=== PATIENT | female | born 1960 | race Caucasian/White ===

== ENCOUNTER 2022-12-14 08:35 | Outpatient (AMB) | payer OTHER, SELFPAY ==
--- NOTE | 2022-12-14 08:38 | A.OFFPC_ITS ---
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
--- NOTE | 2022-12-14 08:38 | MHC.PC.OV ---
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
--- NOTE | 2022-12-14 08:43 | A.OFFPC_ITS ---
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 Intake Note: Pt is here today as a New Patient to est care/ PE Allergies No Known Allergies Allergy (Verified 12/14/22 09:02) Medication List - Last Reconciled 12/14/22 by Giovana Manning MD atorvastatin 20 mg PO DAILY celecoxib 200 mg PO DAILY valsartan 160 mg PO DAILY Tobacco use date assessed: 12/14/22 Dental Screening Dental Screen Date: 12/14/22 Did you have a dental visit in the last 12 months?: No Was dental information given to patient?: Patient declined 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 She is overdue for her screening mammogram, last done 12/31/2019 which came back negative. Her last Pap smear was done 08/30/2018 which came back negative for intraepithelial lesion or malignancy, negative HPV. She had a screening colonoscopy done by Dr. Dayne storey 01/20/2018 at [facility] with removal of 2 benign polyps in the rectum, repeat colonoscopy due again in 2027. She has hypertension currently on valsartan 160 mg once a day. She takes atorvastatin for hyperlipidemia, and takes celecoxib as needed for chronic low back pain and arthritis. She is a current cigarette smoker, previously smokes 1-2 packs a day, now cut down to half a pack a day, not ready to quit was getting lung cancer sc reening at [facility] 2 years ago, per patient which came back negative. [facility] Medical History (Updated 12/14/22 @ 09:34 by Giovana Manning MD) Not ready to quit smoking Cigarette smoker one half pack a day or less Lumbar stenosis with neurogenic claudication History of right tennis elbow Degenerative disc disease, cervical Lumbar spine scoliosis Hx of fracture of wrist Hyperlipidemia Essential hypertension Surgical History (Updated 12/14/22 @ 09:17 by Giovana Manning MD) History of carpal tunnel surgery of right wrist History of carpal tunnel surgery of left wrist History of rotator cuff surgery History of colonoscopy with polypectomy Family History (Updated 12/14/22 @ 09:22 by Giovana Manning MD) Brother Substance use disorder Prostate cancer Daughter Substance use disorder Sister Substance use disorder Maternal Grandmother Diabetes mellitus Mother Alcoholism COPD (chronic obstructive pulmonary disease) Father Alcoholism COPD (chronic obstructive pulmonary disease) Social History (Updated 12/14/22 @ 09:19 by Giovana Manning MD) Housing: House Patient Tobacco Use Status: Current everyday Tobacco user Cigarettes Per Day: 10 Years Smoked: 40 e-Cigarette/Vaping Use: Never Used service: No Current occupational status: disabled Cognitive needs: No Hearing needs: No Vision needs: Yes Questionnaire PHQ-9 Over the last 2 weeks, how often have you been bothered by any of the following problems? 1. Little interest or pleasure in doing things: not at all 2. Feeling down, depressed, or hopeless: not at all 3. Trouble falling or staying asleep, or sleeping too much: not at all 4. Feeling tired or having little energy: not at all 5. Poor appetite or overeating: not at all 6. Feeling bad about yourself - or that you are a failure or have let yourself or your family down: not at all 7. Trouble concentrating on things, such as reading the newspaper or watching television: not at all 8. Moving or speaking so slowly that other people could have noticed. Or the opposite - being so fidgety or restless that you have been moving around a lot more than usual: not at all 9. Thoughts that you would be better off or of hurting yourself in some way: not at all Total score: 0 Depression Screening Interpretation: Negative Depression Screening Done: Yes 14383 - PHQ-9 Billing: Yes Source: Developed by Drs. Andrea Pendleton, Aniya Brewer, Ayden Shepherd and colleagues, with an educational brent from [employer]. AUDIT C Alcohol Use Questionnaire (AUDIT-C) 1. How often do you have a drink containing alcohol?: 2-3 times a week (Twisted tea) 2. How many drinks containing alcohol do you have on a typical day when you are drinking?: 3 or 4 3. How often do you have six or more drinks on one occasion?: Monthly Total Score: 6 LASHONDA-7 AMB Questionnaire LASHONDA-7 Date LASHONDA - 7 assessed: 12/14/22 Feeling nervous, anxious, or on edge: 0 = Not at all Not being able to stop or control worryin = Not at all Worrying too much about different things: 0 = Not at all Trouble relaxin = Not at all Being so restless that it is hard to sit still: 0 = Not at all Becoming easily annoyed or irritable: 0 = Not at all Feeling afraid as if something awful might happen: 0 = Not at all Total LASHONDA-7 score (0-4 normal; 5-9 mild; 10-14 moderate; 15-21 severe): 0 Source: Developed by Drs. Andrea Pendletno, Aniya Brewer, Ayden Shepherd and colleagues, with an educational brent from [employer]. Review of Systems Const Denies body aches, Denies fatigue, Denies fever(s), Denies frequent falls, Denies headache(s) and Denies weakness Eyes Details: Goes to [facility] Denies change in vision, Denies eye discharge and Denies itchy eyes ENT Denies dizziness, Denies headache(s), Denies nasal congestion, Denies nasal discharge, Reports neck pain and Denies sore throat Card Denies chest pain, Denies lightheadedness, Denies palpitations, Denies dyspnea and Denies dyspnea on exertion Resp Denies chest congestion, Reports cough (Dry), Denies dyspnea, Denies dyspnea on exertion and Reports wheezing (Intermittent) GI Denies abdominal pain, Denies change in bowel habits and Reports heartburn (Takes omeprazole daily) Denies hematuria, Denies urinary frequency, Denies dysuria and Denies urinary urgency Musc Denies abnormal gait, Reports back pain (Left), Reports neck pain, Reports radiating pain into limb and Reports stiffness Skin/Breast Denies breast pain, Denies breast mass, Denies lesions and Denies rash Neuro Denies abnormal gait, Denies dizziness, Denies frequent falls, Denies headache(s), Denies focal weakness and Denies weakness Psych Reports no additional complaints and Reports as per HPI Endo Denies fatigue, Denies polydipsia, Denies polyuria and Denies palpitations Codey/Lymph Denies easy bruising Aller/Immun Denies itchy eyes, Denies seasonal rhinorrhea and Reports wheezing (Intermittent) Physical exam (Primary Care) Vital Signs: Last Vital Signs Pulse 80 12/14/22 08:46 BP 130/82 12/14/22 08:46 Pulse Ox 96 12/14/22 08:46 Oxygen Delivery Method Room Air 12/14/22 08:46 BMI result Body Mass Index 23.6 Tobacco/Smoking Status: Tobacco use Status Tobacco use date assessed 12/14/22 12/14/22 08:49 Patient Tobacco Use Status Current everyday Tobacco 12/14/22 09:19 e-Cigarette/Vaping Use Never Used 12/14/22 09:19 PHQ-9: PHQ-9 Score PHQ-9: Total score 0 12/14/22 09:40 Depression Screening Interpretation: Negative Const General: no acute distress and alert Nutritional Appearance: average body habitus Orientation/consciousness: patient oriented x3 HENMT Head: Yes normocephalic and Yes atraumatic Ears: external ears normal, TM's normal bilaterally (Scarring bilateral ear drum) and EAC's normal General nose exam: Normal external nose present and No nasal discharge present Face and sinus: Yes face symmetric Mouth: Normal oral and palatal mucosa present, lip normal, tongue normal, oropharynx normal and moist mucous membranes Eyes General: appearance normal, both eyes and all related structures Eyelids: Yes eyelids normal Conjunctivae: conjunctivae normal Sclerae: sclerae normal Pupils: Equal, round and reactive pupils present EOM: EOMs intact bilaterally Neck Neck: Yes full ROM, Yes no lymphadenopathy and Yes supple Thyroid: Thyroid normal (Nonpalpable) Chest Chest palpation & inspection: normal inspection of the chest Breast/axilla inspection: normal inspection of the breasts Breast/axilla palpation: normal palpation of the breasts Resp Effort & Inspection: normal respiratory effort and able to speak in complete sentences Auscultation: clear to auscultation bilaterally Cardio Rate: regular rate Rhythm: regular rhythm Heart sounds: S1 normal heart sound present and S2 normal heart sound present GI Palpation (GI): Soft to palpation, nontender, no guarding and no masses Auscultation: normal bowel sounds General: Yes no CVA tenderness Back/Spine/Pelvis Back: no CVA tenderness and No back tenderness Skin Other: Erythema above left ankle, not warm to touch General skin exam: no rashes or lesions noted Neuro General: patient oriented x3, gait normal, moves all extremities, Normal light touch and pain sensation, no focal motor deficits and CN's II-XI intact bilaterally Cranial nerves: Yes Equal, round and reactive pupils present Cognition (Neuro): normal cognition Gait exam (Neuro): Normal gait present Motor exam (neuro): 5/5 motor strength present throughout Extrem Other: Slight swelling left lower leg above left ankle, slightly tender to palpation General: Yes normal to inspection, Yes full ROM, Yes no pedal edema and Yes normal gait Psych Appearance: grossly normal and well kempt Mental Status: mental status grossly normal Speech and movement: Normal speech and movement present Affect: normal affect Attitude: cooperative Thought process: Normal thought process present Thought content: Normal thought content present Office Procedures Flu Questionnaire Does the patient have a severe egg allergy?: No Does the patient have severe life threatening allergies?: No Does the patient have a fever or illness today?: No Has the patient ever had Guillain-[place] Syndrome?: No Has the patient ever had any past reaction to a flu shot?: No Immunizations flu vacc [id number] 6mos up(PF) 60 mcg(15 mcgx4)/0.5 mL IM syringe Performing Provider: Giovana Manning MD Performing Location: [facility] Administered by: Misty Echevarria CMA on 12/14/22 09:40 Dose Route Admin Location Dispensed Lot Number Expiration Date NDC Seed Collector 0.5 mL IM Left Deltoid 0.5 mL [id number] 09/02/23 [id number] [employer] VIS Given Date VIS Provided VIS Publication Date 12/14/22 Single Vaccine 20 Eligibility Eligibility Date Funding Source Not [facility] Eligible 12/14/22 Private Assessment and Plan Assessment & Plan (1) Lumbar stenosis with neurogenic claudication: Code(s): M48.062 - Spinal stenosis, lumbar region with neurogenic claudication Plan: Takes celecoxib (2) Pain and swelling of left lower extremity: Code(s): M79.605 - Pain in left leg; M79.89 - Other specified soft tissue disorders Plan: Ordered venous ultrasound to rule out DVT (3) Not ready to quit smoking: Code(s): Z72.0 - Tobacco use Plan: Patient strongly advised to stop smoking, as smoking damages blood vessels, degenerative of joints and spine, damage to lungs and heart., predisposes to developing certain cancers like lung, breast, bladder, colon. Recommended to try decreasing cigarette use by 1-2 cigarettes a day. Advised to monitor what triggers are for smoking so that this can be discussed on the next office visit. We can discuss different options to quit smoking when ready. (4) Cigarette smoker one half pack a day or less: Code(s): F17.210 - Nicotine dependence, cigarettes, uncomplicated Plan: Referred fo lung cancer screening had a previous exam done at [facility] 2 years ago, per patient (5) Wheezing on auscultation: Code(s): R06.2 - Wheezing Plan: Referred for pulmonary function test and pulmonary function test with methacholine challenge, to rule out COPD versus asthma. (6) Annual visit for general adult medical examination with abnormal findings: Code(s): Z00.01 - Encounter for general adult medical examination with abnormal findings Plan: Will check appropriate labs. Recommended dental visit every 6 months and regular eye exams, at least every 2 years. Take adequate calcium in diet and vitamin-D 3 at 2000 IU per cap once a day, in addition to weight-bearing exercises to help maintain good muscle tone and weight control. Instructed to do self-breast exam, and recommended to get yearly mammogram, ordered together with a bone density scan initial. Up-to-date with her screening colonoscopy, due again in 2027. Flu vaccine given today, advised to get her COVID booster, but patient declined, advised to get shingles vaccine and RSV (7) Cervical cancer screening: Code(s): Z12.4 - Encounter for screening for malignant neoplasm of cervix Plan: Referred to [facility] for [place] Pap and pelvic exam Orders: Orders 2 XR DEXA axial skeleton Today Z12.31 - Encounter for screening mammogram for malignant neoplasm of breast, Z78.0 - Asymptomatic menopausal state, Z87.81 - Personal history of (healed) traumatic fracture Comprehensive [place]. Panel Fast Today E78.5 - Hyperlipidemia, unspecified, I10 - Essential (primary) hypertension, Z00.01 - Encounter for general adult medical examination with abnormal findings, Z78.0 - Asymptomatic menopausal state Lipid Panel Today E78.5 - Hyperlipidemia, unspecified, I10 - Essential (primary) hypertension, Z00.01 - Encounter for general adult medical examination with abnormal findings, Z78.0 - Asymptomatic menopausal state Vitamin D 25-OH Total Today E78.5 - Hyperlipidemia, unspecified, I10 - Essential (primary) hypertension, Z00.01 - Encounter for general adult medical examination with abnormal findings, Z78.0 - Asymptomatic menopausal state Influenza [id number] Immunization Today Z23 - Encounter for immunization RT pft w methacholine Today F17.210 - Nicotine dependence, cigarettes, uncomplicated, R06.2 - Wheezing, Z00.01 - Encounter for general adult medical examination with abnormal findings, Z72.0 - Tobacco use MM screening mammo BI Today Z12.31 - Encounter for screening mammogram for malignant neoplasm of breast, Z78.0 - Asymptomatic menopausal state, Z87.81 - Personal history of (healed) traumatic fracture US venous duplex LE LT Today M79.605 - Pain in left leg, M79.89 - Other specified soft tissue disorders Complete Blood Count Auto Diff Today E78.5 - Hyperlipidemia, unspecified, I10 - Essential (primary) hypertension, Z00.01 - Encounter for general adult medical examination with abnormal findings, Z78.0 - Asymptomatic menopausal state PFT pulmonary function test Today F17.210 - Nicotine dependence, cigarettes, uncomplicated, R06.2 - Wheezing, Z72.0 - Tobacco use Referrals [facility] Referral Z12.4 - Encounter for screening for malignant neoplasm of cervix Thoracic Surgery Referral F17.210 - Nicotine dependence, cigarettes, uncomplicated Medications: New albuterol sulfate 90 mcg/actuation 2 puffs inhalation Q6H PRN 8.5 grams 0RF shortness of breath or wheezing Coding Level of Care Code New Pt Prev Care 40-64y(04151) Diagnoses Lumbar stenosis with neurogenic claudication M48.062 Pain and swelling of left lower extremity M79.605; M79.89 Not ready to quit smoking Z72.0 Cigarette smoker one half pack a day or less F17.210 Wheezing on auscultation R06.2 Annual visit for general adult medical examination with abnormal findings Z00.01 Cervical cancer screening Z12.4
[2022-12-14 08:46] VITALS: BP 130/82; PULSE 80; O2SAT 96; BMI 23.6
== END 2022-12-14 11:56 | disposition home or self-care (01) ==
PROVIDERS: PCP Internal Medicine; Visit Provider Internal Medicine
DX: Z00.00 Encounter for general adult medical examination without abnormal findings (principal); M48.062 Spinal stenosis, lumbar region with neurogenic claudication; M79.605 Pain in left leg; M79.89 Other specified soft tissue disorders; Z72.0 Tobacco use; Z23 Encounter for immunization; F17.210 Nicotine dependence, cigarettes, uncomplicated; R06.2 Wheezing
CPT/HCPCS: 90471; 90686; 99386

== ENCOUNTER 2022-12-14 09:46 | Outpatient (REF) | payer OTHER, SELFPAY ==
--- NOTE | ~2022-12-14 | US_ITS ---
EXAMINATION: US VENOUS ULTRASOUND WITH DOPPLER LOWER EXTREMITY, LEFT CLINICAL INFORMATION: Left leg pain. COMPARISON: None available. TECHNIQUE: Ultrasound of the deep veins is performed from the hip to the calf with compression sonography and color and pulse Doppler assessment. Spectral analysis with color-flow imaging is performed. FINDINGS: There is normal venous compression and respiratory variation and augmented flow. The visualized common femoral vein, superficial femoral vein, profunda femoral vein, popliteal vein, and the trifurcation region shows no evidence of deep venous thrombosis. If the patient's symptoms persist, followup ultrasound in 5 days 7 days might be of value to exclude proximal propagation from a non-visualized calf vein. US/US venous duplex LE IMPRESSION: No DVT demonstrated in the left lower extremity.
== END 2022-12-14 09:47 | disposition home or self-care (01) ==
LOC: HO.HMGCX 09:46
PROVIDERS: PCP Internal Medicine; Visit Provider Internal Medicine
DX: M79.605 Pain in left leg (principal); M79.89 Other specified soft tissue disorders
CPT/HCPCS: 93971

== ENCOUNTER 2022-12-27 09:27 | Outpatient (REF) | payer OTHER, SELFPAY ==
[2022-12-27 11:31] LABS: MANUAL DIFF FLAG NO
[2022-12-27 11:38] LABS: Basophils Percent Auto 0.1 % (0-2); Eosinophils Percent Auto 0.1 % (0-4); Hematocrit 40.2 % (37.0-47.0); Imm Gran Abs Auto 0.03 X10*3/uL (0.00-0.03); Imm Gran Pct Auto 0.4 % (0.0-0.4); Lymphocytes Absolute Auto 1.2 X10*3/uL (1.2-4.9); Lymphocytes Percent Auto 14.4 % (20-40); Mean Corpuscular HGB Conc 32.3 g/dl (31.0-35.0); Mean Corpuscular Hemoglobin 36.4 pg (27.0-33.0); Monocytes Absolute Auto 0.7 X10*3/uL (0.1-1.2); Monocytes Percent Auto 8.4 % (2-11); Neutrophils Absolute Auto 6.2 x10*3/uL (2.0-8.3); Neutrophils Percent Auto 76.6 % (45-73); Platelet Count 200 X10*3/uL (160-400); Red Blood Count 3.57 X10*6/uL (4.20-5.50); Red Cell Distribution Width 15.8 % (11.0-16.0); White Blood Count 8.1 X10*3/uL (4.8-10.8)
[2022-12-27 11:40] LABS: Mean Corpuscular Volume 112.6 fL (80.0-98.0)
[2022-12-27 12:42] LABS: Alanine Aminotransferase 26 U/L (0-31); Albumin Level 3.4 g/dL (3.5-5.0); Alkaline Phosphatase 182 U/L (39-117); Anion Gap 16 (12-20); Aspartate Amino Transferase 59 U/L (5-31); Bilirubin Total 0.8 mg/dL (0.0-1.0); Blood Urea Nitrogen 4 mg/dL (9-16); Calcium 9.2 mg/dL (8.4-10.2); Carbon Dioxide 31 mmol/L (22-29); Chloride 98 mmol/L (96-108); Cholesterol 128 mg/dL (<200); Estimated Glomerular Filt Rate > 60; Glucose Fasting 74 mg/dL (60-99); HDL Cholesterol 46 mg/dL (>40); LDL Cholesterol Calculated 66 mg/dL (<100); Potassium 3.4 mmol/L (3.3-5.1); Sodium 142 mmol/L (135-145); Total Protein 6.5 g/dL (6.5-8.0); Triglycerides 84 mg/dL (<150)
[2022-12-27 12:45] LABS: Vitamin D 25-OH Total 18.3 ng/mL (>30)
== END 2022-12-27 09:28 | disposition home or self-care (01) ==
LOC: HO.HMGCLDS 09:27
PROVIDERS: PCP Internal Medicine; Visit Provider Internal Medicine
DX: Z00.01 Encounter for general adult medical examination with abnormal findings (principal); I10 Essential (primary) hypertension; Z78.0 Asymptomatic menopausal state; E78.5 Hyperlipidemia, unspecified
CPT/HCPCS: 36415; 80053; 80061; 82306; 85025

== ENCOUNTER 2023-01-30 08:42 | Outpatient (REF) | payer OTHER, SELFPAY ==
--- NOTE | ~2023-01-30 | MM_ITS ---
EXAMINATION: BONE DENSITOMETRY CLINICAL INDICATION: Asymptomatic menopausal state. COMPARISON: This is the patient's baseline examination. TECHNIQUE: Using a [employer] DXA System (software version: 13.1) manufactured by [employer], dual-energy x-ray absorptiometry was performed of the left hip and left forearm radius 33%. The images are of good technical quality. Summary results are attached. FINDINGS: LEFT FEMUR, NECK: BMD 0.678 g/cm2, Z-score -1.1, T-score -2.6, osteoporosis. LEFT FEMUR, TOTAL: BMD 0.735 g/cm2, Z-score -1.0, T-score -2.2, osteopenia. LEFT FOREARM RADIUS 33%: BMD 0.608 g/cm2, Z-score -2.1, T-score -3.1, osteoporosis. IDENTIFIED RISK FACTORS: Current smoker, alcohol use, history of fracture (adult), recurrent falls, height loss, low calcium intake, menopause. HISTORY OF FRACTURE: Wrist. MEDICATIONS: None listed. MM/XR DEXA axial skeleton IMPRESSION: 1. DIAGNOSIS: Severe osteoporosis based on the lowest T-score value of -3.1 in the forearm radius 33% and history of fracture applying World Health Organization criteria. 2. 10-YEAR FRACTURE RISK PREDICTION, FRAX: According to the guidelines, FRAX calculation should only be performed on patients in the osteopenia bone density category. Therefore, FRAX was not performed on this patient. 3. Treatment Recommendations: NOF guidelines recommend consideration for treatment in postmenopausal women and men age 50 and older presenting with the following: -A hip or vertebral (clinical or morphometric) fracture. -T-score less than or equal to -2.5 at the femoral neck or spine after appropriate evaluation to exclude secondary causes. -Low bone mass at the hip or spine and a 10-year fracture probability by FRAX of greater than or equal to 3% for hip fracture or greater than or equal to 20% for major osteoporotic fracture based on the [place] adapted WHO algorithm. 4. Other Recommendations: All treatment decisions require clinical judgment and consideration of individual patient factors, including patient preferences, comorbidities, previous drug use, risk factors not captured in the FRAX model (e.g. frailty, falls, vitamin D deficiency, increased bone turnover, interval significant decline in bone density) and possible under or overestimation of fracture risk by FRAX. Additional medical evaluation for secondary cause of low bone mineral density may be appropriate. FUTURE SCAN RECOMMENDATION: People with diagnosed cases of osteoporosis or at high risk for fracture should have regular bone mineral density tests. For patients eligible for Medicare, routine testing is allowed once every 2 years. The testing frequency can be increased to one year for patients who have rapidly progressing disease, those who are receiving or discontinuing medical therapy to restore bone mass, or have additional risk factors.
== END 2023-01-30 08:43 | disposition home or self-care (01) ==
LOC: HO.MAMMO 08:42
PROVIDERS: PCP Internal Medicine; Visit Provider Internal Medicine
DX: Z12.31 Encounter for screening mammogram for malignant neoplasm of breast (principal); Z13.820 Encounter for screening for osteoporosis; Z78.0 Asymptomatic menopausal state; Z87.81 Personal history of (healed) traumatic fracture
CPT/HCPCS: 77063; 77067; 77080

== ENCOUNTER → 2023-01-30 09:00 | Outpatient (BNV) | payer OTHER, SELFPAY | PROVIDERS: PCP Internal Medicine; Visit Provider Radiology Diagnostic Radiology | DX: Z12.31 Encounter for screening mammogram for malignant neoplasm of breast (principal) | CPT/HCPCS: 77063; 77067 ==

== ENCOUNTER 2023-02-16 09:49 | Outpatient (AMB) | payer OTHER, SELFPAY ==
--- NOTE | 2023-02-16 09:50 | A.OFFVIS_ITS ---
Intake Intake Visit Reasons: LDCT SD Allergies No Known Allergies Allergy (Verified 12/14/22 09:02) HPI HPI Comments History of Present Illness Details Guadalupe is a pleasant 62 year old female, current smoker with a 45 PYH. Patient has been smoking since age 17 for 45 years at ppd. She is currently down to 1/2 ppd for the past few months. Denies marijuana use. Denies exposure to chemicals or substances like asbestos. Admits second hand smoke exposure. Denies known family history of lung cancer. Denies personal history of cancers. Denies chest CT in last year. Reports recent travel outside the [place] to the [facility]. Denies testing positive for COVID x 1. Denies receiving COVID Vaccine. Denies fever, chills, chest pain, new cough, hemoptysis or unintentional weight loss. Lung Cancer Screening Questionnaire reviewed with patient by provider. Shared Decision Making Completed. Discussed in detail with patient, the risk versus benefit of LDCT screening. Patient in agreement of proceeding with scan. [facility] Medical History (Updated 12/14/22 @ 09:34 by Giovana Manning MD) Not ready to quit smoking Cigarette smoker one half pack a day or less Lumbar stenosis with neurogenic claudication History of right tennis elbow Degenerative disc disease, cervical Lumbar spine scoliosis Hx of fracture of wrist Hyperlipidemia Essential hypertension Surgical History (Updated 12/14/22 @ 09:17 by Giovana Manning MD) History of carpal tunnel surgery of right wrist History of carpal tunnel surgery of left wrist History of rotator cuff surgery History of colonoscopy with polypectomy Family History (Updated 12/14/22 @ 09:22 by Giovana Manning MD) Brother Substance use disorder Prostate cancer Daughter Substance use disorder Sister Substance use disorder Maternal Grandmother Diabetes mellitus Mother Alcoholism COPD (chronic obstructive pulmonary disease) Father Alcoholism COPD (chronic obstructive pulmonary disease) Social History (Updated 02/16/23 @ 10:41 by Jessenia Orr NP) Housing: House Patient Tobacco Use Status: Current everyday Tobacco user Cigarettes Per Day: 10 Years Smoked: 45 e-Cigarette/Vaping Use: Never Used service: No Current occupational status: disabled Cognitive needs: No Hearing needs: No Vision needs: Yes Assessment & Plan Assessment & Plan (1) Cigarette smoker one half pack a day or less: Code(s): F17.210 - Nicotine dependence, cigarettes, uncomplicated Plan Shared decision-making visit completed today in office. This patient meets criteria for LDCT for lung cancer screening purposes and is asymptomatic. Offered smoking cessation. Patient has been scheduled for a low dose chest CT for screening purposes at [facility]. We discussed how the results will be obtained depending on CT findings. RADS 1 and RADS 2 will receive a letter with results and will follow up for annual LDCT. Patient informed they will be contacted at later date to schedule upcoming LDCT scan. RADS 3 and RADS 4 will receive a telephone call, or an office visit after reviewing case at our Lung Cancer Conference to determine when the next LDCT will be scheduled or fu rther interventions that may be needed. Discussed importance of screening program and compliance with yearly LDCT scan as scheduled. Risks, benefits, and alternatives were discussed in detail and patient agrees to proceed. Risks discussed include but are not limited to: radiation exposure and possibility of additional intervention for benign disease. Benefits include detection of lung cancer at an early stage. A copy of today's visit and LDCT results will be sent to patient's PCP. Incidental findings on LDCT are PCP's responsibility. If there are incidental findings, our office will ensure that PCP office is aware of these findings. All questions were answered and patient is in agreement of plan. Coding Level of Care Code Lung Cancer Screening [id number] Diagnoses Cigarette smoker one half pack a day or less F17.210
== END 2023-02-16 10:08 | disposition home or self-care (01) ==
PROVIDERS: PCP Internal Medicine; Visit Provider Nurse Practitioner Family
DX: F17.210 Nicotine dependence, cigarettes, uncomplicated (principal)
CPT/HCPCS: G0296

== ENCOUNTER 2023-02-16 10:09 | Outpatient (REF) | payer OTHER, SELFPAY ==
--- NOTE | ~2023-02-16 | CT_ITS ---
EXAMINATION: CT CHEST SCREENING CLINICAL INFORMATION: Current smoker at 1 pack per day with 41-ucrj-citt history. COMPARISON: None available. TECHNIQUE: Multidetector volumetric CT imaging of the chest is performed without contrast using low dose technique. Additional 2D coronal and sagittal reformatted images and axial 3D maximum intensity projection (MIP) images are generated on the CT workstation. This CT examination was performed using dose optimization techniques as appropriate, variously including the following: *Automated exposure control *Adjustment of mA and/or kV according to patient size (this includes techniques or standardized protocols for targeted exams where dose is matched to indication/reason for exam; i.e. extremities or head) *Use of iterative reconstruction technique DLP: 42 mGy-cm FINDINGS: LUNGS: There is some bibasilar atelectasis present, right greater than left. Tiny 3 mm ground-glass opacity left upper lobe (5:64). Some mild peribronchial thickening is present. The lungs are otherwise clear with no evidence of inflammation or concerning nodules. MEDIASTINUM: The mediastinum is normal. CORONARY ARTERY CALCIFICATION: None visualized on this study. PLEURA: There is no pleural effusion. No pleural mass or thickening. AXILLA: No lymphadenopathy. UPPER ABDOMEN: Unremarkable OSSEOUS STRUCTURES: Iglesias stephanie is present throughout the thoracic spine with associated biconvex thoracolumbar scoliosis. ACDF hardware noted in the lower cervical spine. CT/CT lung screening IMPRESSION: Tiny 3 mm ground-glass opacity left upper lobe. ASSESSMENT: Lung-RADS category 2: Benign RECOMMENDATION: Routine annual low-dose CT screening in 12 months.
== END 2023-02-16 10:10 | disposition home or self-care (01) ==
LOC: HO.CT 10:09
PROVIDERS: PCP Internal Medicine; Visit Provider Nurse Practitioner Family
DX: Z12.2 Encounter for screening for malignant neoplasm of respiratory organs (principal); F17.210 Nicotine dependence, cigarettes, uncomplicated
CPT/HCPCS: 71271; G0296

== ENCOUNTER 2023-03-29 10:42 | Outpatient (REF) | payer OTHER, SELFPAY ==
[2023-03-29 14:37] LABS: Alanine Aminotransferase 36 U/L (0-31); Albumin Level 3.9 g/dL (3.5-5.0); Alkaline Phosphatase 161 U/L (39-117); Anion Gap 13 (12-20); Aspartate Amino Transferase 67 U/L (5-31); Bilirubin Total 0.6 mg/dL (0.0-1.0); Blood Urea Nitrogen 5 mg/dL (9-16); Calcium 9.8 mg/dL (8.4-10.2); Carbon Dioxide 34 mmol/L (22-29); Chloride 102 mmol/L (96-108); Cholesterol 166 mg/dL (<200); Estimated Glomerular Filt Rate > 60; Glucose Fasting 90 mg/dL (60-99); HDL Cholesterol 79 mg/dL (>40); LDL Cholesterol Calculated 67 mg/dL (<100); Sodium 145 mmol/L (135-145); Total Protein 6.9 g/dL (6.5-8.0); Triglycerides 103 mg/dL (<150)
[2023-03-29 14:44] LABS: Vitamin D 25-OH Total 22.7 ng/mL (>30)
[2023-03-29 14:54] LABS: Folate 3.9 ng/mL (> or = 4.0); Vitamin B12 337 pg/mL (200-900)
== END 2023-03-29 10:43 | disposition home or self-care (01) ==
LOC: HO.HMGCLDS 10:42
PROVIDERS: PCP Internal Medicine; Visit Provider Internal Medicine
DX: I10 Essential (primary) hypertension (principal); E55.9 Vitamin D deficiency, unspecified; Z78.0 Asymptomatic menopausal state; E78.5 Hyperlipidemia, unspecified; F17.210 Nicotine dependence, cigarettes, uncomplicated
CPT/HCPCS: 36415; 80053; 80061; 82306; 82607; 82746

== ENCOUNTER 2023-04-02 10:23 | Outpatient (AMB) | payer OTHER, SELFPAY ==
--- NOTE | 2023-04-02 10:24 | A.OFFPC_ITS ---
Intake Visit Reasons: 3 months f/u labs Andriod [phone] Allergies No Known Allergies Allergy (Verified 04/02/23 10:34) Medication List - Last Reconciled 04/02/23 by Giovana Manning MD albuterol sulfate 90 mcg/actuation 2 puffs inhalation Q6H PRN atorvastatin 20 mg PO DAILY valsartan 160 mg PO DAILY Tobacco use date assessed: 04/02/23 Dental Screening Dental Screen Date: 04/02/23 Did you have a dental visit in the last 12 months?: No Was dental information given to patient?: No HPI 3 months f/u labs Andriod [phone] HPI Details 63-year-old lady with hypertension and h yperlipidemia, has vitamin-D deficiency and active cigarette smoker, here today for follow-up. Not interested in quitting at present time, but has cut down to smoking 10 cigarettes a day. Had recent fasting labs done which showed presence still of vitamin-D deficiency and folate deficiency, elevated liver enzymes and alkaline phosphatase, but lower than last check. Her fasting lipids are within normal limit but higher than last office visit [facility] Medical History (Updated 04/02/23 @ 11:01 by Giovana Manning MD) Elevated liver transaminase level Folate deficiency Vitamin D deficiency Not ready to quit smoking Cigarette smoker one half pack a day or less Lumbar stenosis with neurogenic claudication History of right tennis elbow Degenerative disc disease, cervical Lumbar spine scoliosis Hx of fracture of wrist Hyperlipidemia Essential hypertension Surgical History (Updated 12/14/22 @ 09:17 by Giovana Manning MD) History of carpal tunnel surgery of right wrist History of carpal tunnel surgery of left wrist History of rotator cuff surgery History of colonoscopy with polypectomy Family History (Updated 12/14/22 @ 09:22 by Giovana Manning MD) Brother Substance use disorder Prostate cancer Daughter Substance use disorder Sister Substance use disorder Maternal Grandmother Diabetes mellitus Mother Alcoholism COPD (chronic obstructive pulmonary disease) Father Alcoholism COPD (chronic obstructive pulmonary disease) Social History (Updated 02/16/23 @ 10:41 by Jessenia Orr NP) Housing: House Patient Tobacco Use Status: Current everyday Tobacco user Cigarettes Per Day: 10 Years Smoked: 45 Packs per year/per ci.50 e-Cigarette/Vaping Use: Never Used service: No Current occupational status: disabled Cognitive needs: No Hearing needs: No Vision needs: Yes Questionnaire PHQ-9 Over the last 2 weeks, how often have you been bothered by any of the following problems? 1. Little interest or pleasure in doing things: not at all 2. Feeling down, depressed, or hopeless: not at all 3. Trouble falling or staying asleep, or sleeping too much: not at all 4. Feeling tired or having little energy: not at all 5. Poor appetite or overeating: not at all 6. Feeling bad about yourself - or that you are a failure or have let yourself or your family down: not at all 7. Trouble concentrating on things, such as reading the newspaper or watching television: not at all 8. Moving or speaking so slowly that other people could have noticed. Or the opposite - being so fidgety or restless that you have been moving around a lot more than usual: not at all 9. Thoughts that you would be better off or of hurting yourself in some way: not at all Total score: 0 Depression Screening Interpretation: Negative Depression Screening Done: Yes 93044 - PHQ-9 Billing: Yes Source: Developed by Drs. Andrea Pendleton, Aniya Brewer, Ayden Shepherd and colleagues, with an educational brent from [employer]. Thrive Questionnaire Date Thrive assessed: 04/02/23 I am a: Patient What is your living situation today?: I have a steady place to live Within the past 12 months, did the food you bought not last and you didn't have the money to get more?: Never true Within the past 12 months, did you worry whether your food would run out before you got money to buy more?: Never true Do you have trouble paying for medicines?: No Do you have trouble getting transportation to medical appointments?: No Do you have trouble paying your heating and electricity bill?: No Do you have trouble taking care of your child, family member or friend?: No Do you have trouble with day-to-day activities such as bathing, preparing meals, shopping, managing finances, etc.?: No Are you currently unemployed and looking for a job?: No Are you interested in more education?: No THRIVE Score: 0 AUDIT C Alcohol Use Questionnaire (AUDIT-C) 1. How often do you have a drink containing alcohol?: 2-3 times a week 2. How many drinks containing alcohol do you have on a typical day when you are drinking?: 3 or 4 3. How often do you have six or more drinks on one occasion?: Monthly Total Score: 6 LASHONDA-7 AMB Questionnaire LASHONDA-7 Date LASHONDA - 7 assessed: 04/02/23 Feeling nervous, anxious, or on edge: 0 = Not at all Not being able to stop or control worryin = Not at all Worrying too much about different things: 0 = Not at all Trouble relaxin = Not at all Being so restless that it is hard to sit still: 0 = Not at all Becoming easily annoyed or irritable: 0 = Not at all Feeling afraid as if something awful might happen: 0 = Not at all Total LASHONDA-7 score (0-4 normal; 5-9 mild; 10-14 moderate; 15-21 severe): 0 Source: Developed by Drs. Andrea Pendleton, Aniya Brewer, Ayden Shepherd and colleagues, with an educational brent from [employer]. LASHONDA-7 Assessment Billing LASHONDA-7 Assessment Tool: LASHONDA-7 Assessment 69980 Review of Systems Const Denies fatigue, Denies fever(s), Denies frequent falls, Denies headache(s) and Denies weakness Eyes Details: Goes [facility] Denies change in vision, Denies eye discharge and Denies itchy eyes ENT Denies dizziness, Denies headache(s), Denies nasal congestion, Reports neck pain (Recently seen at an urgent care clinic in [facility] earlier this month) and Denies sore throat Card Denies chest pain, Denies lightheadedness, Denies palpitations and Denies dyspnea Resp Denies chest congestion and Denies dyspnea GI Denies abdominal pain, Denies change in bowel habits and Reports heartburn (Takes omeprazole daily) Denies hematuria, Denies urinary frequency, Denies dysuria and Denies urinary urgency Musc Denies abnormal gait, Reports neck pain (Recently seen at an urgent care clinic in [facility] earlier this month), Reports radiating pain into limb and Reports stiffness Neuro Denies abnormal gait, Denies dizziness, Denies frequent falls, Denies headache(s), Denies focal weakness and Denies weakness Endo Denies fatigue, Denies polydipsia, Denies polyuria and Denies palpitations Codey/Lymph Denies easy bruising Aller/Immun Denies itchy eyes and Denies seasonal rhinorrhea Physical exam (Primary Care) Tobacco/Smoking Status: Tobacco use Status Tobacco use date assessed 04/02/23 04/02/23 10:27 Patient Tobacco Use Status Current everyday Tobacco 04/02/23 10:27 e-Cigarette/Vaping Use Never Used 04/02/23 10:27 PHQ-9: PHQ-9 Score PHQ-9: Total score 0 04/02/23 10:27 Depression Screening Interpretation: Negative Thrive Assessment: Date of Thrive Assessment Date Thrive assessed 04/02/23 04/02/23 10:27 Telehealth Telehealth Location of provider rendering services: practice address Location of patient: address on file Patient Identification confirmed using: Name, : Yes Telehealth method: video Patient verbally consented to treatment: Yes Patient verbally consented to billing insurance company: Yes Patient informed of any privacy concerns related to visit: Yes Minutes spent on Phone/Video with Pt.: 15 Results Reviewed Results Reviewed: Name: Guadalupe Nguyen Age/Sex: 63/F : 1960 Unit#: [id number] Attend Dr: Giovana Manning MD Re03/29/23 Status: DEP REF Location: [facility] Disch: SPEC : [id number] SIMA: 03/29/23 STATUS: COMP REQ : [id number] RECD: 03/29/23-[address]: Giovana Manning MD COMP: 03/29/23-1443 ENTERED: 03/29/23-[address]: ORDERED: CMP Fast, Lipid Panel, Vitamin D 25-OH Test Result Flag Reference Sodium 145 135-145 mmol/L Potassium 4.0 3.3-5.1 mmol/L CL 102 96-108 mmol/L CO2 34 H 22-29 mmol/L Gap 13 12-20 BUN 5 L 9-16 mg/dL Creat 0.60 0.5-1.4 mg/dL EGFR > 60 NOTE: For -Panamanian individuals, multiply the result by 1.210. Chronic Kidney Disease: Estimated GFR < 60 mL/min/1.73m2 Severe Kidney Disease: Estimated GFR < 15 mL/min/1.73m2 FBS 90 60-99 mg/dL CA 9.8 # 8.4-10.2 mg/dL Total Bili 0.6 0.0-1.0 mg/dL AST (GOT) 67 H 5-31 U/L ALT (GPT) 36 H 0-31 U/L Protein, Total 6.9 6.5-8.0 g/dL Alb 3.9 3.5-5.0 g/dL Triglyceride 103 <150 mg/dL Desirable Triglyceride: less than 150 mg/dL Borderline High Triglyceride 150-199 mg/dL High Triglyceride: 200-499 mg/dL Very High Triglyceride: greater than or equal to 5OO mg/dL Cholesterol 166 <200 mg/dL Desirable Cholesterol: less than 200 mg/dL Borderline High Cholesterol: 200-239 mg/dL High Cholesterol: greater than 239 mg/dL LDL Calculated 67 <100 mg/dL Desirable LDL: less than 100 mg/dL Near Optimal/Above Optimal LDL: 110-129 mg/dL Borderline High LDL: 130-159 mg/dL High LDL: 160-189 mg/dL Very High LDL: greater than or equal to 190 mg/dL HDL 79 >40 mg/dL Desirable HDL: greater than 40 mg/dL Note: This HDL assay may give artificially low results in patients with liver disease. Alk Phos 161 H 39-117 U/L Vit D 25-OH Tot 22.7 L >30 ng/mL Health Based Reference Values* < 20 ng/mL Deficient 20-30 ng/mL Insufficient > 30 ng/mL Sufficient Laboratory Tests 03/29/23 10:46 Vitamin B12 337 Folate 3.9 L Laboratory Tests 12/27/22 09:30 WBC 8.1 RBC 3.57 L Hgb 13.0 Hct 40.2 MCV 112.6 H MCH 36.4 H RDW 15.8 Plt Count 200 Assessment and Plan Assessment & Plan (1) Vitamin D deficiency: Code(s): E55.9 - Vitamin D deficiency, unspecified Plan: Prescription sent for cholecalciferol 61137 units per capsule to take once a week for the next 3 months. Once finished taking the prescription, continue taking [id number] vitamin-D 3 at 2000 units daily. Will check vitamin-D levels in 3 month (2) Cigarette smoker one half pack a day or less: Code(s): F17.210 - Nicotine dependence, cigarettes, uncomplicated (3) Not ready to quit smoking: Code(s): Z72.0 - Tobacco use Plan: Patient strongly advised to stop smoking, as smoking damages blood vessels, degenerative of joints and spine, damage to lungs and heart., predisposes to developing certain cancers like lung, breast, bladder, colon. Recommended to try decreasing cigarette use by 1-2 cigarettes a day. Advised to monitor what triggers are for smoking so that this can be discussed on the next office visit. We can discuss different options to quit smoking when ready. (4) Hyperlipidemia: Code(s): E78.5 - Hyperlipidemia, unspecified Qualifiers: Hyperlipidemia type: pure hypercholesterolemia Qualified Code(s): E78.00 - Pure hypercholesterolemia, unspecified Plan: Reviewed recent fasting lipid profile with patient with levels within normal limits but higher than last check . Continue with atorvastatin 20 mg daily , in addition to adherence to low-cholesterol diet and regular exercise, at least 30 minutes 3 to 4 times a week. Advised patient to make healthy food choices, eat more fruits, vegetables, whole grains, wild caught fish and low- fat dairy. Limit amount of meat and fried or fatty food products, as well as processed foods and fast foods. Follow-up scheduled with repeat fasting lipid panel in 3 months. (5) Essential hypertension: Code(s): I10 - Essential (primary) hypertension Plan: Continue with valsartan, refill sent (6) Folate deficiency: Code(s): E53.8 - Deficiency of other specified B group vitamins Plan: Started on folic acid 800 mcg taken once a day,. Will check folic acid levels again in 3 month (7) Elevated liver transaminase level: Code(s): R74.01 - Elevation of levels of liver transaminase levels Plan: Patient advised strongly to quit alcohol intake, will monitor liver enzymes and alkaline phosphatase Orders: Orders Comprehensive [place]. Panel Fast 3 Months E53.8 - Deficiency of other specified B group vitamins, E55.9 - Vitamin D deficiency, unspecified, E78.5 - Hyperlipidemia, unspecified, I10 - Essential (primary) hypertension Lipid Panel 3 Months E53.8 - Deficiency of other specified B group vitamins, E55.9 - Vitamin D deficiency, unspecified, E78.5 - Hyperlipidemia, unspecified, I10 - Essential (primary) hypertension Vitamin D 25-OH Total 3 Months E53.8 - Deficiency of other specified B group vitamins, E55.9 - Vitamin D deficiency, unspecified, E78.5 - Hyperlipidemia, unspecified, I10 - Essential (primary) hypertension Vitamin B12 and Folate 3 Months E53.8 - Deficiency of other specified B group vitamins, E55.9 - Vitamin D deficiency, unspecified, E78.5 - Hyperlipidemia, unspecified, I10 - Essential (primary) hypertension Medications: New cholecalciferol (vitamin D3) 1,250 mcg PO QWEEK 3 months 13 caps 0RF E55.9 - Vitamin D deficiency, unspecified folic acid 0.8 mg PO DAILY 90 tabs 1RF valsartan 160 mg PO DAILY 90 tabs 2RF atorvastatin 20 mg PO DAILY 90 tabs 2RF Coding Level of Care Code Tele Est Pt Level 3 (73574) Diagnoses Vitamin D deficiency E55.9 Cigarette smoker one half pack a day or less F17.210 Not ready to quit smoking Z72.0 Pure hypercholesterolemia E78.00 Hyperlipidemia type: pure hypercholesterolemia Essential hypertension I10 Folate deficiency E53.8 Elevated liver transaminase level R74.01 Additional Codes LASHONDA-7 Assessment Billing - LASHONDA-7 Assessment Tool: LASHONDA-7 Assessment 43900 ( [id number])
== END 2023-04-02 16:07 | disposition home or self-care (01) ==
LOC: HO.HMGC 10:23
PROVIDERS: PCP Internal Medicine; Visit Provider Internal Medicine
DX: F17.210 Nicotine dependence, cigarettes, uncomplicated (principal); E55.9 Vitamin D deficiency, unspecified; I10 Essential (primary) hypertension; E78.00 Pure hypercholesterolemia, unspecified; E53.8 Deficiency of other specified B group vitamins; R74.01 Elevation of levels of liver transaminase levels
CPT/HCPCS: 99213

== ENCOUNTER 2023-04-10 08:07 | Outpatient (REF) | payer OTHER, SELFPAY ==
[2023-04-16 20:09] LABS: HPV mRNA E6/E7 rflx Not Detected (Not Detected)
== END 2023-04-10 08:08 | disposition home or self-care (01) ==
LOC: HO.LNP 08:07
PROVIDERS: PCP Internal Medicine; Visit Provider Obstetrics & Gynecology
DX: Z01.419 Encounter for gynecological examination (general) (routine) without abnormal findings (principal); Z11.51 Encounter for screening for human papillomavirus (HPV)
CPT/HCPCS: 87624; 88142

== ENCOUNTER 2023-04-10 08:07 | Outpatient (AMB) | payer OTHER, SELFPAY ==
--- NOTE | 2023-04-10 08:17 | A.OFFVIS_ITS ---
Intake Vital Signs 04/10/23 08:19 Height 5 ft Weight 122 lb BMI 23.8 BP 122/64 Intake Visit Reasons: New patient Annual Pouncing Lathe Operator Required: No Information Interpreted: non-clinical & clinical Interior Design Assistant: Interior Design Assistant Present (Margi) Allergies No Known Allergies Allergy (Verified 04/10/23 08:19) Is last menstrual period known: No Post menopausal: Yes Patient : No HPI HPI Comments History of Present Illness Details Presenting for annual exam. No complaints. Last Pap/HPV was negative in 08/21 Last Mammogram was BI-RADS 1 in 01/25 Last Colonoscopy was done 01/20, the recommendation was to repeat in 10 years [facility] Medical History Hx of scoliosis Elevated liver transaminase level Folate deficiency Vitamin D deficiency Not ready to quit smoking Cigarette smoker one half pack a day or less Lumbar stenosis with neurogenic claudication History of right tennis elbow Degenerative disc disease, cervical Lumbar spine scoliosis Hx of fracture of wrist Hyperlipidemia Essential hypertension Surgical History Hx of section Hx of tubal ligation History of carpal tunnel surgery of right wrist History of carpal tunnel surgery of left wrist History of rotator cuff surgery History of colonoscopy with polypectomy Family History Brother Substance use disorder Prostate cancer Daughter Substance use disorder Sister Substance use disorder Maternal Grandmother Diabetes mellitus Mother Alcoholism COPD (chronic obstructive pulmonary disease) Father Alcoholism COPD (chronic obstructive pulmonary disease) Social History Housing: House Alcohol intake: current Alcohol intake frequency: a few times a month Patient Tobacco Use Status: Current everyday Tobacco user Cigarette Packs Per Day: 1 Cigarettes Per Day: 20 Years Smoked: 45 e-Cigarette/Vaping Use: Never Used Patient : No service: No Current occupational status: disabled Cognitive needs: No Hearing needs: No Vision needs: Yes Female Reproductive History Menstrual Age of Menarche: 16 control method: permanent sterilization Total pregnancies: 2 Full term: 2 Number of Living Children: 2 Date of last pap smear: 08/30/18 (negative) Date of Mammogram: 01/30/23 Date of last Bone Density Screenin01/30/23 Review of Systems Const All systems reviewed & are unremarkable except as noted in HPI and below Card Reports as per HPI Resp Reports as per HPI GI Reports as per HPI and Reports no additional complaints Reports as per HPI Physical Exam Vital Signs: Last Vital Signs BP 122/64 04/10/23 08:19 BMI result Body Mass Index 23.8 Const General: cooperative, healthy appearing and comfortable Chest Chest palpation & inspection: normal inspection of the chest and normal palpation of entire chest wall Breast/axilla inspection: normal inspection of the breasts and normal inspection of the axillae Breast/axilla palpation: normal palpation of the breasts, normal palpation of the axillae and no axillary lymphadenopathy Resp Effort & Inspection: normal respiratory effort Auscultation: clear to auscultation bilaterally Percussion: percussion normal Cardio Palpation: normal PMI Rate: regular rate Rhythm: regular rhythm Heart sounds: no murmurs and no rubs Peripheral pulses: Peripheral pulses 2+ throughout GI Inspection: Yes normal to inspection Palpation (GI): Soft to palpation, nontender, no guarding, not rigid and No hepatosplenomegaly present Percussion: Yes normal to percussion Auscultation: normal bowel sounds Rectal Exam - Female: deferred General: Yes bladder normal to palpation External Female Exam: No lesion Speculum Exam - Vagina: normal appearance of the vagina, normal palpation, normal vaginal discharge and not erythematous Speculum Exam - Cervix: normal appearance of the cervix and normal palpation Bimanual exam- vagina & uterus: normal bimanual exam, normal palpation, uterine size normal, bladder normal to palpation, consistency normal and normal palpation Bimanual Exam- Adnexa, other: normal adnexae, no masses and no tenderness Assessment & Plan Assessment & Plan (1) Well woman exam: Code(s): Z01.419 - Encounter for gynecological examination (general) (routine) without abnormal findings Plan: Co testing done. Counseled the patient about the recommended dietary allowance of 1200 mg of Calcium & 600 IU of vitamin D. Instructions given the patient to schedule next screening Mammogram in 01/26. The patient was instructed to perform monthly self-breast exams and schedule annual exam in a year. All questions answered and the patient verbalized understanding. Coding Level of Care Code New Pt Prev Care 40-64y(69886) Diagnoses Well woman exam Z01.419
[2023-04-10 08:19] VITALS: BP 122/64; BMI 23.8
== END 2023-04-10 08:37 | disposition home or self-care (01) ==
PROVIDERS: PCP Internal Medicine; Visit Provider Obstetrics & Gynecology
DX: Z01.419 Encounter for gynecological examination (general) (routine) without abnormal findings (principal)
CPT/HCPCS: 99386

== ENCOUNTER 2023-07-25 10:07 | Outpatient (REF) | payer OTHER, SELFPAY ==
--- NOTE | ~2023-07-25 | XR_ITS ---
EXAMINATION: XR CERVICAL SPINE CLINICAL INFORMATION: Cervical disc disease. COMPARISON: None available. TECHNIQUE: 6 views of the cervical spine. FINDINGS: The bones are diffusely demineralized. Spinal stabilization hardware in the partially imaged upper thoracic spine. Mild leftward curvature of the cervical spine. ACDF hardware at C6-C7. Screw type device at likely C5-C6 level, evaluation is limited due to demineralization as well as overlying bone and soft tissue structures. XR/XR cervical spine 4V IMPRESSION: ACDF hardware at C6-C7. Screw type device at likely C5-C6 level, evaluation is limited due to demineralization as well as overlying bony and soft tissue structures.
== END 2023-07-25 10:08 | disposition home or self-care (01) ==
LOC: HO.XRAY 10:07
PROVIDERS: PCP Internal Medicine; Visit Provider Psychiatry & Neurology Neurology
DX: M50.90 Cervical disc disorder, unspecified, unspecified cervical region (principal)
CPT/HCPCS: 72050

== ENCOUNTER 2023-11-28 10:42 | Inpatient (IN) | payer OTHER, SELFPAY ==
[2023-11-28] VITALS (9 sets, daily range): BP systolic 96–144; BP diastolic 61–100; PULSE 86–122; RESP 11–105; TEMP 36.6–36.8; O2SAT 95–98; BMI 20.5
--- NOTE | ~2023-11-28 | XR_ITS ---
EXAMINATION: XR CHEST CLINICAL INFORMATION: Weakness COMPARISON: None available. TECHNIQUE: Frontal view of the chest was obtained. FINDINGS: The lungs are adequately expanded. No focal consolidation. No pleural effusions or pneumothorax. The cardiomediastinal silhouette is within normal limits. Dextroconvex curvature of the thoracic spine. Cervical spine fusion hardware. Surgical hardware overlies the thoracic spine. No acute osseous abnormality. XR/XR chest 1V IMPRESSION: No acute pulmonary disease. Electronically signed by: Sagar Duval MD 11/28/2023 01:12 PM EDT
--- NOTE | ~2023-11-28 | US_ITS ---
EXAMINATION: US ABDOMEN LIMITED CLINICAL INFORMATION: Ascites check. COMPARISON: Abdominal ultrasound dated November 30, 2023. CT scan dated November 28, 2023. TECHNIQUE: Limited four-quadrant ultrasound examination was performed to assess for the presence of ascites. FINDINGS: Examination demonstrates a small amount of ascites most notably present in the right upper and right lower quadrants. US/US abdomen limited IMPRESSION: Small amount of ascites most notably present in the right upper and right lower quadrants. Electronically signed by: Jose Zamora MD 12/03/2023 08:57 AM EDT
--- NOTE | ~2023-11-28 | US_ITS ---
EXAMINATION: US ABDOMEN LIMITED CLINICAL INFORMATION: Ascites, elevated LFTs. COMPARISON: CT abdomen and pelvis 11/28/2023 TECHNIQUE: Real-time imaging of the right upper quadrant abdominal viscera. Technically challenging exam FINDINGS: PANCREAS: Pancreas is not well-visualized. LIVER: The liver appears enlarged with diffusely increased liver parenchymal echogenicity with some areas of focal fatty sparing . The liver has a mildly lobulated contour. No focal hepatic lesion. There is no intrahepatic biliary duct dilatation seen. GALLBLADDER: The gallbladder is physiologically distended. Multiple mobile gallstones are present. No evidence of gallbladder wall thickening or pericholecystic fluid.. Gallbladder wall measures 3 mm. COMMON BILE DUCT: Not visualized. FREE FLUID: Small volume ascites US/US abdomen limited IMPRESSION: 1. Technically challenging exam. 2. The liver appears enlarged with diffusely increased liver parenchymal echogenicity suggesting underlying hepatocellular disease with areas of focal fatty sparing. 3. Small volume ascites. 4. Cholelithiasis. Electronically signed by: Andrea Delcid MD 12/01/2023 08:16 AM EDT
--- NOTE | ~2023-11-28 | CT_ITS ---
EXAMINATION: CT ABDOMEN AND PELVIS WITH CONTRAST CLINICAL INFORMATION: decreased appetite, early satiety, nausea/vomiting COMPARISON: None available. TECHNIQUE: Multidetector volumetric images were obtained from the superior aspect of the liver through the pubic symphysis following administration 85 mL of Omnipaque 350 intravenous contrast. Sagittal and coronal reformatted images were obtained on the technologist's workstation. Oral contrast: No This CT examination was performed using dose optimization techniques as appropriate, variously including the following: *Automated exposure control *Adjustment of mA and/or kV according to patient size (this includes techniques or standardized protocols for targeted exams where dose is matched to indication/reason for exam; i.e. extremities or head) *Use of iterative reconstruction technique DLP: 305 mGy-cm FINDINGS: LUNG BASES: The visualized lung bases are unremarkable. LIVER, GALLBLADDER, AND BILIARY TREE: Marked low attenuation of liver parenchyma due to fatty change. No focal liver lesion or intrahepatic bile duct dilatation. Right lobe liver measures 16 cm superior-inferior. Gallbladder is distended. There is no gallbladder wall thickening. No bile duct dilatation. Extrahepatic CBD measures 7 mm. PANCREAS: Unremarkable. SPLEEN: Unremarkable. ADRENAL GLANDS: Unremarkable. KIDNEYS AND URETERS: The kidneys are normal in size, shape, and attenuation. No hydronephrosis, hydroureter, or calculi seen. No perinephric stranding. 1 cm parapelvic cyst in upper pole left kidney. No renal mass or calculus. No hydronephrosis. BLADDER: Unremarkable. GASTROINTESTINAL TRACT: There are numerous diverticula of the descending and sigmoid colon. There is no diverticulitis. Mild diffuse nonspecific bowel wall thickening of the cecum and ascending colon through the mid transverse colon. There is no bowel obstruction. There is a small to moderate volume of stool in the colon. The appendix is normal . The small bowel loops are unremarkable. The stomach is normal. There is no hiatal hernia. MESENTERY: Moderate volume of abdominal ascites. No mesenteric mass or inflammation. ABDOMINAL WALL: No significant hernia is appreciated. LYMPH NODES: Normal. VASCULAR: Vascular calcifications in the abdomen and pelvis. No aneurysm of aorta. PELVIC VISCERA: Uterus is anteverted. No adnexal abnormality. OSSEOUS STRUCTURES: Levoscoliosis thoracolumbar spine. Thoracolumbar Iglesias stephanie in place. Marked degenerative spondylosis of the spine. CT/CT abdomen pelvis w IV con IMPRESSION: 1. Marked fatty change of liver. 2. Moderate volume of abdominal ascites. 3. Mild diffuse nonspecific bowel wall thickening of the cecum and ascending colon through the mid transverse colon. No bowel obstruction. 4. Diverticulosis of colon. No evidence of diverticulitis. Fleischner guidelines were followed. Electronically signed by: Collins Egan MD 11/28/2023 04:43 PM EDT
--- NOTE | 2023-11-28 11:10 | ED.DIZZY ---
HPI - Dizziness General Chief Complaint: General Medical Stated Complaint: nausea-weakness Time Seen by Provider: 11/28/23 12:31 Source: patient Mode of arrival: ambulatory Limitations: no limitations History of Present Illness HPI Narrative: This is a 63-year-old woman with a past medical history of hypertension, hyperlipidemia, vitamin-D deficiency, active cigarette smoker, elevated liver transaminase level, cervical DDD, lumbar spine scoliosis, section who presents for evaluation of weakness. Patient states that for the last few days she has been feeling very tired and generally weak. She states that she has had decreased appetite. She reports that she has been able to eat without associated abdominal pain. She as that when she does eat she feels full and diffuse and has not been able to eat much. She states that she did vomit once yesterday and has felt nauseous. She states no associated diarrhea or bloody stools. She states no dysuria or urinary frequency/urgency. He states no chest pain or difficulty breathing. She states no associated fevers, chills, cough or congestion. She reports feeling lightheaded when she stands up. She states no lightheadedness at this time. She states no diplopia, dysarthria or dysphagia. She states no unilateral extremity weakness or paresthesias. She states no vision changes or hearing changes. She states no syncope. Related Data Previous Rx's ?Medication ?Instructions ?Recorded atorvastatin 20 mg tablet 20 mg PO DAILY #90 tabs 04/02/23 cholecalciferol (vitamin D3) 1,250 1,250 mcg PO QWEEK 3 months #13 04/02/23 mcg (50,000 unit) capsule caps valsartan 160 mg tablet 160 mg PO DAILY #90 tabs 04/02/23 albuterol sulfate 90 mcg/actuation 2 puff inhalation Q6H PRN 06/27/23 aerosol inhaler shortness of breath or wheezing #8.5 grams folic acid 800 mcg tablet 0.8 mg PO DAILY #90 tabs 10/28/23 Allergies Allergy/AdvReac Type Severity Reaction Status Date / Time No Known Allergies Allergy Verified 11/28/23 11:12 Review of Systems Review of Systems: ROS as per HPI [facility] Past Medical History Medical History Hx of scoliosis Elevated liver transaminase level Folate deficiency Vitamin D deficiency Not ready to quit smoking Cigarette smoker one half pack a day or less Lumbar stenosis with neurogenic claudication History of right tennis elbow Degenerative disc disease, cervical Lumbar spine scoliosis Hx of fracture of wrist Hyperlipidemia Essential hypertension Surgical History Hx of section Hx of tubal ligation History of carpal tunnel surgery of right wrist History of carpal tunnel surgery of left wrist History of rotator cuff surgery History of colonoscopy with polypectomy Family History Family History Brother Substance use disorder Prostate cancer Daughter Substance use disorder Sister Substance use disorder Maternal Grandmother Diabetes mellitus Mother Alcoholism COPD (chronic obstructive pulmonary disease) Father Alcoholism COPD (chronic obstructive pulmonary disease) Social History Social History Housing: House Alcohol intake: current Alcohol intake frequency: a few times a month Patient Tobacco Use Status: Current everyday Tobacco user Cigarette Packs Per Day: 1 Cigarettes Per Day: 20 Years Smoked: 45 Smoked in Last 30 Days: Yes e-Cigarette/Vaping Use: Never Used Use of substances other than those prescribed or required for medical reasons: No Advance Directives: No Advance Directives Information Provided: No Do you have a plan to hurt others: No Plan Patient : No service: No Current occupational status: disabled Cognitive needs: No Hearing needs: No Vision needs: Yes Physical Exam Vital Signs: Vital Signs: Last Vital Signs Temp 97.9 F 11/28/23 15:59 Pulse 95 11/28/23 16:18 Resp 11 L 11/28/23 16:18 BP 112/77 11/28/23 16:18 Pulse Ox 96 11/28/23 16:18 O2 Del Method Room Air 11/28/23 16:18 BMI result Body Mass Index 20.5 Gen: NAD, AOx3 HEENT: NCAT, EOMI, normal conjunctiva, tacky oral mucosa CV: RRR Pulm: CTAB, no increased work of breathing GI: Softly distended abdomen, nontender, no rebound, guarding or rigidity Neuro: Grossly non focal Course Course Course Narrative: This is a Rapid Medical Exam performed in triage by Maria L Peres PA-C. Full HPI, ROS and PE to be performed by primary ED provider. 63-year-old male past medical history of HTN, HLD, cigarette smoker presenting to the ED c/o fatigue, lethargy, nausea, lightheadedness, weakness x few days. denies CP/SOB PE: pale, frail, ambulating w/slow steady gait Plan: EKG, labs, CXR, orthos, viral testing Medications Administered Discontinued Medications Generic Name Dose Route Start Last Admin Trade Name Freq PRN Reason Stop Dose Admin Magnesium Sulfate 2 gm in 50 mls @ 25 mls/hr 11/28/23 12:21 11/28/23 16:18 Magnesium Sulfate/H2o IV 11/28/23 14:20 25 mls/hr ONCE ONE Administration Dextrose/Sodium Chloride 1,000 mls @ 1,000 mls/hr 11/28/23 12:34 11/28/23 16:15 D5ns IVCONT 11/28/23 13:33 Infused .Q1H ONE Infusion Potassium Chloride 10 meq in 100 mls @ 100 mls/hr 11/28/23 12:45 11/28/23 17:35 Potassium Chloride/H20 IV 11/28/23 16:44 100 mls/hr Q1H LILLY Administration Iohexol 100 ml 11/28/23 15:24 11/28/23 15:24 Iohexol 350 Mg/Ml 100 Ml Infus..Btl IV 11/28/23 15:25 85 ml ONCE ONE Administration Potassium Chloride 20 meq 11/28/23 12:33 11/28/23 13:39 Potassium Chloride Er 20 Meq Tab.Er.Prt PO 11/28/23 12:34 20 meq ONCE ONE Administration Potassium Chloride 20 meq 11/28/23 12:33 11/28/23 13:40 Potassium Chloride Er 20 Meq Tab.Er.Prt PO 11/28/23 12:34 20 meq ONCE ONE Administration Medical Decision Making Medical Decision Making MDM Narrative: Differential diagnosis includes, but is not limited to dehydration, electrolyte abnormality, ketosis, acute kidney injury, a viral illness, malignancy. Patient is afebrile and hemodynamically stable on room air. Exam is overall benign, but she does appear dehydrated. I reviewed and interpreted the patient's labs as below. Patient is provided 40 mEq p.o. potassium chloride and 10 mEq IV potassium chloride x4 as well as 2 g IV magnesium sulfate x2. I reviewed and interpreted EKG, which is notable for a prolonged QTc of 512. I reviewed diagnostic imaging as below. I discussed patient's case and management with admitting hospitalist, Dr. Liang, and the patient is subsequently admitted in stable and improved condition. Critical Care Time: A total of 45 minutes spent in direct patient care with coordinating critical resuscitation, procedures, reviewing records, discussing with consultants, reviewing labs, and/or managing patient. Admission/Observation Consideration of admission/observation: Escalation of care including admission/observation considered Consult Healthcare Provider Management of the patient was discussed with: Hospitalist Lab Data MDM Lab Attestation statement: I reviewed the patient's lab results. I independently reviewed and interpreted the patient's labs, which are notable for a leukocytosis of 13.6, stable hemoglobin 11.3, anion gap mildly elevated at 18 (which I suspect is secondary to starvation ketosis in the setting of decreased p.o. intake - for which she is provided D5 NS), hypokalemia with a potassium of 2.0, hypomagnesemia with magnesium of 1.0, mixed hyperbilirubinemia with total bilirubin 1.8 and direct bilirubin 0.9, AST 90 (67), ALT 33 (previous 36), alkaline phosphatase 236 (previous 161). Patient has tested negative for COVID-19, influenza and RSV. Troponin flat at 6.6-> 6.6. Urinalysis is not consistent with urinary tract infection, but demonstrates glucosuria and elevated specific gravity. 11/28/23 11:32 11/28/23 11:32 Labs: Lab Results 11/28/23 11/28/23 11/28/23 Range/Units 11:32 14:06 15:59 WBC 13.6 H (4.8-10.8) X10*3/uL RBC 3.39 L (4.20-5.50) X10*6/uL Hgb 11.3 L (12.0-16.0) g/dl Hct 32.7 L (37.0-47.0) % MCV 96.5 (80.0-98.0) fL MCH 33.3 H (27.0-33.0) pg MCHC 34.6 (31.0-35.0) g/dl RDW 16.5 H (11.0-16.0) % Plt Count 366 D (160-400) X10*3/uL MPV 10.1 (9.4-12.3) fL Immature Gran % (Auto) 0.8 H (0.0-0.4) % Neut % (Auto) 79.7 H (45-73) % Lymph % (Auto) 12.4 L (20-40) % Hardin % (Auto) 6.7 (2-11) % Eos % (Auto) 0.1 (0-4) % Baso % (Auto) 0.3 (0-2) % Lymph # (Auto) 1.7 (1.2-4.9) X10*3/uL [place]in # (Auto) 0.9 (0.1-1.2) X10*3/uL Eos # (Auto) 0.0 (0.0-0.4) X10*3/uL Baso # (Auto) 0.0 (0.0-0.2) X10*3/uL Abs Immat Gran (auto) 0.11 H (0.00-0.03) X10*3/uL Absolute Neuts (auto) 10.8 H (2.0-8.3) x10*3/uL Absolute Nucleated RBC 0.060 H (0.0-0.012) X10*3/uL Nucleated RBC % (auto) 0.4 H (0.0-0.2) /100WBC Sodium 142 (135-145) mmol/L Potassium 2.0 L* D (3.3-5.1) mmol/L Chloride 94 L (96-108) mmol/L Carbon Dioxide 32 H (22-29) mmol/L Anion Gap 18 (12-20) BUN 8 L (9-16) mg/dL Creatinine 0.74 (0.5-1.4) mg/dL Estim Creat Clear Calc 57.3 Estimated GFR > 60 Random Glucose 110 (60-115) mg/dL Calcium 7.8 L D (8.4-10.2) mg/dL Magnesium 1.0 L* (1.6-2.6) mg/dL Total Bilirubin 1.8 H (0.0-1.0) mg/dL Direct Bilirubin 0.9 H (0.0-0.5) mg/dL AST 90 H (5-31) U/L ALT 33 H (0-31) U/L Alkaline Phosphatase 236 H (39-117) U/L Troponin I High Sens 6.6 6.6 (<3.5-17.0) ng/L Total Protein 6.0 L (6.5-8.0) g/dL Albumin 2.3 L (3.5-5.0) g/dL Lipase 7 L (8-78) U/L Urine Color Yellow Urine Appearance Clear Urine pH 7.0 (5.0-9.0) Ur Specific [place] >= 1.030 H (1.005-1.025) Urine Protein Negative (Neg-Trace) mg/dL Urine Glucose (UA) 500 H (Negative) mg/dL Urine Ketones Negative (Negative) mg/dL Urine Blood Negative (Negative) Urine Nitrite Negative (Negative) Ur Leukocyte Esterase Negative (Negative) Influenza Type A (PCR) NEGATIVE (Negative) Influenza Type B (PCR) NEGATIVE (Negative) RSV RNA Qual (PCR) NEGATIVE (Negative) SARS-CoV-2 RNA (RT-PCR) NEGATIVE (Negative) Independent Interpretation I performed an independent interpretation of an: EKG and Plain X-Ray Interpretation: I independently reviewed and interpreted patient's EKG, which demonstrates sinus tachycardia at 107 beats per minute, PA 146, QRS 64, QTC 512, no STEMI I independently reviewed and interpreted the patient's chest x-ray, which demonstrates no focal consolidation or pneumothorax I independently reviewed anterior to patient's CT imaging of the abdomen/pelvis, which demonstrates abdominal ascites. Radiology Impression Discussion of test interpretation with radiology: I have reviewed the radiologist's reading. Radiologist Impression: XR/XR chest 1V IMPRESSION: No acute pulmonary disease. Electronically signed by: Sagar Duval MD 11/28/2023 01:12 PM EDT Dictated By: Sagar Duval Signed By: <Electronically signed by Sagar Duval in OV> 11/28/[address]/CT abdomen pelvis w IV con IMPRESSION: 1. Marked fatty change of liver. 2. Moderate volume of abdominal ascites. 3. Mild diffuse nonspecific bowel wall thickening of the cecum and ascending colon through the mid transverse colon. No bowel obstruction. 4. Diverticulosis of colon. No evidence of diverticulitis. Fleischner guidelines were followed. Electronically signed by: Collins Egan MD 11/28/2023 04:43 PM EDT RP Dictated By: Collins Egan MD Signed By: <Electronically signed by Collins Egan MD in OV> 11/28/23 1643 DD/ 1324 TD/TT: 11/28/23 1533 Website Optimization Strategist: ALVARO Procedures EJ/Peripheral Line Arm L: Skin Cleansed in Sterile Fashion: Yes Size (gauge): 20 IV Secured and Dressing Applied: Yes Patient Tolerated Procedure: well Discharge Plan Discharge Clinical Impression: Hypokalemia, Elevated liver transaminase level, Hypomagnesemia, Ascites, Anemia, Hyperbilirubinemia Patient Disposition: Admitted As Inpatient Prescriptions: No Action albuterol sulfate 90 mcg/actuation HFA aerosol inhaler 2 puff inhalation Q6H PRN (Reason: shortness of breath or wheezing) Qty: 8.5 0RF folic acid 800 mcg tablet 0.8 mg PO DAILY Qty: 90 1RF cholecalciferol (vitamin D3) 1,250 mcg (50,000 unit) capsule 1,250 mcg PO QWEEK 90 Days Qty: 13 0RF valsartan 160 mg tablet 160 mg PO DAILY Qty: 90 2RF atorvastatin 20 mg tablet 20 mg PO DAILY Qty: 90 2RF Print Language: Senegalese
--- NOTE | 2023-11-28 11:13 | ECG_ITS ---
Test Reason : SOB Blood Pressure : / mmHG Vent. Rate : 107 BPM Atrial Rate : 107 BPM P-R Int : 146 ms QRS Dur : 064 ms QT Int : 384 ms P-R-T Axes : 059 030 027 degrees QTc Int : 512 ms Poor data quality, interpretation may be adversely affected Sinus tachycardia ST & T wave abnormality, consider anterior ischemia Abnormal ECG When compared with ECG of 31-JUL-2012 21:54, Nonspecific T wave abnormality, worse in Inferior leads QT has lengthened ST-T wave changes have developed in Anterior leads Referred By: Maria L Peres Electronically Signed By:SHAYNE KENNEDY
[2023-11-28 11:42] LABS: Basophils Percent Auto 0.3 % (0-2); Eosinophils Percent Auto 0.1 % (0-4); Hematocrit 32.7 % (37.0-47.0); Hemoglobin 11.3 g/dl (12.0-16.0); Imm Gran Abs Auto 0.11 X10*3/uL (0.00-0.03); Imm Gran Pct Auto 0.8 % (0.0-0.4); Lymphocytes Absolute Auto 1.7 X10*3/uL (1.2-4.9); Lymphocytes Percent Auto 12.4 % (20-40); MANUAL DIFF FLAG NO; Mean Corpuscular HGB Conc 34.6 g/dl (31.0-35.0); Mean Corpuscular Hemoglobin 33.3 pg (27.0-33.0); Mean Corpuscular Volume 96.5 fL (80.0-98.0); Mean Platelet Volume 10.1 fL (9.4-12.3); Monocytes Absolute Auto 0.9 X10*3/uL (0.1-1.2); Monocytes Percent Auto 6.7 % (2-11); NRBC Pct Auto 0.4 /100WBC (0.0-0.2); Neutrophils Absolute Auto 10.8 x10*3/uL (2.0-8.3); Neutrophils Percent Auto 79.7 % (45-73); Platelet Count 366 X10*3/uL (160-400); Red Blood Count 3.39 X10*6/uL (4.20-5.50); Red Cell Distribution Width 16.5 % (11.0-16.0); White Blood Count 13.6 X10*3/uL (4.8-10.8)
[2023-11-28 12:06] LABS: Troponin-I High Sensitivity 6.6 ng/L (<3.5-17.0)
[2023-11-28 12:09] LABS: Alanine Aminotransferase 33 U/L (0-31); Albumin Level 2.3 g/dL (3.5-5.0); Alkaline Phosphatase 236 U/L (39-117); Aspartate Amino Transferase 90 U/L (5-31); Bilirubin Direct 0.9 mg/dL (0.0-0.5); Bilirubin Total 1.8 mg/dL (0.0-1.0); Blood Urea Nitrogen 8 mg/dL (9-16); Calcium 7.8 mg/dL (8.4-10.2); Creatinine Clr Calc Pharmacy 57.3; Estimated Glomerular Filt Rate > 60; Glucose Random 110 mg/dL (60-115)
[2023-11-28 12:23] LABS: Anion Gap 18 (12-20); Carbon Dioxide 32 mmol/L (22-29); Chloride 94 mmol/L (96-108); Sodium 142 mmol/L (135-145)
[2023-11-28 12:27] LABS: Influenza A PCR NEGATIVE (Negative); Influenza B PCR NEGATIVE (Negative); Resp Syncy Virus RNA Qual PCR NEGATIVE (Negative); SARS COV2 PCR INHOUSE NEGATIVE (Negative)
--- NOTE | 2023-11-28 13:01 | MHC.EDTECH ---
This tech assisted patient to bathroom for a urine sample. Patient unable to void. MIGUE metzger.
[2023-11-28] MEDS: Potassium Chloride ER 20 MEQ TAB.ER.PRT PO ×2 (13:39→13:40)
[2023-11-28] MEDS: Dextrose 5 % and 0.9 % NaCl 1,000 ML 1000 ML IVCONT (14:07)
--- NOTE | 2023-11-28 14:09 | PC.NURSE ---
Pt comes to ED today for generalized feeling of unwell. Per , Pt has not eaten or drinking x3 days for reasons unknown. VSS, Pt is alert and oriented x3. Pt in need of two IV access sites however significantly difficult stick. Dr. Rabago placed a 20g u/s guided access to the LUE. Given limited IV access, Dr. Rabago verbally requests bolus of IV Dextrose be given 1st, then will begin in administer IV electrolytes.
--- OUTSIDE RECORDS SUMMARY | 2023-11-28 14:12 | XMS_ITS | Continuity of Care Document ---
Author Organization [facility] Address [address] [place] [address]- Care Team Providers Care Cone Trucker Name Role Phone Lou PIEDRA, Ralph Shannon Primary Care Physician [phone] Encounter [facility] Date(s): 05/10/21 - 06/09/21 [facility] Adult [address] [place] [address]- Attending Physician: Megan Swan Admitting Physician: Megan Swan Referring Physician: AdmtrMegan Allergies, Adverse Reactions, Alerts Substance Reaction Severity Status Tylox Itchy Active Ultram Itchy Active Immunizations Given and Recorded Vaccine Date Status Refusal Reason influenza virus vaccine, inactivated 11/25/19 Give n influenza virus vaccine, inactivated 03/07/19 Give n influenza virus vaccine, inactivated 1 12/14/17 Gi alfredito influenza virus vaccine, inactivated 01/11/17 Give n influenza virus vaccine, inactivated 2 02/23/16 Gi alfredito influenza virus vaccine, inactivated 01/08/15 Give n influenza virus vaccine, inactivated 04/10/14 Give n influenza virus vaccine, inactivated 12/19/12 Give n tetanus/diphtheria/pertussis, acel(Tdap) 04/17/18 Given Pneumococcal Vacc (oldterm) 11/01/11 Given FluLaval (oldterm) 3 11/01/11 Given Tet/Diphth/Acel, Pertussis (oldterm) 09/16/08 Give n tetanus-diphtheria toxoids (Td) 07/03/98 Given 1Admin Note: She reports receiving flu shot. 2Result Comment: [02/23/2016] No reaction 3Admin Note: [facility] Medications atorvastatin 20 mg oral tablet 1 tablet, By Mouth, Daily, # 30 tablet, 5 Refills, [facility] #[id number], 157, cm, 10/06/20 13:51:00 EDT, Height Start Date: 12/28/20 Status: Ordered celecoxib 200 mg oral capsule See Instructions, TAKE ONE CAPSULE BY MOUTH ONCE EVERY DAY., # 30 capsule, 1 Refills, [facility], 152, cm, 06/01/21 9:06:00 EDT, Height Start Date: 06/09/21 Status: Ordered clobetasol 0.05% topical cream 1 application, Topically, 2 times a day, # 60 Gm, 1 Refills, Maintenance, 12/29/19 9:28:00 EDT, Cream, [facility] #[facility], 1 application Topically 2 times a day, 157, cm, 12/29/19 8:59:00 EDT, Height Start Date: 12/29/19 Status: Ordered cloNIDine 0.1 mg oral tablet 0.1 mg, 1, tablet, By Mouth, 2 times a day, # 60 tablet, Refills 5, Tot. Refills 5, Maintenance, 08/09/20 19:25:00 EDT, Route to Pharmacy Electronically, [facility] #[id number], 157, cm, 12/29/19 8:59:00 EDT, Height Start Date: 08/09/20 Status: Ordered NuLYTELY with Flavor Packs oral powder for reconstitution 240 mL, By Mouth, Every 10 minutes, # 1 each, 0 Refills, Maintenance, 10/08/17 10:33:17 EDT, REC Powder, exam is 01/08/2018, 240 mL By Mouth Every 10 minutes Start Date: 10/08/17 Status: Ordered Probiotic Formula By Mouth, Daily, 0 Refills, Maintenance, 06/01/21 9:12:00 EDT, Partial fill upon patient request ifthe prescription is for a schedule II opioid drug. Start Date: 06/01/21 Status: Ordered tiZANidine 4 mg oral capsule 1 capsule = 4 mg, By Mouth, Daily, PRN Pain , Severe, # 30 capsule, 0 Refills, Maintenance, 05/10/21 11:14:00 EST, Capsule, [facility] #[id number], Partial fill upon patient request if the prescription is for a schedule II opioid drug., 157, cm, 05/10/21... Start Date: 05/10/21 Status: Ordered valsartan 160 mg oral tablet 160 mg, 1, tablet, By Mouth, Daily, # 90 tablet, Refills 3, Tot. Refills 3, Maintenance, 10/06/20 14:15:00 EDT, Route to Pharmacy Electronically, [facility] #[id number], Partial fill upon patient request if the prescription is for a schedule II o... 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 3colonoscopy 2013 nl, repeat 2022 4colo 2017 5colo 2017 6colo 2017 Social History Social History Type Response Smoking Status Current every day sm oker; Other: Half a pack of cigarettes daily; entered on: 08/12/15 Sex
--- OUTSIDE RECORDS SUMMARY | 2023-11-28 14:12 | XMS_ITS | Continuity of Care Document ---
Author Organization [facility] Address [address] [place] [address]- Care Team Providers Care Restoration Silversmith Name Role Phone Ralph Blake MD Primary Care Physician Encounter 12/31/19 - 01/07/20 [facility] [address], [facility] [address] [place] [address]- [phone] Attending Physician: Ralph Blake MD Admitting Physician: Ralph Blake MD Referring Physician: Ralph Blake MD Allergies, Adverse Reactions, Alerts Substance Reaction Severity Status Tylox Active Ultram Active Immunizations Given and Recorded Vaccine Date [...] 2Result Comment: [02/23/2016] No reaction 3Admin Note: [facility] Medications amLODIPine 5 mg oral tablet 5 mg, 1, tablet, By Mouth, Daily, # 30 tablet, Refills 2, Tot. Refills 2, Maintenance, 09/15/19 15:06:00 EDT, Route to Pharmacy Electronically, [facility] #[id number], 157, cm, 03/07/19 10:52:00EST, Height Start Date: 09/15/19 Status: Ordered CeleBREX 200 mg oral capsule 1 capsule = 200 mg, By Mouth, Daily, # 30 capsule, 3 Refills, Maintenance, 12/29/19 9:12:00 EDT, Capsule, [facility], 157, cm, 12/29/19 8:59:00 EDT, Height Start Date: 12/29/19 Status: Ordered clobetasol 0.05% topical cream 1 [...] times a day, # 60 tablet, Refills 1, Tot. Refills 1, Maintenance, 11/25/19 9:23:00 EDT, Route to Pharmacy Electronically, [facility] #[id number], 157, cm, 208:59:00 EDT, Height Start Date: 11/25/19 Status: Ordered Lipitor 20 mg oral tablet 1 tablet = 20 mg, By Mouth, Daily, # 30 tablet, 5 Refills, Maintenance, 11/14/19 13:34:00 EDT, Tablet, [facility] #[id number], 157, cm, 11/14/19 13:26:00 EDT, Height Start Date: 11/14/19 Status: Ordered NuLYTELY with Flavor Packs oral powder for reconstitution 240 mL, By Mouth, Every 10 minutes, # 1 each, 0 Refills, Maintenance, 10/08/17 10:33:17 EDT, REC Powder, exam is 01/08/2018, 240 mL By Mouth Every 10 minutes Start Date: 10/08/17 Status: Ordered Problem List Condition Effective Dates Status Health Status Inform ant Chondrocalcinosis of left knee(Confirmed) Active Chronic dermatitis of hands(Confirmed) Active Colonoscopy(Confirmed) 1, 2 Active Diverticulosis(Confirmed) 3 Active Dysthymia(Confirmed) Active Hypercholesterolemia(Confirmed) Active HTN (hypertension)(Confirmed) Active Internal hemorrhoids(Confirmed) 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 2colonoscopy 2013 nl, repeat 2022 3colo 2017 4colo 2017 5colo 2017 6colo 2017 Social History Social History Type Response Smoking Status Current every day zurdo horton; Other: Half a pack of cigarettes daily; entered on: 08/12/15 Sex
--- OUTSIDE RECORDS SUMMARY | 2023-11-28 14:12 | XMS_ITS | Continuity of Care Document ---
Author Organization [facility] Malik Gutiérrez Denzel lt Address [address] [place] [address]- Care Team Providers Care Silver Designer Name Role Phone Ralph Blake MD Primary Care Physician [place] [facility] [place] 10[place]13/20 [facility] Malik Navarroley Adult [address] [place] [address]- Encounter Diagnosis Tobacco abuse(Discharge Diagnosis) - 10/06/20 Attending Physician: Ralph Blake MD Allergies, Adverse Reactions, [...] 2Result Comment: [02/23/2016] No reaction 3Admin Note: [employer] [employer] [facility] Medications CeleBREX 200 mg oral capsule 1 capsule = 200 mg, By Mouth, Daily, # 30 capsule, 1 Refills, Maintenance, 08/15/20 15:57:00 EDT, Capsule, [facility], 157, cm, 12/29/19 8:59:00 EDT, Height Start Date: 08/15/20 Status: Ordered clobetasol 0.05% topical cream 1 [...] 08/09/20 19:25:00 EDT, Route to Pharmacy Electronically, [id number], 157, cm, 12/29/19 8:59:00 EDT, Height Start Date: 08/09/20 Status: Ordered Lipitor 20 mg oral tablet 1 tablet = 20 mg, By Mouth, Daily, # 30 tablet, 5 Refills, Maintenance, 11/14/19 13:34:00 EDT, Tablet, [facility] #[id number], 157, cm, 11/14/19 13:26:00 EDT, Height Start Date: 11/14/19 Status: Ordered Macrobid macrocrystals-monohydrate 100 mg oral capsule 1 capsule = 100 mg, By Mouth, 2 times a day, for 7 days, # 14 capsule, 0 Refills, Acute 10/15/20 11:27:00 EDT, 10/08/20 11:27:00 EDT, Capsule, [facility][id number], Partial fill upon patient request if the prescription is for a schedule II opio... Start Date: 10/08/20 Stop Date: 10/15/20 Status: Ordered NuLYTELY with Flavor Packs oral powder for reconstitution 240 mL, By Mouth, Every 10 minutes, # 1 each, 0 Refills, Maintenance, 10/08/17 10:33:17 EDT, REC Powder, exam is 01/08/2018, 240 mL By Mouth Every 10 minutes Start Date: 10/08/17 Status: Ordered valsartan 160 mg oral tablet 160 mg, 1, tablet, By Mouth, Daily, # 90 tablet, Refills 3, Tot. Refills 3, Maintenance, 10/06/20 14:15:00 EDT, Route to Pharmacy Electronically, [facility] #[id number], Partial fill upon patient request if the prescription is for a schedule II o... 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 3colonoscopy 2013 nl, repeat 2022 4colo 2017 5colo 2017 6colo 2018 7colo 2017 Diagnosis Diagnosis Type Effective Dates Health Status Cl inical Service Informant Tobacco abuse Discharge Diagnosis 10/06/20 Vital Signs Most recent to oldest [Reference Range]: 1 Height 157.00 cm (10/06/20 1:51 PM) Weight 65.0 kg (10/06/20 1:51 PM) Oxygen Saturation [94-100 %] 98 % (10/06/20 1:51 PM) Pulse Rate [55-90 bpm] 82 bpm (10/06/20 1:51 PM) Body Mass Index [18.5-24.99] 26.37 *H* (10/06/20 1:51 PM) Blood Pressure [90-138/55-84 mm Hg] 102/ 62mm Hg (10/06/20 1:51 PM) Respiratory Rate [16-30 br/min] 12 br/mi n *L* (10/06/20 1:51 PM) Mode of Delivery (Oxygen) Room air (10/06/20 1:51 PM) Blood pressure sites Arm, left (10/06/20 1:51 PM) Weight Obtained Via Standing scale (10/06/20 1:51 PM) Social History Social History Type Response Smoking Status Current every day zurdo horton; Other: Half a pack of cigarettes daily; entered on: 08/12/15 Sex
--- OUTSIDE RECORDS SUMMARY | 2023-11-28 14:12 | XMS_ITS | Continuity of Care Document ---
Author Organization [facility] Denzel lt Address [address] [place] [address]- Care Team Providers Care Wedding Planning Internship Name Role Phone Ralph Blake MD Primary Care Physician [phone] [place] [facility] [place] 07/08/21 - 08/07/21 [facility] Adult [address] [place] [address]- Allergies, Adverse Reactions, Alerts Substance Reaction Severity [...] 2Result Comment: [02/23/2016] No reaction 3Admin Note: [employer] [facility] Medications atorvastatin 20 mg oral tablet 1 tablet, By Mouth, Daily, # 90 tablet, 3 Refills, 07/06/21 14:26:00 EDT, [facility] #[id number], 152, cm, 07/06/21 14:01:00 EDT, Height Start Date: 07/06/21 Status: Ordered celecoxib 200 mg oral capsule See Instructions, TAKE ONE CAPSULE BY MOUTH ONCE EVERY DAY., # 30 capsule, 11 Refills, 07/06/21 14:27:00 EDT, [facility], 152, cm, 07/06/21 14:01:00 EDT, Height Start Date: 07/06/21 Status: Ordered clobetasol 0.05% topical cream 1 application, Topically, 2 times a day, # 60 Gm, 1 Refills, Maintenance, 12/29/19 9:28:00 EDT, Cream, [facility], 1 application Topically 2 times a day, 157, cm, 12/29/19 8:59:00 EDT, Height Start Date: 12/29/19 Status: Ordered cloNIDine 0.1 mg oral tablet 0.1 mg, 1, tablet, By Mouth, Daily, # 90 tablet, Refills 3, Tot. Refills 3, Maintenance, 07/06/21 14:27:00 EDT, Route to Pharmacy Electronically, [facility] #[id number], 152, cm, 07/06/21 14:01:00 EDT, Height Start Date: 07/06/21 Status: Ordered NuLYTELY with Flavor Packs oral [...] tablet, Refills 3, Tot. Refills 3, Maintenance, 07/06/21 14:21:00 EDT, Route to Pharmacy Electronically, [facility] #[id number], Partial fill upon patient request if the prescription is for a schedule II o... 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 3colonoscopy 2013 nl, repeat 2022 4colo 2017 5colo 2017 6colo 2017 7colo 2017 Social History Social History Type Response Smoking Status Current every day sm sol; Other: Half a pack of cigarettes daily; entered on: 08/12/15 Sex
--- OUTSIDE RECORDS SUMMARY | 2023-11-28 14:12 | XMS_ITS | Continuity of Care Document ---
Author Organization [facility] Denzel lt Address [address] [place] [address]- Care Team Providers Care Agronomy Internship Name Role Phone Ralph Blake MD Primary Care Physician En[facility] [place] Date(s): 05/10/21 - 05/17/21 [facility] Adult [address] [place] [address]- Attending Physician: Last COLON, Ashely Ivy Allergies, Adverse Reactions, Alerts Substance Reaction Severity [...] 2Result Comment: [02/23/2016] No reaction 3Admin Note: [facility] Medications atorvastatin 20 mg oral tablet 1 tablet, By Mouth, Daily, # 30 tablet, 5 Refills, [facility] #[id number], 157, cm, 10/06/20 13:51:00 EDT, Height Start Date: 12/28/20 Status: Ordered celecoxib 200 mg oral capsule See Instructions, TAKE ONE CAPSULE BY MOUTH EVERY DAY, # 30 capsule, 1 Refills, [facility], 157, cm, 10/06/20 13:51:00 EDT, Height Start Date: 03/27/21 Status: Ordered clobetasol 0.05% topical cream 1 [...] 08/09/20 19:25:00 EDT, Route to Pharmacy Electronically, [facility] #[id number], 157, cm, 12/29/19 8:59:00 EDT, Height Start Date: 08/09/20 Status: Ordered NuLYTELY with Flavor Packs oral powder for reconstitution 240 mL, By Mouth, Every 10 minutes, # 1 each, 0 Refills, Maintenance, 10/08/17 10:33:17 EDT, REC Powder, exam is 01/08/2018, 240 mL By Mouth Every 10 minutes Start Date: 10/08/17 Status: Ordered tiZANidine 4 mg oral capsule 1 capsule = 4 mg, By Mouth, Daily, PRN Pain , Severe, # 30 capsule, 0 Refills, Maintenance, 05/10/21 11:14:00 EST, Capsule, [facility]acy #[id number], Partial fill upon patient request if the prescription is for a schedule II opioid drug., 157, cm, 05/10/21... Start Date: 05/10/21 Status: Ordered valsartan 160 mg oral tablet 160 mg, 1, tablet, By Mouth, Daily, # 90 tablet, Refills 3, Tot. Refills 3, Maintenance, 10/06/20 14:15:00 EDT, Route to Pharmacy Electronically, [facility] #[id number], Partial fill upon patient request if the prescription is for a schedule II o... Start Date: 10/06/20 Status: Ordered Problem List Condition Effective Dates Status Health Status Inform ant Chondrocalcinosis(Confirmed) 1 Active Chondrocalcinosis of left knee(Confirmed) Active Chronic dermatitis of hands(Confirmed) Active Colonoscopy(Confirmed) 2, 3 Active Diverticulosis(Confirmed) 4 Active Dysthymia(Confirmed) Active Hypercholesterolemia(Confirmed) Active HTN (hypertension)(Confirmed) Active Internal hemorrhoids(Confirmed) 5 Active emt intermediate current use of opi ate analgesic(Confirmed) Active [...] 2022 4colo 2017 5colo 2017 6colo 2017 7c2017 Vital Signs Most recent to oldest [Reference Range]: 1 Height 157.00 cm (05/10/21 10:53 AM) Weight 60.5 kg (05/10/21 10:53 AM) Oxygen Saturation [94-100 %] 97 % (05/10/21 10:53 AM) Pulse Rate [55-90 bpm] 87 bpm (05/10/21 10:53 AM) Body Mass Index [18.5-24.99] 24.54 (05/10/21 10:53 AM) Blood Pressure [90-138/55-84 mm Hg] 126/ 66mm Hg (05/10/21 10:53 AM) Temperature [96.8-100.4 DegF] 98.7 DegF (05/10/21 10:53 AM) Mode of Delivery (Oxygen) Room air (05/10/21 10:53 AM) Blood pressure sites Arm, left (05/10/21 10:53 AM) Temperature Route Oral (05/10/21 10:53 AM) Weight Obtained Via Standing scale (05/10/21 10:53 AM) Social History Social History Type Response Smoking Status Current every day sm oker; Other: Half a pack of cigarettes daily; entered on: 08/12/15 Sex
--- OUTSIDE RECORDS SUMMARY | 2023-11-28 14:12 | XMS_ITS | Continuity of Care Document ---
Author Organization [facility] Herriman Denzel lt Address [address] [place] [address]- Care Team Providers Care Ballistics Expert Name Role Phone Ralph Blake MD Primary Care Physician [place] [facility] [place] 12/18/19 - 04/16/20 [facility] [place] Adult [address] [place] [address]- Attending Physician: Ralph Blake MD Allergies, Adverse [...] 2Result Comment: [02/23/2016] No reaction 3Admin Note: [facility] Medications amLODIPine 5 mg oral tablet 5 mg, 1, tablet, By Mouth, Daily, # 30 tablet, Refills 2, Tot. Refills 2, Maintenance, 09/15/19 15:06:00 EDT, Route to Pharmacy Electronically, [facility] #[id number], 157, cm, 03/07/19 10:52:00EST, Height Start Date: [...] tablet, Refills 5, Tot. 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 2colonoscopy 2013 nl, repeat 2022 3colo 2017 4colo 2017 5colo 2017 6colo 2017 Social History Social History Type Response Smoking Status Current every day zurdo horton; Other: Half a pack of cigarettes daily; entered on: 08/12/15 Sex
--- OUTSIDE RECORDS SUMMARY | 2023-11-28 14:12 | XMS_ITS | Continuity of Care Document ---
Author Organization [facility] Denzel lt Address [address] [place] [address]- Care Team Providers Care Fruit Express Agent Name Role Phone Ralph Blake MD Primary Care Physician En[place] [facility] [place] Date(s): 10/19/20 - 11/18/20 [facility] Adult [address] [place] [address]- Allergies, Adverse Reactions, Alerts Substance Reaction Severity [...] 2Result Comment: [02/23/2016] No reaction 3Admin Note: [facility] Medications celecoxib 200 mg oral capsule See Instructions, TAKE ONE CAPSULE BY MOUTH EVERY DAY, # 30 capsule, 1 Refills, Maintenance, [facility], 157, cm, 10/06/20 13:51:00 EDT, Height Start Date: 10/19/20 Status: Ordered clobetasol 0.05% topical cream 1 [...] 08/09/20 19:25:00 EDT, Route to Pharmacy Electronically, [facility] #[id number], 157, cm, 12/29/19 8:59:00 EDT, Height Start Date: 08/09/20 Status: Ordered Lipitor 20 mg oral tablet 1 tablet = 20 mg, By Mouth, Daily, # 30 tablet, 5 Refills, Maintenance, 11/14/19 13:34:00 EDT, Tablet, [facility] #[id number], 157, cm, 11/14/19 13:26:00 EDT, Height Start [...] 10/06/20 14:15:00 EDT, Route to Pharmacy Electronically, [facility] #[id number], Partial fill upon patient request if the prescription is for a schedule II o... 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
--- OUTSIDE RECORDS SUMMARY | 2023-11-28 14:12 | XMS_ITS | Continuity of Care Document ---
Author Organization [facility] Address [address] [facility], [address] [place] [address]- Care Team Providers Care Perlite Grinder Name Role Phone Ralph Blake MD Primary Care Physician Encounter 09/21/22 - 11/19/22 [facility] [address], [facility] [address] [place] [address]- Attending Physician: Cipriano , Provider Admitting Physician: RosannaBreastExam , Provider Referring Physician: NoBreastExam , Provider Allergies, Adverse Reactions, Alerts Substance Reaction Severity [...] 2Result Comment: [02/23/2016] No reaction 3Admin Note: [facility] Medications atorvastatin 20 mg oral tablet 1 tablet, By Mouth, Daily, # 90 tablet, 3 Refills, 07/06/21 14:26:00 EDT, [facility] #[id number], 152, cm, 07/06/21 14:01:00 EDT, Height Start Date: 07/06/21 Status: Ordered celecoxib 200 mg oral capsule 1 capsule, By Mouth, Daily, # 30 capsule, 11 Refills, Maintenance, 08/07/22 16:13:00 EDT, [facility], 152, cm, 08/24/21 10:53:00 EDT, Height, 60.6, kg, 08/09/21 10:51:00 EDT, Dry Weight Start Date: 08/07/22 Status: Ordered clobetasol 0.05% topical cream 1 [...] 07/06/21 14:27:00 EDT, Route to Pharmacy Electronically, [facility] #[id number], 152, cm, 07/06/21 14:01:00 EDT, Height Start [...] 07/06/21 14:21:00 EDT, Route to Pharmacy Electronically, [facility] #[id number], Partial fill upon patient request if the prescription is for a schedule II o... Start Date: 07/06/21 Status: Ordered Problem List Condition Confirmation Course Effective Dates Status Health Status Informant Chondrocalcinosis 1 Confirmed Active Chondrocalcinosis of left knee Confirmed Active Chronic dermatitis of hands Confirmed Active Colonoscopy 2, 3 Confirmed Active Diverticulosis 4 Confirmed Active Dysthymia Confirmed Active Epigastric hernia Confirmed Active Hypercholesterolemia Confirmed Active HTN (hypertension) Confirmed Active Internal hemorrhoids 5 Confirmed Active terminologist current use of opiate analgesic Confirmed Active Lumbar spinal stenosis Confirmed Active Elevated MCV Confirmed Active Neck pain Confirmed Active Osteoarthritis of right hip Confirmed Active Polyp of colon 6 Confirmed Active Polyp of rectum 7 Confirmed Active Shoulder pain Confirmed Active Edema Confirmed Active Tennis elbow Confirmed Active Tobacco abuse Confirmed Active 1Left knee 2clonoscopy 2013 normal, repeat 2018 not 2022 per report. 3colonoscopy 2013 nl, repeat 2022 4colo 2018 5colo 2018 6colo 2018 7colo 2017 Social History Social History Type Response Smoking Status Former smoker, quit more than 30 days ago; Other: Quit 1 month ago; entered on: 08/24/21 Sex Implantable Device List Procedure Provider Procedure Date Device Type Site Repair Hernia Epigastric Open Wilfrido PIEDRA, Adiel 08/09/21 Unknown Abdomen Device Identifier Serial Number Lot or Batch Number Manufacturing Date Expiration Date Distinct Identification Code MRI Safety Implantable Status Assigning Authority Unknown Unknown [id number] Unknown 10/30/22 Unknown Unknown Active Unknown Patient Care team information Care Team Personnel Name: Lou PIEDRA, Ralph Shannon Position: [facility] Physician - Primary Care Member Role: PCP Address: Address: [address] [place] [address]- Care Team Related Persons Name: AMPARO KAISER Address: home [address] [place] [address]
--- OUTSIDE RECORDS SUMMARY | 2023-11-28 14:12 | XMS_ITS | Continuity of Care Document ---
Author Organization [facility] Denzel Address [address] [place] [address]- Care Team Providers Care Kaiawhina Name Role Phone Lou PIEDRA, Ralph Shannon Primary Care Physician En[place] [facility] [place] Date(s): 05/09/21 - 06/08/21 [facility] Adult [address] [place] [address]- Allergies, Adverse Reactions, Alerts Substance Reaction Severity [...] 2Result Comment: [02/23/2016] No reaction 3Admin Note: [facility] Medications atorvastatin 20 mg oral tablet 1 tablet, By Mouth, Daily, # 30 tablet, 5 Refills, [facility] #[id number], 157, cm, 10/06/20 13:51:00 EDT, Height Start [...] 08/09/20 19:25:00 EDT, Route to Pharmacy Electronically, [facility] #[id number], 157, cm, 12/29/19 8:59:00 EDT, Height Start [...] 0 Refills, Maintenance, 05/10/21 11:14:00 EST, Capsule, [facility]/pharmacy #[id number], Partial fill upon patient request if the prescription is for a schedule II opioid drug., 157, cm, 05/10/21... Start Date: 05/10/21 Status: Ordered valsartan 160 mg oral tablet 160 mg, 1, tablet, By Mouth, Daily, # 90 tablet, Refills 3, Tot. Refills 3, Maintenance, 10/06/20 14:15:00 EDT, Route to Pharmacy Electronically, [facility] #[id number], Partial fill upon patient request if the prescription is for a schedule II o... Start Date: 10/06/20 Status: Ordered Problem List Condition Effective Dates Status Health Status Inform ant Chondrocalcinosis(Confirmed) 1 Active Chondrocalcinosis of left knee(Confirmed) Active Chronic dermatitis of hands(Confirmed) Active Colonoscopy(Confirmed) 2, 3 Active Diverticulosis(Confirmed) 4 Active Dysthymia(Confirmed) Active Epigastric hernia(Confirmed) Active Hypercholesterolemia(Confirmed) Active HTN (hypertension)(Confirmed) Active Internal hemorrhoids(Confirmed) 5 Active senior living current use of opi ate analgesic(Confirmed) Active [...]
--- OUTSIDE RECORDS SUMMARY | 2023-11-28 14:12 | XMS_ITS | Continuity of Care Document ---
Author Organization [facility] Denzel Address [address] [place] [address]- Care Team Providers Care Quality Assurance Supervisor Trim Name Role Phone Ralph Blake MD Primary Care Physician [phone] Encounter [facility] [place] Date(s): 07/06/21 - 07/13/21 [facility] Adult [address] [place] [address]- Encounter Diagnosis HTN (hypertension)(Discharge Diagnosis) - 07/06/21 Hypercholesterolemia(Discharge Diagnosis) - 07/06/21 Attending Physician: Ralph Blake MD Referring Physician: Adiel Anna MD Allergies, Adverse Reactions, Alerts Substance Reaction [...] 2Result Comment: [02/23/2016] No reaction 3Admin Note: [facility] Medications atorvastatin 20 mg oral tablet 1 tablet, By Mouth, Daily, # 90 tablet, 3 Refills, 07/06/21 14:26:00 EDT, [facility] #[id number], 152, cm, 07/06/21 14:01:00 EDT, Height Start [...] 07/06/21 14:27:00 EDT, Route to Pharmacy Electronically, [facility] #[id number], 152, cm, 07/06/21 14:01:00 EDT, Height Start [...] 07/06/21 14:21:00 EDT, Route to Pharmacy Electronically, [facility] #[id number], Partial fill upon patient request if the [...] (hypertension)(Confirmed) Active Internal hemorrhoids(Confirmed) 5 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) Active [...] 2017 5colo 2017 6colo 2017 7colo 2017 Diagnosis Diagnosis Type Effective Dates Health Status Clinical Service Informant HTN (hypertension) Discharge Diagnosis 07/06/21 Hypercholesterolemia Discharge Diagnosis 07/06/21 Vital Signs Most recent to oldest [Reference Range]: 1 Height 152 cm (07/06/21 2:01 PM) Weight 63.3 kg (07/06/21 2:01 PM) Oxygen Saturation [94-100 %] 98 % (07/06/21 2:01 PM) Pulse Rate [55-90 bpm] 102 bpm *H* (07/06/21 2:01 PM) Body Mass Index [18.5-24.99] 27.4 *H* (07/06/21 2:01 PM) Blood Pressure [90-138/55-84 mm Hg] 122/ 82mm Hg (07/06/21 2:01 PM) Mode of Delivery (Oxygen) Room air (07/06/21 2:01 PM) Blood pressure sites Arm, left (07/06/21 2:01 PM) Weight Obtained Via Standing scale (07/06/21 2:01 PM) Social History Social History Type Response Smoking Status Current every day sm sol; Other: Half a pack of cigarettes daily; entered on: 08/12/15 Sex
--- OUTSIDE RECORDS SUMMARY | 2023-11-28 14:12 | XMS_ITS | Continuity of Care Document ---
Author Organization [facility] Brock Denzel lt Address [address] [place] [address]- Care Team Providers Care Nuisance Animal Damage Control Agent Name Role Phone Ralph Blake MD Primary Care Physician [place] [facility] [place] 12[place]/20 [facility] Adult [address] [place] [address]- Attending Physician: Ralph Blake MD Allergies, Adverse [...] 2Result Comment: [02/23/2016] No reaction 3Admin Note: [facility] Medications celecoxib 200 mg oral capsule See [...] 08/09/20 19:25:00 EDT, Route to Pharmacy Electronically, [facility] #[id number], 157, cm, 12/29/19 8:59:00 EDT, Height Start Date: 08/09/20 Status: Ordered Lipitor 20 mg oral tablet 1 tablet = 20 mg, By Mouth, Daily, # 30 tablet, 5 Refills, Maintenance, 11/14/19 13:34:00 EDT, Tablet, [facility] #[id number], 157, cm, 11/14/19 13:26:00 EDT, Height Start [...] 10/06/20 14:15:00 EDT, Route to Pharmacy Electronically, [facility] #[id number], Partial fill upon patient request if the prescription is for a schedule II o... 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
--- OUTSIDE RECORDS SUMMARY | 2023-11-28 14:12 | XMS_ITS | Continuity of Care Document ---
Author Organization [facility] Brock Denzel lt Address [address] [place] [address]- Care Team Providers Care Unisaw Operator Name Role Phone Ralph Blake MD Primary Care Physician [phone] [facility]counter [facility] Date(s): 12/05/19 - 01/04/20 [facility] Adult [address] [place] [address]- [facility] Allergies, Adverse Reactions, Alerts Substance Reaction Severity [...] 2Result Comment: [02/23/2016] No reaction 3Admin Note: [facility] Medications amLODIPine 5 mg oral tablet 5 mg, 1, tablet, By Mouth, Daily, # 30 tablet, Refills 2, Tot. Refills 2, Maintenance, 09/15/19 15:06:00 EDT, Route to Pharmacy Electronically, [facility] #[id number], 157, cm, 03/07/19 10:52:00EST, Height Start Date: [...] 11/25/19 9:23:00 EDT, Route to Pharmacy Electronically, [facility] #[id number], 157, cm, 208:59:00 EDT, Height Start Date: 11/25/19 Status: Ordered Lipitor 20 mg oral tablet 1 tablet = 20 mg, By Mouth, Daily, # 30 tablet, 5 Refills, Maintenance, 11/14/19 13:34:00 EDT, Tablet, [facility] #[id number], 157, cm, 11/14/19 13:26:00 EDT, Height Start [...] HTN (hypertension)(Confirmed) Active Internal hemorrhoids(Confirmed) 4 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 2colonoscopy 2013 nl, repeat 2022 3colo 2017 4colo 2017 5colo 2017 6c2017 Social History Social History Type Response Smoking Status Current every day sm sol; Other: Half a pack of cigarettes daily; entered on: 08/12/15 Sex
--- OUTSIDE RECORDS SUMMARY | 2023-11-28 14:12 | XMS_ITS | Continuity of Care Document ---
Author Organization [facility] Brock Denzel lt Address [address] [place] [address]- Care Team Providers Care Property And Supply Officer Name Role Phone Ralph Blake MD Primary Care Physician En[place] [facility] [place] Date(s): 10/07/20 - 11/06/20 [facility] Adult [address] [place] [address]- Allergies, Adverse Reactions, Alerts Substance Reaction Severity [...] 2Result Comment: [02/23/2016] No reaction 3Admin Note: [facility] Medications celecoxib 200 mg oral capsule See [...] 08/09/20 19:25:00 EDT, Route to Pharmacy Electronically, [facility] #[id number], 157, cm, 12/29/19 8:59:00 EDT, Height Start Date: 08/09/20 Status: Ordered Lipitor 20 mg oral tablet 1 tablet = 20 mg, By Mouth, Daily, # 30 tablet, 5 Refills, Maintenance, 11/14/19 13:34:00 EDT, Tablet, [facility] #[id number], 157, cm, 11/14/19 13:26:00 EDT, Height Start [...] 10/06/20 14:15:00 EDT, Route to Pharmacy Electronically, [facility] #[id number], Partial fill upon patient request if the prescription is for a schedule II o... 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
--- OUTSIDE RECORDS SUMMARY | 2023-11-28 14:12 | XMS_ITS | Continuity of Care Document ---
Author Organization [facility] [place] Address [address] [facility], [address] [place] [address]- Care Team Providers Care Care Assistant Name Role Phone Ralph Blake MD Primary Care Physician [phone] Encounter 04/05/21 - 05/18/21 [facility] [address], [address] [place] [address]- Attending Physician: Ralph Blake MD Admitting Physician: [...] 2Result Comment: [02/23/2016] No reaction 3Admin Note: [facility] Medications atorvastatin 20 mg oral tablet 1 tablet, By Mouth, Daily, # 30 tablet, 5 Refills, [facility] #[id number], 157, cm, 10/06/20 13:51:00 EDT, Height Start [...] 19:25:00 EDT, Route to Pharmacy Electronically, [facility] #[id number], 157, cm, 12/29/19 8:59:00 EDT, Height Start [...] Refills, Maintenance, 05/10/21 11:14:00 EST, Capsule, [facility]/pharmacy #[id number], Partial fill upon patient request if the prescription is for a schedule II opioid drug., 157, cm, 05/10/21... Start Date: 05/10/21 Status: Ordered valsartan 160 mg oral tablet 160 mg, 1, tablet, By Mouth, Daily, # 90 tablet, Refills 3, Tot. Refills 3, Maintenance, 10/06/20 14:15:00 EDT, Route to Pharmacy Electronically, [facility] #[id number], Partial fill upon patient request if the prescription is for a schedule II o... Start Date: 10/06/20 Status: Ordered Problem List Condition Effective Dates Status Health Status Inform ant Chondrocalcinosis(Confirmed) 1 Active Chondrocalcinosis of left knee(Confirmed) Active Chronic dermatitis of hands(Confirmed) Active Colonoscopy(Confirmed) 2, 3 Active Diverticulosis(Confirmed) 4 Active Dysthymia(Confirmed) Active Hypercholesterolemia(Confirmed) Active HTN (hypertension)(Confirmed) Active Internal hemorrhoids(Confirmed) 5 Active [facility] current use of opi ate analgesic(Confirmed) Active Lumbar spinal stenosis(Confirmed) Active Elevated MCV(Confirmed) Active Neck pain(Confirmed) Active Osteoarthritis of right hip(Confirmed) Active Polyp of colon(Confirmed) 6 Active Polyp of rectum(Confirmed) 7 Active Shoulder pain(Confirmed) Active Edema(Confirmed) Active Tennis elbow(Confirmed) Active Tobacco abuse(Confirmed) Active 1Left knee 2clonoscopy 2013 normal, repeat 2017 per report. 3colonoscopy 2013 nl, repeat 2022 4colo 2017 5c2017 6c2017 Social History Social History Type Response Smoking Status Current every day sm sol; Other: Half a pack of cigarettes daily; entered on: 08/12/15 Sex
--- OUTSIDE RECORDS SUMMARY | 2023-11-28 14:12 | XMS_ITS | Continuity of Care Document ---
Author Organization [facility] Brock Denzel lt Address [address] [place] [address]- Care Team Providers Care Dough Sheeter Name Role Phone Ralph Blake MD Primary Care Physician [place] [facility] [place](s[place] 10/18/21 - 02/15/22 [facility] Adult [address] [place] [address]- Attending Physician: Ralph Blake MD Allergies, Adverse [...] 2Result Comment: [02/23/2016] No reaction 3Admin Note: [facility] Medications atorvastatin 20 mg oral tablet 1 tablet, By Mouth, Daily, # 90 tablet, 3 Refills, 07/06/21 14:26:00 EDT, [facility] #[id number], 152, cm, 05/04/22 14:01:00 EDT, Height Start Date: 07/06/21 Status: [...] 07/06/21 14:27:00 EDT, Route to Pharmacy Electronically, [facility] #[id number], 152, cm, 07/06/21 14:01:00 EDT, Height Start [...] 07/06/21 14:21:00 EDT, Route to Pharmacy Electronically, 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 3colonoscopy 2013 nl, repeat [...] Safety Implantable Status Assigning Authority Unknown Unknown [id number] Unknown 10/30/22 Unknown Unknown Active Unknown Patient Care team information Care Team Personnel Name: Lou PIEDRA, Ralph Shannon Position: [facility] Primary Care Physician Member Role: PCP Address: Address: [address] [place] [address]- Care Team Related Persons Name: AMPARO KAISER Address: home [address] [place] [address]
--- OUTSIDE RECORDS SUMMARY | 2023-11-28 14:12 | XMS_ITS | Continuity of Care Document ---
Author Organization [facility] Brock Denzel lt Address [address] [place] [address]- Care Team Providers Care Wholesale Loan Processor Name Role Phone Ralph Blake MD Primary Care Physician [phone] En[place] [facility] [place] 11/10/20 - 12/10/20 [facility]ik [facility]arroley Adult [address] [place] [address]- Attending Physician: Megan Swan Admitting Physician: AdmtrMegan Referring Physician: Admtr, Megan Allergies, Adverse Reactions, Alerts Substance Reaction Severity [...] 2Result Comment: [02/23/2016] No reaction 3Admin Note: [facility] Medications celecoxib 200 mg oral capsule [...] 08/09/20 19:25:00 EDT, Route to Pharmacy Electronically, [facility] #[id number], 157, cm, 12/29/19 8:59:00 EDT, Height Start Date: 08/09/20 Status: Ordered Lipitor 20 mg oral tablet 1 tablet = 20 mg, By Mouth, Daily, # 30 tablet, 5 Refills, Maintenance, 11/14/19 13:34:00 EDT, Tablet, [facility] #[id number], 157, cm, 11/14/19 13:26:00 EDT, Height Start [...] 10/06/20 14:15:00 EDT, Route to Pharmacy Electronically, [facility] #[id number], Partial fill upon patient request if the prescription is for a schedule II o... 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
--- OUTSIDE RECORDS SUMMARY | 2023-11-28 14:12 | XMS_ITS | Continuity of Care Document ---
Author Organization [facility] Denzel lt Address [address] [place] [address]- Care Team Providers Care Senior Investment Manager Name Role Phone Ralph Blake MD Primary Care Physician Encounter [facility] Date(s): 09/18/19 - 10/18/19 [facility] Adult [address] [place] [address]- [facility] Allergies, Adverse Reactions, Alerts Substance Reaction Severity Status Tylox Active Ultram Active Immunizations Given and Recorded Vaccine Date Status Refusal Reason influenza virus vaccine, inactivated 03/07/19 Give n [...] 2Result Comment: [02/23/2016] No reaction 3Admin Note: [facility] Medications amLODIPine 5 mg oral tablet 5 mg, 1, tablet, By Mouth, Daily, # 30 tablet, Refills 2, Tot. Refills 2, Maintenance, 09/15/19 15:06:00 EDT, Route to Pharmacy Electronically, [facility] #[id number], 157, cm, 03/07/19 10:52:00EST, Height Start Date: 09/15/19 Status: Ordered Lipitor 20 mg oral tablet 1 tablet = 20 mg, By Mouth, Daily, # 30 tablet, 5 Refills, Maintenance, 03/28/19 19:39:00 EST, Tablet, [facility] #[id number], 157, cm, 03/07/19 10:52:00 EST, Height Start Date: 03/28/19 Status: Ordered NuLYTELY with Flavor Packs oral powder for reconstitution 240 mL, By Mouth, Every 10 minutes, # 1 each, 0 Refills, Maintenance, 10/08/17 10:33:17 EDT, REC Powder, exam is 01/08/2018, 240 mL By Mouth Every 10 minutes Start Date: 10/08/17 Status: Ordered oxyCODONE 15 mg oral tablet 1 tablet = 15 mg, By Mouth, Every 6 hours, PRN for pain, # 112 tablet, 0 Refills, Maintenance, 10/10/19 11:05:00 EDT, Tablet, [facility] #[id number], Ok for partial refill at patients request, 10/13/19, 157, cm, 03/07/19 10:52:00 EST, Height Start Date: 10/10/19 Status: Ordered Problem List Condition Effective Dates Status Health Status Inform ant Colonoscopy(Confirmed) 1, 2 Active Diverticulosis(Confirmed) 3 Active Dysthymia(Confirmed) Active Hypercholesterolemia(Confirmed) Active HTN (hypertension)(Confirmed) Active Internal hemorrhoids(Confirmed) 4 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
--- OUTSIDE RECORDS SUMMARY | 2023-11-28 14:12 | XMS_ITS | Continuity of Care Document ---
Author Organization [facility] Brock Denzel lt Address [address] [place] [address]- Care Team Providers Care Doctor Of Naturopathic Medicine Name Role Phone Ralph Blake MD Primary Care Physician [phone] [place] [facility] [place] 12[place] [facility] Adult [address] [place] [address]- [facility] Attending Physician: Ralph Blake MD Allergies, Adverse [...] 2Result Comment: [02/23/2016] No reaction 3Admin Note: [facility] Medications amLODIPine 5 mg oral tablet 5 mg, 1, tablet, By Mouth, Daily, # 30 tablet, Refills 2, Tot. Refills 2, Maintenance, 09/15/19 15:06:00 EDT, Route to Pharmacy Electronically, [facility] #[id number], 157, cm, 03/07/19 10:52:00EST, Height Start Date: 09/15/19 Status: Ordered cloNIDine 0.1 mg oral tablet 0.1 mg, 1, tablet, By Mouth, 2 times a day, # 60 tablet, Refills 1, Tot. Refills 1, Maintenance, 11/25/19 9:23:00 EDT, Route to Pharmacy Electronically, [facility] #[id number], 157, cm, 208:59:00 EDT, Height Start Date: 11/25/19 Status: Ordered Lipitor 20 mg oral tablet 1 tablet = 20 mg, By Mouth, Daily, # 30 tablet, 5 Refills, Maintenance, 11/14/19 13:34:00 EDT, Tablet, [facility] #[id number], 157, cm, 11/14/19 13:26:00 EDT, Height Start [...] pain, # 112 tablet, 0 Refills, Maintenance, 11/07/19 9:38:00 EDT, Tablet, [facility] #[id number], Ok for partial refill at patients request, 11/10/19, 157, cm, 03/07/19 10:52:00 EST, Height Start Date: 11/07/19 Status: Ordered Problem List Condition Effective Dates Status Health Status Inform ant Chondrocalcinosis of left knee(Confirmed) Active Colonoscopy(Confirmed) 1, 2 Active Diverticulosis(Confirmed) 3 Active Dysthymia(Confirmed) Active Hypercholesterolemia(Confirmed) Active HTN (hypertension)(Confirmed) Active Internal hemorrhoids(Confirmed) 4 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 2colonoscopy 2013 nl, repeat 2022 3colo 2017 4colo 2017 5colo 2017 6c2017 Vital Signs Most recent to oldest [Reference Range]: 1 Height 157.00 cm (11/25/19 8:59 AM) Weight 53.8 kg (11/25/19 8:59 AM) Oxygen Saturation [94-100 %] 98 % (11/25/19 8:59 AM) Pulse Rate [55-90 bpm] 82 bpm (11/25/19 8:59 AM) Body Mass Index [18.5-24.99] 21.83 (11/25/19 8:59 AM) Blood Pressure [90-138/55-84 mm Hg] 118/ 74mm Hg (11/25/19 8:59 AM) Temperature [96.8-100.4 DegF] 98.4 DegF (11/25/19 8:59 AM) Blood pressure sites Arm, left (11/25/19 8:59 AM) Temperature Route Oral (11/25/19 8:59 AM) Social History Social History Type Response Smoking Status Current every day sm sol; Other: Half a pack of cigarettes daily; entered on: 08/12/15 Sex
--- OUTSIDE RECORDS SUMMARY | 2023-11-28 14:12 | XMS_ITS | Continuity of Care Document ---
Author Organization [facility] Address [address] [facility], [address] [place] [address]- Care Team Providers Care Construction Project Manager Name Role Phone Ralph Blake MD Primary Care Physician Encounter 03/08/20 - 03/15/20 [facility] [address], [facility] [address] [place] [address]- Attending Physician: Ralph Blake MD Admitting Physician: [...] 2Result Comment: [02/23/2016] No reaction 3Admin Note: [facility] Medications amLODIPine 5 mg oral tablet 5 mg, 1, tablet, By Mouth, Daily, # 30 tablet, Refills 2, Tot. 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
--- OUTSIDE RECORDS SUMMARY | 2023-11-28 14:12 | XMS_ITS | Continuity of Care Document ---
Author Organization [facility] Denzel lt Address [address] [place] [address]- Care Team Providers Care Lab Systems Analyst Name Role Phone Ralph Blake MD Primary Care Physician [phone] [place] [facility] [place](s[place] 07/13/21 - 08/12/21 [facility] Adult [address] [place] [address]- Allergies, Adverse Reactions, Alerts Substance Reaction Severity [...] 2Result Comment: [02/23/2016] No reaction 3Admin Note: [facility] Medications atorvastatin 20 mg oral tablet 1 tablet, By Mouth, Daily, # 90 tablet, 3 Refills, 07/06/21 14:26:00 EDT, [facility] #[id number], 152, cm, 07/06/21 14:01:00 EDT, Height Start [...] 07/06/21 14:27:00 EDT, Route to Pharmacy Electronically, [facility] #[id number], 152, cm, 07/06/21 14:01:00 EDT, Height Start Date: 07/06/21 Status: Ordered NuLYTELY with Flavor Packs oral powder for reconstitution 240 mL, By Mouth, Every 10 minutes, # 1 each, 0 Refills, Maintenance, 10/08/17 10:33:17 EDT, REC Powder, exam is 01/08/2018, 240 mL By Mouth Every 10 minutes Start Date: 10/08/17 Status: Ordered oxyCODONE 5 mg oral tablet 5 mg, 1, tablet, By Mouth, Every 6 hours, PRN, Do not drink alcohol or drive while taking this medication., # 10 tablet, Refills 0, Tot. Refills 0, Acute 08/16/21 5:00:00 EDT, Pain , Severe, 08/09/2212:30:00 EDT, Route to Pharmacy Electronically, [facility]... Start Date: 08/09/21 Stop Date: 08/16/21 Status: Ordered valsartan 160 mg oral tablet 160 mg, 1, tablet, By Mouth, Daily, # 90 tablet, Refills 3, Tot. Refills 3, Maintenance, 07/06/21 14:21:00 EDT, Route to Pharmacy Electronically, [facility] #[id number], Partial fill upon patient request if the prescription is for a schedule II o... Start Date: 07/06/21 Status: Ordered Problem List Condition Effective Dates Status Health Status Inform ant Chondrocalcinosis(Confirmed) 1 Active Chondrocalcinosis of left knee(Confirmed) Active Chronic dermatitis of hands(Confirmed) Active Colonoscopy(Confirmed) 2, 3 Active Diverticulosis(Confirmed) 4 Active Dysthymia(Confirmed) Active Epigastric hernia(Confirmed) Active Hypercholesterolemia(Confirmed) Active HTN (hypertension)(Confirmed) Active Internal hemorrhoids(Confirmed) 5 Active half-way current use of opi ate analgesic(Confirmed) Active [...] of cigarettes daily; entered on: 08/12/15 Sex Medical Equipment Implanted Date:08/09/21Target Site:Abdomen Description Quantity MRI Company Model PATCH HERNIA VENTRALEX LG CI R - BARD ([id number]) 1 Bard Unknown TERRA:No Information Assigning Authority: FDA
--- OUTSIDE RECORDS SUMMARY | 2023-11-28 14:13 | XMS_ITS | Continuity of Care Document ---
Author Organization [facility] ter Address [address] [place] [address]- Care Team Providers Care Erector Operator Name Role Phone Ralph Blake MD Primary Care Physician [phone] Encounter [facility] [place] Date(s): 08/09/21 - 08/09/[address] [address] Discharge Disposition: A-D/C Home Attending Physician: Adiel Anna MD Admitting Physician: Adiel Anna MD Referring Physician: Adiel Anna MD Allergies, [...] 2Result Comment: [02/23/2016] No reaction 3Admin Note: [facility] Medications atorvastatin 20 mg oral tablet 1 tablet, By Mouth, Daily, # 90 tablet, 3 Refills, 07/06/21 14:26:00 EDT, [facility] #[id number], 152, cm, 07/06/21 14:01:00 EDT, Height Start [...] 07/06/21 14:27:00 EDT, Route to Pharmacy Electronically, [facility] #[id number], 152, cm, 07/06/21 14:01:00 EDT, Height Start Date: 07/06/21 Status: Ordered NuLYTELY with Flavor Packs oral powder for reconstitution 240 mL, By Mouth, Every 10 minutes, # 1 each, 0 Refills, Maintenance, 10/08/17 10:33:17 EDT, REC Powder, exam is 01/08/2018, 240 mL By Mouth Every 10 minutes Start Date: 10/08/17 Status: Ordered oxyCODONE 5 mg oral tablet 5 mg, Tablet, By Mouth, Every 6 hours, PRN for Pain , Severe, Routine, 08/09/21 13:59:00 EDT Start Date: 08/09/21 Stop Date: 08/16/21 Status: Ordered oxyCODONE 5 mg oral tablet 5 mg, 1, tablet, By Mouth, Every 6 hours, PRN, Do not drink alcohol or drive while taking this medication., # 10 tablet, Refills 0, Tot. Refills 0, Acute 08/16/21 5:00:00 EDT, Pain , Severe, 08/09/2212:30:00 EDT, Route to Pharmacy Electronically, [facility] Start Date: 08/09/21 Stop Date: 08/16/21 Status: Ordered valsartan 160 mg oral tablet 160 mg, 1, tablet, By Mouth, Daily, # 90 tablet, Refills 3, Tot. Refills 3, Maintenance, 07/06/21 14:21:00 EDT, Route to Pharmacy Electronically, [facility] #[id number], Partial fill upon patient request if the prescription is for a schedule II o... Start Date: 07/06/21 Status: Ordered Problem List Condition Effective Dates Status Health Status Inform ant Chondrocalcinosis(Confirmed) 1 Active Chondrocalcinosis of left knee(Confirmed) Active Chronic dermatitis of hands(Confirmed) Active Colonoscopy(Confirmed) 2, 3 Active Diverticulosis(Confirmed) 4 Active Dysthymia(Confirmed) Active Epigastric hernia(Confirmed) Active Hypercholesterolemia(Confirmed) Active HTN (hypertension)(Confirmed) Active Internal hemorrhoids(Confirmed) 5 Active intermediate current use of opi ate analgesic(Confirmed) [...] 2017 5colo 2017 6colo 2018 7colo 2017 Procedures Procedure Date Related Diagnosis Body Site Status Repair of epigastric hernia with mesh 08/09/21 Completed Vital Signs Most recent to oldest [Reference Range]: 1 2 3 Height 152 cm (08/09/21 10:51 AM) 152 cm (08/05/21 12:08 PM) Weight 60.6 kg (08/09/21 10:51 AM) 61.82 kg (08/05/21 12:08 PM) Oxygen Saturation [94-100 %] 94 % (08/09/21 3:15 PM) 94 % (08/09/21 3:00 PM) 98 % (08/09/21 2:45 PM) Pulse Rate [55-90 bpm] 89 bpm (08/09/21 10:51 AM) Body Mass Index [18.5-24.99] 26.23 *H* (08/09/21 10:51 AM) 26.76 *H* (08/05/21 12:08 PM) Blood Pressure [90-138/55-84 mm Hg] 146/83mm Hg *H* (08/09/21 3:15 PM) 145/84mm Hg *H* (08/09/21 3:00 PM) 152/84mm Hg *H* (08/09/21 2:45 PM) Respiratory Rate [16-30 br/min] 22 br/min (08/09/21 3:25 PM) 11 br/min *L* (08/09/21 3:15 PM) 9 br/min *L* (08/09/21 3:00 PM) Temperature [96.8-100.4 DegF] 98.8 DegF (08/09/21 3:15 PM) 98.4 DegF (08/09/21 1:30 PM) 97.8 DegF (08/09/21 10:51 AM) Liters per Minute 2 L/min (08/09/21 2:00 PM) 5 L/min (08/09/21 1:30 PM) Mode of Delivery (Oxygen) Nasal cannula (08/09/21 2:15 PM) Nasal cannula (08/09/21 2:00 PM) Simple face mask (08/09/21 1:45 PM) Blood pressure sites Arm, left (08/09/21 10:51 AM) Temperature Route Temporal (08/09/21 3:15 PM) Temporal (08/09/21 1:30 PM) Temporal (08/09/21 10:51 AM) Dry Weight 60.6 kg (08/09/21 10:51 AM) 61.82 kg (08/05/21 12:08 PM) Weight Obtained Via Standing scale (08/09/21 10:51 AM) Patient/family stated (08/05/21 12:08 PM) Dry Weight Obtained Via Standing scale (08/09/21 10:51 AM) Patient/family stated (08/05/21 12:08 PM) Social History Social History Type Response Smoking Status Current every day sm oker; Other: Half a pack of cigarettes daily; entered on: 08/12/15 Sex Medical Equipment Implanted Date:08/09/21Target Site:Abdomen Description Quantity MRI Company Model PATCH HERNIA VENTRALEX LG CI R - BARD ([id number]) 1 Bard Unknown TERRA:No Information Assigning Authority: FDA
--- OUTSIDE RECORDS SUMMARY | 2023-11-28 14:13 | XMS_ITS | Continuity of Care Document ---
Author Organization [facility] Address [address] [address]- Care Team Providers Care Lockstitch Sleeve Maker Name Role Phone Ralph Blake MD Primary Care Physician Encounter [facility] [place] ACCT R [id number] Date(s): 02/16/21 - 03/18/21 [facility] [address] [place] [address] [place] [id number] Attending Physician: Megan Swan Admitting Physician: AdmMegan hagen Referring Physician: AdmtrMegan Allergies, Adverse Reactions, Alerts [...] 2Result Comment: [02/23/2016] No reaction 3Admin Note: [facility] Medications atorvastatin 20 mg oral tablet 1 tablet, By Mouth, Daily, # 30 tablet, 5 Refills, [facility] #[id number], 157, cm, 10/06/20 13:51:00 EDT, Height Start Date: 12/28/20 Status: Ordered celecoxib 200 mg oral capsule See Instructions, TAKE ONE CAPSULE BY MOUTH ONCE DAILY., # 30 capsule, 1 Refills, [id number], 157, cm, 10/06/20 13:51:00 EDT, Height Start Date: 12/28/20 Status: Ordered clobetasol 0.05% topical cream 1 [...] 08/09/20 19:25:00 EDT, Route to Pharmacy Electronically, [facility] #[id number], 157, cm, 12/29/19 8:59:00 EDT, Height Start [...] 10/06/20 14:15:00 EDT, Route to Pharmacy Electronically, [facility] #[id number], Partial fill upon patient request if the prescription is for a schedule II o... Start Date: 10/06/20 Status: Ordered Problem List Condition Effective Dates Status Health Status Inform ant Chondrocalcinosis(Confirmed) 1 Active Chondrocalcinosis of left knee(Confirmed) Active Chronic dermatitis of hands(Confirmed) Active Colonoscopy(Confirmed) 2, 3 Active Diverticulosis(Confirmed) 4 Active Dysthymia(Confirmed) Active Hypercholesterolemia(Confirmed) Active HTN (hypertension)(Confirmed) Active Internal hemorrhoids(Confirmed) 5 Active long-term current use of opi ate analgesic(Confirmed) Active [...]
--- OUTSIDE RECORDS SUMMARY | 2023-11-28 14:13 | XMS_ITS | Continuity of Care Document ---
Author Organization [facility] Address [address] [place] [address]- Care Team Providers Care Route Aide Name Role Phone Lou PIEDRA, Ralph Shannon Primary Care Physician Encounter [facility] Date(s): 05/10/21 - 06/09/21 [facility] Adult [address] [place] [address]- Allergies, Adverse Reactions, Alerts Substance Reaction Severity [...] 2Result Comment: [02/23/2016] No reaction 3Admin Note: [facility] Medications atorvastatin 20 mg oral tablet 1 tablet, By Mouth, Daily, # 30 tablet, 5 Refills, [facility] #[id number], 157, cm, 10/06/20 13:51:00 EDT, Height Start [...] 08/09/20 19:25:00 EDT, Route to Pharmacy Electronically, [facility] #[id number], 157, cm, 12/29/19 8:59:00 EDT, Height Start [...] 0 Refills, Maintenance, 05/10/21 11:14:00 EST, Capsule, [facility]/pharmacy #[id number], Partial fill upon patient request if the prescription is for a schedule II opioid drug., 157, cm, 05/10/21... Start Date: 05/10/21 Status: Ordered valsartan 160 mg oral tablet 160 mg, 1, tablet, By Mouth, Daily, # 90 tablet, Refills 3, Tot. 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
--- OUTSIDE RECORDS SUMMARY | 2023-11-28 14:13 | XMS_ITS | Continuity of Care Document ---
Author Organization [facility] Address Unknown Care Team Providers Care Furnace Puncher Name Role Phone Ralph Blake MD Primary Care Physician [place] [facility] [place] 08/26/21 [facility] Attending Physician: Adiel Anna MD Referring Physician: Ralph Blake MD Allergies, [...] 2Result Comment: [02/23/2016] No reaction 3Admin Note: [facility] Medications atorvastatin 20 mg oral tablet 1 tablet, By Mouth, Daily, # 90 tablet, 3 Refills, 07/06/21 14:26:00 EDT, [facility] #[id number], 152, cm, 07/06/21 14:01:00 EDT, Height Start [...] 07/06/21 14:27:00 EDT, Route to Pharmacy Electronically, [facility] #[id number], 152, cm, 07/06/21 14:01:00 EDT, Height Start [...] 07/06/21 14:21:00 EDT, Route to Pharmacy Electronically, [facility] #[id number], Partial fill upon patient request if the prescription is for a schedule II o... 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
--- OUTSIDE RECORDS SUMMARY | 2023-11-28 14:13 | XMS_ITS | Continuity of Care Document ---
Author Organization [facility] ter Address [address] [place] [address]- Care Team Providers Care Solar Photovoltaic Systems Engineer Name Role Phone Lou PIEDRA, Ralph Shannon Primary Care Physician Encounter [facility] [place] Date(s): 06/14/21 - 08/10/[address] [address] Attending Physician: Adiel Anna MD Admitting Physician: Adiel Anna MD Allergies, Adverse Reactions, [...] 2Result Comment: [02/23/2016] No reaction 3Admin Note: [facility] Medications atorvastatin 20 mg oral tablet 1 tablet, By Mouth, Daily, # 90 tablet, 3 Refills, 07/06/21 14:26:00 EDT, [facility] #[id number], 152, cm, 07/06/21 14:01:00 EDT, Height Start [...] 07/06/21 14:27:00 EDT, Route to Pharmacy Electronically, [facility] #[id number], 152, cm, 07/06/21 14:01:00 EDT, Height Start [...] Severe, 08/09/2212:30:00 EDT, Route to Pharmacy Electronically, [facility]... Start Date: 08/09/21 Stop Date: 08/16/21 Status: Ordered valsartan 160 mg oral tablet 160 mg, 1, tablet, By Mouth, Daily, # 90 tablet, Refills 3, Tot. Refills 3, Maintenance, 07/06/21 14:21:00 EDT, Route to Pharmacy Electronically, [facility] #[id number], Partial fill upon patient request if the [...] 2018 5colo 2018 6colo 2018 7colo 2017 Vital Signs Most recent to oldest [Reference Range]: 1 Height 152.40 cm (07/07/21 6:02 PM) Weight 61.82 kg (07/07/21 6:02 PM) Body Mass Index [18.5-24.99] 26.62 *H* (07/07/21 6:02 PM) Dry Weight 61.82 kg (07/07/21 6:02 PM) Weight Obtained Via Patient/family state d (07/07/21 6:02 PM) Dry Weight Obtained Via Patient/family s tated (07/07/21 6:02 PM) Social History Social History Type Response Smoking Status Current every day sm oker; Other: Half a pack of cigarettes daily; entered on: 08/12/15 Sex Medical Equipment Implanted Date:08/09/21Target Site:Abdomen Description Quantity MRI Company Model PATCH HERNIA VENTRALEX LG CI R - BARD ([id number]) 1 Bard Unknown TERRA:No Information Assigning Authority: FDA
--- OUTSIDE RECORDS SUMMARY | 2023-11-28 14:13 | XMS_ITS | Continuity of Care Document ---
Author Organization [facility] Address Unknown Care Team Providers Care Service Supervisor Name Role Phone Lou PIEDRA, Ralph Shannon Primary Care Physician [phone] [place] [facility] [place](s[place] 05/27/21 - 07/01/21 [facility] Attending Physician: Adiel Anna MD Referring Physician: Concha COLON, Laquita Parks Allergies, Adverse Reactions, Alerts Substance Reaction Severity [...] 2Result Comment: [02/23/2016] No reaction 3Admin Note: [facility] Medications atorvastatin 20 mg oral tablet 1 tablet, By Mouth, Daily, # 30 tablet, 5 Refills, [facility] #[id number], 157, cm, 10/06/20 13:51:00 EDT, Height Start [...] 08/09/20 19:25:00 EDT, Route to Pharmacy Electronically, [facility] #[id number], 157, cm, 12/29/19 8:59:00 EDT, Height Start [...] 0 Refills, Maintenance, 05/10/21 11:14:00 EST, Capsule, [facility]/pharmacy #[id number], Partial fill upon patient request if the prescription is for a schedule II opioid drug., 157, cm, 05/10/21... Start Date: 05/10/21 Status: Ordered valsartan 160 mg oral tablet 160 mg, 1, tablet, By Mouth, Daily, # 90 tablet, Refills 3, Tot. Refills 3, Maintenance, 10/06/20 14:15:00 EDT, Route to Pharmacy Electronically, [facility] #[id number], Partial fill upon patient request if the prescription is for a schedule II o... Start Date: 10/06/20 Status: Ordered Problem List Condition Effective Dates Status Health Status Inform ant Chondrocalcinosis(Confirmed) 1 Active Chondrocalcinosis of left knee(Confirmed) Active Chronic dermatitis of hands(Confirmed) Active Colonoscopy(Confirmed) 2, 3 Active Diverticulosis(Confirmed) 4 Active Dysthymia(Confirmed) Active Epigastric hernia(Confirmed) Active Hypercholesterolemia(Confirmed) Active HTN (hypertension)(Confirmed) Active Internal hemorrhoids(Confirmed) 5 Active retirement current use of opi ate analgesic(Confirmed) Active [...]
--- OUTSIDE RECORDS SUMMARY | 2023-11-28 14:13 | XMS_ITS | Continuity of Care Document ---
Author Organization [facility] Address Unknown Care Team Providers Care Blow Mold Technician Name Role Phone Ralph Blake MD Primary Care Physician [phone] Encounter [facility] [place] Date(s): 08/24/21 - 08/31/21 [facility] Attending Physician: Adiel Anna [...] 2Result Comment: [02/23/2016] No reaction 3Admin Note: [facility] Medications atorvastatin 20 mg oral tablet 1 tablet, By Mouth, Daily, # 90 tablet, 3 Refills, 07/06/21 14:26:00 EDT, [facility] #[id number], 152, cm, 07/06/21 14:01:00 EDT, Height Start [...] 07/06/21 14:27:00 EDT, Route to Pharmacy Electronically, [facility] #[id number], 152, cm, 07/06/21 14:01:00 EDT, Height Start [...] 07/06/21 14:21:00 EDT, Route to Pharmacy Electronically, [facility] #[id number], Partial fill upon patient request if the prescription is for a schedule II o... 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 3colonoscopy 2013 nl, repeat 2022 4colo 2018 5colo 2017 6colo 2017 7colo 2017 Vital Signs Most recent to oldest [Reference Range]: 1 Height 152 cm (08/24/21 10:53 AM) Weight 60.7 kg (08/24/21 10:53 AM) Pulse Rate [55-90 bpm] 85 bpm (08/24/21 10:53 AM) Body Mass Index [18.5-24.99] 26.27 *H* (08/24/21 10:53 AM) Blood Pressure [90-138/55-84 mm Hg] 121/ 78mm Hg (08/24/21 10:53 AM) Respiratory Rate [16-30 br/min] 18 br/mi n (08/24/21 10:53 AM) Temperature [96.8-100.4 DegF] 97.8 DegF (08/24/21 10:53 AM) Blood pressure sites Arm, right (08/24/21 10:53 AM) Temperature Route Temporal (08/24/21 10:53 AM) Weight Obtained Via Standing scale (08/24/21 10:53 AM) Social History Social History Type Response Smoking Status Former smoker, quit more than 30 days ago; Other: Quit 1 month ago; entered on: 08/24/21 Sex Medical Equipment Implanted Date:08/09/21Target Site:Abdomen Description Quantity MRI Company Model PATCH HERNIA VENTRALEX LG CI R - BARD ([id number]) 1 Bard Unknown TERRA:No Information Assigning Authority: FDA
--- OUTSIDE RECORDS SUMMARY | 2023-11-28 14:13 | XMS_ITS | Continuity of Care Document ---
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 Refills 11, Maintenance, 03/20/18 10:31:07 EST, Route to Pharmacy Electronically, [id number], [facility] [id number] Start Date: 03/20/18 Status: Ordered Lipitor 20 mg oral tablet 1 tablet = 20 mg, By Mouth, Daily, # 30 tablet, 11 Refills, Maintenance, Tablet, Route to Pharmacy Electronically, [id number], [facility] [id number] Start Date: 03/20/18 Status: Ordered NuLYTELY with Flavor Packs oral [...] pain, # 112 tablet, 0 Refills, Maintenance, 03/03/19 13:43:00 EST, Tablet, [facility] #[id number], Ok for partial refill at patients request, 03/03/19, 157, cm, 08/30/18 9:03:00 EDT, Height Start Date: 03/03/19 Status: Ordered Problem List Condition Effective Dates Status Health Status Inform ant Colonoscopy(Confirmed) 1, 2 Active Diverticulosis(Confirmed) 3 Active Dysthymia(Confirmed) Active Hypercholesterolemia(Confirmed) Active HTN (hypertension)(Confirmed) Active Internal hemorrhoids(Confirmed) 4 Active skilled nursing current use of opi ate analgesic(Confirmed) Active Lumbar spinal stenosis(Confirmed) Active Neck pain(Confirmed) Active Polyp of colon(Confirmed) 5 Active Polyp of rectum(Confirmed) 6 Active Shoulder pain(Confirmed) Active Tennis elbow(Confirmed) Active Tobacco abuse(Confirmed) Active 1clonoscopy 2013 normal, repeat 2018 not 2022 per report. 2colonoscopy 2013 nl, repeat 2022 3colo 2017 4colo 2017 5colo 2017 6c2017 Diagnosis Diagnosis Type Effective Dates Health Status Clinical Service Informant HTN (hypertension) Discharge Diagnosis 03/07/19 Hypercholesterolemia Discharge Diagnosis 03/07/19 skilled nursing current use of opiate analgesic Discharge Diagnosis 03/07/19 Tobacco abuse Discharge Diagnosis 03/07/19 Vital Signs Most recent to oldest [Reference Range]: 1 Height 157.00 cm (03/07/19 10:52 AM) Weight 50.5 kg (03/07/19 10:52 AM) Pulse Rate [55-90 bpm] 72 bpm (03/07/19 10:52 AM) Body Mass Index [18.5-24.99] 20.49 (03/07/19 10:52 AM) Blood Pressure [90-138/55-84 mm Hg] 112/ 74mm Hg (03/07/19 10:52 AM) Mode of Delivery (Oxygen) Room air (03/07/19 10:52 AM) Blood pressure sites Arm, left (03/07/19 10:52 AM) Weight Obtained Via Standing scale (03/07/19 10:52 AM) Social History Social History Type Response Smoking Status Current every day zurdo horton; Other: Half a pack of cigarettes daily; entered on: 08/12/15 Sex
--- OUTSIDE RECORDS SUMMARY | 2023-11-28 14:13 | XMS_ITS | Continuity of Care Document ---
Author Organization [facility] Address Unknown Care Team Providers Care Utility Engineer Name Role Phone Ralph Blake MD Primary Care Physician [place] [facility] [place] 09/23/21 [facility] Attending Physician: Megan Swan Admitting Physician: Megan [...] 2Result Comment: [02/23/2016] No reaction 3Admin Note: [facility] Medications atorvastatin 20 mg oral tablet 1 tablet, By Mouth, Daily, # 90 tablet, 3 Refills, 07/06/21 14:26:00 EDT, [facility] #[id number], 152, cm, 07/06/21 14:01:00 EDT, Height Start [...] 07/06/21 14:27:00 EDT, Route to Pharmacy Electronically, [facility][id number], 152, cm, 07/06/21 14:01:00 EDT, Height Start [...] 07/06/21 14:21:00 EDT, Route to Pharmacy Electronically, [facility] #[id number], Partial fill upon patient request if the prescription is for a schedule II o... Start Date: 07/06/21 Status: Ordered Problem List Condition Effective Dates Status Health Status Inform ant Chondrocalcinosis(Confirmed) 1 Active Chondrocalcinosis of left knee(Confirmed) Active Chronic dermatitis of hands(Confirmed) Active Colonoscopy(Confirmed) 2, 3 Active Diverticulosis(Confirmed) 4 Active Dysthymia(Confirmed) Active Epigastric hernia(Confirmed) Active Hypercholesterolemia(Confirmed) Active HTN (hypertension)(Confirmed) Active Internal hemorrhoids(Confirmed) 5 Active USP current use of opi ate analgesic(Confirmed) Active [...] HERNIA VENTRALEX LG CI R - BARD ([id number]) 1 Bard Unknown TERRA:No Information Assigning Authority: FDA
--- OUTSIDE RECORDS SUMMARY | 2023-11-28 14:13 | XMS_ITS | Continuity of Care Document ---
Author Organization [facility] Address [address] [place] [address]- Care Team Providers Care Corporation Lawyer Name Role Phone Lou PIEDRA, Ralph Shannon Primary Care Physician Encounter [facility] Date(s): 05/12/21 - 06/11/21 [facility] Adult [address] [place] [address]- Allergies, Adverse Reactions, Alerts Substance Reaction Severity [...] 2Result Comment: [02/23/2016] No reaction 3Admin Note: [facility] Medications atorvastatin 20 mg oral tablet 1 tablet, By Mouth, Daily, # 30 tablet, 5 Refills, [facility] #[id number], 157, cm, 10/06/20 13:51:00 EDT, Height Start [...] 08/09/20 19:25:00 EDT, Route to Pharmacy Electronically, [facility] #[id number], 157, cm, 12/29/19 8:59:00 EDT, Height Start [...] 0 Refills, Maintenance, 05/10/21 11:14:00 EST, Capsule, [facility]/pharmacy #[id number], Partial fill upon patient request if the prescription is for a schedule II opioid drug., 157, cm, 05/10/21... Start Date: 05/10/21 Status: Ordered valsartan 160 mg oral tablet 160 mg, 1, tablet, By Mouth, Daily, # 90 tablet, Refills 3, Tot. Refills 3, Maintenance, 10/06/20 14:15:00 EDT, [facility] to [facility] Electronically[id number], Partial fill upon patient request if the [...]
--- OUTSIDE RECORDS SUMMARY | 2023-11-28 14:13 | XMS_ITS | Continuity of Care Document ---
Author Organization [facility] Malik Gutiérrez Denzel lt Address [address] [place] [address]- Care Team Providers Care Acid Correction Hand Name Role Phone Ralph Blake MD Primary Care Physician [facility] Date(s): 05/27/21 - 06/26/21 [facility] Malik Navarroley Adult [address] [place] [address]- Allergies, Adverse Reactions, Alerts Substance Reaction Severity [...] 2Result Comment: [02/23/2016] No reaction 3Admin Note: [employer] [facility] Medications atorvastatin 20 mg oral tablet 1 tablet, By Mouth, Daily, # 30 tablet, 5 Refills, [facility] #[id number], 157, cm, 10/06/20 13:51:00 EDT, Height Start [...] 08/09/20 19:25:00 EDT, Route to Pharmacy Electronically, [facility] #[id number], 157, cm, 12/29/19 8:59:00 EDT, Height Start [...] 0 Refills, Maintenance, 05/10/21 11:14:00 EST, Capsule, [facility]/pharmacy #[id number], Partial fill upon patient request if the prescription is for a schedule II opioid drug., 157, cm, 05/10/21... Start Date: 05/10/21 Status: Ordered valsartan 160 mg oral tablet 160 mg, 1, tablet, By Mouth, Daily, # 90 tablet, Refills 3, Tot. Refills 3, Maintenance, 10/06/20 14:15:00 EDT, Route to Pharmacy Electronically, [facility] #[id number], Partial fill upon patient request if the prescription is for a schedule II o... Start Date: 10/06/20 Status: Ordered Problem List Condition Effective Dates Status Health Status Inform ant Chondrocalcinosis(Confirmed) 1 Active Chondrocalcinosis of left knee(Confirmed) Active Chronic dermatitis of hands(Confirmed) Active Colonoscopy(Confirmed) 2, 3 Active Diverticulosis(Confirmed) 4 Active Dysthymia(Confirmed) Active Epigastric hernia(Confirmed) Active Hypercholesterolemia(Confirmed) Active HTN (hypertension)(Confirmed) Active Internal hemorrhoids(Confirmed) 5 Active detention current use of opi ate analgesic(Confirmed) Active [...]
--- OUTSIDE RECORDS SUMMARY | 2023-11-28 14:13 | XMS_ITS | Continuity of Care Document ---
Author Organization [facility] Brock Denzel lt Address [address] [place] [address]- Care Team Providers Care Investor Relations Manager Name Role Phone Ralph Blake MD Primary Care Physician Encounter [facility] Date(s): 12/29/19 - 01/05/20 [facility] Adult [address] [place] [address]- [facility] Encounter Diagnosis Lumbar spinal stenosis(Discharge Diagnosis) - 12/29/19 Neck pain(Discharge Diagnosis) - 12/29/19 Osteoarthritis of right hip(Discharge Diagnosis) - 12/29/19 Tobacco abuse(Discharge Diagnosis) - 12/29/19 Attending Physician: Ralph Blake MD Allergies, Adverse [...] 2Result Comment: [02/23/2016] No reaction 3Admin Note: [employer] [facility] Medications amLODIPine 5 mg oral tablet 5 mg, 1, tablet, By Mouth, Daily, # 30 tablet, Refills 2, Tot. Refills 2, Maintenance, 09/15/19 15:06:00 EDT, [id number], 157, cm, 03/07/19 10:52:00EST, Height Start Date: [...] 11/25/19 9:23:00 EDT, [id number], 157, cm, 208:59:00 EDT, Height Start Date: 11/25/19 Status: Ordered Lipitor 20 mg oral tablet 1 tablet = 20 mg, By Mouth, Daily, # 30 tablet, 5 Refills, Maintenance, 11/14/19 13:34:00 EDT, [facility], [id number], 157, cm, 11/14/19 13:26:00 EDT, Height Start [...] (hypertension)(Confirmed) Active Internal hemorrhoids(Confirmed) 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) Active [...] Effective Dates Health Status Clinical Service Informant Lumbar spinal stenosis Discharge Diagnosis 12/29/19 Neck pain Discharge Diagnosis 12/29/19 Osteoarthritis of right hip Discharge Diagnosis 12/29/19 Tobacco abuse Discharge Diagnosis 12/29/19 Vital Signs Most recent to oldest [Reference Range]: 1 Height 157.00 cm (12/29/19 8:59 AM) Weight 55.8 kg (12/29/19 8:59 AM) Oxygen Saturation [94-100 %] 96 % (12/29/19 8:59 AM) Pulse Rate [55-90 bpm] 78 bpm (12/29/19 8:59 AM) Body Mass Index [18.5-24.99] 22.64 (12/29/19 8:59 AM) Blood Pressure [90-138/55-84 mm Hg] 130/ 64mm Hg (12/29/19 8:59 AM) Mode of Delivery (Oxygen) Room air (12/29/19 8:59 AM) Blood pressure sites Arm, left (12/29/19 8:59 AM) Weight Obtained Via Standing scale (12/29/19 8:59 AM) Social History Social History Type Response Smoking Status Current every day sm oker; Other: Half a pack of cigarettes daily; entered on: 08/12/15 Sex
--- OUTSIDE RECORDS SUMMARY | 2023-11-28 14:13 | XMS_ITS | Continuity of Care Document ---
Author Organization [facility] Brock Denzel lt Address [address] [place] [address]- Care Team Providers Care Machine Operator General Name Role Phone Ralph Blake MD Primary Care Physician Encounter [facility] Date(s): 06/14/19 - 10/12/19 [facility] Adult [address] [place] [address]- [facility] Attending Physician: Ralph Blake MD [...] 2Result Comment: [02/23/2016] No reaction 3Admin Note: [employer] [facility] Medications amLODIPine 5 mg oral tablet 5 mg, 1, tablet, By Mouth, Daily, # 30 tablet, Refills 2, Tot. Refills 2, Maintenance, 09/15/19 15:06:00 EDT, Route to Pharmacy Electronically, [facility] #[id number], 157, cm, 03/07/19 10:52:00EST, Height Start Date: 09/15/19 Status: Ordered Lipitor 20 mg oral tablet 1 tablet = 20 mg, By Mouth, Daily, # 30 tablet, 5 Refills, Maintenance, 03/28/19 19:39:00 EST, Tablet, [facility] #88937, 157, cm, 03/07/19 10:52:00 EST, Height Start [...] 0 Refills, Maintenance, 10/10/19 11:05:00 EDT, Tablet, [facility] #18356, Ok for partial refill at patients request, 10/13/19, 157, cm, 03/07/19 10:52:00 EST, Height Start Date: 10/10/19 Status: Ordered Problem List Condition Effective Dates Status Health Status Inform ant Colonoscopy(Confirmed) 1, 2 Active Diverticulosis(Confirmed) 3 Active Dysthymia(Confirmed) Active Hypercholesterolemia(Confirmed) Active HTN (hypertension)(Confirmed) Active Internal hemorrhoids(Confirmed) 4 Active [facility] current use of opi ate analgesic(Confirmed) Active [...]
--- OUTSIDE RECORDS SUMMARY | 2023-11-28 14:13 | XMS_ITS | Continuity of Care Document ---
Author Organization [facility] Address Unknown Care Team Providers Care Primary School Teacher Name Role Phone Ralph Blake MD Primary Care Physician [phone] [place] [facility] [place] 06/01/21 - 06/08/21 [facility] Attending Physician: Adiel Anna [...] 2Result Comment: [02/23/2016] No reaction 3Admin Note: [employer] [facility] Medications atorvastatin 20 mg oral tablet 1 tablet, By Mouth, Daily, # 30 tablet, 5 Refills, [facility] #[id number], 157, cm, 10/06/20 13:51:00 EDT, Height Start [...] 08/09/20 19:25:00 EDT, Route to Pharmacy Electronically, [facility] #[id number], 157, cm, 12/29/19 8:59:00 EDT, Height Start [...] 0 Refills, Maintenance, 05/10/21 11:14:00 EST, Capsule, [facility]/pharmacy #[id number], Partial fill upon patient request if the prescription is for a schedule II opioid drug., 157, cm, 05/10/21... Start Date: 05/10/21 Status: Ordered valsartan 160 mg oral tablet 160 mg, 1, tablet, By Mouth, Daily, # 90 tablet, Refills 3, Tot. Refills 3, Maintenance, 10/06/20 14:15:00 EDT, Route to Pharmacy Electronically, [facility] #[id number], Partial fill upon patient request if the [...] (hypertension)(Confirmed) Active Internal hemorrhoids(Confirmed) 5 Active senior care current use of opi ate analgesic(Confirmed) Active Lumbar spinal stenosis(Confirmed) Active Elevated MCV(Confirmed) Active Neck pain(Confirmed) Active Osteoarthritis of right hip(Confirmed) Active Polyp of colon(Confirmed) 6 Active Polyp of rectum(Confirmed) 7 Active Shoulder pain(Confirmed) Active Edema(Confirmed) Active Tennis elbow(Confirmed) Active Tobacco abuse(Confirmed) Active 1Left knee 2clonoscopy 2013 normal, repeat 2018 not 2022 per report. 3colonoscopy 2013 nl, repeat 2022 4colo 2017 5colo 2018 6colo 2018 7colo 2017 Procedures Procedure Date Related Diagnosis Body Site Status Right carpal tunnel release 06/09/09 Completed Cervical discectomy, anterior approach 2004 Completed Cervical discectomy, anterior approach 2003 Completed section 1990 Complete d Laparoscopic tubal ligation 1990 Completed Surgical correction of scoli osis with placement Iglesias stephanie 1974 Complet ed Vital Signs Most recent to oldest [Reference Range]: 1 Height 152 cm (06/01/21 9:06 AM) Weight 60.6 kg (06/01/21 9:06 AM) Pulse Rate [55-90 bpm] 75 bpm (06/01/21 9:06 AM) Body Mass Index [18.5-24.99] 26.23 *H* (06/01/21 9:06 AM) Blood Pressure [90-138/55-84 mm Hg] 132/ 82mm Hg (06/01/21 9:06 AM) Respiratory Rate [16-30 br/min] 16 br/mi n (06/01/21 9:06 AM) Temperature [96.8-100.4 DegF] 97.4 DegF (06/01/21 9:06 AM) Blood pressure sites Arm, left (06/01/21 9:06 AM) Temperature Route Temporal (06/01/21 9:06 AM) Weight Obtained Via Standing scale (06/01/21 9:06 AM) Social History Social History Type Response Smoking Status Current every day sm oker; Other: Half a pack of cigarettes daily; entered on: 08/12/15 Sex
--- OUTSIDE RECORDS SUMMARY | 2023-11-28 14:13 | XMS_ITS | Continuity of Care Document ---
Author Organization [facility] Brock Denzel lt Address [address] [place] [address]- Care Team Providers Care Jewel Grinder Name Role Phone Ralph Blake MD Primary Care Physician [place] [facility] [place] Date(s): 03/17/20 - 04/16/20 [facility] Malik Gutiérrez Adult [address] [place] [address]- Attending Physician: Megan Swan Admitting Physician: AdmtrMegan [...] 2Result Comment: [02/23/2016] No reaction 3Admin Note: [employer] [facility] Medications amLODIPine 5 mg oral tablet 5 mg, 1, tablet, By Mouth, Daily, # 30 tablet, Refills 2, Tot. Refills 2, Maintenance, 09/15/19 15:06:00 EDT, Route to Pharmacy Electronically, [facility] #[id number], 157, cm, 03/07/19 10:52:00EST, Height Start Date: [...] 02/01/20 9:12:00 EST, Route to Pharmacy Electronically, [facility] #[id number], 157, cm, 208:59:00 EDT, Height Start Date: 02/01/20 Status: Ordered Lipitor 20 mg oral tablet 1 tablet = 20 mg, By Mouth, Daily, # 30 tablet, 5 Refills, Maintenance, 11/14/19 13:34:00 EDT, Tablet, [id number], 157, cm, 11/14/19 13:26:00 EDT, Height Start [...] HTN (hypertension)(Confirmed) Active Internal hemorrhoids(Confirmed) 4 Active senior care current use of opi [...]
--- OUTSIDE RECORDS SUMMARY | 2023-11-28 14:13 | XMS_ITS | Continuity of Care Document ---
Author Organization [facility] Address Unknown Care Team Providers Care Art Glass Designer Name Role Phone Ralph Blake MD Primary Care Physician Encounter [facility] Date(s): 08/02/21 - 09/01/21 [facility] Allergies, Adverse Reactions, Alerts Substance Reaction Severity [...] 2Result Comment: [02/23/2016] No reaction 3Admin Note: [employer] [facility] Medications atorvastatin 20 mg oral tablet 1 tablet, By Mouth, Daily, # 90 tablet, 3 Refills, 07/06/21 14:26:00 EDT, [facility] #00395, 152, cm, 07/06/21 14:01:00 EDT, Height Start [...] 07/06/21 14:27:00 EDT, Route to Pharmacy Electronically, [facility] #[id number], 152, cm, 07/06/21 14:01:00 EDT, Height Start [...] 07/06/21 14:21:00 EDT, Route to Pharmacy Electronically, [facility] #[id number], Partial fill upon patient request if the [...] (hypertension)(Confirmed) Active Internal hemorrhoids(Confirmed) 5 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
--- OUTSIDE RECORDS SUMMARY | 2023-11-28 14:13 | XMS_ITS | Continuity of Care Document ---
Author Organization [facility] Denzel lt Address [address] [place] [address]- Care Team Providers Care Director Of Planning Name Role Phone Ralph Blake MD Primary Care Physician [phone] [facility]counter [facility] Date(s): 11/25/19 - 12/25/19 [facility] Adult [address] [place] [address]- [facility] Allergies, Adverse Reactions, Alerts Substance Reaction [...] 2Result Comment: [02/23/2016] No reaction 3Admin Note: [facility] Medications amLODIPine 5 mg oral tablet 5 mg, 1, tablet, By Mouth, Daily, # 30 tablet, Refills 2, Tot. Refills 2, Maintenance, 09/15/19 15:06:00 EDT, Route to Pharmacy Electronically, [facility] #[id number], 157, cm, 01/03/20 10:52:00EST, Height Start Date: 09/15/19 Status: Ordered CeleBREX 100 mg oral capsule 1 capsule = 100 mg, By Mouth, 2 times a day, # 14 capsule, 0 Refills, Maintenance, 12/08/19 7:25:00EDT, [facility]apsule, [facility], 157, cm, 11/25/19 8:59:00 EDT, Height Start Date: 12/08/19 Stop Date: 12/15/19 Status: Ordered cloNIDine 0.1 mg oral tablet 0.1 mg, 1, tablet, By Mouth, 2 times a day, # 60 tablet, Refills 1, Tot. Refills 1, Maintenance, 11/25/19 9:23:00 EDT, Route to Pharmacy Electronically, [id number], 157, cm, 208:59:00 EDT, Height Start Date: 11/25/19 Status: Ordered Lipitor 20 mg oral tablet 1 tablet = 20 mg, By Mouth, Daily, # 30 tablet, 5 Refills, Maintenance, 11/14/19 13:34:00 EDT, Tablet, [facility] #37206, 157, cm, 11/14/19 13:26:00 EDT, Height Start [...] HTN (hypertension)(Confirmed) Active Internal hemorrhoids(Confirmed) 4 Active [facility] current use of opi ate analgesic(Confirmed) Active [...]
--- OUTSIDE RECORDS SUMMARY | 2023-11-28 14:13 | XMS_ITS | Continuity of Care Document ---
Author Organization [facility] Malik Gutiérrez Denzel Address [address] [place] [address]- Care Team Providers Care Investigative Agent Name Role Phone Ralph Blake MD Primary Care Physician [facility] Date(s): 06/09/21 - 07/09/21 [facility] Malik Navarroley Adult [address] [place] [address]- Allergies, Adverse Reactions, Alerts Substance Reaction Severity [...] 2Result Comment: [02/23/2016] No reaction 3Admin Note: [employer] Medications atorvastatin 20 mg oral tablet 1 tablet, By Mouth, Daily, # 90 tablet, 3 Refills, 07/06/21 14:26:00 EDT, [facility] #[id number], 152, cm, 07/06/21 14:01:00 EDT, Height Start [...] 07/06/21 14:27:00 EDT, Route to Pharmacy Electronically, [facility] #63809, 152, cm, 07/06/21 14:01:00 EDT, Height Start [...] 07/06/21 14:21:00 EDT, Route to Pharmacy Electronically, [facility] #37397, Partial fill upon patient request if the prescription is for a schedule II o... Start Date: 07/06/21 Status: Ordered Problem List Condition Effective Dates Status Health Status Inform ant Chondrocalcinosis(Confirmed) 1 Active Chondrocalcinosis of left knee(Confirmed) Active Chronic dermatitis of hands(Confirmed) Active Colonoscopy(Confirmed) 2, 3 Active Diverticulosis(Confirmed) 4 Active Dysthymia(Confirmed) Active Epigastric hernia(Confirmed) Active Hypercholesterolemia(Confirmed) Active HTN (hypertension)(Confirmed) Active Internal hemorrhoids(Confirmed) 5 Active correction current use of opi ate analgesic(Confirmed) Active [...]
--- OUTSIDE RECORDS SUMMARY | 2023-11-28 14:13 | XMS_ITS | Continuity of Care Document ---
Author Organization [facility] ter Address [address] [place] [address]- Care Team Providers Care Paint Striping Machine Operator Name Role Phone Ralph Blake MD Primary Care Physician [phone] [facility]counter [facility] Date(s): 03/07/19 - 03/07/[address] [address]- [facility] Attending Physician: Ralph Blake MD Allergies, Adverse [...] 2Result Comment: [02/23/2016] No reaction 3Admin Note: [employer] [facility] Medications amLODIPine 5 mg oral tablet 5 mg, 1, tablet, By Mouth, Daily, # 30 tablet, Refills 11, Tot. Refills 11, Maintenance, 03/20/18 10:31:07 EST, Route to Pharmacy Electronically, [id number], [facility] [id number] Start Date: 03/20/18 Status: Ordered Lipitor 20 mg oral tablet 1 tablet = 20 mg, By Mouth, Daily, # 30 tablet, 11 Refills, Maintenance, Tablet, Route to Pharmacy Electronically, [id number], [facility] 13428 Start Date: 03/20/18 Status: Ordered NuLYTELY with [...] 0 Refills, Maintenance, 03/03/19 13:43:00 EST, Tablet, [facility] #02480, Ok for partial refill at patients request, 03/03/19, 157, cm, 08/30/18 9:03:00 EDT, Height Start Date: 03/03/19 Status: Ordered Problem List Condition Effective Dates Status Health Status Inform ant Colonoscopy(Confirmed) 1, 2 Active Diverticulosis(Confirmed) 3 Active Dysthymia(Confirmed) Active Hypercholesterolemia(Confirmed) Active HTN (hypertension)(Confirmed) Active Internal hemorrhoids(Confirmed) 4 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
--- OUTSIDE RECORDS SUMMARY | 2023-11-28 14:13 | XMS_ITS | Continuity of Care Document ---
Author Organization [facility] Brock Denzel lt Address [address] [place] [address]- Care Team Providers Care Rug Setter [place] Name Role Phone Ralph Blake MD Primary Care Physician [facility] Date(s): 01/16/22 - 02/15/22 [facility] Malik Navarroley Adult [address] [place] [address]- Attending Physician: Megan Swan Admitting Physician: AdmMegan hagen Referring Physician: Admtr, [facility] Allergies, Adverse Reactions, Alerts Substance Reaction Severity [...] 2Result Comment: [02/23/2016] No reaction 3Admin Note: [facility] Medications atorvastatin 20 mg oral tablet 1 tablet, By Mouth, Daily, # 90 tablet, 3 Refills, 07/06/21 14:26:00 EDT, [facility] #[id number], 152, cm, 07/06/21 14:01:00 EDT, Height Start [...] 07/06/21 14:27:00 EDT, Route to Pharmacy Electronically, [facility] #[id number], 152, cm, 07/06/21 14:01:00 EDT, Height Start [...] 07/06/21 14:21:00 EDT, Route to Pharmacy Electronically, [facility] #05382, Partial fill upon patient request if the [...] Confirmed Active Internal hemorrhoids 5 Confirmed Active [facility] current use of opiate analgesic Confirmed Active [...] Safety Implantable Status Assigning Authority Unknown Unknown [id number] Unknown 10/30/22 Unknown Unknown Active Unknown EKG study * Event Display: EKG Authored Date: Note * Event Display: MM Mammogram Authored Date: * Event Display: Radiology Result Scanned Authored Date: * Event Display: Non BH Radiology Results Authored Date: * Lolis Dallas: PERFORM Event Display: Laboratory Results Scanned Authored Date: [id number] * Lolis Dallas: PERFORM Event Display: Radiology Results Scanned Authored Date: * Guadalupe Mckeon: PERFORM Event Display: Laboratory Results Scanned Authored Date: Patient Care team information Care Team Personnel Name: Ralph Blake MD Position: [facility] Primary Care Physician Member Role: PCP Address: Address: [address] [place] [address]- Care Team Related Persons Name: AMPARO KAISER Address: [address] [place] [address]
--- OUTSIDE RECORDS SUMMARY | 2023-11-28 14:13 | XMS_ITS | Continuity of Care Document ---
Author Organization [facility] Denzel lt Address [address] [place] [address]- Care Team Providers Care Cutlet Maker Pork Name Role Phone Ralph Blake MD Primary Care Physician [phone] Encounter [facility] Date(s): 11/14/19 - 11/21/19 [facility] Adult [address] [place] [address]- [facility] Attending Physician: Ralph Blake MD Allergies, [...] 2Result Comment: [02/23/2016] No reaction 3Admin Note: [employer] [facility] Medications amLODIPine 5 mg oral tablet 5 mg, 1, tablet, By Mouth, Daily, # 30 tablet, Refills 2, Tot. Refills 2, Maintenance, 09/15/19 15:06:00 EDT, Route to Pharmacy Electronically, [facility] #[id number], 157, cm, 03/07/19 10:52:00EST, Height Start Date: 09/15/19 Status: Ordered Lipitor 20 mg oral tablet 1 tablet = 20 mg, By Mouth, Daily, # 30 tablet, 5 Refills, Maintenance, 11/14/19 13:34:00 EDT, Tablet, [facility] #[id number], 157, cm, 11/14/19 13:26:00 EDT, Height Start [...] 0 Refills, Maintenance, 11/07/19 9:38:00 EDT, Tablet, [facility] #33516, Ok for partial refill at patients request, 11/10/19, 157, cm, 03/07/19 10:52:00 EST, Height Start Date: 11/07/19 Status: Ordered Problem List Condition Effective Dates Status Health Status Inform ant Colonoscopy(Confirmed) 1, 2 Active Diverticulosis(Confirmed) 3 Active Dysthymia(Confirmed) Active Hypercholesterolemia(Confirmed) Active HTN (hypertension)(Confirmed) Active Internal hemorrhoids(Confirmed) 4 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 2colonoscopy 2013 nl, repeat 2022 3colo 2017 4colo 2017 5colo 2017 6colo 2017 Vital Signs Most recent to oldest [Reference Range]: 1 Height 157.00 cm (11/14/19 1:26 PM) Weight 54.4 kg (11/14/19 1:26 PM) Oxygen Saturation [94-100 %] 98 % (11/14/19 1:26 PM) Pulse Rate [55-90 bpm] 88 bpm (11/14/19 1:26 PM) Body Mass Index [18.5-24.99] 22.07 (11/14/19 1:26 PM) Blood Pressure [90-138/55-84 mm Hg] 112/ 70mm Hg (11/14/19 1:26 PM) Mode of Delivery (Oxygen) Room air (11/14/19 1:26 PM) Blood pressure sites Arm, left (11/14/19 1:26 PM) Weight Obtained Via Standing scale (11/14/19 1:26 PM) Social History Social History Type Response Smoking Status Current every day zurdo horton; Other: Half a pack of cigarettes daily; entered on: 08/12/15 Sex
--- OUTSIDE RECORDS SUMMARY | 2023-11-28 14:13 | XMS_ITS | Continuity of Care Document ---
Author Organization [facility] Brock Denzel Address [address] [place] [address]- Care Team Providers Care Ramp Attendant Name Role Phone Lou PIEDRA, Ralph Shannon Primary Care Physician [phone] [place] [facility] [place]10[place] - 06/09/21 [facility] Adult [address] [place] [address]- Allergies, Adverse Reactions, Alerts Substance Reaction Severity [...] 2Result Comment: [02/23/2016] No reaction 3Admin Note: [facility] Medications atorvastatin 20 mg oral tablet 1 tablet, By Mouth, Daily, # 30 tablet, 5 Refills, [facility] #[id number], 157, cm, 10/06/20 13:51:00 EDT, Height Start [...] 08/09/20 19:25:00 EDT, Route to Pharmacy Electronically, [facility] #[id number], 157, cm, 12/29/19 8:59:00 EDT, Height Start [...] 0 Refills, Maintenance, 05/10/21 11:14:00 EST, Capsule, [facility]/pharmacy #[id number], Partial fill upon patient request if the prescription is for a schedule II opioid drug., 157, cm, 05/10/21... Start Date: 05/10/21 Status: Ordered valsartan 160 mg oral tablet 160 mg, 1, tablet, By Mouth, Daily, # 90 tablet, Refills 3, Tot. Refills 3, Maintenance, 10/06/20 14:15:00 EDT, [facility] to [facility]ically[id number], Partial fill upon patient request if the [...]
[2023-11-28 14:36] LABS: Troponin-I High Sensitivity 6.6 ng/L (<3.5-17.0)
[2023-11-28] MEDS: iohexoL 350 MG/ML 100 ML INFUS..BTL IV (15:24)
[2023-11-28 16:07] LABS: Appearance Urine Clear; Color Urine Yellow; Glucose Urine UA 500 mg/dL (Negative); Leukocyte Esterase Urine Negative (Negative); Nitrite Urine Negative (Negative); Specific Gravity - Urine >= 1.030 (1.005-1.025); Urine Blood Negative (Negative); Urine Ketones Negative (Negative); Urine Protein Negative (Neg-Trace)
[2023-11-28] MEDS: Potassium Chloride/H20 10 MEQ/100 ML PIGGYBACK 100 MEQ IV ×7 (16:17→23:27)
[2023-11-28] MEDS: Magnesium Sulfate/H2O 2 GM/50 ML PIGGYBACK IV ×2 (16:18→18:39)
[2023-11-28 16:45] LABS: Lipase 7 U/L (8-78)
--- NOTE | 2023-11-28 18:19 | P.HPHOSP_ITS ---
History of Present Illness Date of Service: 11/28/23 Attending physician on admission: [facility] Chief Complaint: weakness, lethargy 63-year-old female with history of hypertension, hyperlipidemia, degenerative disc disease, vitamin-D deficiency, folate deficiency, and alcohol use disorder presented to the ED earlier today at the recommendation of her due to lethargy and weakness ongoing for the last 3-4 days. The patient states she does drink an excess about 3 days weekly consuming 4-5 beers but denies any other substance use. Last drink was on Sunday. Later that night and into Sunday she began feeling generally unwell, lethargic with poor appetite and has not been eating or drinking much since then. She did vomit small amounts x2 but has had no ongoing vomiting or diarrhea. No fevers or chills. She has had a dry cough and reports her granddaughter's sick with URI. No sore throat, congestion, abdominal pain, nausea, melena, hematochezia, dysuria, hematuria, increased urinary frequency, lightheadedness, palpitations, or chest pain. Since arrival, has been mildly tachycardic, (no tachypnea- 105 was false recording). No fevers or hypotension. She does have a leukocytosis of 13.6, H/H 11.3/32.7%. Renal function baseline, sodium 142, potassium 2.0, chloride 94, CO2 32, magnesium 1.0. Total bili 1.8, direct bilirubin 0.9, AST 90, ALT 33, alkaline phosphatase 236. Albumin 2.3. CXR negative for acute cardiopulmonary abnormality. CT abdomen pelvis shows marked fatty change of liver with moderate volume abdominal ascites and mild diffuse nonspecific bowel wall thickening of the cecum and ascending colon through the mid transverse colon without obstruction. In the ED, has been given IV fluids, 4 g IV magnesium, IV potassium and oral potassium. Review of Systems 2 Review of Systems: Yes all other systems are reviewed and are negative [facility] Medical History Hx of scoliosis Elevated liver transaminase level Folate deficiency Vitamin D deficiency Not ready to quit smoking Cigarette smoker one half pack a day or less Lumbar stenosis with neurogenic claudication History of right tennis elbow Degenerative disc disease, cervical Lumbar spine scoliosis Hx of fracture of wrist Hyperlipidemia Essential hypertension Family History Brother Substance use disorder Prostate cancer Daughter Substance use disorder Sister Substance use disorder Maternal Grandmother Diabetes mellitus Mother Alcoholism COPD (chronic obstructive pulmonary disease) Father Alcoholism COPD (chronic obstructive pulmonary disease) Surgical History Hx of section Hx of tubal ligation History of carpal tunnel surgery of right wrist History of carpal tunnel surgery of left wrist History of rotator cuff surgery History of colonoscopy with polypectomy Social History Housing: House Alcohol intake: current Alcohol intake frequency: a few times a month Patient Tobacco Use Status: Current everyday Tobacco user Cigarette Packs Per Day: 1 Cigarettes Per Day: 20 Years Smoked: 45 Smoked in Last 30 Days: Yes e-Cigarette/Vaping Use: Never Used Use of substances other than those prescribed or required for medical reasons: No Advance Directives: No Advance Directives Information Provided: No Do you have a plan to hurt others: No Plan Patient : No service: No Current occupational status: disabled Cognitive needs: No Hearing needs: No Vision needs: Yes Meds Allergies Allergy/AdvReac Type Severity Reaction Status Date / Time No Known Allergies Allergy Verified 11/28/23 11:12 Physical Exam 2 Vital Signs and Narrative: Vital Signs: Last Vital Signs Temp 98.0 F 11/28/23 18:00 Pulse 90 11/28/23 18:00 Resp 13 11/28/23 18:00 BP 106/67 11/28/23 18:00 Pulse Ox 96 11/28/23 18:00 O2 Del Method Room Air 11/28/23 18:00 BMI result Body Mass Index 20.5 Constitutional - Awake and Alert, No apparent distress Eyes - PERRLA, EOMI Cardiovascular - S1S2, RRR, No edema Respiratory - Normal lung expansion, Normal respiratory effort, No respiratory distress, CTA bilaterally Gastrointestinal - NT / ND; +BS; No rebound or guarding Extremities - no calf tenderness bilaterally, no swelling Skin - Warm/Dry Neurological - Alert & oriented x3 Results Labs 11/28/23 11:32 11/28/23 11:32 Labs: Laboratory Results - last 24 hr 11/28/23 11/28/23 11/28/23 11:32 14:06 15:59 MCV 96.5 MCH 33.3 H MCHC 34.6 RDW 16.5 H Plt Count 366 D MPV 10.1 Immature Gran % (Auto) 0.8 H Neut % (Auto) 79.7 H Lymph % (Auto) 12.[address] [place] % (Auto) 6.7 Eos % (Auto) 0.1 Baso % (Auto) 0.3 Lymph # (Auto) 1.7 [place] # (Auto) 0.9 Eos # (Auto) 0.0 Baso # (Auto) 0.0 Abs Immat Gran (auto) 0.11 H Absolute Neuts (auto) 10.8 H Absolute Nucleated RBC 0.060 H Nucleated RBC % (auto) 0.4 H Anion Gap 18 Estim Creat Clear Calc 57.3 Estimated GFR > 60 Random Glucose 110 Calcium 7.8 L D Magnesium 1.0 L* Total Bilirubin 1.8 H Direct Bilirubin 0.9 H AST 90 H ALT 33 H Alkaline Phosphatase 236 H Troponin I High Sens 6.6 6.6 Total Protein 6.0 L Albumin 2.3 L Lipase 7 L Urine Color Yellow Urine Appearance Clear Urine pH 7.0 Ur Specific [place] >= 1.030 H Urine Protein Negative Urine Glucose (UA) 500 H Urine Ketones Negative Urine Blood Negative Urine Nitrite Negative Ur Leukocyte Esterase Negative Influenza Type A (PCR) NEGATIVE Influenza Type B (PCR) NEGATIVE RSV RNA Qual (PCR) NEGATIVE SARS-CoV-2 RNA (RT-PCR) NEGATIVE Imaging Radiologist's Impressions: Impressions Chest X-Ray 11/28/23 11:13 IMPRESSION: No acute pulmonary disease. Electronically signed by: Sagar Duval MD 11/28/2023 01:12 PM EDT RP Abdomen/Pelvis CT 11/28/23 13:24 IMPRESSION: 1. Marked fatty change of liver. 2. Moderate volume of abdominal ascites. 3. Mild diffuse nonspecific bowel wall thickening of the cecum and ascending colon through the mid transverse colon. No bowel obstruction. 4. Diverticulosis of colon. No evidence of diverticulitis. Fleischner guidelines were followed. Electronically signed by: Collins Egan MD 11/28/2023 04:43 PM EDT RP Assessment and Plan (1) Ascites: Status: Acute (2) Hypomagnesemia: Status: Acute (3) Hypokalemia: Status: Acute Plan 63-year-old female with history of hypertension, hyperlipidemia, degenerative disc disease, vitamin-D deficiency, folate deficiency, and alcohol use disorder admitted for further management of hypokalemia and hypomagnesemia #Acute hypokalemia and hypomagnesemia -likely multifactorial in the setting alcohol use and poor p.o. intake as well as GI losses -repleted in the ED with 40 mEq IV KCl and 40 mEq p.o. KCl ER and 4 g IV magnesium -initiate 400 mg magnesium oxide p.o. now -recheck lytes now, repeat a.m. -continue IVF -monitor on telemetry #Lethargy/weakness -likely r/t above #Bowel wall thickening -etiology unclear. No diarrhea or ongoing vomiting. Abd exam benign. Defer further therapy at this time #Acute leukocytosis -likely reactive as well as r/t dehydration/hemoconcentration from poor po intake -less likely r/t infection #Tachcyardia -likely due to hypovolemia/dehydration, not sepsis #Acute cough -CXR negative for pneumonia -negative for COVID-19, RSV, influenza. Check RPP -symptomatic management #Chronic liver disease with elevated LFTs -likely r/t etoh use. Counseled on cessation. last drink sunday, unlikely to experience withdrawal -Fatty liver noted on ct abd pelvis -moderate ascites present on ct. No cirrhosis. Asymptomatic. Hold on paracentesis. Poor nutrition likely contributing. Albumin x2 -follow lfts DVT prophylaxis- lovenox full code Patient requires inpatient stay for at least 2 midnights due to severe electrolyte abnormalities including hypomagnesemia and hypokalemia requiring IV repletion of electrolytes with close monitoring of levels and cardiac monitoring Quality Stroke Does the patient have a stroke diagnosis?: No VTE Prior VTE?: No VTE Risk Level:: Medical - moderate - high VTE Device Contraindication: Treatment Not Indicated VTE Drug Contraindication: N/A - Med Ordered
--- NOTE | 2023-11-28 19:07 | PC.NURSE ---
report received from Flores CAMARENA, assume care of pt at this time
[2023-11-28] MEDS: Magnesium Oxide 400 MG TABLET PO (19:30)
[2023-11-28] MEDS: Enoxaparin Sodium 40 MG/0.4 ML SYRINGE SUBCUT (19:31)
[2023-11-28 20:31] LABS: Anion Gap 16 (12-20); Carbon Dioxide 30 mmol/L (22-29); Chloride 99 mmol/L (96-108); Magnesium 2.7 mg/dL (1.6-2.6); Potassium 2.8 mmol/L (3.3-5.1); Sodium 142 mmol/L (135-145)
--- NOTE | 2023-11-28 20:53 | PHA.MEDREC ---
Pharmacy Consult ? Medication Reconciliation Pharmacy has completed the medication reconciliation. Spoke to patient and confirmed medication list. Patient said she takes the vitamin D 50,000 units on Sundays.
[2023-11-28] MEDS: Lactated Ringers 1,000 ML 100 ML IVCONT (21:04)
[2023-11-28] MEDS: Albumin Human 25 % 100 ML IV ×2 (21:10→22:26)
[2023-11-28] MEDS: Potassium Chloride Packet 20 MEQ PACKET 40 MEQ PO (21:21)
[2023-11-29] VITALS (8 sets, daily range): BP systolic 97–126; BP diastolic 69–80; PULSE 84–94; RESP 14–20; TEMP 36.1–36.8; O2SAT 92–97
--- NOTE | 2023-11-29 00:12 | PC.NURSE ---
pt up to the bathroom, ambulate without any help. no acute distress note
[2023-11-29] MEDS: Potassium Chloride/H20 10 MEQ/100 ML PIGGYBACK 100 MEQ IV (00:25)
[2023-11-29 05:45] LABS: MANUAL DIFF FLAG NO
[2023-11-29 06:02] LABS: Basophils Absolute Auto 0.1 X10*3/uL (0.0-0.2); Basophils Percent Auto 0.5 % (0-2); Eosinophils Percent Auto 0.3 % (0-4); Hematocrit 24.1 % (37.0-47.0); Hemoglobin 8.1 g/dl (12.0-16.0); Imm Gran Abs Auto 0.07 X10*3/uL (0.00-0.03); Imm Gran Pct Auto 0.7 % (0.0-0.4); Lymphocytes Absolute Auto 2.3 X10*3/uL (1.2-4.9); Mean Corpuscular HGB Conc 33.6 g/dl (31.0-35.0); Mean Corpuscular Hemoglobin 32.8 pg (27.0-33.0); Mean Corpuscular Volume 97.6 fL (80.0-98.0); Mean Platelet Volume 10.3 fL (9.4-12.3); Monocytes Absolute Auto 0.8 X10*3/uL (0.1-1.2); NRBC Pct Auto 0.3 /100WBC (0.0-0.2); Neutrophils Absolute Auto 6.2 x10*3/uL (2.0-8.3); Neutrophils Percent Auto 66.5 % (45-73); Platelet Count 258 X10*3/uL (160-400); Red Blood Count 2.47 X10*6/uL (4.20-5.50); Red Cell Distribution Width 17.2 % (11.0-16.0); White Blood Count 9.4 X10*3/uL (4.8-10.8)
[2023-11-29] MEDS: Lactated Ringers 1,000 ML 100 ML IVCONT ×3 (06:12→23:21)
--- NOTE | 2023-11-29 06:17 | PC.NURSE ---
room air sat 88, pt place on O2@2L/nc
[2023-11-29 06:20] LABS: Alanine Aminotransferase 22 U/L (0-31); Albumin Level 2.8 g/dL (3.5-5.0); Alkaline Phosphatase 155 U/L (39-117); Anion Gap 12 (12-20); Aspartate Amino Transferase 61 U/L (5-31); Bilirubin Direct 0.9 mg/dL (0.0-0.5); Bilirubin Total 1.7 mg/dL (0.0-1.0); Blood Urea Nitrogen 4 mg/dL (9-16); Calcium 7.7 mg/dL (8.4-10.2); Carbon Dioxide 30 mmol/L (22-29); Chloride 103 mmol/L (96-108); Creatinine Clr Calc Pharmacy 73.1; Estimated Glomerular Filt Rate > 60; Glucose Random 72 mg/dL (60-115); Magnesium 1.9 mg/dL (1.6-2.6); Sodium 142 mmol/L (135-145)
[2023-11-29 06:40] LABS: Potassium 2.9 mmol/L (3.3-5.1)
[2023-11-29] MEDS: Potassium Chloride Packet 20 MEQ PACKET 40 MEQ PO ×2 (07:44→12:18)
[2023-11-29] MEDS: Valsartan 160 MG TABLET PO (07:45)
[2023-11-29] MEDS: Folic Acid 1 MG TABLET PO (07:46)
[2023-11-29] MEDS: Magnesium Oxide 400 MG TABLET PO ×2 (07:46→16:31)
[2023-11-29] MEDS: Atorvastatin Calcium 20 MG TABLET PO (07:46)
[2023-11-29] MEDS: Magnesium Sulfate/H2O 2 GM/50 ML PIGGYBACK IV (08:27)
--- NOTE | 2023-11-29 08:49 | PC.NURSE ---
Pt is alert and oriented. Tolerated minimal breakfast this morning but admits appetite feels as though it is improving. NSR on tele. Mg started per order and LR at ordered rate. Denies pain or discomfort. Skin sl pale, warm and dry. speaking full sentences. Pt noted with dry cough intermittently however no obvious diff breathing noted. Awaits bed assgn at this time
[2023-11-29 11:34] LABS: Adenovirus PCR Not Detected (Not Detect.); Bordetella parapertussis PCR Not Detected (Not Detect.); Bordetella pertussis PCR Not Detected (Not Detect.); Chlamydia pneumoniae PCR Not Detected (Not Detect.); Coronavirus 229E PCR Not Detected (Not Detect.); Coronavirus HKU1 PCR Not Detected (Not Detect.); Coronavirus NL63 PCR Not Detected (Not Detect.); Coronavirus OC43 PCR Not Detected (Not Detect.); Human metapneumovirus PCR Not Detected (Not Detect.); Influenza A PCR Not Detected (Not Detect.); Influenza B PCR Not Detected (Not Detect.); Mycoplasma pneumoniae PCR Not Detected (Not Detect.); Parainfluenza 1 PCR Not Detected (Not Detect.); Parainfluenza 2 PCR Not Detected (Not Detect.); Parainfluenza 3 PCR Not Detected (Not Detect.); Parainfluenza 4 PCR Not Detected (Not Detect.); RSV PCR Not Detected (Not Detect.); Rhino/Enterovirus PCR Not Detected (Not Detect.)
--- NOTE | 2023-11-29 11:54 | MHC.CM.PN ---
EMR REVIEWED, PT W/ELECTROLYTE IMBALANCE, CM MET W/PT WHO REPORTS SHE LIVES W/HER AND 2 GKIDS, PT IS FULLY INDEP W/CALL CARE, DENIES USE OF DME/SERVICES, PLAN AND PT'S GOAL FOR DC IS HOME NO SERVICES. PCP ON FILE VERIFIED, PT REPORTS SHE THINKS SHE HAS COMPLETED A HCP W/HER [facility] # ON FILE, COPY REQUESTED PT DECLINES TO COMPLETE A NEW ONE.
[2023-11-29 11:56] LABS: SARS-CoV-2 PCR Not Detected (Not Detect.)
--- NOTE | 2023-11-29 14:11 | P.PNIM_ITS ---
Subjective Subjective Date of Service: 11/29/23 Interval History: Seen and examined this morning Follow-up for electrolyte abnormalities Overall feeling better, no abdominal pain, vomiting, diarrhea Review of Systems Review of Systems: Yes all other systems are reviewed and are negative Constitutional Constitutional: Denies chills and Denies fever(s) Cardiovascular Cardiovascular: Denies chest pain, Denies palpitations and Denies dyspnea Respiratory Respiratory: Denies cough and Denies dyspnea Endocrine Endocrine: Denies palpitations Physical Exam 2 Vital Signs: Vital Signs: Last Vital Signs Temp 97.5 F 11/29/23 11:17 Pulse 91 11/29/23 11:17 Resp 18 11/29/23 11:17 BP 97/69 11/29/23 11:17 Pulse Ox 97 11/29/23 11:17 O2 Del Method Nasal Cannula 11/29/23 11:17 O2 Flow Rate 2 11/29/23 11:17 BMI result Body Mass Index 20.5 Const: General: cooperative, comfortable, no acute distress, alert and awake Nutritional Appearance: average body habitus Orientation/consciousness: p atient oriented x3 Resp: Effort & Inspection: normal respiratory effort, able to speak in complete sentences, no respiratory distress and no use of accessory muscles Cardio: Rate: regular rate GI: Inspection: No distended Palpation (GI): Soft to palpation and nontender Neuro: General: patient oriented x3, moves all extremities and CN's II-XI intact bilaterally Extrem: General: Yes no pedal edema Objective Data Active Medications Acetaminophen (Acetaminophen 325 Mg Tablet) 650 mg PO Q6H PRN PRN Reason: Pain, Mild (Pain Scale 1-3), fever or headache Albuterol Sulfate (Albuterol Sulfate 90 Mcg 8 Gm Inhaler) 2 puff INHALE Q6H PRN PRN Reason: shortness of breath or wheezing Atorvastatin Calcium (Atorvastatin Calcium 20 Mg Tablet) 20 mg PO DAILY [facility] Last Admin: 11/29/23 07:46 Dose: 20 mg Documented By: SHI Calcium Carbonate (Calcium Carbonate 750 Mg Tab.Chew) 750 mg PO Q4H PRN PRN Reason: Heartburn Enoxaparin Sodium (Enoxaparin Sodium 40 Mg/0.4 Ml Syringe) 40 mg SUBCUT Q24H [facility] Last Admin: 11/28/23 19:31 Dose: 40 mg Documented By: HO.WHITMAS Folic Acid (Folic Acid 1 Mg Tablet) 1 mg PO DAILY [facility] Last Admin: 11/29/23 07:46 Dose: 1 mg Documented By: SHI Lactated Ringer's (Lr) 1,000 mls @ 100 mls/hr IVCONT .Q10H [facility] Last Admin: 11/29/23 06:12 Dose: 100 mls/hr Documented By: ALBERTO Magnesium Hydroxide (Milk Of Magnesia 30 Ml Oral.Susp) 30 ml PO DAILY PRN PRN Reason: Constipation Magnesium Oxide (Magnesium Oxide 400 Mg Tablet) 400 mg PO BIDPC [facility] Last Admin: 11/29/23 07:46 Dose: 400 mg Documented By: SHI Melatonin (Melatonin 3 Mg Tablet) 6 mg PO BEDTIME PRN PRN Reason: Insomnia Potassium Chloride (Potassium Chloride Packet 20 Meq Packet) 40 meq PO DAILY [facility] Last Admin: 11/29/23 12:18 Dose: 40 meq Documented By: SHI Sodium Chloride (0.9 % Sodium Chloride Flush 3 Ml Syringe) 3 ml IVFLUSH QSHIFT [facility] Last Admin: 11/29/23 07:47 Dose: Not Given Documented By: SHI Non-Admin Reason: IV Running Valsartan (Valsartan 160 Mg Tablet) 160 mg PO DAILY [facility]; Protocol Last Admin: 11/29/23 07:45 Dose: 160 mg Documented By: SHI Labs 11/29/23 05:07 11/29/23 05:07 Labs: Laboratory Results - last 24 hr 11/28/23 11/28/23 11/28/23 11:32 14:06 15:59 MCV MCH MCHC RDW Plt Count MPV Immature Gran % (Auto) Neut % (Auto) Lymph % (Auto) [place] % (Auto) Eos % (Auto) Baso % (Auto) Lymph # (Auto) [place] # (Auto) Eos # (Auto) Baso # (Auto) Abs Immat Gran (auto) Absolute Neuts (auto) Absolute Nucleated RBC Nucleated RBC % (auto) Anion Gap Estim Creat Clear Calc Estimated GFR Random Glucose Calcium Magnesium Total Bilirubin Direct Bilirubin AST ALT Alkaline Phosphatase Troponin I High Sens 6.6 Total Protein Albumin Lipase 7 L Urine Color Yellow Urine Appearance Clear Urine pH 7.0 Ur Specific [place] >= 1.030 H Urine Protein Negative Urine Glucose (UA) 500 H Urine Ketones Negative Urine Blood Negative Urine Nitrite Negative Ur Leukocyte Esterase Negative Respiratory Panel [place] Adenovirus (Rapid PCR) B.pert (TEM-PCR) B.parapertussis DNA PCR C. pneumoniae DNA (PCR) Coronavirus OC43 (PCR) Coronavirus HKU1 (PCR) Coronavirus 229E (PCR) Coronavirus NL63 (PCR) Human Metapneumovir PCR Influenza A (RT-PCR) Influenza B (RT-PCR) M. pneumoniae (PCR) Parainfluenza 1 (PCR) Parainfluenza 2 (PCR) Parainfluenza 3 (PCR) Parainfluenza 4 (PCR) RSV (PCR) Entero/Rhino (PCR) SARS-CoV-2 RNA (RT-PCR) 11/28/23 11/28/23 11/29/23 20:04 21:51 05:07 MCV 97.6 MCH 32.8 MCHC 33.6 RDW 17.2 H Plt Count 258 D MPV 10.3 Immature Gran % (Auto) 0.7 H Neut % (Auto) 66.5 Lymph % (Auto) 24.0 [place] % (Auto) 8.0 Eos % (Auto) 0.3 Baso % (Auto) 0.5 Lymph # (Auto) 2.3 [place] # (Auto) 0.8 Eos # (Auto) 0.0 Baso # (Auto) 0.1 Abs Immat Gran (auto) 0.07 H Absolute Neuts (auto) 6.2 Absolute Nucleated RBC 0.030 H Nucleated RBC % (auto) 0.3 H Anion Gap 16 12 Estim Creat Clear Calc 73.1 Estimated GFR > 60 Random Glucose 72 Calcium 7.7 L Magnesium 2.7 H 1.9 Total Bilirubin 1.7 H Direct Bilirubin 0.9 H AST 61 H ALT 22 Alkaline Phosphatase 155 H Troponin I High Sens Total Protein 5.0 L Albumin 2.8 L Lipase Urine Color Urine Appearance Urine pH Ur Specific [place] Urine Protein Urine Glucose (UA) Urine Ketones Urine Blood Urine Nitrite Ur Leukocyte Esterase Respiratory Panel [place] See Note Adenovirus (Rapid PCR) Not Detected B.pert (TEM-PCR) Not Detected B.parapertussis DNA PCR Not Detected C. pneumoniae DNA (PCR) Not Detected Coronavirus OC43 (PCR) Not Detected Coronavirus HKU1 (PCR) Not Detected Coronavirus 229E (PCR) Not Detected Coronavirus NL63 (PCR) Not Detected Human Metapneumovir PCR Not Detected Influenza A (RT-PCR) Not Detected Influenza B (RT-PCR) Not Detected M. pneumoniae (PCR) Not Detected Parainfluenza 1 (PCR) Not Detected Parainfluenza 2 (PCR) Not Detected Parainfluenza 3 (PCR) Not Detected Parainfluenza 4 (PCR) Not Detected RSV (PCR) Not Detected Entero/Rhino (PCR) Not Detected SARS-CoV-2 RNA (RT-PCR) Not Detected Assessment and Plan (1) Anemia: Status: Acute (2) Hypomagnesemia: Status: Acute Plan 63-year-old female with history of hypertension, hyperlipidemia, degenerative disc disease, vitamin-D deficiency, folate deficiency, and alcohol use disorder admitted for further management of hypokalemia and hypomagnesemia #Acute hypokalemia and hypomagnesemia -likely multifactorial in the setting alcohol use and poor p.o. intake as well as GI losses -initiate 400 mg magnesium oxide p.o. now Continue p.o. potassium replacement -recheck lytes now, repeat a.m. -continue IVF -monitor on telemetry #Lethargy/weakness -likely r/t above Improving #Bowel wall thickening -etiology unclear. No diarrhea or ongoing vomiting. Abd exam benign. Defer further therapy at this time #Acute leukocytosis -likely reactive as well as r/t dehydration/hemoconcentration from poor po intake -less likely r/t infection Resolved Acute on chronic normocytic anemia Drop in H/H likely due to hemodilution from IV fluids as all cell lines have decreased No evidence of acute blood loss We will check iron studies, B12, folic acid Repeat H/H now #Tachcyardia -likely due to hypovolemia/dehydration, not sepsis Resolved #Acute cough -CXR negative for pneumonia -negative for COVID-19, RSV, influenza. RPP negative -symptomatic management #Chronic liver disease with elevated LFTs -likely r/t etoh use. Counseled on cessation. last drink sunday, unlikely to experience withdrawal -Fatty liver noted on ct abd pelvis -moderate ascites present on ct. No cirrhosis. Asymptomatic. Hold on paracentesis. Poor nutrition likely contributing. Albumin x2 lfts trending down DVT prophylaxis- lovenox full code Patient requires inpatient stay for at least 2 midnights due to severe electrolyte abnormalities including hypomagnesemia and hypokalemia requiring IV repletion of electrolytes with close monitoring of levels and cardiac monitoring Quality Stroke Does the patient have a stroke diagnosis?: No VTE Prior VTE?: No VTE Risk Level:: Medical - moderate - high VTE Device Contraindication: Treatment Not Indicated VTE Drug Contraindication: N/A - Med Ordered
[2023-11-29 14:47] LABS: Iron 67 mcg/dL (30-160); Lactate Dehydrogenase 335 U/L (122-220); Percent Iron Saturation 73 % (15-50); Total Iron Binding Capacity 92 mcg/dL (228-428); Unsaturated Iron Binding < 25 ug/dL
[2023-11-29 15:05] LABS: Ferritin 918 ng/mL (10-250)
[2023-11-29] MEDS: Acetaminophen 325 MG TABLET 650 MG PO (16:31)
[2023-11-29 16:40] LABS: Potassium 4.2 mmol/L (3.3-5.1)
[2023-11-29 17:24] LABS: Folate 11.8 ng/mL (> or = 4.0); Vitamin B12 1507 pg/mL (200-900)
[2023-11-29 17:37] LABS: Hematocrit 24.8 % (37.0-47.0); Hemoglobin 8.5 g/dl (12.0-16.0)
[2023-11-29] MEDS: Enoxaparin Sodium 40 MG/0.4 ML SYRINGE SUBCUT (23:14)
[2023-11-29] MEDS: 0.9 % Sodium Chloride Flush 3 ML SYRINGE IVFLUSH (23:20)
[2023-11-30 04:00] VITALS: BP 133/81; PULSE 97; RESP 20; TEMP 36.4; O2SAT 96
[2023-11-30 07:26] VITALS: BP 120/83; PULSE 100; RESP 20; TEMP 36.2; O2SAT 93
[2023-11-30] MEDS: Magnesium Oxide 400 MG TABLET PO ×2 (08:24→17:40)
[2023-11-30] MEDS: Atorvastatin Calcium 20 MG TABLET PO (08:24)
[2023-11-30] MEDS: Valsartan 160 MG TABLET PO (08:24)
[2023-11-30] MEDS: Folic Acid 1 MG TABLET PO (08:24)
[2023-11-30] MEDS: Potassium Chloride Packet 20 MEQ PACKET 40 MEQ PO (08:24)
[2023-11-30] MEDS: 0.9 % Sodium Chloride Flush 3 ML SYRINGE IVFLUSH ×2 (08:28→17:40)
[2023-11-30 08:47] LABS: Hemoglobin 9.4 g/dl (12.0-16.0); Mean Corpuscular HGB Conc 33.6 g/dl (31.0-35.0); Mean Corpuscular Hemoglobin 33.2 pg (27.0-33.0); Mean Corpuscular Volume 98.9 fL (80.0-98.0); Mean Platelet Volume 10.5 fL (9.4-12.3); NRBC Pct Auto 0.6 /100WBC (0.0-0.2); Platelet Count 256 X10*3/uL (160-400); Red Blood Count 2.83 X10*6/uL (4.20-5.50); Red Cell Distribution Width 17.3 % (11.0-16.0); White Blood Count 9.5 X10*3/uL (4.8-10.8)
[2023-11-30 09:09] LABS: Alanine Aminotransferase 27 U/L (0-31); Albumin Level 2.4 g/dL (3.5-5.0); Alkaline Phosphatase 181 U/L (39-117); Anion Gap 11 (12-20); Aspartate Amino Transferase 73 U/L (5-31); Bilirubin Direct 1.1 mg/dL (0.0-0.5); Bilirubin Total 1.9 mg/dL (0.0-1.0); Blood Urea Nitrogen 3 mg/dL (9-16); Calcium 7.6 mg/dL (8.4-10.2); Carbon Dioxide 26 mmol/L (22-29); Chloride 105 mmol/L (96-108); Estimated Glomerular Filt Rate > 60; Glucose Random 71 mg/dL (60-115); Magnesium 1.7 mg/dL (1.6-2.6); Sodium 138 mmol/L (135-145)
[2023-11-30 11:08] VITALS: BP 114/78; PULSE 92; RESP 18; TEMP 36.4; O2SAT 96
[2023-11-30] MEDS: Calcium Carbonate 750 MG TAB.CHEW PO (12:10)
[2023-11-30 14:09] LABS: Lactate Dehydrogenase 318 U/L (122-220)
--- NOTE | 2023-11-30 15:29 | P.DS_ITS ---
DS: Providers Provider Date of Service: 11/30/23 Date of admission: 11/28/23 19:16 Date of discharge: 11/30/23 Primary care physician: Giovana Manning MD Attending physician on discharge: Saw Arrieta Discharging clinician: Laxmi Mackey DS: Diagnosis Discharge Diagnosis (1) Anemia: Status: Acute (2) Hypomagnesemia: Status: Acute DS: Summary Hospital Course Hospital Course: From H&P on the day of admission 63-year-old female with history of hypertension, hyperlipidemia, degenerative disc disease, vitamin-D deficiency, folate deficiency, and alcohol use disorder presented to the ED earlier today at the recommendation of her due to lethargy and weakness ongoing for the last 3-4 days. The patient states she does drink an excess about 3 days weekly consuming 4-5 beers but denies any other substance use. Last drink was on Sunday. Later that night and into Sunday she began feeling generally unwell, lethargic with poor appetite and has not been eating or drinking much since then. She did vomit small amounts x2 but has had no ongoing vomiting or diarrhea. No fevers or chills. She has had a dry cough and reports her granddaughter's sick with URI. No sore throat, congestion, abdominal pain, nausea, melena, hematochezia, dysuria, hematuria, increased urinary frequency, lightheadedness, palpitations, or chest pain. Since arrival, has been mildly tachycardic, (no tachypnea- 105 was false recording). No fevers or hypotension. She does have a leukocytosis of 13.6, H/H 11.3/32.7%. Renal function baseline, sodium 142, potassium 2.0, chloride 94, CO2 32, magnesium 1.0. Total bili 1.8, direct bilirubin 0.9, AST 90, ALT 33, alkaline phosphatase 236. Albumin 2.3. CXR negative for acute cardiopulmonary abnormality. CT abdomen pelvis shows marked fatty change of liver with moderate volume abdominal ascites and mild diffuse nonspecific bowel wall thickening of the cecum and ascending colon through the mid transverse colon without obstruction. In the ED, has been given IV fluids, 4 g IV magnesium, IV potassium and oral potassium. Acute hypokalemia and hypomagnesemia likely multifactorial in the setting alcohol use and poor p.o. intake as well as GI losses Resolved with oral replacement Bowel wall thickening etiology unclear. No diarrhea or ongoing vomiting. Abd exam benign. No further workup at this time Acute leukocytosis likely reactive as well as r/t dehydration/hemoconcentration from poor po intake. Resolved Acute on chronic normocytic anemia Drop in H/H likely due to hemodilution from IV fluids as all cell lines have decreased No evidence of acute blood loss. Iron, B12, folic acid ok, H/H stable. Acute cough CXR negative for pneumonia negative for COVID-19, RSV, influenza. RPP negative. symptomatic management. smoking cessation advised. Chronic liver disease with elevated LFTs likely r/t etoh use. Counseled on cessation. last drink sunday, no evidence of withdrawal. Fatty liver noted on ct abd pelvis. moderate ascites present on ct. No cirrhosis. Asymptomatic. Hold on paracentesis. Poor nutrition likely contributing. recived Albumin. lfts trending down. Outpatient follow-up recommended Time Attestation Discharge Coordination Time (in mins): 35 Quality: Safe Use of Opioids Does Pt have an Active Cancer Diagnosis on the Problem List?: No Quality: Stroke Does the patient have a stroke diagnosis?: No Physical Exam Vital Signs: Vital Signs: Last Vital Signs Temp 97.6 F 11/30/23 11:08 Pulse 92 11/30/23 11:08 Resp 18 11/30/23 11:08 BP 114/78 11/30/23 11:08 Pulse Ox 96 11/30/23 11:08 O2 Del Method Room Air 11/30/23 11:08 O2 Flow Rate 2 11/29/23 11:17 BMI result Body Mass Index 20.5 Const: General: cooperative, comfortable, no acute distress, alert and awake Nutritional Appearance: average body habitus Orientation/consciousness: patient oriented x3 Resp: Effort & Inspection: normal respiratory effort, able to speak in complete sentences, no respiratory distress and no use of accessory muscles Cardio: Rate: regular rate GI: Inspection: No distended Palpation (GI): Soft to palpation and nontender Neuro: General: patient oriented x3, moves all extremities and CN's II-XI intact bilaterally Extrem: General: Yes no pedal edema DS: Data Data Completed and Pending Pending studies at discharge: Pending at discharge 11/30/23 11:11 Cytology [PTH] Routine Labs on day of discharge: Laboratory Results - last 24 hr 11/29/23 11/29/23 11/30/23 16:14 17:27 08:07 WBC 9.5 RBC 2.83 L Hgb 8.5 L 9.4 L Hct 24.8 L 28.0 L MCV 98.9 H MCH 33.2 H MCHC 33.6 RDW 17.3 H Plt Count 256 MPV 10.5 Absolute Nucleated RBC 0.060 H Nucleated RBC % (auto) 0.6 H Sodium 138 Potassium 4.2 D 4.0 Chloride 105 Carbon Dioxide 26 Anion Gap 11 L BUN 3 L Creatinine 0.53 Estim Creat Clear Calc 80.0 Estimated GFR > 60 Random Glucose 71 Calcium 7.6 L Magnesium 1.7 Total Bilirubin 1.9 H Direct Bilirubin 1.1 H AST 73 H ALT 27 Alkaline Phosphatase 181 H Lactate Dehydrogenase 318 H Total Protein 5.0 L Albumin 2.4 L Vitamin B12 1507 H Folate 11.8 11/30/23 08:55 WBC RBC Hgb Hct MCV MCH MCHC RDW Plt Count MPV Absolute Nucleated RBC Nucleated RBC % (auto) Sodium Potassium Chloride Carbon Dioxide Anion Gap BUN Creatinine Estim Creat Clear Calc Estimated GFR Random Glucose Calcium Magnesium Total Bilirubin Direct Bilirubin AST ALT Alkaline Phosphatase Lactate Dehydrogenase Cancelled Total Protein Cancelled Albumin Vitamin B12 Folate Discharge Plan Discharge Anticipated Discharge Date/Time: 11/30/23 15:41 Patient Disposition: Home, Self-Care Discharge Diagnosis: Hypokalemia, hypomagnesemia Ascites Anemia Referrals: Giovana Manning MD [Primary Care Provider] - 1 Week Aron Chavez MD [Physician] - 1 Week (new ascites, elevated LFTs ) Discharge Medications: New magnesium oxide 400 mg (241.3 mg magnesium) Tablet 400 mg PO BIDPC 90 Days Qty: 180 0RF Continued albuterol sulfate 90 mcg/actuation HFA aerosol inhaler 2 puff inhalation Q6H PRN (Reason: shortness of breath or wheezing) Qty: 8.5 0RF folic acid 800 mcg tablet 0.8 mg PO DAILY Qty: 90 1RF cholecalciferol (vitamin D3) 1,250 mcg (50,000 unit) capsule 1,250 mcg PO CLEANING valsartan 160 mg tablet 160 mg PO DAILY Qty: 90 2RF Held atorvastatin 20 mg tablet 20 mg PO DAILY Qty: 90 2RF Hold Instructions: hold until follow up with PCP Discharge Orders: Discharge Order (Routine); Ordered 11/30/23 Ordered By: Laxmi Mackey Activity on Discharge: As tolerated Stand Alone Forms: Patient Portal Discharge page Print Language: Nicaraguan Care Plan Goals: see below Health Concerns: Low magnesium, low potassium Ascites Elevated LFTs Anemia Plan of Treatment: Take magnesium supplementation Recommend outpatient follow-up with PCP Consider outpatient follow-up with GI Can consider outpatient paracentesis for evaluation of ascites Recommend avoiding alcohol hold statin until follow up with PCP - repeat LFTs as outpatient Assessment: see discharge summary
--- NOTE | 2023-11-30 16:04 | HO.PM.IMPN ---
Subjective Subjective Date of Service: 11/30/23 Interval History: Seen and examined this morning Follow-up for hypokalemia, hypomagnesemia Patient awake alert and feeling well this morning. With intermittent cough but no shortness of breath, not on oxygen Review of Systems Review of Systems: Yes all other systems are reviewed and are negative Constitutional Constitutional: Denies chills and Denies fever(s) Cardiovascular Cardiovascular: Denies chest pain, Denies palpitations and Denies dyspnea Respiratory Respiratory: Reports cough and Denies dyspnea Gastrointestinal Gastrointestinal: Denies abdominal pain Endocrine Endocrine: Denies palpitations Physical Exam Vital Signs: Vital Signs: Last Vital Signs Temp 97.6 F 11/30/23 11:08 Pulse 92 11/30/23 11:08 Resp 18 11/30/23 11:08 BP 114/78 11/30/23 11:08 Pulse Ox 96 11/30/23 11:08 O2 Del Method Room Air 11/30/23 11:08 O2 Flow Rate 2 11/29/23 11:17 BMI result Body Mass Index 20.5 Const: General: cooperative, comfortable, no acute distress, alert and awake Nutritional Appearance: average body habitus Orientation/consciousness: patient oriented x3 Resp: Effort & Inspection: normal respiratory effort, able to speak in complete sentences, no respiratory distress and no use of accessory muscles Cardio: Rate: regular rate GI: Inspection: No distended Palpation (GI): Soft to palpation and nontender Neuro: General: patient oriented x3, moves all extremities and CN's II-XI intact bilaterally Extrem: General: Yes no pedal edema Objective Data Active Medications Acetaminophen (Acetaminophen 325 Mg Tablet) 650 mg PO Q6H PRN PRN Reason: Pain, Mild (Pain Scale 1-3), fever or headache Last Admin: 11/29/23 16:31 Dose: 650 mg Documented By: SELENE Albuterol Sulfate (Albuterol Sulfate 90 Mcg 8 Gm Inhaler) 2 puff INHALE Q6H PRN PRN Reason: shortness of breath or wheezing Atorvastatin Calcium (Atorvastatin Calcium 20 Mg Tablet) 20 mg PO DAILY LILLY Last Admin: 11/30/23 08:24 Dose: 20 mg Documented By: SUDHEER Calcium Carbonate (Calcium Carbonate 750 Mg Tab.Chew) 750 mg PO Q4H PRN PRN Reason: Heartburn Last Admin: 11/30/23 12:10 Dose: 750 mg Documented By: SUDHEER Enoxaparin Sodium (Enoxaparin Sodium 40 Mg/0.4 Ml Syringe) 40 mg SUBCUT Q24H [facility] Last Admin: 11/29/23 23:14 Dose: 40 mg Documented By: MALACHI Folic Acid (Folic Acid 1 Mg Tablet) 1 mg PO DAILY [facility] Last Admin: 11/30/23 08:24 Dose: 1 mg Documented By: SUDHEER Magnesium Hydroxide (Milk Of Magnesia 30 Ml Oral.Susp) 30 ml PO DAILY PRN PRN Reason: Constipation Magnesium Oxide (Magnesium Oxide 400 Mg Tablet) 400 mg PO BIDPC [facility] Last Admin: 11/30/23 08:24 Dose: 400 mg Documented By: SUDHEER Melatonin (Melatonin 3 Mg Tablet) 6 mg PO BEDTIME PRN PRN Reason: Insomnia Nicotine (Nicotine 7 Mg Patch.Td24) 7 mg TRANSDERMA DAILY [facility] Last Admin: 11/30/23 08:28 Dose: Not Given Documented By: SUDHEER Non-Admin Reason: Patient Refused Sodium Chloride (0.9 % Sodium Chloride Flush 3 Ml Syringe) 3 ml IVFLUSH QSHIFT [facility] Last Admin: 11/30/23 08:28 Dose: 3 ml Documented By: SUDHEER Valsartan (Valsartan 160 Mg Tablet) 160 mg PO DAILY [facility]; Protocol Last Admin: 11/30/23 08:24 Dose: 160 mg Documented By: SUDHEER Labs 11/30/23 08:07 11/30/23 08:07 Labs: Laboratory Results - last 24 hr 11/29/23 11/30/23 11/30/23 16:14 08:07 08:55 MCV 98.9 H MCH 33.2 H MCHC 33.6 RDW 17.3 H Plt Count 256 MPV 10.5 Absolute Nucleated RBC 0.060 H Nucleated RBC % (auto) 0.6 H Anion Gap 11 L Estim Creat Clear Calc 80.0 Estimated GFR > 60 Random Glucose 71 Calcium 7.6 L Magnesium 1.7 Total Bilirubin 1.9 H Direct Bilirubin 1.1 H AST 73 H ALT 27 Alkaline Phosphatase 181 H Lactate Dehydrogenase 318 H Cancelled Total Protein 5.0 L Cancelled Albumin 2.4 L Vitamin B12 1507 H Folate 11.8 Assessment and Plan (1) Hyperbilirubinemia: Status: Acute (2) Anemia: Status: Acute (3) Ascites: Status: Acute Plan 63-year-old female with history of hypertension, hyperlipidemia, degenerative disc disease, vitamin-D deficiency, folate deficiency, and alcohol use disorder admitted for further management of hypokalemia and hypomagnesemia #Acute hypokalemia and hypomagnesemia likely multifactorial in the setting alcohol use and poor p.o. intake as well as GI losses continue 400 mg magnesium oxide p.o. #Lethargy/weakness was improving awake/alert this am, now sleepy this afternoon will check ammonia #Bowel wall thickening -etiology unclear. No diarrhea or ongoing vomiting. Abd exam benign. Defer further therapy at this time #Acute leukocytosis likely reactive as well as r/t dehydration/hemoconcentration from poor po intake Resolved Acute on chronic normocytic anemia Drop in H/H likely due to hemodilution from IV fluids as all cell lines have decreased No evidence of acute blood loss iron, B12, folic acid wnl H/H has remained stable #Tachcyardia likely due to hypovolemia/dehydration, not sepsis Resolved #Acute cough -CXR negative for pneumonia -negative for COVID-19, RSV, influenza. RPP negative -symptomatic management #Chronic liver disease with elevated LFTs likely r/t etoh use. Counseled on cessation. no etoh withdrawal Fatty liver noted on ct abd pelvis moderate ascites present on ct. No cirrhosis. Asymptomatic. Poor nutrition likely contributing. received Albumin x2 will check abdominal US LFTs stable DVT prophylaxis- lovenox full code Patient requires ongoing inpatient stay for due to severe electrolyte abnormalities including hypomagnesemia and hypokalemia requiring IV repletion of electrolytes with close monitoring of levels and cardiac monitoring Quality Stroke Does the patient have a stroke diagnosis?: No VTE Prior VTE?: No VTE Risk Level:: Medical - moderate - high VTE Device Contraindication: Treatment Not Indicated VTE Drug Contraindication: N/A - Med Ordered
[2023-11-30 16:22] VITALS: BP 106/66; PULSE 96; RESP 19; TEMP 36.6; O2SAT 91
[2023-11-30 16:48] LABS: Ammonia 103 umol/L (13-55); INTERNATIONAL NORM RATIO 1.3 (0.9-1.1); Prothrombin Time 15.5 SEC (10.9-12.4)
[2023-11-30] MEDS: Lactulose 20 GM/30 ML SOLUTION PO (17:40)
[2023-11-30 19:25] VITALS: BP 120/82; PULSE 100; RESP 18; TEMP 36; O2SAT 93
[2023-11-30] MEDS: Enoxaparin Sodium 40 MG/0.4 ML SYRINGE SUBCUT (20:48)
[2023-12-01] VITALS: BP 156/75; PULSE 100; RESP 18; TEMP 36.4; O2SAT 95
[2023-12-01] MEDS: 0.9 % Sodium Chloride Flush 3 ML SYRINGE IVFLUSH ×4 (00:18→21:33)
[2023-12-01 03:46] VITALS: BP 138/82; PULSE 98; RESP 18; TEMP 36.7; O2SAT 92
[2023-12-01 08:00] VITALS: BP 118/81; PULSE 96; RESP 18; TEMP 36.5; O2SAT 94
[2023-12-01] MEDS: Magnesium Oxide 400 MG TABLET PO ×2 (08:41→16:33)
[2023-12-01] MEDS: Valsartan 160 MG TABLET PO (08:41)
[2023-12-01] MEDS: Lactulose 20 GM/30 ML SOLUTION PO ×2 (08:42→21:29)
[2023-12-01] MEDS: Folic Acid 1 MG TABLET PO (08:42)
[2023-12-01 09:42] LABS: Anion Gap 12 (12-20); Blood Urea Nitrogen 6 mg/dL (9-16); Calcium 8.8 mg/dL (8.4-10.2); Carbon Dioxide 25 mmol/L (22-29); Chloride 105 mmol/L (96-108); Creatinine Clr Calc Pharmacy 74.4; Estimated Glomerular Filt Rate > 60; Glucose Random 89 mg/dL (60-115); Potassium 3.9 mmol/L (3.3-5.1); Sodium 138 mmol/L (135-145)
[2023-12-01 09:48] LABS: B Type Natriuretic Peptide 84 pg/mL (<100)
--- NOTE | 2023-12-01 10:04 | PM.GICN ---
History of Present Illness Data of Consult Service Date: 12/01/23 Requesting physician: Laxmi Mackey Primary Care Provider: Giovana Manning MD HPI Reason for consult: elevated LFTs, high ammonia 63 YF with hypertension, hyperlipidemia, degenerative disc disease, vitamin-D deficiency, folate deficiency, and alcohol use disorder seen at [facility] ED on 11/28/23 due to lethargy and weakness x 3-4 days. The patient admitted to drinking 4-5 beers and twisted teas 3 days a week for the past several years. Last drink was on Sunday. Later that night and into Sunday she began feeling generally unwell, lethargic with poor appetite and has not been eating or drinking much since then. Pt gave a hx of vomiting small amounts x2 but has had no ongoing vomiting or diarrhea, fevers or chills. She has had a dry cough and reports her granddaughter's sick with URI. Pt denied sore throat, congestion, abdominal pain, nausea, melena, hematochezia, dysuria, hematuria, increased urinary frequency, lightheadedness, palpitations, or chest pain. Pt denies past hx of liver disease - admits to having fatigue and easy bruising for the past few months. She admits to taking Ibuprofen daily for back pain. On arrival to the ED, she was mildly tachycardic, (no tachypnea- 105 was false recording). No fevers or hypotension. Labs showed a leukocytosis of 13.6, H/H 11.3/32.7%. Renal function baseline, sodium 142, potassium 2.0, chloride 94, CO2 32, magnesium 1.0. Total bili 1.8, direct bilirubin 0.9, AST 90, ALT 33, alkaline phosphatase 236. Albumin 2.3. CXR negative for acute cardiopulmonary abnormality. CT abdomen pelvis shows marked fatty change of liver with moderate volume abdominal ascites and mild diffuse nonspecific bowel wall thickening of the cecum and ascending colon through the mid transverse colon without obstruction. In the ED, has been given IV fluids, 4 g IV magnesium, IV potassium and oral potassium. She admits to smoking 1/2 PPD and denies any other substance use. Pt lives with her and has custody of two GK (4 & 6 yrs old) She worked in a [employer] and is now retired Family hx is positive for Cirrhosis in both parents who were alcoholics. Pt denies known FH of GI malignancy 11/30/23 ABD US SHOWED: IMPRESSION: 1. Technically challenging exam. 2. The liver appears enlarged with diffusely increased liver parenchymal echogenicity suggesting underlying hepatocellular disease with areas of focal fatty sparing. 3. Small volume ascites. 4. Cholelithiasis. Review of Systems Review of Systems: Yes all other systems are reviewed and are negative PMFSH Past Medical History Medical History Osteoporosis Nicotine dependence, cigarettes, uncomplicated Hx of scoliosis Elevated liver transaminase level Folate deficiency Vitamin D deficiency Lumbar stenosis with neurogenic claudication History of right tennis elbow Degenerative disc disease, cervical Lumbar spine scoliosis Hx of fracture of wrist Hyperlipidemia Essential hypertension Family History Family History Brother Substance use disorder Prostate cancer Daughter Substance use disorder Sister Substance use disorder Maternal Grandmother Diabetes mellitus Mother Alcoholism COPD (chronic obstructive pulmonary disease) Father Alcoholism COPD (chronic obstructive pulmonary disease) Surgical History Surgical History Hx of section Hx of tubal ligation History of carpal tunnel surgery of right wrist History of carpal tunnel surgery of left wrist History of rotator cuff surgery History of colonoscopy with polypectomy Social History Social History Household Members: Spouse and Other Housing: House Do you presently have visiting nurse or other home services: No Alcohol intake: current Alcohol intake frequency: a few times a month Patient Tobacco Use Status: Current everyday Tobacco user Tobacco use type: Cigarette Cigarette Packs Per Day: 1 Cigarettes Per Day: 4 Years Smoked: 45 e-Cigarette/Vaping Use: Never Used Second Hand Smoke Exposure: No service: No Current occupational status: disabled Cognitive needs: No Hearing needs: No Vision needs: Yes Meds Allergies Allergy/AdvReac Type Severity Reaction Status Date / Time No Known Allergies Allergy Verified 12/30/23 11:11 Active Medications: Current Medications Acetaminophen (Acetaminophen 325 Mg Tablet) 650 mg PO Q6H PRN PRN Reason: Pain, Mild (Pain Scale 1-3), fever or headache Last Admin: 11/29/23 16:31 Dose: 650 mg Albuterol Sulfate (Albuterol Sulfate 90 Mcg 8 Gm Inhaler) 2 puff INHALE Q6H PRN PRN Reason: shortness of breath or wheezing Calcium Carbonate (Calcium Carbonate 750 Mg Tab.Chew) 750 mg PO Q4H PRN PRN Reason: Heartburn Last Admin: 11/30/23 12:10 Dose: 750 mg Enoxaparin Sodium (Enoxaparin Sodium 40 Mg/0.4 Ml Syringe) 40 mg SUBCUT Q24H [facility] Last Admin: 11/30/23 20:48 Dose: 40 mg Folic Acid (Folic Acid 1 Mg Tablet) 1 mg PO DAILY [facility] Last Admin: 12/01/23 08:42 Dose: 1 mg Lactulose (Lactulose 20 Gm/30 Ml Solution) 20 gm PO BID [facility] Last Admin: 12/01/23 08:42 Dose: 20 gm Magnesium Hydroxide (Milk Of Magnesia 30 Ml Oral.Susp) 30 ml PO DAILY PRN PRN Reason: Constipation [facility] ([facility] Mg [facility] Last Admin: 12/01/23 08:41 Dose: 400 mg Melatonin (Melatonin 3 Mg Tablet) 6 mg PO BEDTIME PRN PRN Reason: Insomnia Nicotine (Nicotine 7 Mg Patch.Td24) 7 mg TRANSDERMA DAILY [facility] Last Admin: 12/01/23 08:45 Dose: Not Given Sodium Chloride (0.9 % Sodium Chloride Flush 3 Ml Syringe) 3 ml IVFLUSH QSHIFT [facility] Last Admin: 12/01/23 08:47 Dose: 3 ml Valsartan (Valsartan 160 Mg Tablet) 160 mg PO DAILY [facility]; Protocol Last Admin: 12/01/23 08:41 Dose: 160 mg Home Medications ?Medication ?Instructions ?Recorded ?Confirmed ?Last Taken ?Type cholecalciferol (vitamin D3) 1,250 1,250 mcg PO CLEANING 11/28/23 12/31/23 12/23/23 History mcg (50,000 unit) capsule ibuprofen 200 mg tablet 400 mg PO Q6H PRN Pain 12/31/23 12/31/23 Unknown History omeprazole 20 mg tablet,delayed 20 mg PO DAILY@0630 PRN Heartburn 12/31/23 12/31/23 Unknown History release Physical Exam Vital Signs: Vital Signs: Last Vital Signs Temp 97.7 F 12/01/23 08:00 Pulse 96 12/01/23 08:00 Resp 18 12/01/23 08:00 BP 118/81 12/01/23 08:00 Pulse Ox 94 12/01/23 08:00 O2 Del Method Room Air 12/01/23 08:00 O2 Flow Rate 2 11/29/23 11:17 BMI result Body Mass Index 20.5 Const: General: no acute distress, ill appearing and lethargic Nutritional Appearance: average body habitus Orientation/consciousness: patient oriented x3 and lethargic HEENT: Head: Yes normal to inspection Ears: hearing grossly normal bilaterally Eyes: Sclerae: sclerae normal Pupils: Equal, round and reactive pupils present Neck: Neck: Yes normal visual inspection Chest: Chest palpation & inspection: normal inspection of the chest Resp: Effort & Inspection: normal respiratory effort Auscultation: clear to auscultation bilaterally Cardio: Palpation: normal PMI Rate: regular rate Rhythm: regular rhythm Heart sounds: S1 normal heart sound present, S2 normal heart sound present and no murmurs GI: Inspection: Yes distended Palpation (GI): Soft to palpation, nontender and No hepatosplenomegaly present Auscultation: normal bowel sounds Rectal Exam - Female: deferred Skin: General skin exam: no rashes or lesions noted and spider nevi (on anterior chest) Neuro: General: patient oriented x3, gait normal and moves all extremities Cranial nerves: Yes Equal, round and reactive pupils present Extrem: General: No pedal edema and Yes other (positive flap) Psych: Appearance: grossly normal Mental Status: mental status grossly normal Results Labs 11/30/23 08:07 12/01/23 09:10 Labs: BMP 12/01/23 09:10 Sodium 138 Potassium 3.9 Chloride 105 Carbon Dioxide 25 BUN 6 L Creatinine 0.57 Calcium 8.8 D Assessment and Plan (1) Elevated liver transaminase level: Status: Inactive (2) Ascites: Status: Acute (3) Anemia: Status: Acute Plan 63 YF with ETOH abuse, hypertension, hyperlipidemia, degenerative disc disease, vitamin-D deficiency, folate deficiency, and alcohol use disorder admitted to [facility] on 11/28/23 due to lethargy and weakness x 3-4 days. Pt denies past hx of liver disease - admits to having fatigue and easy bruising for the past few months. CT abdomen pelvis shows marked fatty change of liver with moderate volume abdominal ascites and mild diffuse nonspecific bowel wall thickening of the cecum and ascending colon through the mid transverse colon without obstruction. Pt was unable to have a diagnostic paracentesis due to small volume ascites. Pt has decompensated cirrhosis likely related to ETOH abuse complicated by ascites and hepatic encephalopathy MELD score is 12 RECOMMENDATIONS: 1. Check Hepatitis serologies - order placed 2. Continue Lactulose 20 gms twice daily and titrate to 3 soft BMs a day 3. Consult to Addiction Medicine for ETOH rehab - pt states she plans to stop drinking 4. Pt will be scheduled for a FU appt in GI - scheduled on 12/10/23 Procedures Date of Service Date of Service: 12/31/23
[2023-12-01 11:58] VITALS: BP 133/78; PULSE 102; RESP 19; TEMP 36.6; O2SAT 92
--- NOTE | 2023-12-01 12:53 | P.PNIM_ITS ---
Subjective Subjective Date of Service: 12/01/23 Interval History: Seen and examined this morning Follow-up for hypokalemia, hypomagnesemia Patient awake alert and feeling well this morning. With intermittent cough but no shortness of breath, not on oxygen Review of Systems Review of Systems: Yes all other systems are reviewed and are negative Constitutional Constitutional: Denies chills and Denies fever(s) Cardiovascular Cardiovascular: Denies chest pain, Denies palpitations and Denies dyspnea Respiratory Respiratory: Reports cough and Denies dyspnea Gastrointestinal Gastrointestinal: Denies abdominal pain Endocrine Endocrine: Denies palpitations Physical Exam 2 Vital Signs: Vital Signs: Last Vital Signs Temp 97.8 F 12/01/23 11:58 Pulse 102 H 12/01/23 11:58 Resp 19 12/01/23 11:58 BP 133/78 12/01/23 11:58 Pulse Ox 92 12/01/23 11:58 O2 Del Method Room Air 12/01/23 11:58 O2 Flow Rate 2 11/29/23 11:17 BMI result Body Mass Index 20.5 Appearing in no acute distress lung sounds are clear to auscultation heart regular rate rhythm, clear S1, S2 positive bowel sounds, abdomen is soft, nontender neuro patient is alert x3, no focal deficits Objective Data Active Medications Acetaminophen (Acetaminophen 325 Mg Tablet) 650 mg PO Q6H PRN PRN Reason: Pain, Mild (Pain Scale 1-3), fever or headache Last Admin: 11/29/23 16:31 Dose: 650 mg Documented By: SELENE Albuterol Sulfate (Albuterol Sulfate 90 Mcg 8 Gm Inhaler) 2 puff INHALE Q6H PRN PRN Reason: shortness of breath or wheezing Calcium Carbonate (Calcium Carbonate 750 Mg Tab.Chew) 750 mg PO Q4H PRN PRN Reason: Heartburn Last Admin: 11/30/23 12:10 Dose: 750 mg Documented By: SUDHEER Enoxaparin Sodium (Enoxaparin Sodium 40 Mg/0.4 Ml Syringe) 40 mg SUBCUT Q24H [facility] Last Admin: 11/30/23 20:48 Dose: 40 mg Documented By: ANDREI Folic Acid (Folic Acid 1 Mg Tablet) 1 mg PO DAILY [facility] Last Admin: 12/01/23 08:42 Dose: 1 mg Documented By: ZAY Lactulose (Lactulose 20 Gm/30 Ml Solution) 20 gm PO BID [facility] Last Admin: 12/01/23 08:42 Dose: 20 gm Documented By: ZAY Magnesium Hydroxide (Milk Of Magnesia 30 Ml Oral.Susp) 30 ml PO DAILY PRN PRN Reason: Constipation Magnesium Oxide (Magnesium Oxide 400 Mg Tablet) 400 mg PO BIDPC [facility] Last Admin: 12/01/23 08:41 Dose: 400 mg Documented By: ZAY Melatonin (Melatonin 3 Mg Tablet) 6 mg PO BEDTIME PRN PRN Reason: Insomnia Nicotine (Nicotine 7 Mg Patch.Td24) 7 mg TRANSDERMA DAILY [facility] Last Admin: 12/01/23 08:45 Dose: Not Given Documented By: ZAY Non-Admin Reason: Patient Refused Sodium Chloride (0.9 % Sodium Chloride Flush 3 Ml Syringe) 3 ml IVFLUSH QSHIFT [facility] Last Admin: 12/01/23 08:47 Dose: 3 ml Documented By: ZAY Valsartan (Valsartan 160 Mg Tablet) 160 mg PO DAILY [facility]; Protocol Last Admin: 12/01/23 08:41 Dose: 160 mg Documented By: ZAY Labs 11/30/23 08:07 12/01/23 09:10 Labs: Laboratory Results - last 24 hr 11/30/23 11/30/23 11/30/23 08:07 08:55 16:35 PT 15.5 H INR 1.3 H Anion Gap Estim Creat Clear Calc Estimated GFR Random Glucose Calcium Ammonia 103 H Lactate Dehydrogenase 318 H Cancelled B-Natriuretic Peptide Total Protein Cancelled Hold Yellow Top 12/01/23 09:10 PT INR Anion Gap 12 Estim Creat Clear Calc 74.4 Estimated GFR > 60 Random Glucose 89 Calcium 8.8 D Ammonia Lactate Dehydrogenase B-Natriuretic Peptide 84 Total Protein Hold Yellow Top See Note Assessment and Plan (1) Hyperbilirubinemia: Status: Acute (2) Anemia: Status: Acute (3) Ascites: Status: Acute Plan 63-year-old female with history of hypertension, hyperlipidemia, degenerative disc disease, vitamin-D deficiency, folate deficiency, and alcohol use disorder admitted for further management of hypokalemia and hypomagnesemia Chronic liver disease with elevated LFTs etoh use. Counseled on cessation. no etoh withdrawal Fatty liver noted on ct abd pelvis moderate ascites present on ct. No cirrhosis. Poor nutrition likely contributing. received Albumin x2 LFTs stable Acute metabolic encephalopathy secondary to hepatic encephalopathy Ammonia 103 lactulose 20gm BID Acute hypokalemia and hypomagnesemia likely multifactorial in the setting alcohol use and poor p.o. intake as well as GI losses continue 400 mg magnesium oxide p.o. Acute leukocytosis likely reactive as well as r/t dehydration/hemoconcentration from poor po intake Resolved Acute on chronic normocytic anemia Drop in H/H likely due to hemodilution from IV fluids as all cell lines have decreased No evidence of acute blood loss iron, B12, folic acid wnl H/H has remained stable Tachcyardia likely due to hypovolemia/dehydration, not sepsis Resolved Acute cough CXR negative for pneumonia negative for COVID-19, RSV, influenza. RPP negative symptomatic management DVT prophylaxis- lovenox Attending Dr. Liang full code Patient requires ongoing inpatient stay for due to severe electrolyte abnormalities including hypomagnesemia and hypokalemia requiring IV repletion of electrolytes with close monitoring of levels and cardiac monitoring Quality Stroke Does the patient have a stroke diagnosis?: No VTE Prior VTE?: No VTE Risk Level:: Medical - moderate - high VTE Device Contraindication: Treatment Not Indicated VTE Drug Contraindication: N/A - Med Ordered
[2023-12-01 15:41] VITALS: BP 119/74; PULSE 119; RESP 18; TEMP 36.6; O2SAT 94
[2023-12-01 19:39] VITALS: BP 119/72; PULSE 102; RESP 18; TEMP 36.6; O2SAT 90
[2023-12-01] MEDS: Enoxaparin Sodium 40 MG/0.4 ML SYRINGE SUBCUT (21:29)
[2023-12-01] MEDS: PHENobarbitaL sodium 130 MG/ML VIAL 65 MG IM (22:59)
[2023-12-02] VITALS: BP 126/65; PULSE 97; RESP 18; TEMP 36.3; O2SAT 94
[2023-12-02 04:00] VITALS: BP 107/67; PULSE 97; RESP 18; TEMP 36.6; O2SAT 94
[2023-12-02 06:25] LABS: Ammonia 40 umol/L (13-55)
--- NOTE | 2023-12-02 07:23 | PC.NURSE ---
Patient reported nausea and vomiting x 3 on shift CIWA 7 reported to animation director provider Pelon Camacho, ordered Phenobarbital IM, same administered. Wet intermittent cough Guaifenesin? ordered, not administered patient noted asleep with cough improved.
[2023-12-02 08:00] VITALS: BP 108/67; PULSE 104; RESP 17; TEMP 36.4; O2SAT 95
[2023-12-02] MEDS: Folic Acid 1 MG TABLET PO (08:34)
[2023-12-02] MEDS: Valsartan 160 MG TABLET PO (08:34)
[2023-12-02] MEDS: 0.9 % Sodium Chloride Flush 3 ML SYRINGE IVFLUSH ×3 (08:34→20:02)
[2023-12-02] MEDS: Magnesium Oxide 400 MG TABLET PO ×2 (08:34→16:14)
[2023-12-02] MEDS: Lactulose 20 GM/30 ML SOLUTION PO ×2 (08:34→20:02)
[2023-12-02] MEDS: guaiFEN/Codeine SF 200/20/10ML 10 ML LIQUID 5 ML PO ×3 (09:51→22:22)
--- NOTE | 2023-12-02 10:11 | HO.PM.IMPN ---
Subjective Subjective Date of Service: 12/02/23 Interval History: Seen and examined this morning Follow-up for hypokalemia, hypomagnesemia Patient awake alert and feeling well this morning. With intermittent cough but no shortness of breath, not on oxygen Review of Systems Review of Systems: Yes all other systems are reviewed and are negative Constitutional Constitutional: Denies chills and Denies fever(s) Cardiovascular Cardiovascular: Denies chest pain, Denies palpitations and Denies dyspnea Respiratory Respiratory: Reports cough and Denies dyspnea Gastrointestinal Gastrointestinal: Denies abdominal pain Endocrine Endocrine: Denies palpitations Physical Exam Vital Signs: Vital Signs: Last Vital Signs Temp 97.6 F 12/02/23 08:00 Pulse 104 H 12/02/23 08:00 Resp 17 12/02/23 08:00 BP 108/67 12/02/23 08:00 Pulse Ox 95 12/02/23 08:00 O2 Del Method Room Air 12/02/23 08:00 O2 Flow Rate 2 11/29/23 11:17 BMI result Body Mass Index 20.5 Appearing in no acute distress lung sounds are clear to auscultation heart regular rate rhythm, clear S1, S2 positive bowel sounds, abdomen is soft, nontender neuro patient is alert x3, no focal deficits Objective Data Active Medications Acetaminophen (Acetaminophen 325 Mg Tablet) 650 mg PO Q6H PRN PRN Reason: Pain, Mild (Pain Scale 1-3), fever or headache Last Admin: 11/29/23 16:31 Dose: 650 mg Documented By: SELENE Albuterol Sulfate (Albuterol Sulfate 90 Mcg 8 Gm Inhaler) 2 puff INHALE Q6H PRN PRN Reason: shortness of breath or wheezing Calcium Carbonate (Calcium Carbonate 750 Mg Tab.Chew) 750 mg PO Q4H PRN PRN Reason: Heartburn Last Admin: 11/30/23 12:10 Dose: 750 mg Documented By: SUDHEER Enoxaparin Sodium (Enoxaparin Sodium 40 Mg/0.4 Ml Syringe) 40 mg SUBCUT Q24H [facility] Last Admin: 12/01/23 21:29 Dose: 40 mg Documented By: KASHMIR Folic Acid (Folic Acid 1 Mg Tablet) 1 mg PO DAILY [facility] Last Admin: 12/02/23 08:34 Dose: 1 mg Documented By: ZAY Guaifenesin/Codeine Phosphate (Guaifen/Codeine Sf 200/20/10ml 10 Ml Liquid) 5 ml PO Q6H PRN PRN Reason: Cough Last Admin: 12/02/23 09:51 Dose: 5 ml Documented By: ZAY Lactulose (Lactulose 20 Gm/30 Ml Solution) 20 gm PO BID [facility] Last Admin: 12/02/23 08:34 Dose: 20 gm Documented By: ZAY Magnesium Hydroxide (Milk Of Magnesia 30 Ml Oral.Susp) 30 ml PO DAILY PRN PRN Reason: Constipation Magnesium Oxide ([facility] 400 Mg [facility]t) [facility] Last Admin: 12/02/23 08:34 Dose: 400 mg Documented By: ZAY Melatonin (Melatonin 3 Mg Tablet) 6 mg PO BEDTIME PRN PRN Reason: Insomnia Nicotine (Nicotine 7 Mg Patch.Td24) 7 mg TRANSDERMA DAILY [facility] Last Admin: 12/02/23 08:37 Dose: Not Given Documented By: ZAY Non-Admin Reason: Patient Refused Sodium Chloride (0.9 % Sodium Chloride Flush 3 Ml Syringe) 3 ml IVFLUSH QSHIFT [facility] Last Admin: 12/02/23 08:34 Dose: 3 ml Documented By: ZAY Valsartan (Valsartan 160 Mg Tablet) 160 mg PO DAILY [facility]; Protocol Last Admin: 12/02/23 08:34 Dose: 160 mg Documented By: ZAY Labs 11/30/23 08:07 12/01/23 09:10 Labs: Laboratory Results - last 24 hr 12/02/23 06:09 Hold Purple Top SEE NOTE Ammonia 40 Assessment and Plan (1) Hyperbilirubinemia: Status: Acute (2) Anemia: Status: Acute (3) Ascites: Status: Acute Plan 63-year-old female with history of hypertension, hyperlipidemia, degenerative disc disease, vitamin-D deficiency, folate deficiency, and alcohol use disorder admitted for further management of hypokalemia and hypomagnesemia Chronic liver disease with elevated LFTs etoh use. Counseled on cessation. no etoh withdrawal Fatty liver and small amount of ascites noted on ct abd pelvis No cirrhosis. Poor nutrition likely contributing. received Albumin x2 LFTs stable Acute metabolic encephalopathy secondary to hepatic encephalopathy more awake today Ammonia now normal lactulose 20gm BID Acute hypokalemia and hypomagnesemia likely multifactorial in the setting alcohol use and poor p.o. intake as well as GI losses continue 400 mg magnesium oxide p.o. Acute leukocytosis likely reactive as well as r/t dehydration/hemoconcentration from poor po intake Resolved Acute on chronic normocytic anemia Drop in H/H likely due to hemodilution from IV fluids as all cell lines have decreased No evidence of acute blood loss iron, B12, folic acid wnl H/H has remained stable Tachcyardia likely due to hypovolemia/dehydration, not sepsis Resolved Acute cough CXR negative for pneumonia negative for COVID-19, RSV, influenza. RPP negative symptomatic management DVT prophylaxis- lovenox Attending Dr. Liang full code Patient requires ongoing inpatient stay for due to severe electrolyte abnormalities including hypomagnesemia and hypokalemia requiring IV repletion of electrolytes with close monitoring of levels and cardiac monitoring Quality Stroke Does the patient have a stroke diagnosis?: No VTE Prior VTE?: No VTE Risk Level:: Medical - moderate - high VTE Device Contraindication: Treatment Not Indicated VTE Drug Contraindication: N/A - Med Ordered
[2023-12-02 12:00] VITALS: BP 106/64; PULSE 102; RESP 20; TEMP 36.6; O2SAT 93
[2023-12-02 15:54] VITALS: BP 98/67; PULSE 97; RESP 18; TEMP 36.3; O2SAT 92
[2023-12-02 19:18] VITALS: BP 108/64; PULSE 96; RESP 18; TEMP 36.8; O2SAT 91
[2023-12-02] MEDS: Enoxaparin Sodium 40 MG/0.4 ML SYRINGE SUBCUT (20:01)
[2023-12-03] VITALS: BP 102/64; PULSE 101; RESP 20; TEMP 36.3; O2SAT 90
[2023-12-03 04:00] VITALS: BP 93/54; PULSE 92; RESP 20; TEMP 36.9; O2SAT 93
[2023-12-03] MEDS: guaiFEN/Codeine SF 200/20/10ML 10 ML LIQUID 5 ML PO (05:36)
[2023-12-03 08:00] VITALS: BP 103/64; PULSE 90; RESP 18; TEMP 36.2; O2SAT 94
[2023-12-03 08:15] LABS: HBc Num1 0.14 S/CO (0.00-0.79); Hepatitis B Core Antibody Nonreactive (Nonreactive); Hepatitis B Surface Antigen Negative (Negative); ~HepC Num1 0.13 S/CO (0.00-0.79); ~Hepatitis B Surface Antibody NONREACTIVE (Nonreactive); ~Hepatitis C Antibody Nonreactive (Nonreactive)
[2023-12-03 08:18] LABS: Hepatitis A Antibody IgG Nonreactive (Nonreactive); ~Hepatitis A Antibody IgG 0.46 S/CO (0.00-0.99)
[2023-12-03] MEDS: Lactulose 20 GM/30 ML SOLUTION PO (08:22)
[2023-12-03] MEDS: Valsartan 160 MG TABLET PO (08:22)
[2023-12-03] MEDS: Magnesium Oxide 400 MG TABLET PO (08:22)
[2023-12-03] MEDS: Folic Acid 1 MG TABLET PO (08:22)
--- NOTE | 2023-12-03 09:13 | MHC.RECOVRN ---
AUDIT-C Brief Intervention Pt had positive screen for unhealthy alcohol use on admission. Attempted to meet with pt to discuss alcohol use and offer resources, pt declined.
--- NOTE | 2023-12-03 10:39 | P.DS_ITS ---
DS: Providers Provider Date of Service: 12/03/23 Date of admission: 11/28/23 19:16 Primary care physician: Giovana Manning MD Consults: 11/30/23 16:54 Consult to Gastroenterology Routine Consulting Provider: Aron Chavez Reason for consultation: elevated LFTs, high ammonia Has provider been notified: No 12/01/23 13:00 Addiction Medicine Routine Consulting Provider: Addiction Covering Reason for consultation: etoh DS: Diagnosis Discharge Diagnosis (1) Elevated liver transaminase level: Status: Acute (2) Ascites: Status: Acute (3) Anemia: Status: Acute DS: Summary Hospital Course Hospital Course: From H&P on the day of admission 63-year-old female with history of hypertension, hyperlipidemia, degenerative disc disease, vitamin-D deficiency, folate deficiency, and alcohol use disorder presented to the ED earlier today at the recommendation of her due to lethargy and weakness ongoing for the last 3-4 days. The patient states she does drink an excess about 3 days weekly consuming 4-5 beers but denies any other substance use. Last drink was on Sunday. Later that night and into Sunday she began feeling generally unwell, lethargic with poor appetite and has not been eating or drinking much since then. She did vomit small amounts x2 but has had no ongoing vomiting or diarrh ea. No fevers or chills. She has had a dry cough and reports her granddaughter's sick with URI. No sore throat, congestion, abdominal pain, nausea, melena, hematochezia, dysuria, hematuria, increased urinary frequency, lightheadedness, palpitations, or chest pain. Since arrival, has been mildly tachycardic, (no tachypnea- 105 was false recording). No fevers or hypotension. She does have a leukocytosis of 13.6, H/H 11.3/32.7%. Renal function baseline, sodium 142, potassium 2.0, chloride 94, CO2 32, magnesium 1.0. Total bili 1.8, direct bilirubin 0.9, AST 90, ALT 33, alkaline phosphatase 236. Albumin 2.3. CXR negative for acute cardiopulmonary abnormality. CT abdomen pelvis shows marked fatty change of liver with moderate volume abdominal ascites and mild diffuse nonspecific bowel wall thickening of the cecum and ascending colon through the mid transverse colon without obstruction. In the ED, has been given IV fluids, 4 g IV magnesium, IV potassium and oral potassium. Chronic liver disease with elevated LFTs likely r/t etoh use. Counseled on cessation. no evidence of withdrawal. Fatty liver noted on ct abd pelvis. small ascites on abd us. No cirrhosis. Asymptomatic. Hold on paracentesis. Poor nutrition likely contributing. recived Albumin. lfts trending down. Outpatient follow-up recommended Acute metabolic encephalopathy secondary to hepatic encephalopathy Ammonia peaked at 103, treated with lactulose b.i.d. with normalization and ammonia and resolution of encephalopathy. We will go home with lactulose 20 g daily Acute hypokalemia and hypomagnesemia likely multifactorial in the setting alcohol use and poor p.o. intake as well as GI losses Resolved with oral replacement Bowel wall thickening etiology unclear. No diarrhea or ongoing vomiting. Abd exam benign. No further workup at this time Acute leukocytosis likely reactive as well as r/t dehydration/hemoconcentration from poor po intake. Resolved Acute on chronic normocytic anemia Drop in H/H likely due to hemodilution from IV fluids as all cell lines have decreased No evidence of acute blood loss. Iron, B12, folic acid ok, H/H stable. Acute cough CXR negative for pneumonia negative for COVID-19, RSV, influenza. RPP negative. symptomatic management. smoking cessation advised. Time Attestation Discharge Coordination Time (in mins): 36 Quality: Safe Use of Opioids Does Pt have an Active Cancer Diagnosis on the Problem List?: No Quality: Stroke Does the patient have a stroke diagnosis?: No Physical Exam Vital Signs: Vital Signs: Last Vital Signs Temp 97.2 F 12/03/23 08:00 Pulse 90 12/03/23 08:00 Resp 18 12/03/23 08:00 BP 103/64 12/03/23 08:00 Pulse Ox 94 12/03/23 08:00 O2 Del Method Room Air 12/03/23 08:00 O2 Flow Rate 2 11/29/23 11:17 BMI result Body Mass Index 20.5 Appearing in no acute distress head is normocephalic atraumatic eyes pupils are PERRLA sclera is anicteric mouth throat mucous membranes are intact and moist neck is supple no lymphadenopathy, no JVD noted lung sounds are clear to auscultation heart regular rate rhythm, clear S1, S2 positive bowel sounds, abdomen is soft, nontender neuro patient is alert x3, no focal deficits DS: Data Data Completed and Pending Pending studies at discharge: Pending at discharge 11/30/23 11:11 Cytology [PTH] Routine Labs on day of discharge: Laboratory Results - last 24 hr 12/02/23 06:09 Hepatitis A IgG Ab Nonreactive Hep Bs Antigen Negative Hep Bs Antibody NONREACTIVE Hep B Core Total Ab Nonreactive Hepatitis C Ab (EIA) Nonreactive Discharge Plan Discharge Anticipated Discharge Date/Time: 12/03/23 10:29 Patient Disposition: Home, Self-Care Discharge Diagnosis: Hypokalemia, hypomagnesemia Ascites Anemia Referrals: Giovana Manning MD [Primary Care Provider] - 1 Week Aron Chavez MD [Physician] - 1 Week (new ascites, elevated LFTs ) Discharge Medications: New magnesium oxide 400 mg (241.3 mg magnesium) Tablet 400 mg PO BIDPC 90 Days Qty: 180 0RF lactulose 20 gram/30 mL solution 20 g PO DAILY Qty: 1200 0RF Continued albuterol sulfate 90 mcg/actuation HFA aerosol inhaler 2 puff inhalation Q6H PRN (Reason: shortness of breath or wheezing) Qty: 8.5 0RF folic acid 800 mcg tablet 0.8 mg PO DAILY Qty: 90 1RF cholecalciferol (vitamin D3) 1,250 mcg (50,000 unit) capsule 1,250 mcg PO CLEANING valsartan 160 mg tablet 160 mg PO DAILY Qty: 90 2RF Held atorvastatin 20 mg tablet 20 mg PO DAILY Qty: 90 2RF Hold Instructions: hold until follow up with PCP Discharge Orders: Discharge Order (Routine); Ordered 12/03/23 Ordered By: Janet Patel Diet: Advance to usual diet Activity on Discharge: As tolerated Stand Alone Forms: Patient Portal Discharge page Print Language: Sammarinese Care Plan Goals: Take lactulose as prescribed Health Concerns: Low magnesium, low potassium Ascites Elevated LFTs Anemia Plan of Treatment: Take magnesium supplementation Recommend outpatient follow-up with PCP Consider outpatient follow-up with GI Can consider outpatient paracentesis for evaluation of ascites Recommend avoiding alcohol hold statin until follow up with PCP - repeat LFTs as outpatient Assessment: see discharge summary Discharge Date/Time: 12/03/23 11:00
--- NOTE | 2023-12-03 10:49 | MHC.CM.PN ---
Patient has been medically cleared for dc to home today, self care.
== END 2023-12-03 11:00 | disposition home or self-care (01) | DRG 640 ==
LOC: HO.ED 18:01 → HO.EDOVER 19:24 → HO.IMC 11-29 14:06
PROVIDERS: Internal Medicine Gastroenterology; Physician Assistant; Physician Assistant Medical; Admitting Provider Physician Assistant; Emergency Provider Emergency Medicine; PCP Internal Medicine; Visit Provider Nurse Practitioner Acute Care
DX: E86.0 Dehydration (principal); G93.41 Metabolic encephalopathy; R18.8 Other ascites; K70.0 Alcoholic fatty liver; D64.9 Anemia, unspecified; K76.82 Hepatic encephalopathy; R93.3 Abnormal findings on diagnostic imaging of other parts of digestive tract; I10 Essential (primary) hypertension; F10.10 Alcohol abuse, uncomplicated; E78.5 Hyperlipidemia, unspecified; E87.6 Hypokalemia; E86.1 Hypovolemia; E83.42 Hypomagnesemia; F17.210 Nicotine dependence, cigarettes, uncomplicated; Z71.6 Tobacco abuse counseling; Z20.822 Contact with and (suspected) exposure to COVID-19; Z79.899 Other long term (current) drug therapy
CPT/HCPCS: 0241U; 36415; 71045; 74177; 76705; 80048; 80051; 80076; 81003; 82140; 82607; 82728; 82746; 83540; 83615; 83690; 83735; 83880; 84132; 84155; 84484; 85014; 85018; 85025; 85027; 85610; 86704; 86706; 86708; 86803; 87340; 87633; 93005; 99285; J1650; J2560; J3475; J3480; J7120; P9047; Q9967

== ENCOUNTER → 2023-11-28 19:16 | Outpatient (BNV) | payer OTHER, SELFPAY | PROVIDERS: Admitting Provider Physician Assistant; Emergency Provider Emergency Medicine; PCP Internal Medicine; Visit Provider Physician Assistant Medical | DX: R74.01 Elevation of levels of liver transaminase levels (principal); R18.8 Other ascites; D64.9 Anemia, unspecified | CPT/HCPCS: 99223; 99232; 99239 ==

== ENCOUNTER → 2023-11-28 19:16 | Outpatient (BNV) | payer OTHER, SELFPAY | PROVIDERS: Admitting Provider Physician Assistant; Emergency Provider Emergency Medicine; PCP Internal Medicine; Visit Provider Internal Medicine Gastroenterology | DX: K76.82 Hepatic encephalopathy (principal); K70.31 Alcoholic cirrhosis of liver with ascites; D64.9 Anemia, unspecified | CPT/HCPCS: 99222 ==

== ENCOUNTER 2023-12-30 11:00 | Inpatient (IN) | payer OTHER, SELFPAY ==
[2023-12-30] VITALS (11 sets, daily range): BP systolic 73–108; BP diastolic 36–70; PULSE 77–93; RESP 12–16; TEMP 36.4–37.2; O2SAT 95–99; BMI 21.4
--- NOTE | ~2023-12-30 | XR_ITS ---
EXAMINATION: XR CHEST CLINICAL INFORMATION: Shortness of breath COMPARISON: Chest radiograph 11/28/2023. TECHNIQUE: Frontal view of the chest was obtained. FINDINGS: Cervical spine fusion hardware. Surgical hardware overlies the thoracic spine. The lungs are adequately expanded. No focal consolidation. No pleural effusions or pneumothorax. The cardiac mediastinal silhouette is within normal limits. Dextroconvex curvature of the thoracic spine. XR/XR chest 1V IMPRESSION: No acute pulmonary disease. Electronically signed by: Sagar Duval MD 12/30/2023 01:59 PM EDT
--- NOTE | ~2023-12-30 | CT_ITS ---
EXAMINATION: CT ABDOMEN AND PELVIS WITHOUT IV CONTRAST CLINICAL INFORMATION: Abdominal pain COMPARISON: CT abdomen/pelvis November 28, 2023 TECHNIQUE: Multiple axial images were obtained from the superior aspect of the liver through the pubic symphysis without intravenous contrast. Images were evaluated on independent dedicated 3-D workstation and 3-D images were reconstructed with concurrent radiologist supervision and subsequently interpreted. Oral contrast was not administered. This CT examination was performed using dose optimization techniques as appropriate, variously including the following: *Automated exposure control *Adjustment of mA and/or kV according to patient size (this includes techniques or standardized protocols for targeted exams where dose is matched to indication/reason for exam; i.e. extremities or head) *Use of iterative reconstruction technique DLP: 305 mGy-cm FINDINGS: LUNG BASES: The visualized lung bases are clear. CARDIOMEDIASTINUM: The visualized heart is normal in size with trace pericardial effusion. No coronary artery calcification. LIVER: Diffuse hypoattenuation consistent with hepatic steatosis. GALLBLADDER: Fluid-filled. BILIARY SYSTEM: No intrahepatic or extrahepatic biliary dilation. PANCREAS: Homogeneous in attenuation. SPLEEN: Normal in size. GENITOURINARY: No contour deforming masses. No perinephric fluid collection. No renal calculi. No hydroureteronephrosis. ADRENAL GLANDS: Unremarkable. REPRODUCTIVE: Uterus and and bilateral adnexa are unremarkable. GASTROINTESTINAL: No evidence of obstruction. Circumferential wall thickening of the ascending and descending colon. Diverticular disease of the descending and sigmoid colon. APPENDIX: Not seen. PERITONEUM: Moderate abdominopelvic ascites. No pneumoperitoneum. VASCULATURE: No abdominal aortic aneurysm. LYMPH NODES: No pathologically enlarged abdominal or pelvic lymph nodes. SOFT TISSUES/MUSCULOSKELETAL: Severe multilevel degenerative changes , worst at L4-5. Lumbar spine levoscoliosis. Partially evaluated Iglesias stephanie. Levoscoliosis CT/CT abdomen pelvis wo IV con IMPRESSION: 1. Moderate abdominopelvic ascites and severe hepatic steatosis. Underlying cirrhosis suspected. Intrahepatic masses cannot be evaluated without contrast. 2. Circumferential thickening of the ascending and descending colon, which may be related to colonic venous congestion from portal hypertension. Infectious and ischemic process not excluded. Diverticular disease of the descending and sigmoid colon is also present. 3. Distended gallbladder and visualized appendix bathing in ascites, both limited in evaluation without intravenous contrast. Guidelines were followed. Electronically signed by: Kamaljit Arrieta DO 12/30/2023 01:57 PM EDT RP
--- NOTE | ~2023-12-30 | US_ITS ---
ULTRASOUND GUIDED PARACENTESIS HISTORY: Ascites. Therapeutic drainage. TECHNIQUE: Risks and benefits and possible complications were discussed with the patient and consent form was signed. A safe pocket of ascitic fluid was identified using ultrasound guidance, and the overlying skin was marked. The abdomen prepped and draped in sterile fashion. 1% lidocaine was used as a local anesthetic. Using ultrasound guidance, a 5 fr catheter was placed into the ascitic pocket. 2.0 liters of yellow fluid was removed passively. The catheter was then removed. A few physician representative images from before and after the examination were obtained. The procedure was performed by Adeel Veliz PA-C and supervised by Dr. Gee. US/US paracentesis abd w/image IMPRESSION: Ultrasound-guided paracentesis as described above. No immediate complications Electronically signed by: Tk Gee MD 12/31/2023 04:16 PM EDT
--- NOTE | 2023-12-30 11:31 | ED.GENADULT ---
HPI - General Adult General Chief complaint: Abdominal Pain Stated complaint: abd [id number] Time Seen by Provider: 12/30/23 11:24 Source: patient History of Present Illness HPI narrative: This is 63 years old patient presented to the emergency department with a chief complaint of abdominal bloating and confusion for the last week. is at bedside he states the patient he is not eating. He states that she has been really confused Onset (ago): week(s) (1) Radiation: non-radiation Severity: moderate Pain Consistency: constant Relieving factors: none Exacerbating factors: none Related Data Home Medications ?Medication ?Instructions ?Recorded ?Confirmed cholecalciferol (vitamin D3) 1,250 1,250 mcg PO CLEANING 11/28/23 11/28/23 mcg (50,000 unit) capsule Previous Rx's ?Medication ?Instructions ?Recorded atorvastatin 20 mg tablet 20 mg PO DAILY #90 tabs 04/02/23 valsartan 160 mg tablet 160 mg PO DAILY #90 tabs 04/02/23 albuterol sulfate 90 mcg/actuation 2 puff inhalation Q6H PRN 06/27/23 aerosol inhaler shortness of breath or wheezing #8.5 grams folic acid 800 mcg tablet 0.8 mg PO DAILY #90 tabs 10/28/23 magnesium oxide 400 mg (241.3 mg 400 mg PO BIDPC 90 days #180 tabs 11/30/23 magnesium) tablet lactulose 20 gram/30 mL oral 20 g (30 mL) PO DAILY #1,200 mL 12/03/23 solution Allergies Allergy/AdvReac Type Severity Reaction Status Date / Time No Known Allergies Allergy Verified 12/30/23 11:11 Review of Systems Constitutional: Constitutional: Reports no additional constitutional complaints Eyes: Eyes: Reports as per HPI Cardiovascular: Cardiovascular: Reports no additional cardiovascular complaints [facility] Past Medical History Attestation statement: The following information was validated with the patient. Source: unable to obtain Medical History Osteoporosis Nicotine dependence, cigarettes, uncomplicated Hx of scoliosis Elevated liver transaminase level Folate deficiency Vitamin D deficiency Lumbar stenosis with neurogenic claudication History of right tennis elbow Degenerative disc disease, cervical Lumbar spine scoliosis Hx of fracture of wrist Hyperlipidemia Essential hypertension Surgical History Hx of section Hx of tubal ligation History of carpal tunnel surgery of right wrist History of carpal tunnel surgery of left wrist History of rotator cuff surgery History of colonoscopy with polypectomy Family History Family History Brother Substance use disorder Prostate cancer Daughter Substance use disorder Sister Substance use disorder Maternal Grandmother Diabetes mellitus Mother Alcoholism COPD (chronic obstructive pulmonary disease) Father Alcoholism COPD (chronic obstructive pulmonary disease) Social History Social History Household Members: Spouse and Family Housing: House Do you presently have visiting nurse or other home services: No Alcohol intake: current Alcohol intake frequency: a few times a month Patient Tobacco Use Status: Current everyday Tobacco user Tobacco use type: Cigarette Cigarette Packs Per Day: 1 Cigarettes Per Day: 20 Years Smoked: 45 e-Cigarette/Vaping Use: Never Used Use of substances other than those prescribed or required for medical reasons: No Advance Directives: No Advance Directives Information Provided: Yes Do you have a plan to hurt others: No Plan Patient : No service: No Current occupational status: disabled Cognitive needs: No Hearing needs: No Vision needs: Yes Physical Exam ED Vital Signs: Vital Signs - 24 hr 12/30/23 11:10 12/30/23 11:42 12/30/23 14:09 Temperature 97.5 F 97.8 F Pulse Rate 93 89 77 Respiratory Rate 16 12 16 Blood Pressure 73/46 L 74/36 L 84/53 L Pulse Oximetry 98 99 98 Oxygen Delivery Method Room Air Room Air Room Air 12/30/23 14:36 12/30/23 15:12 12/30/23 15:28 Temperature Pulse Rate 80 88 87 Respiratory Rate 13 16 12 Blood Pressure 95/66 83/47 L 93/51 L Pulse Oximetry 99 96 95 Oxygen Delivery Method Room Air 12/30/23 15:42 Temperature Pulse Rate 89 Respiratory Rate 16 Blood Pressure 98/64 Pulse Oximetry 99 Oxygen Delivery Method Room Air BMI result Body Mass Index 21.4 Looks well no toxic-appearing Const General: cooperative and comfortable Nutritional Appearance: average body habitus Orientation/consciousness: patient oriented x3 Limitations: no limitations HENMT Head: Yes normal to inspection Face and sinus: Yes normal facial exam Mouth: Normal oral and palatal mucosa present Neck Neck: Yes full ROM Chest Chest palpation & inspection: normal inspection of the chest Resp Effort & Inspection: normal respiratory effort and able to speak in complete sentences Auscultation: clear to auscultation bilaterally Cardio Jugular venous distension: no JVD Rate: regular rate Rhythm: regular rhythm GI Inspection: Yes normal to inspection Palpation (GI): Soft to palpation, not firm, nontender and no guarding Auscultation: normal bowel sounds Neuro General: patient oriented x3 Course Reevaluation(s) Reevaluation #1: Blood pressure is better after fluid resuscitation, paracentesis done 60 cc of fluid obtain center to labs for analysis I placed also peripheral IV under ultrasound in the right basilic vein discussed with the hospitalist Time: 16:30 Medications Administered Discontinued Medications Generic Name Dose Route Start Last Admin Trade Name Freq PRN Reason Stop Dose Admin Sodium Chloride 1,000 mls @ 999 mls/hr 12/30/23 13:15 12/30/23 15:19 Ns IVCONT 12/30/23 14:15 Infused .Q1H1M LILLY Infusion Albumin Human 50 mls @ 100 mls/hr 12/30/23 13:15 12/30/23 14:35 Kedbumin 25 % IV 12/30/23 13:44 Infused ONCE ONE Infusion Albumin Human 50 mls @ 100 mls/hr 12/30/23 15:27 12/30/23 16:14 Kedbumin 25 % IV 12/30/23 15:56 Infused ONCE ONE Infusion Lactulose 20 gm 12/30/23 12:58 12/30/23 13:21 Lactulose 20 Gm/30 Ml Solution PO 12/30/23 12:59 20 gm ONCE ONE Administration Lidocaine HCl 5 ml 12/30/23 15:21 12/30/23 15:28 Lidocaine Hcl 1 % Mpf 5 Ml Vial INFILTRATI 12/30/23 15:22 5 ml ONCE ONE Administration Procedures Paracentesis Time Out Performed: Yes Local Anesthetic: lidocaine 1% Amount of anesthesia used (mL): 2 Fluid: clear and sent to lab for analysis Post Procedure Exam: awake, alert Patient Tolerated Procedure: well Complications: none Medical Decision Making Medical Decision Making [facility] Narrative: Patient presented to the emergency department with a chief complaint of abdominal bloating and confusion we will check labs including ammonia do a CT Differential Diagnosis Differential Diagnoses: The differential diagnosis associated with the presentation includes Hepatic encephalopathy/ascites/bowel obstruction Admission/Observation Consideration of admission/observation: Escalation of care including admission/observation considered Consult Healthcare Provider Management of the patient was discussed with: Hospitalist Lab Data MDM Lab Attestation statement: I reviewed the patient's lab results. 12/30/23 11:28 12/30/23 11:28 Labs: Lab Results 12/30/23 12/30/23 12/30/23 Range/Units 11:28 11:36 12:01 WBC 8.8 (4.8-10.8) X10*3/uL RBC 2.94 L (4.20-5.50) X10*6/uL Hgb 9.6 L (12.0-16.0) g/dl Hct 29.5 L (37.0-47.0) % MCV 100.3 H (80.0-98.0) fL MCH 32.7 (27.0-33.0) pg MCHC 32.5 (31.0-35.0) g/dl RDW 15.8 (11.0-16.0) % Plt Count 242 (160-400) X10*3/uL MPV 11.9 (9.4-12.3) fL Immature Gran % (Auto) 0.6 H (0.0-0.4) % Neut % (Auto) 69.3 (45-73) % Lymph % (Auto) 21.1 (20-40) % [place] % (Auto) 8.4 (2-11) % Eos % (Auto) 0.1 (0-4) % Baso % (Auto) 0.5 (0-2) % Lymph # (Auto) 1.9 (1.2-4.9) X10*3/uL [place] # (Auto) 0.7 (0.1-1.2) X10*3/uL Eos # (Auto) 0.0 (0.0-0.4) X10*3/uL Baso # (Auto) 0.0 (0.0-0.2) X10*3/uL Abs Immat Gran (auto) 0.05 H (0.00-0.03) X10*3/uL Absolute Neuts (auto) 6.1 (2.0-8.3) x10*3/uL Absolute Nucleated RBC 0.000 (0.0-0.012) X10*3/uL Nucleated RBC % (auto) 0.0 (0.0-0.2) /100WBC Sodium 139 (135-145) mmol/L Potassium 4.3 (3.3-5.1) mmol/L Chloride 108 (96-108) mmol/L Carbon Dioxide 19 L (22-29) mmol/L Anion Gap 16 (12-20) BUN 38 H (9-16) mg/dL Creatinine 2.31 H (0.5-1.4) mg/dL Estim Creat Clear Calc 18.4 Estimated GFR 21 Random Glucose 83 (60-115) mg/dL Lactic Acid (0.5-2.0) mmol/L Calcium 7.9 L D (8.4-10.2) mg/dL Total Bilirubin 0.8 (0.0-1.0) mg/dL AST 64 H (5-31) U/L ALT 16 (0-31) U/L Alkaline Phosphatase 177 H (39-117) U/L Ammonia 149 H (13-55) umol/L B-Natriuretic Peptide 83 (<100) pg/mL Total Protein 5.5 L (6.5-8.0) g/dL Albumin 1.6 L (3.5-5.0) g/dL Lipase 6 L (8-78) U/L Peritoneal WBC X10*3/uL Peritoneal RBC X10*6/uL Ethyl Alcohol < 10 mg/dL 12/30/23 12/30/23 Range/Units 13:30 15:32 WBC (4.8-10.8) X10*3/uL RBC (4.20-5.50) X10*6/uL Hgb (12.0-16.0) g/dl Hct (37.0-47.0) % MCV (80.0-98.0) fL MCH (27.0-33.0) pg MCHC (31.0-35.0) g/dl RDW (11.0-16.0) % Plt Count (160-400) X10*3/uL MPV (9.4-12.3) fL Immature Gran % (Auto) (0.0-0.4) % Neut % (Auto) (45-73) % Lymph % (Auto) (20-40) % [place] % (Auto) (2-11) % Eos % (Auto) (0-4) % Baso % (Auto) (0-2) % Lymph # (Auto) (1.2-4.9) X10*3/uL [place] # (Auto) (0.1-1.2) X10*3/uL Eos # (Auto) (0.0-0.4) X10*3/uL Baso # (Auto) (0.0-0.2) X10*3/uL Abs Immat Gran (auto) (0.00-0.03) X10*3/uL Absolute Neuts (auto) (2.0-8.3) x10*3/uL Absolute Nucleated RBC (0.0-0.012) X10*3/uL Nucleated RBC % (auto) (0.0-0.2) /100WBC Sodium (135-145) mmol/L Potassium (3.3-5.1) mmol/L Chloride (96-108) mmol/L Carbon Dioxide (22-29) mmol/L Anion Gap (12-20) BUN (9-16) mg/dL Creatinine (0.5-1.4) mg/dL Estim Creat Clear Calc Estimated GFR Random Glucose (60-115) mg/dL Lactic Acid 1.8 (0.5-2.0) mmol/L Calcium (8.4-10.2) mg/dL Total Bilirubin (0.0-1.0) mg/dL AST (5-31) U/L ALT (0-31) U/L Alkaline Phosphatase (39-117) U/L Ammonia (13-55) umol/L B-Natriuretic Peptide (<100) pg/mL Total Protein (6.5-8.0) g/dL Albumin (3.5-5.0) g/dL Lipase (8-78) U/L Peritoneal WBC 0.163 X10*3/uL Peritoneal RBC 0.002 X10*6/uL Ethyl Alcohol mg/dL Independent Interpretation I performed an independent interpretation of an: CT Scan Radiology Impression Discussion of test interpretation with radiology: I have reviewed the radiologist's reading. Independent Historian Clinical information obtained from an independent historian. History obtained from or confirmed by: Spouse External Record Review External record reviewed: Inpatient record Chronic Conditions Patient?s care impacted by: Other cirrhosis Critical Care Time Critical Care Time Critical Care Time: Yes Total Critical Care Time: 90 Attestation: Hypotension requiring fluid resuscitation Discharge Plan Discharge Clinical Impression: Acute hepatic encephalopathy Hypotension Qualifiers: Hypotension type: unspecified hypotension type Qualified Code(s): I95.9 - Hypotension, unspecified Ascites Qualifiers: Ascites type: due to alcoholic cirrhosis Qualified Code(s): K70.31 - Alcoholic cirrhosis of liver with ascites Patient Disposition: Admitted As Inpatient Print Language: Chinese
[2023-12-30 11:35] LABS: MANUAL DIFF FLAG NO
[2023-12-30 11:36] LABS: Basophils Percent Auto 0.5 % (0-2); Eosinophils Percent Auto 0.1 % (0-4); Hematocrit 29.5 % (37.0-47.0); Hemoglobin 9.6 g/dl (12.0-16.0); Imm Gran Abs Auto 0.05 X10*3/uL (0.00-0.03); Imm Gran Pct Auto 0.6 % (0.0-0.4); Lymphocytes Absolute Auto 1.9 X10*3/uL (1.2-4.9); Lymphocytes Percent Auto 21.1 % (20-40); Mean Corpuscular HGB Conc 32.5 g/dl (31.0-35.0); Mean Corpuscular Hemoglobin 32.7 pg (27.0-33.0); Mean Corpuscular Volume 100.3 fL (80.0-98.0); Mean Platelet Volume 11.9 fL (9.4-12.3); Monocytes Absolute Auto 0.7 X10*3/uL (0.1-1.2); Monocytes Percent Auto 8.4 % (2-11); Neutrophils Absolute Auto 6.1 x10*3/uL (2.0-8.3); Neutrophils Percent Auto 69.3 % (45-73); Platelet Count 242 X10*3/uL (160-400); Red Blood Count 2.94 X10*6/uL (4.20-5.50); Red Cell Distribution Width 15.8 % (11.0-16.0); White Blood Count 8.8 X10*3/uL (4.8-10.8)
--- NOTE | 2023-12-30 11:45 | PC.NURSE ---
aware of pt blood pressure
--- NOTE | 2023-12-30 11:49 | PC.NURSE ---
patient presents from external triage with with cc of abdominal pain and confusion for the last few days. patient with hx of liver failure, abdomen appears distended and firm, states it has been a while since she has had to be tapped. patients states that this morning she was yelling at him to go to work which was abnormal for her as she knows he does not work on sundays. patient appears frail and malnourished. 20g IV able to be placed in RAC. BP low upon arrival, SBP in the 70s, MD made aware and patient placed on production internship. patient denies recent fevers or nausea or vomiting or diarrhea. denies sick contacts.
[2023-12-30 12:06] LABS: Alanine Aminotransferase 16 U/L (0-31); Albumin Level 1.6 g/dL (3.5-5.0); Alkaline Phosphatase 177 U/L (39-117); Anion Gap 16 (12-20); Aspartate Amino Transferase 64 U/L (5-31); Bilirubin Total 0.8 mg/dL (0.0-1.0); Blood Urea Nitrogen 38 mg/dL (9-16); Calcium 7.9 mg/dL (8.4-10.2); Carbon Dioxide 19 mmol/L (22-29); Chloride 108 mmol/L (96-108); Creatinine Clr Calc Pharmacy 18.4; Estimated Glomerular Filt Rate 21; Glucose Random 83 mg/dL (60-115); Lipase 6 U/L (8-78); Potassium 4.3 mmol/L (3.3-5.1); Sodium 139 mmol/L (135-145); Total Protein 5.5 g/dL (6.5-8.0)
[2023-12-30 12:06] LABS: Ethanol < 10 mg/dL
[2023-12-30 12:42] LABS: Ammonia 149 umol/L (13-55)
[2023-12-30] MEDS: 0.9 % Sodium Chloride 1,000 ML 999 ML IVCONT (13:11)
--- NOTE | 2023-12-30 13:12 | PC.NURSE ---
lab called to add on BNP
[2023-12-30] MEDS: Albumin Human 25 % 50 ML 100 ML IV ×2 (13:21→15:39)
[2023-12-30] MEDS: Lactulose 20 GM/30 ML SOLUTION PO ×3 (13:21→22:22)
[2023-12-30 13:40] LABS: B Type Natriuretic Peptide 83 pg/mL (<100)
[2023-12-30 13:47] LABS: Lactic Acid 1.8 mmol/L (0.5-2.0)
--- NOTE | 2023-12-30 14:36 | PC.NURSE ---
patient requesting to use commode, placed on commode by this RN, remains on monitor
[2023-12-30] MEDS: Lidocaine HCl 1 % MPF 5 ML VIAL INFILTRATI (15:28)
[2023-12-30 15:53] LABS: RBC Peritoneal Fluid 0.002 X10*6/uL; WBC Peritoneal Fluid 0.163 X10*3/uL
--- NOTE | 2023-12-30 16:04 | PC.NURSE ---
20g PIV placed via US by
[2023-12-30 16:45] LABS: BF Shift QC OK YES; Lymphocyte Peritoneal Fl 10 %; Monocytes Peritoneal Fl 9 %; Neutrophils Peritoneal Fluid 42 %; Other Peritioneal Fl 39 %
--- NOTE | 2023-12-30 16:56 | PM.IMHP ---
History of Present Illness Date of Service: 12/30/23 Chief Complaint: Altered mental status 63F PMH alcohol dependence with alcoholic cirrhosis, hypertension, hyperlipidemia, degenerative disc disease, vitamin-D deficiency, folate deficiency presented with altered mental status and weakness. Symptoms progressing over the last week, mostly abdominal distention and bloating and confusion. Found to have elevated ammonia, acute kidney injury, painful ascites. Review of Systems Review of Systems: Yes all other systems are reviewed and are negative [facility] Medical History Osteoporosis Nicotine dependence, cigarettes, uncomplicated Hx of scoliosis Elevated liver transaminase level Folate deficiency Vitamin D deficiency Lumbar stenosis with neurogenic claudication History of right tennis elbow Degenerative disc disease, cervical Lumbar spine scoliosis Hx of fracture of wrist Hyperlipidemia Essential hypertension Family History Brother Substance use disorder Prostate cancer Daughter Substance use disorder Sister Substance use disorder Maternal Grandmother Diabetes mellitus Mother Alcoholism COPD (chronic obstructive pulmonary disease) Father Alcoholism COPD (chronic obstructive pulmonary disease) Surgical History Hx of section Hx of tubal ligation History of carpal tunnel surgery of right wrist History of carpal tunnel surgery of left wrist History of rotator cuff surgery History of colonoscopy with polypectomy Social History Household Members: Spouse and Family Housing: House Do you presently have visiting nurse or other home services: No Alcohol intake: current Alcohol intake frequency: a few times a month Patient Tobacco Use Status: Current everyday Tobacco user Tobacco use type: Cigarette Cigarette Packs Per Day: 1 Cigarettes Per Day: 20 Years Smoked: 45 e-Cigarette/Vaping Use: Never Used Use of substances other than those prescribed or required for medical reasons: No Advance Directives: No Advance Directives Information Provided: Yes Do you have a plan to hurt others: No Plan Patient : No service: No Current occupational status: disabled Cognitive needs: No Hearing needs: No Vision needs: Yes Meds Allergies Allergy/AdvReac Type Severity Reaction Status Date / Time No Known Allergies Allergy Verified 12/30/23 11:11 Active Medications: Current Medications Acetaminophen (Acetaminophen 325 Mg Tablet) 650 mg PO Q6H PRN PRN Reason: Pain, Mild (Pain Scale 1-3), fever or headache Calcium Carbonate (Calcium Carbonate 750 Mg Tab.Chew) 750 mg PO Q4H PRN PRN Reason: Heartburn Enoxaparin Sodium (Enoxaparin Sodium 40 Mg/0.4 Ml Syringe) 40 mg SUBCUT Q24H LILLY Albumin Human (Kedbumin 25 %) 100 mls @ 100 mls/hr IV Q1H LILLY Stop: 12/30/23 18:59 Lactulose (Lactulose 20 Gm/30 Ml Solution) 20 gm PO Q4H LILLY Magnesium Hydroxide (Milk Of Magnesia 30 Ml Oral.Susp) 30 ml PO DAILY PRN PRN Reason: Constipation Melatonin (Melatonin 3 Mg Tablet) 6 mg PO BEDTIME PRN PRN Reason: Insomnia Midodrine (Midodrine Hcl 5 Mg Tablet) 5 mg PO TID LILLY Octreotide Acetate (Octreotide Acetate 100 Mcg/Ml Ampul) 50 mcg IVPUSH Q8H LILLY Rifaximin (Rifaximin 550 Mg Tablet) 550 mg PO BID LILLY Sodium Chloride (0.9 % Sodium Chloride Flush 3 Ml Syringe) 3 ml IVFLUSH QSHIFT [facility] Home Medications ?Medication ?Instructions ?Recorded ?Confirmed ?Last Taken ?Type cholecalciferol (vitamin D3) 1,250 1,250 mcg PO CLEANING 11/28/23 11/28/23 11/25/23 History mcg (50,000 unit) capsule Physical Exam Vital Signs and Narrative: Vital Signs: Last Vital Signs Temp 97.7 F 12/30/23 16:33 Pulse 89 12/30/23 16:33 Resp 14 12/30/23 16:33 BP 89/59 L 12/30/23 16:33 Pulse Ox 98 12/30/23 16:33 O2 Del Method Room Air 12/30/23 16:33 BMI result Body Mass Index 21.4 General: AO X 3, no acute distress, ill appearing Resp: CTA bilateral, no accessory muscles used CVS: S1,S2,RRR GI: soft, non tender, distended Neuro: motor grossly intact, alert Results Labs 12/30/23 11:28 12/30/23 11:28 Labs: Laboratory Results - last 24 hr 12/30/23 12/30/23 12/30/23 11:28 11:36 12:01 MCV 100.3 H MCH 32.7 MCHC 32.5 RDW 15.8 Plt Count 242 MPV 11.9 Immature Gran % (Auto) 0.6 H Neut % (Auto) 69.3 Lymph % (Auto) 21.1 [place] % (Auto) 8.4 Eos % (Auto) 0.1 Baso % (Auto) 0.5 Lymph # (Auto) 1.9 [place] # (Auto) 0.7 Eos # (Auto) 0.0 Baso # (Auto) 0.0 Abs Immat Gran (auto) 0.05 H Absolute Neuts (auto) 6.1 Absolute Nucleated RBC 0.000 Nucleated RBC % (auto) 0.0 Anion Gap 16 Estim Creat Clear Calc 18.4 Estimated GFR 21 Random Glucose 83 Lactic Acid Calcium 7.9 L D Total Bilirubin 0.8 AST 64 H ALT 16 Alkaline Phosphatase 177 H Ammonia 149 H B-Natriuretic Peptide 83 Total Protein 5.5 L Albumin 1.6 L Lipase 6 L Peritoneal WBC Peritoneal RBC Periton Neutrophils Periton Lymphocytes Peritoneal Monocytes Peritoneal Other Cells Ethyl Alcohol < 10 12/30/23 12/30/23 13:30 15:32 MCV MCH MCHC RDW Plt Count MPV Immature Gran % (Auto) Neut % (Auto) Lymph % (Auto) [place] % (Auto) Eos % (Auto) Baso % (Auto) Lymph # (Auto) [place] # (Auto) Eos # (Auto) Baso # (Auto) Abs Immat Gran (auto) Absolute Neuts (auto) Absolute Nucleated RBC Nucleated RBC % (auto) Anion Gap Estim Creat Clear Calc Estimated GFR Random Glucose Lactic Acid 1.8 Calcium Total Bilirubin AST ALT Alkaline Phosphatase Ammonia B-Natriuretic Peptide Total Protein Albumin Lipase Peritoneal WBC 0.163 Peritoneal RBC 0.002 Periton Neutrophils 42 Periton Lymphocytes 10 Peritoneal Monocytes 9 Peritoneal Other Cells 39 Ethyl Alcohol Imaging Radiologist's Impressions: Impressions Abdomen/Pelvis CT 12/30/23 12:53 IMPRESSION: 1. Moderate abdominopelvic ascites and severe hepatic steatosis. Underlying cirrhosis suspected. Intrahepatic masses cannot be evaluated without contrast. 2. Circumferential thickening of the ascending and descending colon, which may be related to colonic venous congestion from portal hypertension. Infectious and ischemic process not excluded. Diverticular disease of the descending and sigmoid colon is also present. 3. Distended gallbladder and visualized appendix bathing in ascites, both limited in evaluation without intravenous contrast. Guidelines were followed. Electronically signed by: Kamaljit Arrieta DO 12/30/2023 01:57 PM EDT RP Chest X-Ray 12/30/23 13:09 IMPRESSION: No acute pulmonary disease. Electronically signed by: Sagar Duval MD 12/30/2023 01:59 PM EDT RP Assessment and Plan (1) Acute hepatic encephalopathy: Status: Acute Plan 63F PMH alcohol dependence with alcoholic cirrhosis, hypertension, hyperlipidemia, degenerative disc disease, vitamin-D deficiency, folate deficiency presented with altered mental status and weakness, found to have stacia, hepatic encephalopathy STACIA HRS, albumin, octrotide, midodrine, monitor bmp, nephro eval Acute metabolic encephalopathy due to hepatic encephalopathy due to alcoholic cirrhosis GI eval, lactulose, rifaximin Goal 2-4 bowel movements per day Status post 80 cc paracentesis, no signs of SBP Hypotension due to liver disease not sepsis DVT prophylaxis with heparin subQ Full code Patient with significant encephalopathy and acute kidney injury expected require at least 2 midnights inpatient Quality Stroke Does the patient have a stroke diagnosis?: No VTE Prior VTE?: No VTE Risk Level:: Medical - moderate - high VTE Device Contraindication: Treatment Not Indicated VTE Drug Contraindication: N/A - Med Ordered
[2023-12-30] MEDS: Albumin Human 25 % 100 ML IV ×2 (17:34→18:58)
[2023-12-30] MEDS: Midodrine HCl 5 MG TABLET PO (17:34)
[2023-12-30] MEDS: Octreotide Acetate 100 MCG/ML AMPUL 50 MCG IVPUSH (17:37)
--- NOTE | 2023-12-30 18:05 | MHC.EDTECH ---
this tech assisted pt to bedside commode. On second attempt, pt was able to have a bowel movement, RN aware, pt is back in bed, comfortable, all needs met at this time
--- NOTE | 2023-12-30 20:19 | MHC.EDTECH ---
Pt assisted on/off commode x2 for BM. Pt cleaned and back into bed. Call noguera within reach.
--- NOTE | 2023-12-30 20:34 | PC.NURSE ---
pt had multiple soft/liquid bm, helped to commode x3 since assuming care. pt has slight unsteady gait, 2+ assist to commode. pt is incontinent of stool as well. vitals as documented. belly is distended/firm. pt denies n/v/abd pain at this time. resting comfortably in stretcher. call noguera within reach.
[2023-12-30] MEDS: rifAXIMin 550 MG TABLET PO (22:22)
[2023-12-31] VITALS (15 sets, daily range): BP systolic 82–125; BP diastolic 48–72; PULSE 77–102; RESP 12–22; TEMP 35.4–36.6; O2SAT 79–98; BMI 21.4
--- NOTE | 2023-12-31 00:19 | MHC.EDTECH ---
Assisted Pt on/off commode for BM. Pt cleaned and assisted back to bed. Call noguera within reach.
--- NOTE | 2023-12-31 01:44 | PC.NURSE ---
pt had 6-8 BM during this RN shift, lactulose held with MD approval.
[2023-12-31] MEDS: Octreotide Acetate 100 MCG/ML AMPUL 50 MCG IVPUSH ×4 (02:10→23:36)
--- NOTE | 2023-12-31 02:27 | MHC.EDTECH ---
Assisted Pt on/off commode, Pt had large amt of liquid BM. Pt cleaned and helped back to bed. RN aware.
[2023-12-31 04:49] LABS: Hematocrit 24.3 % (37.0-47.0); Hemoglobin 7.9 g/dl (12.0-16.0); Mean Corpuscular HGB Conc 32.5 g/dl (31.0-35.0); Mean Corpuscular Hemoglobin 32.2 pg (27.0-33.0); Mean Corpuscular Volume 99.2 fL (80.0-98.0); Mean Platelet Volume 11.4 fL (9.4-12.3); Platelet Count 190 X10*3/uL (160-400); Red Blood Count 2.45 X10*6/uL (4.20-5.50); Red Cell Distribution Width 15.7 % (11.0-16.0); White Blood Count 6.9 X10*3/uL (4.8-10.8)
[2023-12-31 04:56] LABS: INTERNATIONAL NORM RATIO 1.5 (0.9-1.1); Prothrombin Time 17.9 SEC (10.9-12.4)
[2023-12-31 05:13] LABS: Alanine Aminotransferase 10 U/L (0-31); Albumin Level 2.7 g/dL (3.5-5.0); Alkaline Phosphatase 132 U/L (39-117); Anion Gap 13 (12-20); Aspartate Amino Transferase 38 U/L (5-31); Bilirubin Direct 0.5 mg/dL (0.0-0.5); Bilirubin Total 0.9 mg/dL (0.0-1.0); Blood Urea Nitrogen 35 mg/dL (9-16); Calcium 8.1 mg/dL (8.4-10.2); Carbon Dioxide 25 mmol/L (22-29); Chloride 112 mmol/L (96-108); Creatinine Clr Calc Pharmacy 20.1; Estimated Glomerular Filt Rate 24; Glucose Fasting 104 mg/dL (60-99); Magnesium 2.4 mg/dL (1.6-2.6); Potassium 3.1 mmol/L (3.3-5.1); Sodium 147 mmol/L (135-145)
--- NOTE | 2023-12-31 06:02 | MHC.EDTECH ---
Assisted Pt on/off commode x2 for BM. Cleaned Pt and helped back into bed. Call noguera within reach.
[2023-12-31] MEDS: Potassium Chloride ER 20 MEQ TAB.ER.PRT 40 MEQ PO (07:46)
[2023-12-31] MEDS: Potassium Chloride Packet 20 MEQ PACKET 40 MEQ PO (07:47)
[2023-12-31] MEDS: Lactated Ringers 1,000 ML 100 ML IVCONT ×2 (07:50→17:47)
[2023-12-31] MEDS: Heparin Sodium,Porcine 5,000 UNIT/ML VIAL 5000 UNIT SUBCUT ×2 (07:51→20:40)
[2023-12-31] MEDS: Midodrine HCl 5 MG TABLET PO ×3 (07:52→17:48)
[2023-12-31] MEDS: 0.9 % Sodium Chloride Flush 3 ML SYRINGE IVFLUSH ×4 (07:57→20:38)
--- NOTE | 2023-12-31 08:26 | PC.NURSE ---
this morning pt awoke and had breakfast - about 50%. Standby assist to the commode. Pt had a small amount of diarrhea. Pt is alert and oriented x3, no confusion noted. LR infusing on PIV on right upper arm. Other AM meds given with no issue. , Abd distended and firm. Pt to IR at 0820 with transport
--- NOTE | 2023-12-31 08:49 | P.PNIM_ITS ---
Subjective Subjective Date of Service: 12/31/23 Interval History: Head feels clear, still with abdominal pain and distention, had about 7 loose bowel movements Physical Exam 2 Vital Signs: Vital Signs: Last Vital Signs Temp 97.4 F 12/31/23 07:15 Pulse 84 12/31/23 07:15 Resp 18 12/31/23 07:15 BP 97/67 12/31/23 07:15 Pulse Ox 96 12/31/23 07:15 O2 Del Method Room Air 12/31/23 07:15 BMI result Body Mass Index 21.4 General: AO X 3, no acute distress, ill appearing Resp: CTA bilateral, no accessory muscles used CVS: S1,S2,RRR GI: soft, non tender, distended Neuro: motor grossly intact, alert Objective Data Active Medications Acetaminophen (Acetaminophen 325 Mg Tablet) 650 mg PO Q6H PRN PRN Reason: Pain, Mild (Pain Scale 1-3), fever or headache Calcium Carbonate (Calcium Carbonate 750 Mg Tab.Chew) 750 mg PO Q4H PRN PRN Reason: Heartburn Heparin Sodium (Porcine) (Heparin Sodium,Porcine 5,000 Unit/Ml Vial) 5,000 unit SUBCUT Q12H [facility] Last Admin: 12/31/23 07:51 Dose: 5,000 unit Documented By: JOSE Lactated Ringer's (Lr) 1,000 mls @ 100 mls/hr IVCONT .Q10H [facility] Last Admin: 12/31/23 07:50 Dose: 100 mls/hr Documented By: JOSE Lactulose (Lactulose 20 Gm/30 Ml Solution) 20 gm PO Q4H [facility] Last Admin: 12/31/23 04:10 Dose: Not Given Documented By: LUPE Non-Admin Reason: See Note Melatonin (Melatonin 3 Mg Tablet) 6 mg PO BEDTIME PRN PRN Reason: Insomnia Midodrine (Midodrine Hcl 5 Mg Tablet) 5 mg PO TIDWM [facility] Last Admin: 12/31/23 07:52 Dose: 5 mg Documented By: JOSE Octreotide Acetate (Octreotide Acetate 100 Mcg/Ml Ampul) 50 mcg IVPUSH Q8H [facility] Last Admin: 12/31/23 02:10 Dose: 50 mcg Documented By: LUPE Rifaximin (Rifaximin 550 Mg Tablet) 550 mg PO BID [facility] Last Admin: 12/30/23 22:22 Dose: 550 mg Documented By: JACINTO Sodium Chloride (0.9 % Sodium Chloride Flush 3 Ml Syringe) 3 ml IVFLUSH QSHIFT [facility] Last Admin: 12/31/23 07:57 Dose: 3 ml Documented By: JOSE Labs 12/31/23 04:24 12/31/23 04:24 Labs: Laboratory Results - last 24 hr 12/30/23 12/30/23 12/30/23 11:28 11:36 12:01 MCV 100.3 H MCH 32.7 MCHC 32.5 RDW 15.8 Plt Count 242 MPV 11.9 Immature Gran % (Auto) 0.6 H Neut % (Auto) 69.3 Lymph % (Auto) 21.1 Hunt % (Auto) 8.4 Eos % (Auto) 0.1 Baso % (Auto) 0.5 Lymph # (Auto) 1.9 Hunt # (Auto) 0.7 Eos # (Auto) 0.0 Baso # (Auto) 0.0 Abs Immat Gran (auto) 0.05 H Absolute Neuts (auto) 6.1 Absolute Nucleated RBC 0.000 Nucleated RBC % (auto) 0.0 PT INR Anion Gap 16 Estim Creat Clear Calc 18.4 Estimated GFR 21 Random Glucose 83 Fasting Glucose Lactic Acid Calcium 7.9 L D Magnesium Total Bilirubin 0.8 Direct Bilirubin AST 64 H ALT 16 Alkaline Phosphatase 177 H Ammonia 149 H B-Natriuretic Peptide 83 Total Protein 5.5 L Albumin 1.6 L Lipase 6 L Peritoneal WBC Peritoneal RBC Periton Neutrophils Periton Lymphocytes Peritoneal Monocytes Peritoneal Other Cells Ethyl Alcohol < 10 12/30/23 12/30/23 12/31/23 13:30 15:32 04:24 MCV 99.2 H MCH 32.2 MCHC 32.5 RDW 15.7 Plt Count 190 MPV 11.4 Immature Gran % (Auto) Neut % (Auto) Lymph % (Auto) Hunt % (Auto) Eos % (Auto) Baso % (Auto) Lymph # (Auto) Hunt # (Auto) Eos # (Auto) Baso # (Auto) Abs Immat Gran (auto) Absolute Neuts (auto) Absolute Nucleated RBC 0.000 Nucleated RBC % (auto) 0.0 PT 17.9 H INR 1.5 H Anion Gap 13 Estim Creat Clear Calc 20.1 Estimated GFR 24 Random Glucose Fasting Glucose 104 H Lactic Acid 1.8 Calcium 8.1 L Magnesium 2.4 Total Bilirubin 0.9 Direct Bilirubin 0.5 AST 38 H ALT 10 Alkaline Phosphatase 132 H Ammonia B-Natriuretic Peptide Total Protein 5.0 L Albumin 2.7 L Lipase Peritoneal WBC 0.163 Peritoneal RBC 0.002 Periton Neutrophils 42 Periton Lymphocytes 10 Peritoneal Monocytes 9 Peritoneal Other Cells 39 Ethyl Alcohol Microbiology Microbiology Results: Microbiology 12/30/23 15:32 Gram Stain - Final Abdominal Fluid Assessment and Plan (1) Acute hepatic encephalopathy: Status: Acute Plan 63F PMH alcohol dependence with alcoholic cirrhosis, hypertension, hyperlipidemia, degenerative disc disease, vitamin-D deficiency, folate deficiency presented with altered mental status and weakness, found to have stacia, hepatic encephalopathy STACIA HRS vs prerenal Continued albumin, octrotide, midodrine, ivf, monitor bmp, nephro eval Acute metabolic encephalopathy due to hepatic encephalopathy due to alcoholic cirrhosis GI eval, rifaximin Goal 2-4 bowel movements per day - had about 7 bowel movements, will decrease lactulose to 3 times a day Status post 80 cc paracentesis, no signs of SBP Still with abdominal pain and distention will request therapeutic paracentesis with albumin Hypotension due to liver disease not sepsis Improved Mild hypernatremia IV fluids, Monitor Acute hypokalemia Replace and monitor DVT prophylaxis with heparin subQ Full code reason for continued hospitalization: Acute kidney injury, ongoing encephalopathy Quality Stroke Does the patient have a stroke diagnosis?: No VTE Prior VTE?: No VTE Risk Level:: Medical - moderate - high VTE Device Contraindication: Treatment Not Indicated VTE Drug Contraindication: N/A - Med Ordered
--- NOTE | 2023-12-31 08:50 | P.CNGI_ITS ---
History of Present Illness Data of Consult Service Date: 12/31/23 Requesting physician: Edgar Neri Primary Care Provider: Giovana Manning MD HPI Reason for consult: Cirrhosis with hepatic encephalopathy 63F with ESLD due to ETOH abuse, hypertension, hyperlipidemia, degenerative disc disease, vitamin-D deficiency, folate deficiency seen at [facility] ED on 12/30/23 with altered mental status and weakness. Symptoms progressing over the last week, mostly abdominal distention and bloating and confusion. Pt is known to me from recent hospitalization at [facility] from 11/27 to 12/03/23 Pt was scheduled for a FU appt in GI on 12/10/23 and was a no show. She admits to smoking 1/2 PPD and denies any other substance use. Pt lives with her and has custody of two GK (4 & 6 yrs old) She worked in a [employer] and is now retired Family hx is positive for Cirrhosis in both parents who were alcoholics. Pt denies known FH of GI malignancy Review of Systems 2 Review of Systems: Yes all other systems are reviewed and are negative PMFSH Past Medical History Medical History Osteoporosis Nicotine dependence, cigarettes, uncomplicated Hx of scoliosis Elevated liver transaminase level Folate deficiency Vitamin D deficiency Lumbar stenosis with neurogenic claudication History of right tennis elbow Degenerative disc disease, cervical Lumbar spine scoliosis Hx of fracture of wrist Hyperlipidemia Essential hypertension Family History Family History Brother Substance use disorder Prostate cancer Daughter Substance use disorder Sister Substance use disorder Maternal Grandmother Diabetes mellitus Mother Alcoholism COPD (chronic obstructive pulmonary disease) Father Alcoholism COPD (chronic obstructive pulmonary disease) Surgical History Surgical History Hx of section Hx of tubal ligation History of carpal tunnel surgery of right wrist History of carpal tunnel surgery of left wrist History of rotator cuff surgery History of colonoscopy with polypectomy Social History Social History Household Members: Spouse and Other Housing: House Do you presently have visiting nurse or other home services: No Alcohol intake: current Alcohol intake frequency: a few times a month Patient Tobacco Use Status: Current everyday Tobacco user Tobacco use type: Cigarette Cigarette Packs Per Day: 1 Cigarettes Per Day: 4 Years Smoked: 45 e-Cigarette/Vaping Use: Never Used Second Hand Smoke Exposure: No service: No Current occupational status: disabled Cognitive needs: No Hearing needs: No Vision needs: Yes Meds Allergies Allergy/AdvReac Type Severity Reaction Status Date / Time No Known Allergies Allergy Verified 12/30/23 11:11 Active Medications: Current Medications Acetaminophen (Acetaminophen 325 Mg Tablet) 650 mg PO Q6H PRN PRN Reason: Pain, Mild (Pain Scale 1-3), fever or headache Calcium Carbonate (Calcium Carbonate 750 Mg Tab.Chew) 750 mg PO Q4H PRN PRN Reason: Heartburn Heparin Sodium (Porcine) (Heparin Sodium,Porcine 5,000 Unit/Ml Vial) 5,000 unit SUBCUT Q12H [facility] Last Admin: 12/31/23 07:51 Dose: 5,000 unit Lactated Ringer's (Lr) 1,000 mls @ 100 mls/hr IVCONT .Q10H [facility] Last Admin: 12/31/23 07:50 Dose: 100 mls/hr Albumin Human (Kedbumin 25 %) 100 mls @ 100 mls/hr IV Q1H [facility] Stop: 12/31/23 10:59 Melatonin (Melatonin 3 Mg Tablet) 6 mg PO BEDTIME PRN PRN Reason: Insomnia Midodrine (Midodrine Hcl 5 Mg Tablet) 5 mg PO TIDWM [facility] Last Admin: 12/31/23 07:52 Dose: 5 mg Octreotide Acetate (Octreotide Acetate 100 Mcg/Ml Ampul) 50 mcg IVPUSH Q8H [facility] Last Admin: 12/31/23 02:10 Dose: 50 mcg Rifaximin (Rifaximin 550 Mg Tablet) 550 mg PO BID [facility] Last Admin: 12/30/23 22:22 Dose: 550 mg Sodium Chloride (0.9 % Sodium Chloride Flush 3 Ml Syringe) 3 ml IVFLUSH QSHIFT [facility] Last Admin: 12/31/23 07:57 Dose: 3 ml Home Medications ?Medication ?Instructions ?Recorded ?Confirmed ?Last Taken ?Type cholecalciferol (vitamin D3) 1,250 1,250 mcg PO CLEANING 11/28/23 12/31/23 12/23/23 History mcg (50,000 unit) capsule ibuprofen 200 mg tablet 400 mg PO Q6H PRN Pain 12/31/23 12/31/23 Unknown History omeprazole 20 mg tablet,delayed 20 mg PO DAILY@0630 PRN Heartburn 12/31/23 12/31/23 Unknown History release Physical Exam 2 Vital Signs: Vital Signs: Last Vital Signs Temp 97.4 F 12/31/23 07:15 Pulse 84 12/31/23 07:15 Resp 18 12/31/23 07:15 BP 97/67 12/31/23 07:15 Pulse Ox 96 12/31/23 07:15 O2 Del Method Room Air 12/31/23 07:15 BMI result Body Mass Index 21.4 Const: Other: Const: General: no acute distress, ill appe aring and lethargi c Nutritional Efrmin earance: average b danny habitus Orien tation/consciousne ss: patient orient ed x3 and lethargi c HEENT: Head: Yes normal t o inspection Ears : hearing grossly normal bilaterally Eyes: Sclerae: sclerae n ormal Pupils: Equ al, round and reac tive pupils presen t Neck: Neck: Yes normal v isual inspection Chest: Chest palpation & inspection: normal inspection of the chest Resp: Effort & Inspectio n: normal respirat ory effort Auscul tation: clear to a uscultation bilate rally Cardio: Palpation: normal PMI Rate: regular rate Rhythm: reg ular rhythm Heart sounds: S1 normal heart sound prese nt, S2 normal hear t sound present an d no murmurs GI: Inspection: Yes di stended Palpation (GI): Soft to pal pation, nontender and No hepatosplen omegaly present A uscultation: elma l bowel sounds Re ctal Exam - Female : deferred Skin: General skin exam: no rashes or lesi ons noted and spid er nevi (on anteri or chest) Neuro: General: patient o riented x3, gait n ormal and moves al l extremities Food Technologist nial nerves: Yes E qual, round and re active pupils pres ent Extrem: General: No pedal edema and Yes othe r (positive flap) Psych: Appearance: grossl y normal Mental S tatus: mental stat us grossly normal General: ill appearing Nutritional Appearance: average body habitus O rientation/consciousness: oriented to person and oriented to place HEENT: Head: Yes normal to inspection Ears: hearing grossly normal bilaterally Resp: Auscultation: clear to auscultation bilaterally Cardio: Rate: regular rate Rhythm: regular rhythm Heart sounds: S1 normal heart sound present, S2 normal heart sound present and no murmurs GI: Inspection: Yes distended Palpation (GI): Soft to palpation and nontender Auscultation: normal bowel sounds Neuro: General: oriented to person and oriented to place Extrem: General: No pedal edema and Yes other (positive flap in upper extremities) Results Labs 12/31/23 04:24 12/31/23 04:24 Labs: Short CBC 12/30/23 12/31/23 Range/Units 11:28 04:24 WBC 8.8 6.9 (4.8-10.8) X10*3/uL Hgb 9.6 L 7.9 L (12.0-16.0) g/dl Hct 29.5 L 24.3 L (37.0-47.0) % Plt Count 242 190 (160-400) X10*3/uL BMP 12/30/23 12/31/23 11:28 04:24 Sodium 139 147 H Potassium 4.3 3.1 L D Chloride 108 112 H Carbon Dioxide 19 L 25 BUN 38 H 35 H Creatinine 2.31 H 2.11 H Calcium 7.9 L D 8.1 L Liver Function 12/30/23 12/31/23 Range/Units 11:28 04:24 Total Bilirubin 0.8 0.9 (0.0-1.0) mg/dL Direct Bilirubin 0.5 (0.0-0.5) mg/dL AST 64 H 38 H (5-31) U/L ALT 16 10 (0-31) U/L Alkaline Phosphatase 177 H 132 H (39-117) U/L Albumin 1.6 L 2.7 L (3.5-5.0) g/dL Microbiology Microbiology Results: Microbiology 12/30/23 15:32 Abdominal Fluid Gram Stain - Final Assessment and Plan (1) Acute hepatic encephalopathy: Status: Acute (2) Alcoholic cirrhosis of liver with ascites: Status: Acute Plan 63 YF with ETOH abuse, hypertension, hyperlipidemia, degenerative disc disease, vitamin-D deficiency, folate deficiency, and alcohol use disorder admitted to [facility] on 12/30/23 due to lethargy and weakness over the past week. Pt denies past hx of liver disease prior to last admission - admits to having fatigue and easy bruising for the past few months. CT abdomen pelvis shows marked fatty change of liver with moderate volume abdominal ascites and mild diffuse nonspecific bowel wall thickening of the cecum and ascending colon through the mid transverse colon without obstruction. Pt has decompensated cirrhosis likely related to ETOH abuse complicated by ascites, hepatic encephalopathy and renal failure MELD score is 12 RECOMMENDATIONS: 1. Agree with Lactulose and Rifaximin for HE and Midodrine and Octreotide for renal failure/HRS 3. Consult to Addiction Medicine for ETOH rehab - pt states she plans to stop drinking 4. Pt will be scheduled for a FU appt in GI - (previously scheduled on 12/10/23 - pt states she was unable to come since GD was sick) Procedures Date of Service Date of Service: 12/31/23
[2023-12-31] MEDS: Lidocaine HCl 1 % MPF 5 ML VIAL SUBCUT (09:12)
[2023-12-31] MEDS: rifAXIMin 550 MG TABLET PO ×2 (09:23→20:33)
[2023-12-31] MEDS: Lactulose 20 GM/30 ML SOLUTION PO ×2 (09:24→17:48)
--- NOTE | 2023-12-31 10:08 | PM.CNNEP ---
History of Present Illness Reason for Consult Consult date: 12/31/23 Chief Complaint Chief complaint: Hepatic Encephalopathy History of Present Illness Narrative: Pt is a 63 y/o female with alcoholic liver cirrhosis, HTN, HLD, DDD, vit D deficiency, folate deficiency. Presented 12/29 with AMS, weakness, abd distension, confusion progressing over previous week she had an elevated ammonia, STACIA and painful ascites on arrival diagnostic paracentesis showed no SBP 12/29 CT and showed no hydronephrosis, kidneys/ureters unremarkable; distended gallbaldder, thickening of ascending/descending colon, and moderate ascites, liver cirrhosis 11/30 creatinine was 0.57; 12/29 creatinine was 2.31, 12/30 creatinine is 2.11 sodium has increased to 147 overngiht, potassium 3.1 (pt receiving lactulose) she states at bedside today she is feeling better today than yesterday, reports mostly in terms of abdominal discomfort/pain states she has an appetite and is eating breakfast she denies chest pain, dizziness, shortness of breath she states abdominal pain is minimal only with palpation and this is an improvement she denies LE swelling pt denies any changes in medication, alcohol use or other changes that occurred preceding her malaise/fatigue/abdom pain that brought her into the hospital she denies other questions/concerns Review of Systems Constitutional: Reports fatigue and Denies poor appetite Cardiovascular: Denies chest pain, Denies leg edema, Denies lightheadedness and Denies dyspnea Respiratory: Denies dyspnea Gastrointestinal: Reports abdominal pain (reports none at rest now, only with palpation), Reports loose stools (with medication), Denies nausea and Denies vomiting Genitourinary: Denies hematuria, Denies difficulty voiding, Denies dysuria and Denies flank pain Musculoskeletal: Denies arthralgias Skin/Breast: Denies rash Endocrine: Reports fatigue PMFSH Past Medical History Medical History Osteoporosis Nicotine dependence, cigarettes, uncomplicated Hx of scoliosis Elevated liver transaminase level Folate deficiency Vitamin D deficiency Lumbar stenosis with neurogenic claudication History of right tennis elbow Degenerative disc disease, cervical Lumbar spine scoliosis Hx of fracture of wrist Hyperlipidemia Essential hypertension Family History Family History Brother Substance use disorder Prostate cancer Daughter Substance use disorder Sister Substance use disorder Maternal Grandmother Diabetes mellitus Mother Alcoholism COPD (chronic obstructive pulmonary disease) Father Alcoholism COPD (chronic obstructive pulmonary disease) Surgical History Surgical History Hx of section Hx of tubal ligation History of carpal tunnel surgery of right wrist History of carpal tunnel surgery of left wrist History of rotator cuff surgery History of colonoscopy with polypectomy Social History Social History Household Members: Spouse and Other Housing: House Do you presently have visiting nurse or other home services: No Alcohol intake: current Alcohol intake frequency: a few times a month Patient Tobacco Use Status: Current everyday Tobacco user Tobacco use type: Cigarette Cigarette Packs Per Day: 1 Cigarettes Per Day: 4 Years Smoked: 45 e-Cigarette/Vaping Use: Never Used Second Hand Smoke Exposure: No service: No Current occupational status: disabled Cognitive needs: No Hearing needs: No Vision needs: Yes Meds Allergies Allergy/AdvReac Type Severity Reaction Status Date / Time No Known Allergies Allergy Verified 12/30/23 11:11 Active Medications: Current Medications Acetaminophen (Acetaminophen 325 Mg Tablet) 650 mg PO Q6H PRN PRN Reason: Pain, Mild (Pain Scale 1-3), fever or headache Calcium Carbonate (Calcium Carbonate 750 Mg Tab.Chew) 750 mg PO Q4H PRN PRN Reason: Heartburn Heparin Sodium (Porcine) (Heparin Sodium,Porcine 5,000 Unit/Ml Vial) 5,000 unit SUBCUT Q12H [facility] Last Admin: 12/31/23 07:51 Dose: 5,000 unit Lactated Ringer's (Lr) 1,000 mls @ 100 mls/hr IVCONT .Q10H [facility] Last Admin: 12/31/23 07:50 Dose: 100 mls/hr Albumin Human (Kedbumin 25 %) 100 mls @ 100 mls/hr IV Q1H [facility] Stop: 12/31/23 10:59 Lactulose (Lactulose 20 Gm/30 Ml Solution) 20 gm PO Q8H [facility] Last Admin: 12/31/23 09:24 Dose: 20 gm Melatonin (Melatonin 3 Mg Tablet) 6 mg PO BEDTIME PRN PRN Reason: Insomnia Midodrine (Midodrine Hcl 5 Mg Tablet) 5 mg PO TIDWM [facility] Last Admin: 12/31/23 07:52 Dose: 5 mg Octreotide Acetate (Octreotide Acetate 100 Mcg/Ml Ampul) 50 mcg IVPUSH Q8H [facility] Last Admin: 12/31/23 09:25 Dose: 50 mcg Rifaximin (Rifaximin 550 Mg Tablet) 550 mg PO BID [facility] Last Admin: 12/31/23 09:23 Dose: 550 mg Sodium Chloride (0.9 % Sodium Chloride Flush 3 Ml Syringe) 3 ml IVFLUSH QSHIFT [facility] Last Admin: 12/31/23 07:57 Dose: 3 ml Home Medications ?Medication ?Instructions ?Recorded ?Confirmed ?Last Taken ?Type cholecalciferol (vitamin D3) 1,250 1,250 mcg PO CLEANING 11/28/23 12/31/23 12/23/23 History mcg (50,000 unit) capsule ibuprofen 200 mg tablet 400 mg PO Q6H PRN Pain 12/31/23 12/31/23 Unknown History omeprazole 20 mg tablet,delayed 20 mg PO DAILY@0630 PRN Heartburn 12/31/23 12/31/23 Unknown History release Physical Exam Vital Signs: Last Vital Signs Temp 97.4 F 12/31/23 07:15 Pulse 84 12/31/23 07:15 Resp 20 12/31/23 09:50 BP 101/70 12/31/23 09:50 Pulse Ox 79 L 12/31/23 09:50 O2 Del Method Room Air 12/31/23 07:15 BMI result Body Mass Index 21.4 Const General: comfortable, no acute distress, alert and awake Resp Effort & Inspection: normal respiratory effort and able to speak in complete sentences Auscultation: clear to auscultation bilaterally Cardio Jugular venous distension: no JVD Rate: regular rate Rhythm: regular rhythm Heart sounds: S1 normal heart sound present and S2 normal heart sound present GI Palpation (GI): Soft to palpation and Tenderness to palpation present (GI) (mild tenderness across lower abdomen to palpation) General: Yes no CVA tenderness Back/Spine/Pelvis Back: no CVA tenderness Skin Lesions: no lesions Rashes: no rashes Extrem General: No edema and No pedal edema Results Lab Results 12/31/23 04:24 12/31/23 04:24 Lab results: Chemistry 12/30/23 12/31/23 11:28 04:24 Sodium 139 147 H Potassium 4.3 3.1 L D Carbon Dioxide 19 L 25 BUN 38 H 35 H Creatinine 2.31 H 2.11 H Calcium 7.9 L D 8.1 L Hematology 12/30/23 12/31/23 11:28 04:24 WBC 8.8 6.9 Hgb 9.6 L 7.9 L Plt Count 242 190 Assessment and Plan (1) STACIA (acute kidney injury): Status: Acute (2) Ascites: Qualifiers: Ascites type: due to alcoholic cirrhosis Qualified Code(s): K70.31 - Alcoholic cirrhosis of liver with ascites Status: Acute (3) Hypotension: Qualifiers: Hypotension type: unspecified hypotension type Qualified Code(s): I95.9 - Hypotension, unspecified Status: Acute (4) Acute hepatic encephalopathy: Status: Acute Plan STACIA likely tubular injury Workup pending, urine studies ordered No obstruction suggested on recent abdominal CT Patient clilnically hypovolemic; prerenal tubular injury on differential; HRS on differential if renal impairment remains despite euvolemia low potassium likely related to lactulose, recommend continued monitoring and replacing as needed recommend continuing IVF LR as ordered recommend following I&O closely recommend daily electrolytes and renal function recommend avoiding nephrotoxic substances Will continue to follow Discussed with Dr Choudhury Procedures Date of Service Date of Service: 12/31/23
--- NOTE | 2023-12-31 10:16 | PHA.MEDREC ---
Addendum entered by Loni Whatley 12/31/23 10:25: I spoke with patient as pharmacist was speaking with . Patient confirmed she takes a Vitamin D3 tab once a week but was not sure the day. Patient thinks she takes it on Wednesdays and she spoke to her daughter over the phone and she was going to check when she got home. Pharmacist got confirmation from that she was taking it Sundays but patient thinks its Wednesdays, will confirm with patient daughter. Original Note: Pharmacy Consult ? Medication Reconciliation Pharmacy has completed the medication reconciliation. Confirmed medications with claims. Called to verfiy Vitamin D3, taken every Sunday. Last took home medications on Sunday.
[2023-12-31] MEDS: Albumin Human 25 % 100 ML IV ×2 (10:48→11:38)
--- NOTE | 2023-12-31 12:00 | MHC.CM.PN ---
CM met with Patient at bedside. Patient lives in a house with her /HCP and 2 Grandchildren, ages 4 and 6 years of age. Patient uses a cane to assist with mobility and she had no services [employer]. Home/self care is the goal and CM has initiated and will follow for dc planning. PCP is Dr. Giovana Manning and Patient's or Daughter will transport to home.
--- NOTE | 2023-12-31 18:09 | PC.NURSE ---
Pt lungs dim at previous assessment. When RN walked pt to the bathroom at 1800 pt seemed to have increased exp wheezing with exertion. Pt sat down RN auscultated - coarse crackles beginning to form bilat lower lungs- notified- instructed to hold fluids for now. Pt states she doesnt feel like she is breathing any heavier at this time. RR 20. o2 sat 97% on Room air at this time.
[2024-01-01 03:56] VITALS: BP 110/60; PULSE 90; RESP 18; TEMP 37.1; O2SAT 95
[2024-01-01 06:58] LABS: Hematocrit 23.9 % (37.0-47.0); Hemoglobin 7.5 g/dl (12.0-16.0); Mean Corpuscular HGB Conc 31.4 g/dl (31.0-35.0); Mean Corpuscular Hemoglobin 31.5 pg (27.0-33.0); Mean Corpuscular Volume 100.4 fL (80.0-98.0); Mean Platelet Volume 11.9 fL (9.4-12.3); Platelet Count 164 X10*3/uL (160-400); Red Blood Count 2.38 X10*6/uL (4.20-5.50); Red Cell Distribution Width 16.4 % (11.0-16.0); White Blood Count 6.5 X10*3/uL (4.8-10.8)
[2024-01-01 07:16] LABS: Alanine Aminotransferase 10 U/L (0-31); Alkaline Phosphatase 112 U/L (39-117); Anion Gap 12 (12-20); Aspartate Amino Transferase 37 U/L (5-31); Bilirubin Direct 0.4 mg/dL (0.0-0.5); Bilirubin Total 0.8 mg/dL (0.0-1.0); Blood Urea Nitrogen 24 mg/dL (9-16); Calcium 8.7 mg/dL (8.4-10.2); Carbon Dioxide 23 mmol/L (22-29); Chloride 115 mmol/L (96-108); Creatinine Clr Calc Pharmacy 28.5; Estimated Glomerular Filt Rate 36; Glucose Fasting 128 mg/dL (60-99); Potassium 3.3 mmol/L (3.3-5.1); Sodium 147 mmol/L (135-145); Total Protein 5.1 g/dL (6.5-8.0)
[2024-01-01 07:24] VITALS: BP 106/73; PULSE 91; RESP 18; TEMP 36.2; O2SAT 94
[2024-01-01] MEDS: Omeprazole 20 MG CAPSULE.DR PO (09:19)
[2024-01-01] MEDS: Midodrine HCl 5 MG TABLET PO ×3 (09:19→17:07)
[2024-01-01] MEDS: 0.9 % Sodium Chloride Flush 3 ML SYRINGE IVFLUSH ×2 (09:20→17:07)
[2024-01-01] MEDS: Heparin Sodium,Porcine 5,000 UNIT/ML VIAL 5000 UNIT SUBCUT ×2 (09:20→21:15)
[2024-01-01] MEDS: Magnesium Oxide 400 MG TABLET PO ×2 (09:20→17:07)
[2024-01-01] MEDS: Octreotide Acetate 100 MCG/ML AMPUL 50 MCG IVPUSH ×2 (09:20→17:08)
[2024-01-01] MEDS: Folic Acid 1 MG TABLET PO (09:20)
[2024-01-01] MEDS: Lactulose 20 GM/30 ML SOLUTION PO ×2 (09:20→17:16)
[2024-01-01] MEDS: rifAXIMin 550 MG TABLET PO ×2 (09:20→21:16)
[2024-01-01] MEDS: Thiamine HCL 100 MG TABLET PO (09:20)
--- NOTE | 2024-01-01 10:36 | P.PNNP_ITS ---
Subjective Subjective Date of Service: 01/01/24 Interval history: Pt is a 63 y/o female with alcoholic liver cirrhosis, HTN, HLD, DDD, vit D deficiency, folate deficiency. Presented 12/29 with AMS, weakness, abd distension, confusion progressing over previous week she had an elevated ammonia, STACIA and painful ascites on arrival diagnostic paracentesis showed no SBP 12/29 CT and showed no hydronephrosis, kidneys/ureters unremarkable; distended gallbaldder, thickening of ascending/descending colon, and moderate ascites, liver cirrhosis 11/30 creatinine was 0.57; 12/29 creatinine was 2.31, 12/30 creatinine is 2.11, 12/31 creatinine 1.49 sodium remains at 147 she states at bedside today she is feeling the same as yesterday, reports some abdominal discomfort but is more mild now states she has an appetite she denies chest pain, dizziness, shortness of breath she states abdominal pain is minimal only with palpation and this is an improvement she denies LE swelling she denies other questions/concerns Physical Exam 2 Vital Signs: Vital Signs: Last Vital Signs Temp 97.2 F 01/01/24 07:24 Pulse 91 01/01/24 07:24 Resp 18 01/01/24 07:24 BP 106/73 01/01/24 07:24 Pulse Ox 94 01/01/24 07:24 O2 Del Method Room Air 01/01/24 07:24 BMI result Body Mass Index 21.4 Const: General: comfortable, no acute distress, alert and awake Resp: Effort & Inspection: normal respiratory effort and able to speak in complete sentences Auscultation: clear to auscultation bilaterally Cardio: Jugular venous distension: no JVD Rate: regular rate Rhythm: r egular rhythm Heart sounds: S1 normal heart sound present and S2 normal heart sound present GI: Palpation (GI): Soft to palpation and Tenderness to palpation present (GI) (mild tenderness across lower abdomen to palpation) : General: Yes no CVA tenderness Back/Spine/Pelvis: Back: no CVA tenderness Skin: Lesions: no lesions Rashes: no rashes Extrem: General: No edema and No pedal edema Objective Data Labs 01/01/24 06:19 01/01/24 06:19 Labs: Laboratory Results - last 24 hr 01/01/24 06:19 WBC 6.5 RBC 2.38 L Hgb 7.5 L Hct 23.9 L MCV 100.4 H MCH 31.5 MCHC 31.4 RDW 16.4 H Plt Count 164 MPV 11.9 Absolute Nucleated RBC 0.000 Nucleated RBC % (auto) 0.0 Sodium 147 H Potassium 3.3 Chloride 115 H Carbon Dioxide 23 Anion Gap 12 BUN 24 H Creatinine 1.49 H Estim Creat Clear Calc 28.5 Estimated GFR 36 Fasting Glucose 128 H Calcium 8.7 D Total Bilirubin 0.8 Direct Bilirubin 0.4 AST 37 H ALT 10 Alkaline Phosphatase 112 Total Protein 5.1 L Albumin 3.0 L Microbiology Microbiology Results: Microbiology 12/30/23 15:32 Abdominal Fluid Gram Stain - Final 12/30/23 15:32 Abdominal Fluid Routine Culture - Preliminary No growth to date. 12/30/23 15:32 Abdominal Fluid Anaerobic Culture - Preliminary No growth to date. 12/30/23 13:29 Blood - Venous Blood Culture - Preliminary No growth after 24 hours. 12/30/23 13:29 Blood - Venous Blood Culture - Preliminary No growth after 24 hours. Procedures Date of Service Date of Service: 01/01/24 Assessment & Plan Assessment and plan (1) STACIA (acute kidney injury): Status: Acute (2) Ascites: Status: Acute (3) Hypotension: Status: Acute Plan STACIA likely tubular injury Workup pending, urine studies ordered No obstruction suggested on recent abdominal CT Patient clinically hypovolemic; prerenal tubular injury on differential; HRS on differential if renal impairment remains despite euvolemia recommend continued potassium monitoring and replacing as needed recommend change LR to half normal saline at 100mL/hr for management of hypernatremia recommend following I&O closely recommend daily electrolytes and renal function recommend avoiding nephrotoxic substances Will continue to follow Discussed with Dr Choudhury Time Spent With Patient Time: Total time managing care of this patient today ____ minutes. Progress Note: Quality Stroke Does the patient have a stroke diagnosis?: No
[2024-01-01 10:59] VITALS: BP 91/64; PULSE 87; RESP 20; TEMP 37; O2SAT 98
--- NOTE | 2024-01-01 11:46 | MHC.RECOVSUP ---
Patient was provided a packet from the [facility] with information pertinent to her recovery journey. Patient stated she was motivated to make changes, and would do so in concert with her who also suffers from similar substance issues.
--- NOTE | 2024-01-01 12:37 | HO.PM.IMPN ---
Subjective Subjective Date of Service: 01/01/24 Interval History: Seen and evaluated this morning feels better overall Cr trending down Na high at 147 Hb dropped to 7.5 no other overnight events Review of Systems Review of Systems: Yes all other systems are reviewed and are negative Physical Exam Vital Signs: Vital Signs: Last Vital Signs Temp 98.6 F 01/01/24 10:59 Pulse 87 01/01/24 10:59 Resp 20 01/01/24 10:59 BP 91/64 01/01/24 10:59 Pulse Ox 98 01/01/24 10:59 O2 Del Method Room Air 01/01/24 10:59 BMI result Body Mass Index 21.4 Const: Other: Constitutional : Awake, interactive, not in distress Neck : Normal inspection, Supple Cardiovascular : RRR, no JVP, no lower extremity edema Respiratory : good bilateral air entry, no crackles, wheezes or rhonchi Gastrointestinal: soft, lax, Normal bowel sounds, Non tender, small ascites Skin : Warm, Dry Neurological : Alert & oriented x3, No focal deficit Objective Data Active Medications Acetaminophen (Acetaminophen 325 Mg Tablet) 650 mg PO Q6H PRN PRN Reason: Pain, Mild (Pain Scale 1-3), fever or headache Calcium Carbonate (Calcium Carbonate 750 Mg Tab.Chew) 750 mg PO Q4H PRN PRN Reason: Heartburn Folic Acid (Folic Acid 1 Mg Tablet) 1 mg PO DAILY [facility] Last Admin: 01/01/24 09:20 Dose: 1 mg Documented By: ZAY Heparin Sodium (Porcine) (Heparin Sodium,Porcine 5,000 Unit/Ml Vial) 5,000 unit SUBCUT Q12H [facility] Last Admin: 01/01/24 09:20 Dose: 5,000 unit Documented By: ZAY Lactated Ringer's (Lr) 1,000 mls @ 100 mls/hr IVCONT .Q10H [facility] Last Admin: 12/31/23 22:45 Dose: Not Given Documented By: CHRISSIE Non-Admin Reason: Physician Held Med Lactulose (Lactulose 20 Gm/30 Ml Solution) 20 gm PO Q8H [facility] Last Admin: 01/01/24 09:20 Dose: 20 gm Documented By: ZAY Magnesium Oxide (Magnesium Oxide 400 Mg Tablet) 400 mg PO BIDPC [facility] Last Admin: 01/01/24 09:20 Dose: 400 mg Documented By: ZAY Melatonin (Melatonin 3 Mg Tablet) 6 mg PO BEDTIME PRN PRN Reason: Insomnia Midodrine (Midodrine Hcl 5 Mg Tablet) 5 mg PO TIDWM [facility] Last Admin: 01/01/24 11:58 Dose: 5 mg Documented By: ZAY Octreotide Acetate (Octreotide Acetate 100 Mcg/Ml Ampul) 50 mcg IVPUSH Q8H [facility] Last Admin: 01/01/24 09:20 Dose: 50 mcg Documented By: ZAY Omeprazole (Omeprazole 20 Mg Capsule.) 20 mg PO DAILY@0630 [facility] Last Admin: 01/01/24 09:19 Dose: 20 mg Documented By: ZAY Rifaximin (Rifaximin 550 Mg Tablet) 550 mg PO BID [facility] Last Admin: 01/01/24 09:20 Dose: 550 mg Documented By: ZAY Sodium Chloride (0.9 % Sodium Chloride Flush 3 Ml Syringe) 3 ml IVFLUSH QSHIFT [facility] Last Admin: 01/01/24 09:20 Dose: 3 ml Documented By: ZAY Thiamine HCl (Thiamine Hcl 100 Mg Tablet) 100 mg PO DAILY [facility] Last Admin: 01/01/24 09:20 Dose: 100 mg Documented By: ZAY Labs 01/01/24 06:19 01/01/24 06:19 Labs: Laboratory Results - last 24 hr 01/01/24 06:19 MCV 100.4 H MCH 31.5 MCHC 31.4 RDW 16.4 H Plt Count 164 MPV 11.9 Absolute Nucleated RBC 0.000 Nucleated RBC % (auto) 0.0 Anion Gap 12 Estim Creat Clear Calc 28.5 Estimated GFR 36 Fasting Glucose 128 H Calcium 8.7 D Total Bilirubin 0.8 Direct Bilirubin 0.4 AST 37 H ALT 10 Alkaline Phosphatase 112 Total Protein 5.1 L Albumin 3.0 L Microbiology Microbiology Results: Microbiology 12/30/23 15:32 Gram Stain - Final Abdominal Fluid Routine Culture - Preliminary No growth to date. Anaerobic Culture - Preliminary No growth to date. 12/30/23 13:29 Blood Culture - Preliminary Blood - Venous No growth after 24 hours. 12/30/23 13:29 Blood Culture - Preliminary Blood - Venous No growth after 24 hours. Assessment and Plan (1) Elevated liver transaminase level: Status: Acute (2) Acute hepatic encephalopathy: Status: Acute Plan 63F PMH alcohol dependence with alcoholic cirrhosis, hypertension, hyperlipidemia, degenerative disc disease, vitamin-D deficiency, folate deficiency presented with altered mental status and weakness, found to have gracie, hepatic encephalopathy GRACIE HRS vs prerenal improving with albumin, octrotide, midodrine, ivf, monitor bmp, nephro eval potassium monitoring and replacing as needed daily electrolytes and renal function avoid nephrotoxic substances Acute metabolic encephalopathy due to hepatic encephalopathy due to alcoholic cirrhosis GI eval, start rifaximin Goal 2 bowel movements per day - decrease lactulose to 3 times a day Status post 80 cc paracentesis, no signs of SBP removed 2L of clear fluids Hypotension due to liver disease not sepsis Improved Mild hypernatremia IV fluids, Monitor Acute hypokalemia Replace and monitor DVT prophylaxis with heparin subQ Full code reason for continued hospitalization: Acute kidney injury, ongoing encephalopathy Quality Stroke Does the patient have a stroke diagnosis?: No VTE Prior VTE?: No VTE Risk Level:: Medical - moderate - high VTE Device Contraindication: Treatment Not Indicated VTE Drug Contraindication: N/A - Med Ordered
[2024-01-01] MEDS: Ferrous Sulfate 324 MG TABLET.DR PO (12:54)
[2024-01-01 14:30] LABS: Anion Gap 12 (12-20); Blood Urea Nitrogen 19 mg/dL (9-16); Calcium 8.4 mg/dL (8.4-10.2); Carbon Dioxide 22 mmol/L (22-29); Chloride 113 mmol/L (96-108); Creatinine Clr Calc Pharmacy 30.9; Estimated Glomerular Filt Rate 39; Glucose Random 141 mg/dL (60-115); Sodium 144 mmol/L (135-145)
[2024-01-01 14:32] LABS: Iron 50 mcg/dL (30-160); Percent Iron Saturation 67 % (15-50); Total Iron Binding Capacity 75 mcg/dL (228-428); Unsaturated Iron Binding < 25 ug/dL
[2024-01-01 15:30] VITALS: BP 101/69; PULSE 88; RESP 20; TEMP 36.8; O2SAT 97
--- NOTE | 2024-01-01 16:13 | HO.ADDICT_ITS ---
History of Present Illness Date of Service: 01/01/24 Chief Complaint: Hepatic Encephalopathy Reason for Consult: alcohol use disorder Sources of Information: patient interviewed and chart reviewed HPI Narrative: Patient is a 63 year old female with severe alcohol use disorder, cirrhosis of the liver and STACIA, medically admitted with hepatic encephalopathy. Consult requested as patient expressed desire for resources to address her alcohol use. Patient seen in room 459. She is awake, alert, engaged in interview. She reports drinking 5-10 nips of rum daily. She states that she has been drinking every day for entire adult life. Denies any other substance use Denies any history of treatment Denies any experience with any type of recovery support in the community (AA, therapy, etc). Drinking increased once she stopped working and at home most of the day. She is aware her current health issues are likely due to and worsened by her drinking She identifies her granddaughters as her motivation for change. Review of Systems Constitutional: Reports as per HPI Diagnostics Vital Signs (24Hr): Vital Signs - 24 hr 12/31/23 18:14 12/31/23 18:20 12/31/23 18:25 Temperature 97.3 F Pulse Rate 81 Respiratory Rate 22 H Blood Pressure 106/70 Pulse Oximetry 97 Oxygen Delivery Method Room Air 12/31/23 19:14 12/31/23 23:35 01/01/24 03:56 Temperature 96.8 F 97.5 F 98.7 F Pulse Rate 82 85 90 Respiratory Rate 18 18 18 Blood Pressure 120/70 125/65 110/60 Pulse Oximetry 95 95 95 Oxygen Delivery Method Room Air Room Air Room Air 01/01/24 07:24 01/01/24 10:59 01/01/24 15:30 Temperature 97.2 F 98.6 F 98.2 F Pulse Rate 91 87 88 Respiratory Rate 18 20 20 Blood Pressure 106/73 91/64 101/69 Pulse Oximetry 94 98 97 Oxygen Delivery Method Room Air Room Air Room Air BMI result Body Mass Index 21.4 Labs 01/01/24 06:19 01/01/24 14:01 Labs: Laboratory Results - last 48 hr 12/30/23 12/31/23 01/01/24 15:32 04:24 06:19 WBC 6.9 6.5 RBC 2.45 L 2.38 L Hgb 7.9 L 7.5 L Hct 24.3 L 23.9 L MCV 99.2 H 100.4 H MCH 32.2 31.5 MCHC 32.5 31.4 RDW 15.7 16.4 H Plt Count 190 164 MPV 11.4 11.9 Absolute Nucleated RBC 0.000 0.000 Nucleated RBC % (auto) 0.0 0.0 PT 17.9 H INR 1.5 H Sodium 147 H 147 H Potassium 3.1 L D 3.3 Chloride 112 H 115 H Carbon Dioxide 25 23 Anion Gap 13 12 BUN 35 H 24 H Creatinine 2.11 H 1.49 H Estim Creat Clear Calc 20.1 28.5 Estimated GFR 24 36 Random Glucose Fasting Glucose 104 H 128 H Calcium 8.1 L 8.7 D Magnesium 2.4 Iron TIBC % Saturation Unsat Iron Binding Total Bilirubin 0.9 0.8 Direct Bilirubin 0.5 0.4 AST 38 H 37 H ALT 10 10 Alkaline Phosphatase 132 H 112 Total Protein 5.0 L 5.1 L Albumin 2.7 L 3.0 L Periton Neutrophils 42 Periton Lymphocytes 10 Peritoneal Monocytes 9 Peritoneal Other Cells 39 01/01/24 14:01 WBC RBC Hgb Hct MCV MCH MCHC RDW Plt Count MPV Absolute Nucleated RBC Nucleated RBC % (auto) PT INR Sodium 144 Potassium 3.0 L Chloride 113 H Carbon Dioxide 22 Anion Gap 12 BUN 19 H Creatinine 1.37 Estim Creat Clear Calc 30.9 Estimated GFR 39 Random Glucose 141 H Fasting Glucose Calcium 8.4 Magnesium Iron 50 TIBC 75 L % Saturation 67 H Unsat Iron Binding < 25 Total Bilirubin Direct Bilirubin AST ALT Alkaline Phosphatase Total Protein Albumin Periton Neutrophils Periton Lymphocytes Peritoneal Monocytes Peritoneal Other Cells Imaging Radiology Impressions: ITS Impressions Abdomen/Pelvis CT 12/30/23 12:53 IMPRESSION: 1. Moderate abdominopelvic ascites and severe hepatic steatosis. Underlying cirrhosis suspected. Intrahepatic masses cannot be evaluated without contrast. 2. Circumferential thickening of the ascending and descending colon, which may be related to colonic venous congestion from portal hypertension. Infectious and ischemic process not excluded. Diverticular disease of the descending and sigmoid colon is also present. 3. Distended gallbladder and visualized appendix bathing in ascites, both limited in evaluation without intravenous contrast. Guidelines were followed. Electronically signed by: Kamaljit Arrieta DO 12/30/2023 01:57 PM EDT Chest X-Ray 12/30/23 13:09 IMPRESSION: No acute pulmonary disease. Electronically signed by: Sagar Duval MD 12/30/2023 01:59 PM EDT RP Paracentesis Ultrasound 12/31/23 08:32 IMPRESSION: Ultrasound-guided paracentesis as described above. No immediate complications Electronically signed by: Tk Gee MD 12/31/2023 04:16 PM EDT RP Mental Status Exam Mental Status Exam Patient Appearance: Appropriate Level of Consciousness: Awake, Appropriate and Alert Patient Behavior: Appropriate Mood Description: Calm Affect Description: Calm Medications Medications Current Medications Acetaminophen (Acetaminophen 325 Mg Tablet) 650 mg PO Q6H PRN PRN Reason: Pain, Mild (Pain Scale 1-3), fever or headache Calcium Carbonate (Calcium Carbonate 750 Mg Tab.Chew) 750 mg PO Q4H PRN PRN Reason: Heartburn Ferrous Sulfate (Ferrous Sulfate 324 Mg Tablet.) 324 mg PO DAILY [facility] Last Admin: 01/01/24 12:54 Dose: 324 mg Folic Acid (Folic Acid 1 Mg Tablet) 1 mg PO DAILY [facility] Last Admin: 01/01/24 09:20 Dose: 1 mg Heparin Sodium (Porcine) (Heparin Sodium,Porcine 5,000 Unit/Ml Vial) 5,000 unit SUBCUT Q12H [facility] Last Admin: 01/01/24 09:20 Dose: 5,000 unit Lactulose (Lactulose 20 Gm/30 Ml Solution) 20 gm PO Q8H [facility] Last Admin: 01/01/24 09:20 Dose: 20 gm Magnesium Oxide (Magnesium Oxide 400 Mg Tablet) 400 mg PO BIDPC [facility] Last Admin: 01/01/24 09:20 Dose: 400 mg Melatonin (Melatonin 3 Mg Tablet) 6 mg PO BEDTIME PRN PRN Reason: Insomnia Midodrine (Midodrine Hcl 5 Mg Tablet) 5 mg PO TIDWM [facility] Last Admin: 01/01/24 11:58 Dose: 5 mg Octreotide Acetate (Octreotide Acetate 100 Mcg/Ml Ampul) 50 mcg IVPUSH Q8H [facility] Last Admin: 01/01/24 09:20 Dose: 50 mcg Omeprazole (Omeprazole 20 Mg Capsule.) 20 mg PO DAILY@0630 [facility] Last Admin: 01/01/24 09:19 Dose: 20 mg Potassium Chloride (Potassium Chloride Packet 20 Meq Packet) 40 meq PO Q2H [facility] Stop: 01/01/24 17:31 Rifaximin (Rifaximin 550 Mg Tablet) 550 mg PO BID [facility] Last Admin: 01/01/24 09:20 Dose: 550 mg Sodium Chloride (0.9 % Sodium Chloride Flush 3 Ml Syringe) 3 ml IVFLUSH QSHIFT [facility] Last Admin: 01/01/24 09:20 Dose: 3 ml Thiamine HCl (Thiamine Hcl 100 Mg Tablet) 100 mg PO DAILY [facility] Last Admin: 01/01/24 09:20 Dose: 100 mg Allergies Allergies Allergy/AdvReac Type Severity Reaction Status Date / Time No Known Allergies Allergy Verified 12/30/23 11:11 Assessment & Plan Assessment & Plan (1) Alcohol use disorder, severe, dependence: Status: Acute Code(s): F10.20 - Alcohol dependence, uncomplicated Assessment and Plan: * discussed treatment options and limitations related to current health status * discussed recovery supports -- IOP, AA, recovery coaching * curriculum coach to follow up with patient and provide resources * t/w to follow up with GI to discuss medications for AUD Total time managing care of this patient today __45__ minutes. [facility] Past Medical History Medical History Osteoporosis Nicotine dependence, cigarettes, uncomplicated Hx of scoliosis Elevated liver transaminase level Folate deficiency Vitamin D deficiency Lumbar stenosis with neurogenic claudication History of right tennis elbow Degenerative disc disease, cervical Lumbar spine scoliosis Hx of fracture of wrist Hyperlipidemia Essential hypertension Family History Family History Brother Substance use disorder Prostate cancer Daughter Substance use disorder Sister Substance use disorder Maternal Grandmother Diabetes mellitus Mother Alcoholism COPD (chronic obstructive pulmonary disease) Father Alcoholism COPD (chronic obstructive pulmonary disease) Surgical History Surgical History Hx of section Hx of tubal ligation History of carpal tunnel surgery of right wrist History of carpal tunnel surgery of left wrist History of rotator cuff surgery History of colonoscopy with polypectomy Social History Social History Household Members: Spouse and Other Housing: House Do you presently have visiting nurse or other home services: No Alcohol intake: current Alcohol intake frequency: a few times a month Patient Tobacco Use Status: Current everyday Tobacco user Tobacco use type: Cigarette Cigarette Packs Per Day: 1 Cigarettes Per Day: 4 Years Smoked: 45 e-Cigarette/Vaping Use: Never Used Second Hand Smoke Exposure: No service: No Current occupational status: disabled Cognitive needs: No Hearing needs: No Vision needs: Yes
[2024-01-01] MEDS: Potassium Chloride Packet 20 MEQ PACKET 40 MEQ PO ×2 (17:07→19:01)
[2024-01-01 19:56] VITALS: BP 123/70; PULSE 72; RESP 16; TEMP 36.4; O2SAT 95
[2024-01-01 23:59] VITALS: BP 103/71; PULSE 86; RESP 16; TEMP 36.2; O2SAT 95
[2024-01-02] MEDS: 0.9 % Sodium Chloride Flush 3 ML SYRINGE IVFLUSH ×2 (00:03→09:53)
[2024-01-02] MEDS: Lactulose 20 GM/30 ML SOLUTION PO ×2 (00:18→09:48)
[2024-01-02] MEDS: Octreotide Acetate 100 MCG/ML AMPUL 50 MCG IVPUSH ×2 (00:18→09:47)
[2024-01-02 04:00] VITALS: BP 110/79; PULSE 78; RESP 16; TEMP 36.3; O2SAT 95
[2024-01-02 05:29] LABS: Hematocrit 24.8 % (37.0-47.0); Hemoglobin 7.8 g/dl (12.0-16.0); Mean Corpuscular HGB Conc 31.5 g/dl (31.0-35.0); Mean Corpuscular Volume 101.6 fL (80.0-98.0); Mean Platelet Volume 12.5 fL (9.4-12.3); Platelet Count 122 X10*3/uL (160-400); Red Blood Count 2.44 X10*6/uL (4.20-5.50); Red Cell Distribution Width 16.3 % (11.0-16.0); White Blood Count 5.1 X10*3/uL (4.8-10.8)
[2024-01-02] MEDS: Omeprazole 20 MG CAPSULE.DR PO (06:04)
[2024-01-02 07:15] VITALS: BP 92/62; PULSE 90; RESP 18; TEMP 36.9; O2SAT 93
[2024-01-02 07:38] LABS: Anion Gap 10 (12-20); Blood Urea Nitrogen 13 mg/dL (9-16); Calcium 8.5 mg/dL (8.4-10.2); Carbon Dioxide 22 mmol/L (22-29); Chloride 114 mmol/L (96-108); Creatinine Clr Calc Pharmacy 38.5; Estimated Glomerular Filt Rate 50; Glucose Random 136 mg/dL (60-115); Sodium 143 mmol/L (135-145)
--- NOTE | 2024-01-02 08:03 | MHC.RECOVRN ---
AUDIT-C Brief Intervention Pt had positive screen for unhealthy alcohol use on admission, subsequently met with Addiction Consult Service to discuss alcohol use and recovery supports/options. Please see Addiction Med Consultation note by Terri Esquivel APRN on 12/31.
[2024-01-02 09:39] VITALS: BP 110/85
[2024-01-02] MEDS: Midodrine HCl 5 MG TABLET PO ×2 (09:39→12:33)
[2024-01-02] MEDS: Magnesium Oxide 400 MG TABLET PO (09:39)
[2024-01-02] MEDS: rifAXIMin 550 MG TABLET PO (09:44)
[2024-01-02] MEDS: Potassium Chloride ER 20 MEQ TAB.ER.PRT 40 MEQ PO (09:45)
[2024-01-02] MEDS: Heparin Sodium,Porcine 5,000 UNIT/ML VIAL 5000 UNIT SUBCUT (09:45)
[2024-01-02] MEDS: Thiamine HCL 100 MG TABLET PO (09:45)
[2024-01-02] MEDS: Ferrous Sulfate 324 MG TABLET.DR PO (09:45)
[2024-01-02] MEDS: Folic Acid 1 MG TABLET PO (09:45)
[2024-01-02] MEDS: Sodium Ferric Gluconat/Sucrose 125 MG in 0.9 % Sodium Chloride 100 ML 100 MG IV (10:26)
[2024-01-02 11:12] VITALS: BP 102/72; PULSE 98; RESP 18; TEMP 37.4; O2SAT 98
--- NOTE | 2024-01-02 11:28 | MHC.RECOVRN ---
Met with pt to check in and provide support. Pt spoke with and recovery analyst, Eduard, on 12/31 as well as received resources. Pt looking forward to discharge, hoping it happens today. Has not had a chance to review resources yet. Pt denies questions or concerns at this time.
--- NOTE | 2024-01-02 11:35 | P.PNNP_ITS ---
Subjective Subjective Date of Service: 01/02/24 Interval history: Pt is a 63 y/o female with alcoholic liver cirrhosis, HTN, HLD, DDD, vit D deficiency, folate deficiency. Presented 12/29 with AMS, weakness, abd distension, confusion progressing over previous week she had an elevated ammonia, STACIA and painful ascites on arrival diagnostic paracentesis showed no SBP 12/29 CT and showed no hydronephrosis, kidneys/ureters unremarkable; distended gallbaldder, thickening of ascending/descending colon, and moderate ascites, liver cirrhosis 11/30 creatinine was 0.57; 12/29 creatinine was 2.31, 12/30 creatinine is 2.11, 12/31 creatinine 1.49 1 creatinine 1.10 sodium has normalized at 143 (yesterday 147) she states at bedside today she is feeling well states she has an appetite she denies chest pain, dizziness, shortness of breath she states abdominal pain is minimal only with palpation and this is an improvement she denies LE swelling she denies other questions/concerns Physical Exam 2 Vital Signs: Vital Signs: Last Vital Signs Temp 99.4 F 01/02/24 11:12 Pulse 98 01/02/24 11:12 Resp 18 01/02/24 11:12 BP 102/72 01/02/24 11:12 Pulse Ox 98 01/02/24 11:12 O2 Del Method Room Air 01/02/24 11:12 BMI result Body Mass Index 21.4 Const: General: comfortable, no acute distress, alert and awake Resp: Effort & Inspection: normal respiratory effort and able to speak in complete sentences Auscultation: clear to auscultation bilaterally Cardio: Jugular venous distension: no JVD Rate: regular rate Rhythm: r egular rhythm Heart sounds: S1 normal heart sound present and S2 normal heart sound present GI: Palpation (GI): Soft to palpation and Tenderness to palpation present (GI) (mild tenderness across lower abdomen to palpation) : General: Yes no CVA tenderness Back/Spine/Pelvis: Back: no CVA tenderness Skin: Lesions: no lesions Rashes: no rashes Extrem: General: No edema and No pedal edema Objective Data Labs 01/02/24 04:14 01/02/24 07:02 Labs: Laboratory Results - last 24 hr 01/01/24 01/02/24 01/02/24 14:01 04:14 07:02 WBC 5.1 RBC 2.44 L Hgb 7.8 L Hct 24.8 L MCV 101.6 H MCH 32.0 MCHC 31.5 RDW 16.3 H Plt Count 122 L D MPV 12.5 H Absolute Nucleated RBC 0.000 Nucleated RBC % (auto) 0.0 Sodium 144 143 Potassium 3.0 L 3.0 L Chloride 113 H 114 H Carbon Dioxide 22 22 Anion Gap 12 10 L BUN 19 H 13 Creatinine 1.37 1.10 Estim Creat Clear Calc 30.9 38.5 Estimated GFR 39 50 Random Glucose 141 H 136 H Calcium 8.4 8.5 Iron 50 TIBC 75 L % Saturation 67 H Unsat Iron Binding < 25 Microbiology Microbiology Results: Microbiology 12/30/23 15:32 Abdominal Fluid Gram Stain - Final 12/30/23 15:32 Abdominal Fluid Routine Culture - Final No growth after 2 days 12/30/23 15:32 Abdominal Fluid Anaerobic Culture - Preliminary No growth to date. 12/30/23 13:29 Blood - Venous Blood Culture - Preliminary No growth after 48 hours. 12/30/23 13:29 Blood - Venous Blood Culture - Preliminary No growth after 48 hours. Procedures Date of Service Date of Service: 01/02/24 Assessment & Plan Assessment and plan (1) STACIA (acute kidney injury): Status: Acute (2) Ascites: Status: Acute (3) Hypotension: Status: Acute Plan STACIA likely tubular injury likely hypoperfusion from dehdyration Workup pending, urine studies ordered No obstruction suggested on recent abdominal CT Patient clinically hypovolemic; prerenal tubular injury on differential; HRS on differential if renal impairment remains despite euvolemia recommend continued potassium monitoring and replacing as needed recommend avoiding nephrotoxic substances continue to encourage oral hydration she is ok to discharge from a renal standpoint, she should follow up with nephrology outpatient post discharge to complete workup (including urine studies). Will continue to follow Discussed with Dr Denis Time Spent With Patient Time: Total time managing care of this patient today ____ minutes. Progress Note: Quality Stroke Does the patient have a stroke diagnosis?: No
--- NOTE | 2024-01-02 12:20 | P.DS_ITS ---
DS: Providers Provider Date of Service: 01/02/24 Date of admission: 12/30/23 16:49 Date of discharge: 01/02/24 Primary care physician: Giovana Manning MD Consults: 12/30/23 16:47 Consult to Gastroenterology Routine Consulting Provider: Andrea Benavides Reason for consultation: hepatic ecnceph Consult to Nephrology Routine Consulting Provider: [facility] Reason for consultation: HRS 01/01/24 07:54 Addiction Medicine Routine Consulting Provider: Addiction Covering Reason for consultation: Alcohol abuse DS: Diagnosis Discharge Diagnosis (1) STACIA (acute kidney injury): Status: Acute (2) Ascites: Status: Acute (3) Hypotension: Status: Acute (4) Alcohol use disorder, severe, dependence: Status: Acute (5) Elevated liver transaminase level: Status: Acute (6) Acute hepatic encephalopathy: Status: Acute (7) Alcoholic cirrhosis of liver with ascites: Status: Acute (8) Hypokalemia: Status: Acute (9) Anemia: Status: Acute DS: Summary Hospital Course Hospital Course: Admission note HPI 63F PMH alcohol dependence with alcoholic cirrhosis, hypertension, hyperlipidemia, degenerative disc disease, vitamin-D deficiency, folate deficiency presented with altered mental status and weakness. Symptoms progressing over the last week, mostly abdominal distention and bloating and confusion. Found to have elevated ammonia, acute kidney injury, painful ascites. Hospital course The patient was evaluated for acute kidney injury which likely secondary to ATN rather than HRS but treated as. improved to baseline with albumin, IV octrotide, midodrine and IVF. Followed by nephrology team who recommended an outpatient follow up for further work up and monitoring. Acute metabolic encephalopathy due to hepatic encephalopathy due to alcoholic cirrhosis which was treated with LActulos and Rifaximin with Goal 2 bowel movements per day. She had Status post 80 cc paracentesis, no signs of SBP. removed 2L of clear fluids. Started on Spironolactone 12.5 mg daily with plan to repeat blood work as outpatient. Anemia with low Iron stores, started on Iron replacement therapy. To follow CBC next week. Hypotension due to liver disease not sepsis. resolved with Midodrine and holding Valsartan. Will continue to hold on discharge and keep Midodrine for the next month as bid. Mild hypernatremia, responded well to IV fluids. and was Monitored during the hospital stay. Acute hypokalemia with acute Replacement and monitoring during hospital stay. Discharge plan Start Spironolactone for ascites management Monitor weight at home and report changes to PCP Hold Valsartan; Monitor BP for 1 week then discuss with PCP the need to restart it Lactulose twice daily with goal of 1-2 bowel movements Avoid Alcohol Start Iron supplement as prescribed Thiamine supplement Midodrine for 1 month to support BP To follow up with Gastroenterology as scheduled in office To follow with nephrology as outpatient. Time Attestation Discharge Coordination Time (in mins): 42 Quality: Safe Use of Opioids Does Pt have an Active Cancer Diagnosis on the Problem List?: No Quality: Stroke Does the patient have a stroke diagnosis?: No Physical Exam Vital Signs: Vital Signs: Last Vital Signs Temp 99.4 F 01/02/24 11:12 Pulse 98 01/02/24 11:12 Resp 18 01/02/24 11:12 BP 102/72 01/02/24 11:12 Pulse Ox 98 01/02/24 11:12 O2 Del Method Room Air 01/02/24 11:12 BMI result Body Mass Index 21.4 Const: Other: Constitutional : Awake, interactive, not in distress Neck : Normal inspection, Supple Cardiovascular : RRR, no JVP, no lower extremity edema Respiratory : good bilateral air entry, no crackles, wheezes or rhonchi Gastrointestinal: soft, lax, Normal bowel sounds, Non tender, small ascites Skin : Warm, Dry Neurological : Alert & oriented x3, No focal deficit DS: Data Data Completed and Pending Completed studies during hospitalization [Text1]: Procedures Insertion of Infusion Device into Upper Vein, Percutaneous Approach (11/28/23) Labs on day of discharge: Laboratory Results - last 24 hr 01/01/24 01/02/24 01/02/24 14:01 04:14 07:02 WBC 5.1 RBC 2.44 L Hgb 7.8 L Hct 24.8 L MCV 101.6 H MCH 32.0 MCHC 31.5 RDW 16.3 H Plt Count 122 L D MPV 12.5 H Absolute Nucleated RBC 0.000 Nucleated RBC % (auto) 0.0 Sodium 144 143 Potassium 3.0 L 3.0 L Chloride 113 H 114 H Carbon Dioxide 22 22 Anion Gap 12 10 L BUN 19 H 13 Creatinine 1.37 1.10 Estim Creat Clear Calc 30.9 38.5 Estimated GFR 39 50 Random Glucose 141 H 136 H Calcium 8.4 8.5 Iron 50 TIBC 75 L % Saturation 67 H Unsat Iron Binding < 25 Preliminary micro results at discharge 12/30/23 15:32 Anaerobic Culture - Preliminary Abdominal Fluid No growth to date. 12/30/23 13:29 Blood Culture - Preliminary Blood - Venous No growth after 48 hours. 12/30/23 13:29 Blood Culture - Preliminary Blood - Venous No growth after 48 hours. Imaging Chest x-ray: Radiologist's impression: ITS Impressions Abdomen/Pelvis CT 12/30/23 12:53 IMPRESSION: 1. Moderate abdominopelvic ascites and severe hepatic steatosis. Underlying cirrhosis suspected. Intrahepatic masses cannot be evaluated without contrast. 2. Circumferential thickening of the ascending and descending colon, which may be related to colonic venous congestion from portal hypertension. Infectious and ischemic process not excluded. Diverticular disease of the descending and sigmoid colon is also present. 3. Distended gallbladder and visualized appendix bathing in ascites, both limited in evaluation without intravenous contrast. Guidelines were followed. Electronically signed by: Kamaljit Arrieta DO 12/30/2023 01:57 PM EDT RP Chest X-Ray 12/30/23 13:09 IMPRESSION: No acute pulmonary disease. Electronically signed by: Sagar Duval MD 12/30/2023 01:59 PM EDT RP Paracentesis Ultrasound 12/31/23 08:32 IMPRESSION: Ultrasound-guided paracentesis as described above. No immediate complications Electronically signed by: Tk Gee MD 12/31/2023 04:16 PM EDT Discharge Plan Discharge Anticipated Discharge Date/Time: 01/02/24 11:57 Patient Disposition: Home Health Service Discharge Diagnosis: Alcohol abuse and withdrawal Ascites Acute kidney injury Anemia Referrals: Giovana Manning MD [Primary Care Provider] - 1 Week Discharge Medications: New spironolactone 25 mg Tablet 12.5 mg PO DAILY Qty: 60 0RF Protocol: Hold for SBP< HOLD for SBP < : 90 ferrous sulfate 324 mg (65 mg iron) Tablet,Delayed Release (Dr/Ec) 324 mg PO DAILY 90 Days Qty: 90 0RF thiamine mononitrate (vit B1) 100 mg Tablet 100 mg PO DAILY Qty: 90 0RF lactulose 20 gram/30 mL Solution 20 g PO BID 30 Days Qty: 1800 0RF midodrine 5 mg Tablet 5 mg PO BIDWM Qty: 60 0RF Continued albuterol sulfate 90 mcg/actuation HFA aerosol inhaler 2 puff inhalation Q6H PRN (Reason: shortness of breath or wheezing) Qty: 8.5 0RF folic acid 800 mcg tablet 0.8 mg PO DAILY Qty: 90 1RF ibuprofen 200 mg Tablet 400 mg PO Q6H PRN (Reason: Pain) omeprazole 20 mg Tablet,Delayed Release (Dr/Ec) 20 mg PO DAILY@0630 PRN (Reason: Heartburn) cholecalciferol (vitamin D3) 1,250 mcg (50,000 unit) capsule 1,250 mcg PO CLEANING magnesium oxide 400 mg (241.3 mg magnesium) Tablet 400 mg PO BIDPC 90 Days Qty: 180 0RF atorvastatin 20 mg tablet 20 mg PO DAILY Qty: 90 2RF Held valsartan 160 mg tablet 160 mg PO DAILY Qty: 90 2RF Hold Instructions: Monitor BP at home for 1 week and report readings to PCP to decide if it can be started or No Discharge Orders: Discharge Order (Routine); Ordered 01/02/24 Ordered By: Yassine Wren Diet: Low salt diet Activity on Discharge: As tolerated Stand Alone Forms: Patient Portal Discharge page Print Language: Faroese Other Ambulatory Orders: Basic Metabolic Panel (Routine) Timeframe: 1 Week Facility: [facility] - Location: Laboratory Ordered By: Yassine Wren Complete Blood Count Auto Diff (Routine) Timeframe: 1 Week Facility: [facility] - Location: Laboratory Ordered By: Yassine Wren Care Plan Goals: Start Spironolactone for ascites management Monitor weight at home and report changes to PCP Hold Valsartan; Monitor BP for 1 week then discuss with PCP the need to restart it Lactulose twice daily with goal of 1-2 bowel movements Avoid Alcohol Start Iron supplement as prescribed Thiamine supplement Midodrine for 1 month to support BP To follow up with Gastroenterology as scheduled in office To follow with nephrology as outpatient. To repeat blood tests next week Health Concerns: Alcohol cirrhosis and ascites Acute kidney injury Plan of Treatment: Spironolactone, Iron supplement , Avoid alcohol Assessment: as above
--- NOTE | 2024-01-02 12:30 | W.MHC.F2F ---
Service Date Service Date: 01/02/24 Encounter Date of encounter: 01/02/24 Reasons for Services Signs and symptoms assessed: physical deconditioning Reason for residential: medication treatment and teach disease management (Lactulose and BM, Spironolactone and ascites (weight)) Reason for physical therapy: home safety and mobility and therapeutic exercises Homebound: Leaving the home is medically contraindicated at this time without the asist of a device and/or another person due th the listed conditions above and below. Reason homebound: unable to drive Certification: Based on the above findings, I certify that this patient is confined to the home and needs intermittent residential care, physical therapy and/or speech therapy, or continues to need occupational therapy. The patient is under my care, and I have initiated the establishment of the plan of care. The patient will be followed by a physician who will periodically review the plan of care. Time Spent With Patient Time: Total time managing care of this patient today ____ minutes.
[2024-01-02] MEDS: Spironolactone 25 MG TABLET 12.5 MG PO (12:33)
--- NOTE | 2024-01-02 12:41 | MHC.CM.PN ---
Patient is discharged to home today. MD has ordered Home services. Referrals have been sent.. Patient has arranged for private transportation home.
--- NOTE | 2024-01-02 14:15 | P.EN_ITS ---
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 Time Spent With Patient Time: Total time managing care of this patient today ____ minutes.
== END 2024-01-02 14:16 | disposition home health service (06) | DRG 432 ==
LOC: HO.ED 16:33 → HO.EDOVER 16:53 → HO.IMC 12-31 09:20
PROVIDERS: Physician Assistant Surgical; Admitting Provider Internal Medicine; Emergency Provider Emergency Medicine; PCP Internal Medicine; Visit Provider Student in an Organized Health Care Education/Training Program
DX: K70.31 Alcoholic cirrhosis of liver with ascites (principal); G93.41 Metabolic encephalopathy; N17.0 Acute kidney failure with tubular necrosis; E87.0 Hyperosmolality and hypernatremia; F11.20 Opioid dependence, uncomplicated; F17.210 Nicotine dependence, cigarettes, uncomplicated; Z71.6 Tobacco abuse counseling; D64.9 Anemia, unspecified; E86.1 Hypovolemia; K72.10 Chronic hepatic failure without coma; E87.6 Hypokalemia; I95.9 Hypotension, unspecified; K76.82 Hepatic encephalopathy; Z79.899 Other long term (current) drug therapy
CPT/HCPCS: 36415; 49083; 71045; 74176; 80048; 80053; 80076; 80307; 82140; 83540; 83605; 83690; 83735; 83880; 85025; 85027; 85610; 87040; 87070; 87073; 87205; 89051; 97162; 99285; J1644; J2003; J2354; J2916; J7120; P9047

== ENCOUNTER 2023-12-30 16:49 | Outpatient (BNV) | payer OTHER, SELFPAY | END 2023-12-31 08:32 | PROVIDERS: Admitting Provider Internal Medicine; Emergency Provider Emergency Medicine; PCP Internal Medicine; Visit Provider Physician Assistant Surgical | DX: R18.8 Other ascites (principal) | CPT/HCPCS: 49083 ==

== ENCOUNTER → 2023-12-30 16:49 | Outpatient (BNV) | payer OTHER, SELFPAY | PROVIDERS: Admitting Provider Internal Medicine; Emergency Provider Emergency Medicine; PCP Internal Medicine; Visit Provider Nurse Practitioner Psychiatric/Mental Health | DX: F10.20 Alcohol dependence, uncomplicated (principal) | CPT/HCPCS: 99222; 99499 ==

== ENCOUNTER → 2023-12-30 16:49 | Outpatient (BNV) | payer OTHER, SELFPAY | PROVIDERS: Admitting Provider Internal Medicine; Emergency Provider Emergency Medicine; PCP Internal Medicine; Visit Provider Internal Medicine Gastroenterology | DX: K76.82 Hepatic encephalopathy (principal); K70.31 Alcoholic cirrhosis of liver with ascites | CPT/HCPCS: 99222 ==

== ENCOUNTER → 2023-12-30 16:49 | Outpatient (BNV) | payer OTHER, SELFPAY | PROVIDERS: Admitting Provider Internal Medicine; Emergency Provider Emergency Medicine; PCP Internal Medicine; Visit Provider Internal Medicine | DX: N17.9 Acute kidney failure, unspecified (principal); K70.31 Alcoholic cirrhosis of liver with ascites; I95.9 Hypotension, unspecified; F10.20 Alcohol dependence, uncomplicated; R74.01 Elevation of levels of liver transaminase levels; K76.82 Hepatic encephalopathy; E87.6 Hypokalemia; D64.9 Anemia, unspecified | CPT/HCPCS: 99223; 99232; 99239; G0180 ==

== ENCOUNTER → 2023-12-30 16:49 | Outpatient (BNV) | payer OTHER, SELFPAY | PROVIDERS: Admitting Provider Internal Medicine; Emergency Provider Emergency Medicine; PCP Internal Medicine; Visit Provider Nurse Practitioner Family | DX: N17.9 Acute kidney failure, unspecified (principal); K70.31 Alcoholic cirrhosis of liver with ascites; I95.9 Hypotension, unspecified | CPT/HCPCS: 99222; 99232 ==

== ENCOUNTER 2024-01-07 12:45 | Outpatient (AMB) | payer OTHER, SELFPAY ==
--- NOTE | 2024-01-07 13:02 | A.OFFPC_ITS ---
Vital Signs 01/07/24 13:10 Height 5 ft Weight 110 lb BMI 21.5 BP 100/70 Blood Pressure Location Lt brachial Position Sitting Pulse 102 H Pulse Source Pulse Oximeter Pulse Oximetry (%) 98 Oxygen Delivery Method Room Air Intake Visit Reasons: alcohol abuse Intake Note: Pt is here today for her HDF alcohol abuse Allergies No Known Allergies Allergy (Verified 01/14/24 01:26) Medication List - Last Reconciled 01/07/24 by Giovana Manning MD albuterol sulfate 90 mcg/actuation 2 puffs inhalation Q6H PRN atorvastatin 20 mg PO DAILY cholecalciferol (vitamin D3) 1,250 mcg PO CLEANING ferrous sulfate 324 mg PO DAILY 90 days folic acid 0.8 mg PO DAILY ibuprofen 400 mg PO Q6H PRN lactulose 20 grams (30 mL) PO BID 30 days magnesium oxide 400 mg PO BIDPC 90 days midodrine 5 mg PO BIDWM omeprazole 20 mg PO DAILY@0630 PRN spironolactone 12.5 mg See Protocol PO DAILY thiamine mononitrate (vit B1) 100 mg PO DAILY valsartan 160 mg PO DAILY Tobacco use date assessed: 01/07/24 Dental Screening Dental Screen Date: 01/07/24 Did you have a dental visit in the last 12 months?: No Did you have a dental problem in the last 6 months where you did not have access to dental care?: No Was dental information given to patient?: No HPI alcohol abuse HPI Details 63F PMH alcohol dependence with alcoholi c cirrhosis, hypertension, hyperlipidemia, degenerative disc disease, vitamin-D deficiency, folate deficiency, here today for hospital discharge follow-up. She initially presented to the emergency room with altered mental status and weakness, and abdominal bloating, and was found to have elevated ammonia with acute kidney injury and ascites. Acute kidney injury was likely secondary to acute tubular necrosis, treated with IV octreotide, albumin, midodrine and IV fluid. She was evaluated by Nephrology, who recommended outpatient follow-up for further workup. Alteration in mental status was due to acute metabolic encephalopathy due to hepatic encephalopathy, due to alcoholic cirrhosis treated with lactulose and rifaximin with a goal bowel movement of 2 per day. Had paracentesis with removal of about 2 L clear fluid, and was started on spironolactone 12.5 mg daily. She was found to have iron-deficiency anemia, started on Iron replacement therapy. Hypotension due to liver disease, resolved with midodrine and valsartan was held. Mild hypenatremia responded well to IV fluids potassium replacement given. She was also started on thiamine supplements, and advised to continue abstinence from alcohol. She has been advised to follow-up with GI clinic and Nephrology Clinic after discharge. At present, patient is alert, oriented x3, accompanied by daughter. They are concerned however that her stomach areas starting to get distended again, despite taking spironolactone. Denies fever, no chills, no shortness of breath or chest pain. [facility] Medical History Alcohol use disorder, severe, dependence Osteoporosis Nicotine dependence, cigarettes, uncomplicated Hx of scoliosis Elevated liver transaminase level Folate deficiency Vitamin D deficiency Lumbar stenosis with neurogenic claudication History of right tennis elbow Degenerative disc disease, cervical Lumbar spine scoliosis Hx of fracture of wrist Hyperlipidemia Essential hypertension Surgical History Hx of section Hx of tubal ligation History of carpal tunnel surgery of right wrist History of carpal tunnel surgery of left wrist History of rotator cuff surgery History of colonoscopy with polypectomy Family History Brother Substance use disorder Prostate cancer Daughter Substance use disorder Sister Substance use disorder Maternal Grandmother Diabetes mellitus Mother Alcoholism COPD (chronic obstructive pulmonary disease) Father Alcoholism COPD (chronic obstructive pulmonary disease) Social History Household Members: Spouse and Other Housing: House Do you presently have visiting nurse or other home services: No Alcohol intake: former Patient Tobacco Use Status: Former Tobacco user Tobacco use type: Cigarette Cigarette Packs Per Day: 1 Cigarettes Per Day: 4 Years Smoked: 45 e-Cigarette/Vaping Use: Never Used Second Hand Smoke Exposure: No service: No Current occupational status: disabled Cognitive needs: No Hearing needs: No Vision needs: Yes Female Reproductive History Menstrual Age of Menarche: 16 Questionnaire PHQ-9 Over the last 2 weeks, how often have you been bothered by any of the following problems? 1. Little interest or pleasure in doing things: more than half the days 2. Feeling down, depressed, or hopeless: not at all 3. Trouble falling or staying asleep, or sleeping too much: several days 4. Feeling tired or having little energy: several days 5. Poor appetite or overeating: several days 6. Feeling bad about yourself - or that you are a failure or have let yourself or your family down: not at all 7. Trouble concentrating on things, such as reading the newspaper or watching television: several days 8. Moving or speaking so slowly that other people could have noticed. Or the opposite - being so fidgety or restless that you have been moving around a lot more than usual: several days 9. Thoughts that you would be better off or of hurting yourself in some way: not at all Total score: 7 Depression Screening Interpretation: Negative Depression Screening Done: Yes 31932 - PHQ-9 Billing: Yes Source: Developed by Drs. Andrea Pendleton, Ayden Gonzalez and colleagues, with an educational brent from [employer]. Thrive Questionnaire Date Thrive assessed: 01/07/24 I am a: Patient What is your living situation today?: I have a steady place to live Within the past 12 months, did the food you bought not last and you didn't have the money to get more?: Never true Within the past 12 months, did you worry whether your food would run out before you got money to buy more?: Never true Do you have trouble paying for medicines?: No Do you have trouble getting transportation to medical appointments?: No Do you have trouble paying your heating and electricity bill?: No Do you have trouble taking care of your child, family member or friend?: No Do you have trouble with day-to-day activities such as bathing, preparing meals, shopping, managing finances, etc.?: Yes Are you currently unemployed and looking for a job?: No Are you interested in more education?: No Currently or been in a relationship where the following occur: No concerns reported THRIVE Score: 0 LASHONDA-7 AMB Questionnaire LASHONDA-7 Date LASHONDA - 7 assessed: 04/02/23 Source: Developed by Drs. Andrea Pendleton, Ayden Gonzalez and colleagues, with an educational brent from [employer]. Review of Systems Const Denies difficulty sleeping, Reports fatigue, Denies fever(s), Denies headache(s), Reports lethargy and Reports weakness Eyes Reports no additional complaints ENT Denies dysphagia, Denies dizziness and Denies headache(s) Card Denies chest pain, Denies irregular heart rhythm and Denies lightheadedness GI Reports as per HPI, Denies melena, Reports bloating, Denies hematochezia, Denies dysphagia, Reports dyspepsia and Denies nausea Reports no additional complaints Musc Reports no additional complaints Neuro Denies dizziness, Denies headache(s) and Reports weakness Psych Reports no additional complaints Endo Reports fatigue and Reports polyuria Codey/Lymph Reports no additional complaints Aller/Immun Reports no additional complaints Physical exam (Primary Care) Vital Signs: Last Vital Signs Pulse 102 H 01/07/24 13:10 BP 100/70 01/07/24 13:10 Pulse Ox 98 01/07/24 13:10 Oxygen Delivery Method Room Air 01/07/24 13:10 BMI result Body Mass Index 21.5 Tobacco/Smoking Status: Tobacco use Status Tobacco use date assessed 01/07/24 01/07/24 13:04 Patient Tobacco Use Status Former Tobacco user 01/07/24 13:16 Tobacco use type Cigarette 01/07/24 13:04 e-Cigarette/Vaping Use Never Used 01/07/24 13:04 PHQ-9: PHQ-9 Score PHQ-9: Total score 9 01/07/24 13:23 Depression Screening Interpretation: Negative Thrive Assessment: Date of Thrive Assessment Date Thrive assessed 01/07/24 01/07/24 13:16 Currently or been in a relationship where the following occur: No concerns reported Const Other: Frail looking lady, wheelchair borne, accompanied by daughter, no acute distress, oriented x3 Orientation/consciousness: patient oriented x3 HENMT Head: Yes normocephalic General nose exam: Normal external nose present Face and sinus: Yes face symmetric Mouth: Normal oral and palatal mucosa present, oropharynx normal and moist mucous membranes Eyes General: appearance normal, both eyes and all related structures Sclerae: sclerae normal Neck Neck: Yes full ROM, Yes no lymphadenopathy and Yes supple Resp Auscultation: clear to auscultation bilaterally Cardio Other: S1-S2 present regular rate and rhythm GI Inspection: Yes distended Palpation (GI): Soft to palpation, nontender, no guarding, no masses and Ascites present Auscultation: Hyperactive bowel sounds present Skin General skin exam: no rashes or lesions noted Neuro General: patient oriented x3, moves all extremities, no focal motor deficits and CN's II-XI intact bilaterally Psych Appearance: grossly normal Mental Status: mental status grossly normal Speech and movement: Normal speech and movement present Affect: normal affect Attitude: cooperative Thought process: Normal thought process present Thought content: Normal thought content present Coding Level of Care Code Est Pt Level 4 (69925) Complex EM visit Add On G2211 Diagnoses Pure hypercholesterolemia E78.00 Hyperlipidemia type: pure hypercholesterolemia Alcoholic cirrhosis of liver with ascites K70.31 Alcohol use disorder, severe, dependence F10.20 Essential hypertension I10 Hypotension I95.9 Hypotension type: unspecified hypotension type STACIA (acute kidney injury) N17.9 Acute hepatic encephalopathy K76.82 Iron deficiency anemia, unspecified iron deficiency anemia type D50.9 Anemia type: iron deficiency Iron deficiency anemia type: unspecified iron deficiency Assessment & Plan Assessment & Plan (1) Hyperlipidemia: Code(s): E78.5 - Hyperlipidemia, unspecified Category: Medical Qualifiers: Hyperlipidemia type: pure hypercholesterolemia Qualified Code(s): E78.00 - Pure hypercholesterolemia, unspecified Plan: Fasting lipid panel ordered continue atorvastatin 20 mg daily (2) Alcoholic cirrhosis of liver with ascites: Code(s): K70.31 - Alcoholic cirrhosis of liver with ascites Category: Medical Plan: Abdomen noted to be distended on today's visit, patient afebrile, does not complain of any pain. Advised to go to the ER if abdominal distention gets worse especially if accompanied by pain, fever chills, nausea. Gastroenterology referral ordered (3) Alcohol use disorder, severe, dependence: Code(s): F10.20 - Alcohol dependence, uncomplicated Category: Medical Plan: Stressed importance of abstaining from alcohol. Currently in talks with her psychiatrist to start on medication to help her quit her alcohol intake. They have been talking about Vivitrol (4) Essential hypertension: Code(s): I10 - Essential (primary) hypertension Category: Medical Plan: Valsartan on hold due to low blood pressure readings (5) Hypotension: Code(s): I95.9 - Hypotension, unspecified Category: Medical Qualifiers: Hypotension type: unspecified hypotension type Qualified Code(s): I95.9 - Hypotension, unspecified Plan: Blood pressure today is 124/68. Continued on midodrine at the same dose, continue to hold valsartan (6) STACIA (acute kidney injury): Code(s): N17.9 - Acute kidney failure, unspecified Category: Medical Plan: Patient advised that there is already a lab order to check basic metabolic panel. Referral to nephrology ordered. Reminded patient that there is also an order for basic metabolic panel sent to the lab. (7) Acute hepatic encephalopathy: Code(s): K76.82 - Hepatic encephalopathy Category: Medical Plan: Continue with lactulose (8) Anemia: Code(s): D64.9 - Anemia, unspecified Category: Medical Qualifiers: Anemia type: iron deficiency Iron deficiency anemia type: unspecified iron deficiency Qualified Code(s): D50.9 - Iron deficiency anemia, unspecified Plan: Patient reminded that there is already an order to repeat CBC present in-lab Orders: Orders Vitamin B1 01/07/24 E78.00 - Pure hypercholesterolemia, unspecified, F10.20 - Alcohol dependence, uncomplicated, K70.31 - Alcoholic cirrhosis of liver with ascites Liver Panel 01/07/24 E78.00 - Pure hypercholesterolemia, unspecified, F10.20 - Alcohol dependence, uncomplicated, K70.31 - Alcoholic cirrhosis of liver with ascites Referrals Nephrology Referral I10 - Essential (primary) hypertension, I95.9 - Hypotension, unspecified, N17.9 - Acute kidney failure, unspecified Gastroenterology Referral F10.20 - Alcohol dependence, uncomplicated, K70.31 - Alcoholic cirrhosis of liver with ascites, K76.82 - Hepatic encephalopathy Medications: New [shower seat] As directed 1 ea 0RF dysequilibrium I95.9 - Hypotension, unspecified, K76.82 - Hepatic encephalopathy, M48.062 - Spinal stenosis, lumbar region with neurogenic claudication, M81.0 - Age-related osteoporosis without current pathological fracture
[2024-01-07 13:10] VITALS: BP 100/70; PULSE 102; O2SAT 98; BMI 21.5
== END 2024-01-07 15:55 | disposition home or self-care (01) ==
LOC: HO.HMCC 12:46
PROVIDERS: PCP Internal Medicine; Visit Provider Internal Medicine
DX: N17.9 Acute kidney failure, unspecified (principal); K70.31 Alcoholic cirrhosis of liver with ascites; F10.20 Alcohol dependence, uncomplicated; K76.82 Hepatic encephalopathy; E78.00 Pure hypercholesterolemia, unspecified; I10 Essential (primary) hypertension; I95.9 Hypotension, unspecified; D50.9 Iron deficiency anemia, unspecified

== ENCOUNTER → 2024-01-07 12:45 | Outpatient (BNVA) | payer OTHER, SELFPAY | PROVIDERS: PCP Internal Medicine; Visit Provider Internal Medicine ==

== ENCOUNTER 2024-01-09 07:57 | Emergency (ER) | payer OTHER, SELFPAY ==
--- NOTE | ~2024-01-09 | US_ITS ---
ULTRASOUND GUIDED PARACENTESIS HISTORY: Ascites. Diagnostic and therapeutic. TECHNIQUE: Risks and benefits and possible complications were discussed with the patient and consent form was signed. A safe pocket of ascitic fluid was identified using ultrasound guidance, and the overlying skin was marked. The abdomen prepped and draped in sterile fashion. 1% lidocaine was used as a local anesthetic. Using ultrasound guidance, a 5 fr catheter was placed into the ascitic pocket. 3.4 liters of yellow fluid was removed passively. The catheter was then removed. A few front desk representative images from before and after the examination were obtained. The procedure was performed by Adeel Veliz PA-C and supervised by Dr. Gee. US/US paracentesis abd w/image IMPRESSION: Ultrasound-guided paracentesis as described above. 3.4 L of ascites removed. No immediate complications Electronically signed by: Tk Gee MD 01/11/2024 11:18 AM [facility] [place]
[2024-01-09 08:01] VITALS: BP 112/48; PULSE 99; RESP 16; TEMP 36.6; O2SAT 99; BMI 21.5
--- NOTE | 2024-01-09 08:30 | PC.NURSE ---
pt a&ox3, vitals previously stable, pts abd firm/distended- 8/10 pain, pt states she had 2 liters drained off abd last week while admitted, pt awaiting provider, call noguera within reach, will continue to monitor.
[2024-01-09 08:44] LABS: Basophils Absolute Auto 0.1 X10*3/uL (0.0-0.2); Basophils Percent Auto 0.5 % (0-2); Eosinophils Percent Auto 0.3 % (0-4); Hematocrit 28.1 % (37.0-47.0); Hemoglobin 9.3 g/dl (12.0-16.0); Imm Gran Abs Auto 0.07 X10*3/uL (0.00-0.03); Imm Gran Pct Auto 0.7 % (0.0-0.4); Lymphocytes Absolute Auto 1.9 X10*3/uL (1.2-4.9); Lymphocytes Percent Auto 18.6 % (20-40); Mean Corpuscular HGB Conc 33.1 g/dl (31.0-35.0); Mean Corpuscular Volume 96.6 fL (80.0-98.0); Mean Platelet Volume 12.3 fL (9.4-12.3); Monocytes Absolute Auto 0.7 X10*3/uL (0.1-1.2); Neutrophils Absolute Auto 7.4 x10*3/uL (2.0-8.3); Neutrophils Percent Auto 72.9 % (45-73); Platelet Count 38 X10*3/uL (160-400); Red Blood Count 2.91 X10*6/uL (4.20-5.50); Red Cell Distribution Width 16.5 % (11.0-16.0); White Blood Count 10.1 X10*3/uL (4.8-10.8)
[2024-01-09 08:45] LABS: MANUAL DIFF FLAG SCAN
--- NOTE | 2024-01-09 09:00 | PC.NURSE ---
labs drawn by tech
[2024-01-09 09:06] LABS: SLIDE REVIEW VERIFIED
[2024-01-09 09:09] LABS: Alanine Aminotransferase 13 U/L (0-31); Albumin Level 2.7 g/dL (3.5-5.0); Alkaline Phosphatase 130 U/L (39-117); Anion Gap 15 (12-20); Aspartate Amino Transferase 57 U/L (5-31); Bilirubin Direct 0.3 mg/dL (0.0-0.5); Blood Urea Nitrogen 8 mg/dL (9-16); Calcium 8.7 mg/dL (8.4-10.2); Carbon Dioxide 20 mmol/L (22-29); Chloride 109 mmol/L (96-108); Creatinine Clr Calc Pharmacy 60.6; Estimated Glomerular Filt Rate > 60; Glucose Random 104 mg/dL (60-115); Potassium 3.6 mmol/L (3.3-5.1); Sodium 140 mmol/L (135-145); Total Protein 6.3 g/dL (6.5-8.0)
[2024-01-09 10:00] VITALS: BP 138/87; PULSE 100; RESP 15; O2SAT 98
[2024-01-09 10:39] LABS: INTERNATIONAL NORM RATIO 1.5 (0.9-1.1); Prothrombin Time 17.4 SEC (10.9-12.4)
[2024-01-09 10:41] LABS: Partial Thromboplastin Time 32.6 SEC (26.0-36.8)
[2024-01-09 15:04] VITALS: BP 124/68; PULSE 78; RESP 18; O2SAT 98
--- NOTE | 2024-01-09 15:04 | ED.ABDPAIN ---
HPI - Abdominal Pain General Chief Complaint: Abdominal Pain Stated Complaint: Abd pain Time Seen by Provider: 01/09/24 10:14 Source: patient Mode of arrival: ambulatory Limitations: no limitations History of Present Illness ED Provider: Dr. Ellis HPI narrative: Patient is a 63 yo female with a history of alcoholism and cirrhosis with ascites Related Data Home Medications ?Medication ?Instructions ?Recorded ?Confirmed cholecalciferol (vitamin D3) 1,250 1,250 mcg PO CLEANING 11/28/23 01/03/24 mcg (50,000 unit) capsule ibuprofen 200 mg tablet 400 mg PO Q6H PRN Pain 12/31/23 01/03/24 omeprazole 20 mg tablet,delayed 20 mg PO DAILY@0630 PRN Heartburn 12/31/23 01/03/24 release Previous Rx's ?Medication ?Instructions ?Recorded atorvastatin 20 mg tablet 20 mg PO DAILY #90 tabs 04/02/23 valsartan 160 mg tablet 160 mg PO DAILY #90 tabs 04/02/23 albuterol sulfate 90 mcg/actuation 2 puff inhalation Q6H PRN 06/27/23 aerosol inhaler shortness of breath or wheezing #8.5 grams folic acid 800 mcg tablet 0.8 mg PO DAILY #90 tabs 10/28/23 magnesium oxide 400 mg (241.3 mg 400 mg PO BIDPC 90 days #180 tabs 11/30/23 magnesium) tablet ferrous sulfate 324 mg (65 mg 324 mg PO DAILY 90 days #90 tabs 01/02/24 iron) tablet,delayed release lactulose 20 gram/30 mL oral 20 g (30 mL) PO BID 30 days #1,800 01/02/24 solution mL midodrine 5 mg tablet 5 mg PO BIDWM #60 tabs 01/02/24 spironolactone 25 mg tablet 12.5 mg PO DAILY #60 tabs 01/02/24 thiamine mononitrate (vit B1) 100 100 mg PO DAILY #90 tabs 01/02/24 mg tablet shower seat #1 ea 01/07/24 Allergies Allergy/AdvReac Type Severity Reaction Status Date / Time No Known Allergies Allergy Verified 01/09/24 08:04 Review of Systems Review of Systems Yes all other systems are reviewed and are negative Denies Sensory deficit (Neuro) PMFSH Past Medical History Medical History Osteoporosis Nicotine dependence, cigarettes, uncomplicated Hx of scoliosis Elevated liver transaminase level Folate deficiency Vitamin D deficiency Lumbar stenosis with neurogenic claudication History of right tennis elbow Degenerative disc disease, cervical Lumbar spine scoliosis Hx of fracture of wrist Hyperlipidemia Essential hypertension Surgical History Hx of section Hx of tubal ligation History of carpal tunnel surgery of right wrist History of carpal tunnel surgery of left wrist History of rotator cuff surgery History of colonoscopy with polypectomy Family History Family History Brother Substance use disorder Prostate cancer Daughter Substance use disorder Sister Substance use disorder Maternal Grandmother Diabetes mellitus Mother Alcoholism COPD (chronic obstructive pulmonary disease) Father Alcoholism COPD (chronic obstructive pulmonary disease) Social History Social History Household Members: Spouse and Other Housing: House Do you presently have visiting nurse or other home services: No Alcohol intake: former Patient Tobacco Use Status: Former Tobacco user Tobacco use type: Cigarette Cigarette Packs Per Day: 1 Cigarettes Per Day: 4 Years Smoked: 45 Smoked in Last 30 Days: Yes e-Cigarette/Vaping Use: Never Used Second Hand Smoke Exposure: No Use of substances other than those prescribed or required for medical reasons: No Advance Directives: No Advance Directives Information Provided: Yes Do you have a plan to hurt others: No Plan Patient : No service: No Current occupational status: disabled Cognitive needs: No Hearing needs: No Vision needs: Yes Physical Exam ED Vital Signs: Vital Signs - 24 hr 01/09/24 08:01 01/09/24 10:00 01/09/24 15:04 Temperature 98 F Pulse Rate 99 100 78 Respiratory Rate 16 15 18 Blood Pressure 112/48 L 138/87 124/68 Pulse Oximetry 99 98 98 Oxygen Delivery Method Room Air Room Air Room Air BMI result Body Mass Index 21.5 Const Other: female looking older than stated age, chronically ill Orientation/consciousness: oriented to person and patient oriented x3 Limitations: no limitations HENMT Head: Yes normal to inspection Ears: external ears normal General nose exam: Normal external nose present Mouth: Normal oral and palatal mucosa present and oropharynx normal Throat: Yes posterior oropharynx normal Eyes General: appearance normal, both eyes and all related structures Neck Neck: Yes normal visual inspection Chest Chest palpation & inspection: normal inspection of the chest Resp Auscultation: clear to auscultation bilaterally Cardio Jugular venous distension: no JVD Rate: regular rate Rhythm: regular rhythm Heart sounds: S1 normal heart sound present and S2 normal heart sound present GI Other: distended abdomen, ascities General: Yes no CVA tenderness Back/Spine/Pelvis Back: no CVA tenderness Skin Other: diffuse ecchymosis Neuro General: oriented to person and patient oriented x3 Cranial nerves: Yes CN's II-XII intact bilaterally Motor exam (neuro): 5/5 motor strength present throughout Sensory Exam: No Sensory deficit (Neuro) Extrem General: Yes normal to inspection Psych Appearance: grossly normal Course Reevaluation(s) Reevaluation #1: patient with ascities, drained by IR will dc home Time: 15:21 Medical Decision Making Differential Diagnosis Differential Diagnoses: The differential diagnosis associated with the presentation includes (liver failure, ascities) Admission/Observation Consideration of admission/observation: Escalation of care including admission/observation considered (upon arrival patient considered for admission) Lab Data 01/09/24 08:37 01/09/24 08:37 Labs: Lab Results 01/09/24 01/09/24 Range/Units 08:37 10:29 WBC 10.1 (4.8-10.8) X10*3/uL RBC 2.91 L (4.20-5.50) X10*6/uL Hgb 9.3 L (12.0-16.0) g/dl Hct 28.1 L (37.0-47.0) % MCV 96.6 (80.0-98.0) fL MCH 32.0 (27.0-33.0) pg MCHC 33.1 (31.0-35.0) g/dl RDW 16.5 H (11.0-16.0) % Plt Count 38 L D (160-400) X10*3/uL MPV 12.3 (9.4-12.3) fL Immature Gran % (Auto) 0.7 H (0.0-0.4) % Neut % (Auto) 72.9 (45-73) % Lymph % (Auto) 18.6 L (20-40) % [place] % (Auto) 7.0 (2-11) % Eos % (Auto) 0.3 (0-4) % Baso % (Auto) 0.5 (0-2) % Lymph # (Auto) 1.9 (1.2-4.9) X10*3/uL [place] # (Auto) 0.7 (0.1-1.2) X10*3/uL Eos # (Auto) 0.0 (0.0-0.4) X10*3/uL Baso # (Auto) 0.1 (0.0-0.2) X10*3/uL Abs Immat Gran (auto) 0.07 H (0.00-0.03) X10*3/uL Absolute Neuts (auto) 7.4 (2.0-8.3) x10*3/uL Absolute Nucleated RBC 0.000 (0.0-0.012) X10*3/uL Nucleated RBC % (auto) 0.0 (0.0-0.2) /100WBC Smear Tech's Comments VERIFIED PT 17.4 H (10.9-12.4) SEC INR 1.5 H (0.9-1.1) APTT 32.6 (26.0-36.8) SEC Sodium 140 (135-145) mmol/L Potassium 3.6 (3.3-5.1) mmol/L Chloride 109 H (96-108) mmol/L Carbon Dioxide 20 L (22-29) mmol/L Anion Gap 15 (12-20) BUN 8 L (9-16) mg/dL Creatinine 0.70 (0.5-1.4) mg/dL Estim Creat Clear Calc 60.6 Estimated GFR > 60 Random Glucose 104 (60-115) mg/dL Calcium 8.7 (8.4-10.2) mg/dL Total Bilirubin 1.0 (0.0-1.0) mg/dL Direct Bilirubin 0.3 (0.0-0.5) mg/dL AST 57 H (5-31) U/L ALT 13 (0-31) U/L Alkaline Phosphatase 130 H (39-117) U/L Total Protein 6.3 L (6.5-8.0) g/dL Albumin 2.7 L (3.5-5.0) g/dL Independent Interpretation I performed an independent interpretation of an: Ultrasound (ascities) Prescription Management I considered prescription management with: Antibiotic (no infection) Chronic Conditions Patient?s care impacted by: Other (cirrhosis) Social Determinants Patient?s care significantly limited by Social Determinants of Health including: Alcoholism and drug addiction in family Medications Administered Discontinued Medications Generic Name Dose Route Start Last Admin Trade Name Freq PRN Reason Stop Dose Admin Lidocaine HCl 5 ml 01/09/24 15:10 01/09/24 15:10 Lidocaine Hcl 1 % Mpf 5 Ml Vial SUBCUT 01/09/24 15:11 5 ml ONCE ONE Administration Discharge Plan Discharge Clinical Impression: Alcoholic cirrhosis of liver with ascites Patient Disposition: Home, Self-Care Prescriptions: No Action albuterol sulfate 90 mcg/actuation HFA aerosol inhaler 2 puff inhalation Q6H PRN (Reason: shortness of breath or wheezing) Qty: 8.5 0RF folic acid 800 mcg tablet 0.8 mg PO DAILY Qty: 90 1RF ibuprofen 200 mg Tablet 400 mg PO Q6H PRN (Reason: Pain) omeprazole 20 mg Tablet,Delayed Release (Dr/Ec) 20 mg PO DAILY@0630 PRN (Reason: Heartburn) spironolactone 25 mg Tablet 12.5 mg PO DAILY Qty: 60 0RF Protocol: Hold for SBP< HOLD for SBP < : 90 ferrous sulfate 324 mg (65 mg iron) Tablet,Delayed Release (Dr/Ec) 324 mg PO DAILY 90 Days Qty: 90 0RF thiamine mononitrate (vit B1) 100 mg Tablet 100 mg PO DAILY Qty: 90 0RF lactulose 20 gram/30 mL Solution 20 g PO BID 30 Days Qty: 1800 0RF midodrine 5 mg Tablet 5 mg PO BIDWM Qty: 60 0RF cholecalciferol (vitamin D3) 1,250 mcg (50,000 unit) capsule 1,250 mcg PO CLEANING magnesium oxide 400 mg (241.3 mg magnesium) Tablet 400 mg PO BIDPC 90 Days Qty: 180 0RF valsartan 160 mg tablet 160 mg PO DAILY Qty: 90 2RF atorvastatin 20 mg tablet 20 mg PO DAILY Qty: 90 2RF (DME) shower seat See Rx Instructions .Route .MEDSUPPLY Qty: 1 0RF Rx Instructions: As directed Referrals: Giovana Manning MD [Primary Care Provider] - 1 week Print Language: Irish
--- NOTE | 2024-01-09 15:05 | PC.NURSE ---
back from IR feel much better , alert, nad
[2024-01-09] MEDS: Lidocaine HCl 1 % MPF 5 ML VIAL SUBCUT (15:10)
--- NOTE | 2024-01-09 15:24 | PM.PROC ---
Brief Operative Note Date of procedure: 01/09/24 Pre-op diagnosis: ascites Post-op diagnosis: same Procedure: US paracentesis 3.4 L yellow fluid removed. No immediate complications. Anesthesia: local
[2024-01-09 15:46] VITALS: BP 124/68; PULSE 78; RESP 18; TEMP 36.6; O2SAT 98
== END 2024-01-09 15:58 | disposition home or self-care (01) ==
PROVIDERS: Physician Assistant Surgical; Emergency Provider Emergency Medicine; PCP Internal Medicine
DX: K70.31 Alcoholic cirrhosis of liver with ascites (principal); I10 Essential (primary) hypertension; E78.5 Hyperlipidemia, unspecified; D64.9 Anemia, unspecified; Z87.891 Personal history of nicotine dependence; Z79.02 Long term (current) use of antithrombotics/antiplatelets; Z79.899 Other long term (current) drug therapy
CPT/HCPCS: 36415; 49083; 80048; 80076; 85025; 85610; 85730; 99284; J2003

== ENCOUNTER → 2024-01-09 08:25 | Outpatient (BNV) | payer OTHER, SELFPAY | PROVIDERS: Emergency Provider Emergency Medicine; PCP Internal Medicine; Visit Provider Physician Assistant Surgical | DX: R18.8 Other ascites (principal) | CPT/HCPCS: 49083 ==

== ENCOUNTER 2024-01-17 14:31 | Emergency (ER) | payer OTHER, SELFPAY ==
--- NOTE | ~2024-01-17 | XR_ITS ---
EXAMINATION: XR CHEST CLINICAL INFORMATION: Shortness of breath. COMPARISON: Most recent chest radiograph dated 12/30/2023. TECHNIQUE: Frontal view of the chest was obtained. FINDINGS: No airspace consolidation. No pleural effusion or pneumothorax. Stable cardiomediastinal silhouette. Spinal orthopedic hardware and cervical spine stabilization hardware, unchanged. XR/XR chest 1V IMPRESSION: No acute cardiopulmonary findings. Electronically signed by: Tio Levin MD 01/17/2024 05:12 PM [facility]
[2024-01-17 15:07] VITALS: BP 117/82; PULSE 114; RESP 20; TEMP 36.6; O2SAT 98; BMI 22.5
--- NOTE | 2024-01-17 15:08 | ED.SOB ---
HPI - SOB/Dyspnea General Chief Complaint: Abdominal Pain Stated Complaint: sob Time Seen by Provider: 01/17/24 22:20 Source: patient Mode of arrival: ambulatory Limitations: no limitations History of Present Illness ED Provider: Dr. Byron Bonilla HPI Narrative: 63-year-old female with a past medical history of alcohol dependence with alcoholic cirrhosis with ascites, acute kidney injury, hypertension, hyperlipidemia, degenerative disc disease, vitamin-D deficiency, folate deficiency presents emergency department for evaluation of shortness of breath, abdominal pain and abdominal distention. The patient had a large volume paracentesis by Interventional Radiology on 01/09/2024 and had a proximally 3.4 L ascites drained. Patient states that the fluid is not reaccumulated, she is having abdominal pain and abdominal distention. She was also feeling short of breath. Patient states she has had a decreased appetite. She states that she has had chills but no fever. She has had nausea and vomiting but no diarrhea. Admitted 11/28/2023 until 01/02/2024 for acute kidney injury secondary to acute tubular necrosis, acute hepatic encephalopathy. Related Data Home Medications ?Medication ?Instructions ?Recorded ?Confirmed cholecalciferol (vitamin D3) 1,250 1,250 mcg PO CLEANING 11/28/23 01/03/24 mcg (50,000 unit) capsule ibuprofen 200 mg tablet 400 mg PO Q6H PRN Pain 12/31/23 01/03/24 omeprazole 20 mg tablet,delayed 20 mg PO DAILY@0630 PRN Heartburn 12/31/23 01/03/24 release Previous Rx's ?Medication ?Instructions ?Recorded atorvastatin 20 mg tablet 20 mg PO DAILY #90 tabs 04/02/23 valsartan 160 mg tablet 160 mg PO DAILY #90 tabs 04/02/23 albuterol sulfate 90 mcg/actuation 2 puff inhalation Q6H PRN 06/27/23 aerosol inhaler shortness of breath or wheezing #8.5 grams folic acid 800 mcg tablet 0.8 mg PO DAILY #90 tabs 10/28/23 magnesium oxide 400 mg (241.3 mg 400 mg PO BIDPC 90 days #180 tabs 11/30/23 magnesium) tablet ferrous sulfate 324 mg (65 mg 324 mg PO DAILY 90 days #90 tabs 01/02/24 iron) tablet,delayed release lactulose 20 gram/30 mL oral 20 g (30 mL) PO BID 30 days #1,800 01/02/24 solution mL midodrine 5 mg tablet 5 mg PO BIDWM #60 tabs 01/02/24 spironolactone 25 mg tablet 12.5 mg PO DAILY #60 tabs 01/02/24 thiamine mononitrate (vit B1) 100 100 mg PO DAILY #90 tabs 01/02/24 mg tablet shower seat #1 ea 01/07/24 morphine 15 mg immediate release 15 mg PO Q8H PRN pain #10 tabs 01/18/24 tablet Allergies Allergy/AdvReac Type Severity Reaction Status Date / Time No Known Allergies Allergy Verified 01/17/24 15:09 Review of Systems Review of Systems: Social history: The patient states she was stopped drinking alcohol and stop smoking 11/23/2023. She denies drug use. [facility] Past Medical History Medical History Alcohol use disorder, severe, dependence Osteoporosis Nicotine dependence, cigarettes, uncomplicated Hx of scoliosis Elevated liver transaminase level Folate deficiency Vitamin D deficiency Lumbar stenosis with neurogenic claudication History of right tennis elbow Degenerative disc disease, cervical Lumbar spine scoliosis Hx of fracture of wrist Hyperlipidemia Essential hypertension Surgical History Hx of section Hx of tubal ligation History of carpal tunnel surgery of right wrist History of carpal tunnel surgery of left wrist History of rotator cuff surgery History of colonoscopy with polypectomy Family History Family History Brother Substance use disorder Prostate cancer Daughter Substance use disorder Sister Substance use disorder Maternal Grandmother Diabetes mellitus Mother Alcoholism COPD (chronic obstructive pulmonary disease) Father Alcoholism COPD (chronic obstructive pulmonary disease) Social History Social History Household Members: Spouse and Other Housing: House Do you presently have visiting nurse or other home services: No Alcohol intake: former Patient Tobacco Use Status: Former Tobacco user Tobacco use type: Cigarette Cigarette Packs Per Day: 1 Cigarettes Per Day: 4 Years Smoked: 45 Smoked in Last 30 Days: No e-Cigarette/Vaping Use: Never Used Second Hand Smoke Exposure: No Use of substances other than those prescribed or required for medical reasons: No Advance Directives: No Advance Directives Information Provided: Yes service: No Current occupational status: disabled Cognitive needs: No Hearing needs: No Vision needs: Yes Physical Exam Vital Signs: Vital Signs: Last Vital Signs Temp 98.2 F 01/17/24 21:30 Pulse 102 H 01/17/24 21:30 Resp 20 01/17/24 22:53 BP 130/85 01/17/24 21:30 Pulse Ox 99 01/17/24 21:30 O2 Del Method Room Air 01/17/24 21:30 BMI result Body Mass Index 22.5 Vital signs were normal Exam: General: Awake, alert in no distress Head: Normocephalic, atraumatic EENT: PERRL, Lids normal, sclera normal, conjunctiva normal, nose normal , ears normal, throat without erythema or exudates Neck: Supple, no adenopathy Lung: breath sounds symmetric, no wheezing, rales or rhonchi Chest: symmetric movement, nontender Heart: regular rate and rhythm, normal S1, S2 no murmurs or rubs Abdomen: Distended secondary to ascites, diffusely tender, normoactive bowel sounds, no rebound, no voluntary or involuntary guarding Back: no vertebral tenderness, no CVAT Extremities: no deformities, moves all extremities symmetrically Psych: Pleasant, cooperative Course Course Course Narrative: This is a Rapid Medical Exam performed in triage by Maria L Peres PA-C. Full HPI, ROS and PE to be performed by primary ED provider. 63 yo F w/PMHx ETOH abuse, cirrhosis w/ascites presenting to the ED c/o SOB & abdominal distention. Last paracentesis 01/09/24 in our ED by IR (3.4L removed) PE: chronically ill appearing, in wheelchair, +abdominal distention Plan: labs, UA, CXR Medications Administered Discontinued Medications Generic Name Dose Route Start Last Admin Trade Name Freq PRN Reason Stop Dose Admin Lidocaine HCl 5 ml 01/17/24 22:39 01/17/24 22:53 Lidocaine Hcl 1 % Mpf 5 Ml Vial INFILTRATI 01/17/24 22:40 5 ml ONCE STA Administration Morphine Sulfate 4 mg 01/17/24 22:39 01/17/24 22:53 Morphine Sulfate 4 Mg/Ml Cartridge IVPUSH 01/17/24 22:40 4 mg ONCE STA Administration Protocol Morphine Sulfate 4 mg 01/17/24 23:33 01/17/24 23:42 Morphine Sulfate 4 Mg/Ml Cartridge IVPUSH 01/17/24 23:34 4 mg ONCE STA Administration Protocol Ondansetron HCl 4 mg 01/17/24 22:39 01/17/24 22:53 Ondansetron Hcl 4 Mg/2 Ml Vial IVPUSH 01/17/24 22:40 4 mg ONCE ONE Administration Potassium Chloride 60 meq 01/17/24 18:43 01/17/24 21:58 Potassium Chloride Packet 20 Meq Packet PO 01/17/24 18:44 60 meq ONCE ONE Administration Potassium Chloride 40 meq 01/17/24 22:39 01/17/24 22:53 Potassium Chloride Packet 20 Meq Packet PO 01/17/24 22:40 40 meq ONCE ONE Administration Medical Decision Making Medical Decision Making [facility] Narrative: 63-year-old female with a past medical history of alcohol dependence with alcoholic cirrhosis with ascites, acute kidney injury, hypertension, hyperlipidemia, degenerative disc disease, vitamin-D deficiency, folate deficiency presents emergency department for evaluation of shortness of breath, abdominal pain and abdominal distention. The patient had a large volume paracentesis by Interventional Radiology on 01/09/2024 and had a proximally 3.4 L ascites drained. Patient denied fever but did have chills. She had nausea and vomiting but no diarrhea. Vital signs were normal. Exam did reveal distended abdomen secondary to ascites and diffuse tenderness with no rebound. Differential diagnosis: ?Includes but is not limited to spontaneous bacterial peritonitis, large volume ascites, anemia, electrolyte abnormalities Course: 22:57 My interpretation patient's laboratory evaluation is as follows: Normocytic anemia with an H&H of 10 and 33.4-this is chronic. Potassium was low 2.9. AST and ALT were elevated 54 and 53. Alk-phos elevated 142. COVID-19, influenza and RSV were negative. Lipase was normal. Patient was ordered to get potassium 40 mEq orally. I ordered IV insertion, morphine 4 mg IV and Zofran 4 mg IV. I will do a large volume paracentesis of less than 4 L and I will also send fluid off for evaluation for SBP. 23:33 I was able to remove proximally 1.5 L of ascites fluid through the paracentesis. Fluid was sent for cell count and culture. Patient was given a 2nd dose of morphine 4 mg IV for her abdominal pain 00:20 Paracentesis fluid revealed 78 nucleated cells per high-powered field which is less than 250 which is reassuring. At this time I do not think that the patient has spontaneous bacterial peritonitis. The patient was feeling better after her paracentesis. Patient did require a 2nd dose of morphine 4 mg IV for her pain. Patient was discharged home with a prescription for morphine 15 mg every 6 hours as needed for pain. She was given printed and verbal instructions discharged home. I did also advise her to contact Interventional Radiology to try to arrange scheduled paracenteses for her recurring ascites. Admission/Observation Consideration of admission/observation: Escalation of care including admission/observation considered (Yes) Lab Data MDM Lab Attestation statement: I reviewed the patient's lab results. 01/17/24 16:04 01/17/24 16:04 Labs: Lab Results 01/17/24 01/17/24 Range/Units 16:04 23:30 WBC 11.9 H (4.8-10.8) X10*3/uL RBC 3.48 L (4.20-5.50) X10*6/uL Hgb 10.7 L (12.0-16.0) g/dl Hct 33.4 L (37.0-47.0) % MCV 96.0 (80.0-98.0) fL MCH 30.7 (27.0-33.0) pg MCHC 32.0 (31.0-35.0) g/dl RDW 15.1 (11.0-16.0) % Plt Count 167 D (160-400) X10*3/uL MPV 10.9 (9.4-12.3) fL Immature Gran % (Auto) 0.3 (0.0-0.4) % Neut % (Auto) 64.3 (45-73) % Lymph % (Auto) 23.9 (20-40) % Tift % (Auto) 10.4 (2-11) % Eos % (Auto) 0.3 (0-4) % Baso % (Auto) 0.8 (0-2) % Lymph # (Auto) 2.8 (1.2-4.9) X10*3/uL [place]ift # (Auto) 1.2 (0.1-1.2) X10*3/uL Eos # (Auto) 0.0 (0.0-0.4) X10*3/uL Baso # (Auto) 0.1 (0.0-0.2) X10*3/uL Abs Immat Gran (auto) 0.03 (0.00-0.03) X10*3/uL Absolute Neuts (auto) 7.6 (2.0-8.3) x10*3/uL Absolute Nucleated RBC 0.000 (0.0-0.012) X10*3/uL Nucleated RBC % (auto) 0.0 (0.0-0.2) /100WBC PT 16.3 H (10.9-12.4) SEC INR 1.4 H (0.9-1.1) APTT 30.9 (26.0-36.8) SEC Sodium 135 (135-145) mmol/L Potassium 2.9 L* (3.3-5.1) mmol/L Chloride 103 (96-108) mmol/L Carbon Dioxide 26 (22-29) mmol/L Anion Gap 9 L (12-20) BUN 9 (9-16) mg/dL Creatinine 0.74 (0.5-1.4) mg/dL Estim Creat Clear Calc 57.3 Estimated GFR > 60 Random Glucose 114 (60-115) mg/dL Calcium 8.8 (8.4-10.2) mg/dL Magnesium 2.0 (1.6-2.6) mg/dL Total Bilirubin 0.8 (0.0-1.0) mg/dL Direct Bilirubin 0.3 (0.0-0.5) mg/dL AST 54 H (5-31) U/L ALT 35 H (0-31) U/L Alkaline Phosphatase 142 H (39-117) U/L B-Natriuretic Peptide 83 (<100) pg/mL Total Protein 6.1 L (6.5-8.0) g/dL Albumin 2.6 L (3.5-5.0) g/dL Lipase 28 (8-78) U/L Urine Color Dark Yellow Urine Appearance Cloudy Urine pH 5.5 (5.0-9.0) Ur Specific [place] >= 1.030 H (1.005-1.025) Urine Protein Trace (Neg-Trace) mg/dL Urine Glucose (UA) Negative (Negative) mg/dL Urine Ketones Trace (Negative) mg/dL Urine Blood Negative (Negative) Urine Nitrite Negative (Negative) Ur Leukocyte Esterase Negative (Negative) Peritoneal WBC 0.078 X10*3/uL Peritoneal RBC < 0.002 X10*6/uL Influenza Type A (PCR) NEGATIVE (Negative) Influenza Type B (PCR) NEGATIVE (Negative) RSV RNA Qual (PCR) NEGATIVE (Negative) SARS-CoV-2 RNA (RT-PCR) NEGATIVE (Negative) External Record Review External record reviewed: Inpatient record Prescription Management I considered prescription management with: Pain Medication (Morphine) Procedures Paracentesis Time Out Performed: No Local Anesthetic: lidocaine 1% Amount of anesthesia used (mL): 5 Fluid: clear (Straw colored) Post Procedure Exam: awake, alert Patient Tolerated Procedure: well Complications: none and other (1.5 L of ascites clear, straw-colored ascites fluid was removed through the paracentesis catheter) Discharge Plan Discharge Clinical Impression: Abdominal pain, Tense ascites, Acute hypokalemia Patient Disposition: Home, Self-Care Additional Instructions: You did have a paracentesis here in the emergency department and we removed 1.5 L of ascites fluid. The ascites fluid did not appear to be infected at this time which is reassuring. Continue taking your medications as prescribed by your providers. Take morphine 15 mg pills, 1 pill every 6 hours as needed for pain. This medication will make you sleepy, do not drive or work while taking this medication. Morphine is a narcotic medication and can be addicting. If you are concerned about addiction you can ask the pharmacist for less pills or do not get this prescription filled. I want you to call our Interventional Radiology Department to see if you can schedule regular paracenteses to help with your recurring ascites. Follow-up with your doctor in 2 days. Please return to the emergency department if your symptoms get worse or if you develop any symptoms that are concerning to you. Call the [facility] number and ask for the radiology/interventional radiology department in order to schedule these appointments. Follow-up with your doctor in 2 days. Please return to the emergency department if your symptoms get worse or if you develop any symptoms that are concerning to you. Prescriptions: New morphine 15 mg tablet 15 mg PO Q8H PRN (Reason: pain) Qty: 10 0RF Rx Instructions: Partial Fill upon patient request. No Action albuterol sulfate 90 mcg/actuation HFA aerosol inhaler 2 puff inhalation Q6H PRN (Reason: shortness of breath or wheezing) Qty: 8.5 0RF folic acid 800 mcg tablet 0.8 mg PO DAILY Qty: 90 1RF ibuprofen 200 mg Tablet 400 mg PO Q6H PRN (Reason: Pain) omeprazole 20 mg Tablet,Delayed Release (Dr/Ec) 20 mg PO DAILY@0630 PRN (Reason: Heartburn) spironolactone 25 mg Tablet 12.5 mg PO DAILY Qty: 60 0RF Protocol: Hold for SBP< HOLD for SBP < : 90 ferrous sulfate 324 mg (65 mg iron) Tablet,Delayed Release (Dr/Ec) 324 mg PO DAILY 90 Days Qty: 90 0RF thiamine mononitrate (vit B1) 100 mg Tablet 100 mg PO DAILY Qty: 90 0RF lactulose 20 gram/30 mL Solution 20 g PO BID 30 Days Qty: 1800 0RF midodrine 5 mg Tablet 5 mg PO BIDWM Qty: 60 0RF cholecalciferol (vitamin D3) 1,250 mcg (50,000 unit) capsule 1,250 mcg PO CLEANING magnesium oxide 400 mg (241.3 mg magnesium) Tablet 400 mg PO BIDPC 90 Days Qty: 180 0RF valsartan 160 mg tablet 160 mg PO DAILY Qty: 90 2RF atorvastatin 20 mg tablet 20 mg PO DAILY Qty: 90 2RF (DME) shower seat See Rx Instructions .Route .MEDSUPPLY Qty: 1 0RF Rx Instructions: As directed Print Language: Icelandic
[2024-01-17 16:11] LABS: MANUAL DIFF FLAG NO
[2024-01-17 16:14] LABS: Appearance Urine Cloudy; Color Urine Dark Yellow; Glucose Urine UA Negative (Negative); Leukocyte Esterase Urine Negative (Negative); Nitrite Urine Negative (Negative); PH 5.5 (5.0-9.0); Specific Gravity - Urine >= 1.030 (1.005-1.025); Urine Blood Negative (Negative); Urine Ketones Trace mg/dL (Negative); Urine Protein Trace mg/dL (Neg-Trace)
[2024-01-17 16:17] LABS: Basophils Absolute Auto 0.1 X10*3/uL (0.0-0.2); Basophils Percent Auto 0.8 % (0-2); Eosinophils Percent Auto 0.3 % (0-4); Hematocrit 33.4 % (37.0-47.0); Hemoglobin 10.7 g/dl (12.0-16.0); Imm Gran Abs Auto 0.03 X10*3/uL (0.00-0.03); Imm Gran Pct Auto 0.3 % (0.0-0.4); Lymphocytes Absolute Auto 2.8 X10*3/uL (1.2-4.9); Lymphocytes Percent Auto 23.9 % (20-40); Mean Corpuscular Hemoglobin 30.7 pg (27.0-33.0); Mean Platelet Volume 10.9 fL (9.4-12.3); Monocytes Absolute Auto 1.2 X10*3/uL (0.1-1.2); Monocytes Percent Auto 10.4 % (2-11); Neutrophils Absolute Auto 7.6 x10*3/uL (2.0-8.3); Neutrophils Percent Auto 64.3 % (45-73); Platelet Count 167 X10*3/uL (160-400); Red Blood Count 3.48 X10*6/uL (4.20-5.50); Red Cell Distribution Width 15.1 % (11.0-16.0); White Blood Count 11.9 X10*3/uL (4.8-10.8)
[2024-01-17 16:19] LABS: INTERNATIONAL NORM RATIO 1.4 (0.9-1.1); Prothrombin Time 16.3 SEC (10.9-12.4)
[2024-01-17 16:21] LABS: Partial Thromboplastin Time 30.9 SEC (26.0-36.8)
[2024-01-17 16:33] LABS: B Type Natriuretic Peptide 83 pg/mL (<100)
--- NOTE | 2024-01-17 16:43 | ECG_ITS ---
Test Reason : hypokalemia Blood Pressure : / mmHG Vent. Rate : 105 BPM Atrial Rate : 105 BPM P-R Int : 150 ms QRS Dur : 060 ms QT Int : 362 ms P-R-T Axes : 084 020 063 degrees QTc Int : 478 ms Sinus tachycardia Low voltage QRS Cannot rule out Anterior infarct , age undetermined Nonspecific T wave changes Abnormal ECG When compared with ECG of 28-NOV-2023 11:18, Nonspecific T wave abnormality, improved in Inferior leads Referred By: Maria L Peres Electronically Signed By:Salvador Wallis
[2024-01-17 16:44] LABS: Alanine Aminotransferase 35 U/L (0-31); Albumin Level 2.6 g/dL (3.5-5.0); Alkaline Phosphatase 142 U/L (39-117); Anion Gap 9 (12-20); Aspartate Amino Transferase 54 U/L (5-31); Bilirubin Direct 0.3 mg/dL (0.0-0.5); Bilirubin Total 0.8 mg/dL (0.0-1.0); Blood Urea Nitrogen 9 mg/dL (9-16); Calcium 8.8 mg/dL (8.4-10.2); Carbon Dioxide 26 mmol/L (22-29); Chloride 103 mmol/L (96-108); Creatinine Clr Calc Pharmacy 57.3; Estimated Glomerular Filt Rate > 60; Glucose Random 114 mg/dL (60-115); Lipase 28 U/L (8-78); Potassium 2.9 mmol/L (3.3-5.1); Sodium 135 mmol/L (135-145); Total Protein 6.1 g/dL (6.5-8.0)
[2024-01-17 16:53] LABS: Influenza A PCR NEGATIVE (Negative); Influenza B PCR NEGATIVE (Negative); Resp Syncy Virus RNA Qual PCR NEGATIVE (Negative); SARS COV2 PCR INHOUSE NEGATIVE (Negative)
[2024-01-17 21:30] VITALS: BP 130/85; PULSE 102; RESP 16; TEMP 36.8; O2SAT 99
[2024-01-17] MEDS: Potassium Chloride Packet 20 MEQ PACKET 60 MEQ PO (21:58)
[2024-01-17 22:53] VITALS: RESP 20
[2024-01-17] MEDS: Morphine Sulfate 4 MG/ML CARTRIDGE IVPUSH ×2 (22:53→23:42)
[2024-01-17] MEDS: Potassium Chloride Packet 20 MEQ PACKET 40 MEQ PO (22:53)
[2024-01-17] MEDS: Lidocaine HCl 1 % MPF 5 ML VIAL INFILTRATI (22:53)
[2024-01-17] MEDS: ondansetron HCL 4 MG/2 ML VIAL IVPUSH (22:53)
--- NOTE | 2024-01-17 23:25 | PC.NURSE ---
provider performing paracentesis at the bedside
--- NOTE | 2024-01-17 23:45 | PC.NURSE ---
Medicated per mar for pain management.
[2024-01-17 23:50] LABS: MN% 85.3 %; PMN% 14.7 %; WBC Peritoneal Fluid 0.078 X10*3/uL
[2024-01-17 23:52] LABS: RBC Peritoneal Fluid < 0.002 X10*6/uL
[2024-01-17 23:53] LABS: BF Shift QC OK YES
[2024-01-18 00:45] VITALS: BP 112/73; PULSE 99; RESP 16; TEMP 36.6; O2SAT 97
[2024-01-18 00:45] LABS: Lymphocyte Peritoneal Fl 3 %; Neutrophils Peritoneal Fluid 11 %; Other Peritioneal Fl 4 %
[2024-01-18 00:46] LABS: Monocytes Peritoneal Fl 82 %
--- NOTE | 2024-01-18 00:56 | PC.NURSE ---
paracentesis fluid removal was 1liter and half per provider, removed IV, reviewed discharge instructions with pt. pt verbalized understanding, no sign of distress upon discharge, pt speak in full sentence, and answering question appropriately Pt wheel out to waiting where her daughter pick her up.
[2024-01-18 01:07] VITALS: BP 122/73; PULSE 101; RESP 16; TEMP 36.5; O2SAT 98
== END 2024-01-18 01:08 | disposition home or self-care (01) ==
PROVIDERS: Physician Assistant; Emergency Provider Emergency Medicine Emergency Medical Services; PCP Internal Medicine
DX: R06.02 Shortness of breath (principal); R18.8 Other ascites; R10.2 Pelvic and perineal pain; E87.6 Hypokalemia; R00.0 Tachycardia, unspecified; Z79.899 Other long term (current) drug therapy; Z03.818 Encounter for observation for suspected exposure to other biological agents ruled out
CPT/HCPCS: 0241U; 36415; 71045; 80048; 80076; 81003; 83690; 83735; 83880; 85025; 85610; 85730; 87070; 87073; 87205; 89051; 93005; 96374; 96375; 96376; 99284; 99285; J2003; J2270; J2405

== ENCOUNTER → 2024-01-17 16:43 | Outpatient (BNV) | payer OTHER, SELFPAY | PROVIDERS: Emergency Provider Emergency Medicine Emergency Medical Services; PCP Internal Medicine; Visit Provider Internal Medicine Cardiovascular Disease | DX: R00.0 Tachycardia, unspecified (principal); R94.31 Abnormal electrocardiogram [ECG] [EKG] | CPT/HCPCS: 93010 ==

== ENCOUNTER 2024-01-22 14:58 | Outpatient (AMB) | payer OTHER, SELFPAY ==
--- NOTE | 2024-01-22 15:03 | HO.NEPHOV ---
Vital Signs 01/22/24 15:06 Height 5 ft Weight 111 lb BMI 21.7 BP 80/54 L Blood Pressure Location Rt brachial Position Sitting Pulse 93 Pulse Source Pulse Oximeter Pulse Oximetry (%) 99 Oxygen Delivery Method Room Air Intake Visit Reasons: Acute kidney failure-[employer] Underwriter Required: No Accompanied by: Daughter Allergies No Known Allergies Allergy (Verified 01/17/24 15:09) HPI Comments Details: 63 year old with alcoholic cirrhosis was seen today for follow-up for hypokalemia and total body volume overload. She recently presented to the emergency room with altered mental status and weakness, and abdominal bloating, and was found to have elevated ammonia with acute kidney injury and ascites. Acute kidney injury was likely secondary to acute tubular necrosis, treated with IV octreotide, albumin, midodrine and IV fluid. Her renal function settled to baseline. She has been getting intermittent paracentesis. She denies fever, no chills, no shortness of breath or chest pain but has been having worsening of ascites and is having edema. She is due to see gastroenterology this . She has been hypokalemic and is on K replacement as well as Spironolactone 12.5 mg daily. Her BP has been running low but without any symptoms COUNT INCLUDES THE [facility] Medical History Alcohol use disorder, severe, dependence Osteoporosis Nicotine dependence, cigarettes, uncomplicated Hx of scoliosis Elevated liver transaminase level Folate deficiency Vitamin D deficiency Lumbar stenosis with neurogenic claudication History of right tennis elbow Degenerative disc disease, cervical Lumbar spine scoliosis Hx of fracture of wrist Hyperlipidemia Essential hypertension Surgical History Hx of section Hx of tubal ligation History of carpal tunnel surgery of right wrist History of carpal tunnel surgery of left wrist History of rotator cuff surgery History of colonoscopy with polypectomy Family History Brother Substance use disorder Prostate cancer Daughter Substance use disorder Sister Substance use disorder Maternal Grandmother Diabetes mellitus Mother Alcoholism COPD (chronic obstructive pulmonary disease) Father Alcoholism COPD (chronic obstructive pulmonary disease) Social History Household Members: Spouse and Other Housing: House Do you presently have visiting nurse or other home services: No Alcohol intake: former Patient Tobacco Use Status: Former Tobacco user Tobacco use type: Cigarette Cigarette Packs Per Day: 1 Cigarettes Per Day: 4 Years Smoked: 45 e-Cigarette/Vaping Use: Never Used Second Hand Smoke Exposure: No service: No Current occupational status: disabled Cognitive needs: No Hearing needs: No Vision needs: Yes Female Reproductive History Menstrual Age of Menarche: 16 Review of Systems Const All systems reviewed & are unremarkable except as noted in HPI and below Physical Exam Vital Signs: Last Vital Signs Pulse 93 01/22/24 15:06 BP 80/54 L 01/22/24 15:06 Pulse Ox 99 01/22/24 15:06 Oxygen Delivery Method Room Air 01/22/24 15:06 BMI result Body Mass Index 21.7 Const General: comfortable and no acute distress Orientation/consciousness: patient oriented x3 HEENT Head: Yes normocephalic Mouth: Normal oral and palatal mucosa present Eyes EOM: EOMs intact bilaterally Neck Neck: Yes supple Resp Auscultation: clear to auscultation bilaterally Cardio Jugular venous distension: no JVD Rate: regular rate GI Other: Ascites + Neuro General: patient oriented x3 and moves all extremities Extrem General: Yes edema Results Reviewed Nephrology Results: Hgb 10.7 g/dl (12.0-16.0) L 01/17/24 WBC 11.9 X10*3/uL (4.8-10.8) H 01/17/24 Plt Count 167 X10*3/uL (160-400) 01/17/24 Sodium 135 mmol/L (135-145) 01/17/24 Potassium 2.9 mmol/L (3.3-5.1) L* 01/17/24 Chloride 103 mmol/L (96-108) 01/17/24 Carbon Dioxide 26 mmol/L (22-29) 01/17/24 BUN 9 mg/dL (9-16) 01/17/24 Creatinine 0.74 mg/dL (0.5-1.4) 01/17/24 Calcium 8.8 mg/dL (8.4-10.2) 01/17/24 Urine Protein Trace mg/dL (Neg-Trace) 01/17/24 Assessment & Plan Assessment & Plan (1) Hypokalemia: Code(s): E87.6 - Hypokalemia Category: Medical (2) Hypotension: Code(s): I95.9 - Hypotension, unspecified Category: Medical Qualifiers: Hypotension type: unspecified hypotension type Qualified Code(s): I95.9 - Hypotension, unspecified Plan H/O recent STACIA likely tubular injury from renal hypoperfusion No obstruction suggested on recent abdominal CT : BP low due to hepatic physiology Increased Spironolactone to 25 mg daily; Started lasix 20 mg daily Increased Midodrine to 10 mg tid; Seeing GI this Will need paracentesis with IV Albumin; Once K is better needs to D/C K replacement Follow up blood work ordered; Answered all her and her daughter's questions Orders: Orders Creatinine 2 Weeks E87.6 - Hypokalemia Blood Urea Nitrogen 2 Weeks E87.6 - Hypokalemia Electrolytes 2 Weeks E87.6 - Hypokalemia Medications: New furosemide (Lasix) 20 mg PO DAILY 30 tabs 4RF Changed From spironolactone 12.5 mg See Protocol PO DAILY 60 tabs 0RF To spironolactone 25 mg See Protocol PO DAILY 30 days 30 tabs 3RF From midodrine 5 mg PO BIDWM 60 tabs 0RF To midodrine 10 mg PO TID 30 days 90 tabs 3RF Coding Level of Care Code Est Pt Level 4 (28745) Diagnoses Hypokalemia E87.6 Hypotension I95.9 Hypotension type: unspecified hypotension type
[2024-01-22 15:06] VITALS: BP 80/54; PULSE 93; O2SAT 99; BMI 21.7
== END 2024-01-22 15:33 | disposition home or self-care (01) ==
PROVIDERS: PCP Internal Medicine; Referring Provider Internal Medicine; Visit Provider Internal Medicine Nephrology
DX: E87.6 Hypokalemia (principal); I95.9 Hypotension, unspecified
CPT/HCPCS: 99214

== ENCOUNTER 2024-01-24 10:50 | Outpatient (AMB) | payer OTHER, SELFPAY ==
--- NOTE | 2024-01-24 10:52 | A.OFFVIS_ITS ---
Vital Signs 01/24/24 10:54 Height 5 ft Weight 111 lb BMI 21.7 BP 101/57 L Blood Pressure Location Lt brachial Position Sitting Pulse 91 Intake Visit Reasons: hospital follow up/Cirrhosis Intake Note: Patient new consult, hospital follow up/Cirrhosis. Patient cc: abdominal pain/bloating, medication is working for constipation. Port Crane Operator Required: No Accompanied by: Family/Other Allergies No Known Allergies Allergy (Verified 01/24/24 10:53) Medication List - Last Reconciled 01/24/24 by Aron Chavez MD albuterol sulfate 90 mcg/actuation 2 puffs inhalation Q6H PRN cholecalciferol (vitamin D3) 1,250 mcg PO CLEANING ferrous sulfate 324 mg PO DAILY 90 days folic acid 0.8 mg PO DAILY furosemide (Lasix) 20 mg PO DAILY lactulose 20 grams (30 mL) PO BID 30 days magnesium oxide 400 mg PO BIDPC 90 days midodrine 10 mg PO TID 30 days morphine 15 mg PO Q8H PRN omeprazole 20 mg PO DAILY@0630 PRN [shower seat As directed] spironolactone 25 mg See Protocol PO DAILY 30 days thiamine mononitrate (vit B1) 100 mg PO DAILY valsartan 160 mg PO DAILY HPI HPI hospital follow up/Cirrhosis: Details: GI clinic visit for this 63 YF 63 YF with ETOH abuse, hypertension, hyperlipidemia, degenerative disc disease, vitamin-D deficiency, folate deficiency, and alcohol use disorder here for follow-up of alcoholic cirrhosis complicated by ascites, thrombocytopenia, hepatic encephalopathy after recent hospitalization in 12/2023. Hospital course The patient was evaluated for acute kidney injury which likely secondary to ATN rather than HRS but treated as. improved to baseline with albumin, IV octrotide, midodrine and IVF. Followed by nephrology team who recommended an outpatient follow up for further work up and monitoring. Acute metabolic encephalopathy due to hepatic encephalopathy due to alcoholic cirrhosis which was treated with LActulos and Rifaximin with Goal 2 bowel movements per day. She had Status post 80 cc paracentesis, no signs of SBP. removed 2L of clear fluids. Started on Spironolactone 12.5 mg daily with plan to repeat blood work as outpatient. Anemia with low Iron stores, started on Iron replacement therapy. To follow CBC next week. Hypotension due to liver disease not sepsis. resolved with Midodrine and holding Valsartan. Will continue to hold on discharge and keep Midodrine for the next month as bid. Mild hypernatremia, responded well to IV fluids. and was Monitored during the hospital stay. Acute hypokalemia with acute Replacement and monitoring during hospital stay. Discharge plan Start Spironolactone for ascites management Monitor weight at home and report changes to PCP Hold Valsartan; Monitor BP for 1 week then discuss with PCP the need to restart it Lactulose twice daily with goal of 1-2 bowel movements Avoid Alcohol Start Iron supplement as prescribed Thiamine supplement Midodrine for 1 month to support BP To follow up with Gastroenterology as scheduled in office To follow with nephrology as outpatient. TODAY'S VISIT: Pt is accompanied by her daughter and Son-in-law Patient cc: abdominal pain/bloating, medication is working for constipation. I am retaining water Complains of progressive abdominal distension. Feels cold all the time. Taking lactulose and had 4 BMs yesterday. Patient denies symptoms of heartburn, dysphagia, nausea, vomiting, Eating better than she was in the past. Denies recent black stools or rectal bleeding. Coughing at night. Patient denies major cardiac or pulmonary problems, loud snoring or sleep apnea The patient admitted to drinking 4-5 beers and twisted teas 3 days a week for the past several years. She admits to smoking 1/2 PPD and denies any other substance use. Quitted smoking and drinking more than a month ago. Pt lives with her and has custody of two GK (4 & 6 yrs old) She worked in a [employer] and is now retired Family hx is positive for Cirrhosis in both parents who were alcoholics. Pt denies known FH of GI malignancy Denies problems with anesthesia in the past. Denies being on chronic anticoagulation. PAST EGD/COLONOSCOPY LABS IN [facility] : Reviewed IMAGING STUDIES: Reviewed ENDOSCOPIC STUDIES: None in [facility] PAST GI HISTORY BY REVIEW OF MEDICAL RECORDS: 12/31/23 PT WAS SEEN AT [facility] DURING HOSPITALIZATION: Reason for consult: Cirrhosis with hepatic encephalopathy 63F with ESLD due to ETOH abuse, hypertension, hyperlipidemia, degenerative disc disease, vitamin-D deficiency, folate deficiency seen at [facility] ED on 12/30/23 with altered mental status and weakness. Symptoms progressing over the last week, mostly abdominal distention and bloating and confusion. Pt is known to me from recent hospitalization at [facility] from 11/27 to 12/03/23 Pt was scheduled for a FU appt in GI on 12/10/23 and was a no show. A & P: 63 YF with ETOH abuse, hypertension, hyperlipidemia, degenerative disc disease, vitamin-D deficiency, folate deficiency, and alcohol use disorder admitted to [facility] on 12/30/23 due to lethargy and weakness over the past week. Pt denies past hx of liver disease prior to last admission - admits to having fatigue and easy bruising for the past few months. CT abdomen pelvis shows marked fatty change of liver with moderate volume abdominal ascites and mild diffuse nonspecific bowel wall thickening of the cecum and ascending colon through the mid transverse colon without obstruction. Pt has decompensated cirrhosis likely related to ETOH abuse complicated by ascites, hepatic encephalopathy and renal failure MELD score is 12 RECOMMENDATIONS: 1. Agree with Lactulose and Rifaximin for HE and Midodrine and Octreotide for renal failure/HRS 3. Consult to Addiction Medicine for ETOH rehab - pt states she plans to stop drinking 4. Pt will be scheduled for a FU appt in GI - (previously scheduled on 12/10/23 - pt states she was unable to come since GD was sick) [facility] Medical History Alcohol use disorder, severe, dependence Osteoporosis Nicotine dependence, cigarettes, uncomplicated Hx of scoliosis Elevated liver transaminase level Folate deficiency Vitamin D deficiency Lumbar stenosis with neurogenic claudication History of right tennis elbow Degenerative disc disease, cervical Lumbar spine scoliosis Hx of fracture of wrist Hyperlipidemia Essential hypertension Surgical History Hx of section Hx of tubal ligation History of carpal tunnel surgery of right wrist History of carpal tunnel surgery of left wrist History of rotator cuff surgery History of colonoscopy with polypectomy Family History Brother Substance use disorder Prostate cancer Daughter Substance use disorder Sister Substance use disorder Maternal Grandmother Diabetes mellitus Mother Alcoholism COPD (chronic obstructive pulmonary disease) Father Alcoholism COPD (chronic obstructive pulmonary disease) Social History Household Members: Spouse and Other Housing: House Do you presently have visiting nurse or other home services: No Alcohol intake: former Patient Tobacco Use Status: Former Tobacco user Tobacco use type: Cigarette Cigarette Packs Per Day: 1 Cigarettes Per Day: 4 Years Smoked: 45 e-Cigarette/Vaping Use: Never Used Second Hand Smoke Exposure: No service: No Current occupational status: disabled Cognitive needs: No Hearing needs: No Vision needs: Yes Female Reproductive History Menstrual Age of Menarche: 16 Review of Systems Const Reports fatigue, Denies fever(s), Denies headache(s) and Denies weight loss Eyes Denies eye discharge and Denies irritation ENT Reports Normal hearing present, Denies dysphagia, Denies dizziness and Denies headache(s) Card Denies chest pain, Denies leg edema and Reports dyspnea on exertion Resp Reports cough, Reports dyspnea on exertion and Reports wheezing GI Reports abdominal pain, Reports bloating, Denies change in bowel habits, Reports constipation, Denies dysphagia, Denies heartburn and Reports diarrhea Denies difficulty voiding, Denies dysuria and Reports other (LMP - 10+ years) Musc Denies back pain and Reports arthralgias Skin/Breast Denies pruritus, Denies rash and Denies jaundice Neuro Reports Normal hearing present, Denies Abnormal speech present, Denies dizziness, Denies headache(s) and Denies seizure-like activity Psych Denies anxiety, Denies depression and Denies panic attacks Endo Denies cold intolerance, Reports fatigue, Denies flushing and Denies heat intolerance Codey/Lymph Denies easy bleeding and Denies easy bruising Aller/Immun Reports wheezing Physical Exam Vital Signs: Last Vital Signs Pulse 91 01/24/24 10:54 BP 101/57 L 01/24/24 10:54 BMI result Body Mass Index 21.7 Const General: no acute distress and ill appearing (Chronically ill-appearing due to liver disease) Nutritional Appearance: average body habitus Orientation/consciousness: patient oriented x3 Limitations: wheelchair HEENT Head: Yes normal to inspection Ears: hearing grossly normal bilaterally Mouth: Normal oral and palatal mucosa present Eyes Sclerae: sclerae normal Pupils: Equal, round and reactive pupils present Neck Neck: Yes normal visual inspection Chest Chest palpation & inspection: normal inspection of the chest Resp Effort & Inspection: normal respiratory effort Auscultation: clear to auscultation bilaterally Cardio Palpation: normal PMI Rate: regular rate Rhythm: regular rhythm Heart sounds: S1 normal heart sound present, S2 normal heart sound present and no murmurs GI Inspection: Yes distended (Due to ascites) Palpation (GI): Soft to palpation, nontender and No hepatosplenomegaly present Auscultation: normal bowel sounds Rectal Exam - Female: deferred Skin General skin exam: no rashes or lesions noted Neuro General: patient oriented x3, gait normal and moves all extremities Cranial nerves: Yes Equal, round and reactive pupils present and Yes Normal hearing present Speech: No Abnormal speech present Psych Appearance: grossly normal Mental Status: mental status grossly normal Assessment & Plan Assessment & Plan (1) Ascites: Code(s): R18.8 - Other ascites Category: Medical (2) Alcoholic cirrhosis of liver with ascites: Code(s): K70.31 - Alcoholic cirrhosis of liver with ascites Category: Medical Plan 63 YF with ETOH abuse, hypertension, hyperlipidemia, degenerative disc disease, vitamin-D deficiency, folate deficiency, and alcohol use disorder hospitalized at [facility] in 12/2023 due to lethargy and weakness. Pt gave a hx of fatigue and easy bruising for the preceding few months. CT abdomen pelvis shows marked fatty change of liver with moderate volume abdominal ascites and mild diffuse nonspecific bowel wall thickening of the cecum and ascending colon through the mid transverse colon without obstruction. Pt has decompensated cirrhosis likely related to ETOH abuse complicated by ascites, hepatic encephalopathy and renal failure REDUCING THE RISK OF LIVER PROGRESSION: patient was advised to completely avoid use of alcohol HCC SURVEILLANCE: the patient is at risk of developing hepatocellular carcinoma given the presence of cirrhosis and need 6 monthly imaging surveillance with either abdominal ultrasound (US) or multiphase cross-sectional imaging (CT or MRI). Last Abd CT scan on 12/30/23 had shown no focal liver lesions suspicious of HCC. VACCINATIONS: Pt does not have serological evidence of prior exposure to or vaccination against hepatitis a or hepatitis B. Given lack of serological evidence of immunity, she needs to undergo vaccination against both hepatitis a and hepatitis B (with a series of 3 doses at 0, 1 and 6 months). Patient should also remain up-to-date with all age-appropriate vaccinations including vaccination against pneumococcus. As we no longer have vaccines available in our Clinic, I request PCP to arrange this. SURVEILLANCE FOR GASTROESOPHAGEAL VARICES: I will schedule an EGD to screen for varices on FU after ascites is controlled. QUESTION OF LIVER TRANSPLANTATION: MELD Na score is 10. Pt will be referred for Liver Transplant evaluation after she has been abstinent for 3 months Pt seen by Nephrology on 01/22/24: Spironolactone to 25 mg daily; Started lasix 20 mg daily Increased Midodrine to 10 mg tid; Seeing GI this Will need paracentesis with IV Albumin; Once K is better needs to D/C K replacement 01/24/24 Complains of progressive abdominal distension - scheduled for urgent paracentesis on 01/25/24. Feels cold all the time. Taking lactulose and had 4 BMs yesterday. Quitted smoking and drinking more than a month ago. FU in 2 months - scheduled 03/21/24 Orders: Orders US paracentesis abd w/image Today R18.8 - Other ascites Comprehensive Met. Panel Today K70.31 - Alcoholic cirrhosis of liver with ascites Complete Blood Count no Diff Today K70.31 - Alcoholic cirrhosis of liver with ascites Magnesium Today K70.31 - Alcoholic cirrhosis of liver with ascites Ammonia Today K70.31 - Alcoholic cirrhosis of liver with ascites Zinc Today K70.31 - Alcoholic cirrhosis of liver with ascites Medications: Refilled albuterol sulfate 90 mcg/actuation 2 puffs inhalation Q6H PRN 8.5 grams 0RF shortness of breath or wheezing Coding Level of Care Code Est Pt Level 4 (42984) Diagnoses Ascites R18.8 Alcoholic cirrhosis of liver with ascites K70.31 Time Spent (min) 31
[2024-01-24 10:54] VITALS: BP 101/57; PULSE 91; BMI 21.7
== END 2024-01-24 11:42 | disposition home or self-care (01) ==
LOC: HO.HGI 10:50
PROVIDERS: PCP Internal Medicine; Visit Provider Internal Medicine Gastroenterology
DX: K70.31 Alcoholic cirrhosis of liver with ascites (principal)
CPT/HCPCS: 99214

== ENCOUNTER → 2024-01-24 10:50 | Outpatient (BNVA) | payer OTHER, SELFPAY | PROVIDERS: PCP Internal Medicine; Visit Provider Internal Medicine Gastroenterology ==

== ENCOUNTER 2024-01-25 07:03 | Day surgery (SDC) | payer OTHER, SELFPAY ==
[2024-01-25] VITALS (7 sets, daily range): BP systolic 101–125; BP diastolic 59–89; PULSE 83–90; RESP 10–22; TEMP 36.6–37.2; O2SAT 97–99; BMI 21.9
--- NOTE | ~2024-01-25 | US_ITS ---
ULTRASOUND GUIDED PARACENTESIS HISTORY: Ascites. Therapeutic drainage. TECHNIQUE: Risks and benefits and possible complications were discussed with the patient and consent form was signed. A safe pocket of ascitic fluid was identified using ultrasound guidance, and the overlying skin was marked. The abdomen prepped and draped in sterile fashion. 1% lidocaine was used as a local anesthetic. Using ultrasound guidance, a 5 fr catheter was placed into the ascitic pocket. 3.4 liters of yellow fluid was removed passively. The catheter was then removed. A few career representative images from before and after the examination were obtained. The procedure was performed by Adeel Veliz PA-C and supervised by Dr. Gee. US/US paracentesis abd w/image IMPRESSION: Ultrasound-guided paracentesis as described above. No immediate complications Electronically signed by: Tk Gee MD 01/28/2024 03:50 PM SUNITHA
[2024-01-25] MEDS: Albumin Human 25 % 100 ML IV (08:33)
[2024-01-25] MEDS: Lidocaine HCl 1 % MPF 5 ML VIAL SUBCUT (09:11)
== END 2024-01-25 09:34 | disposition home or self-care (01) ==
PROVIDERS: Physician Assistant Surgical; PCP Internal Medicine; Visit Provider Internal Medicine Gastroenterology
DX: K70.31 Alcoholic cirrhosis of liver with ascites (principal); I10 Essential (primary) hypertension; D52.9 Folate deficiency anemia, unspecified; D69.6 Thrombocytopenia, unspecified; E78.5 Hyperlipidemia, unspecified; E55.9 Vitamin D deficiency, unspecified; M50.30 Other cervical disc degeneration, unspecified cervical region; Z79.899 Other long term (current) drug therapy; F17.210 Nicotine dependence, cigarettes, uncomplicated
CPT/HCPCS: 49083; J2003; P9047

== ENCOUNTER → 2024-01-25 08:00 | Outpatient (BNV) | payer OTHER, SELFPAY | PROVIDERS: PCP Internal Medicine; Visit Provider Physician Assistant Surgical | DX: R18.8 Other ascites (principal) | CPT/HCPCS: 49083 ==

== ENCOUNTER 2024-02-01 03:06 | Emergency (ER) | payer OTHER, SELFPAY ==
--- NOTE | ~2024-02-01 | XR_ITS ---
EXAMINATION: XR CHEST CLINICAL INFORMATION: SOB COMPARISON: January 17, 2024. TECHNIQUE: Frontal view of the chest was obtained. FINDINGS: The cardiomediastinal silhouette is stable. There is no focal lung consolidation or pleural effusion. Thoracolumbar orthopedic hardware is noted. There is no acute osseous abnormality. The soft tissues are unremarkable XR/XR chest 1V IMPRESSION: No acute disease. Electronically signed by: Jase Loyd MD 02/01/2024 03:45 AM [facility]
[2024-02-01 03:08] VITALS: BP 128/82; BP 138/80; PULSE 100; PULSE 98; RESP 20; TEMP 36.8; O2SAT 92; O2SAT 99; BMI 21.5
--- NOTE | 2024-02-01 03:19 | ECG_ITS ---
Test Reason : SOB Blood Pressure : / mmHG Vent. Rate : 099 BPM Atrial Rate : 099 BPM P-R Int : 142 ms QRS Dur : 070 ms QT Int : 368 ms P-R-T Axes : 062 -03 054 degrees QTc Int : 472 ms Normal sinus rhythm Low voltage QRS Nonspecific ST and T wave abnormality Borderline ECG When compared with ECG of 17-JAN-2024 19:10, No significant change was found Referred By: Generic ED Physician Electronically Signed By:CHICO TIM
[2024-02-01 03:36] LABS: MANUAL DIFF FLAG NO
[2024-02-01 03:37] LABS: Basophils Absolute Auto 0.1 X10*3/uL (0.0-0.2); Basophils Percent Auto 0.5 % (0-2); Eosinophils Percent Auto 0.3 % (0-4); Hematocrit 33.2 % (37.0-47.0); Hemoglobin 11.2 g/dl (12.0-16.0); Imm Gran Abs Auto 0.05 X10*3/uL (0.00-0.03); Imm Gran Pct Auto 0.4 % (0.0-0.4); Lymphocytes Absolute Auto 2.1 X10*3/uL (1.2-4.9); Lymphocytes Percent Auto 18.8 % (20-40); Mean Corpuscular HGB Conc 33.7 g/dl (31.0-35.0); Mean Corpuscular Hemoglobin 30.7 pg (27.0-33.0); Mean Platelet Volume 9.1 fL (9.4-12.3); Monocytes Absolute Auto 0.7 X10*3/uL (0.1-1.2); Monocytes Percent Auto 5.9 % (2-11); Neutrophils Absolute Auto 8.4 x10*3/uL (2.0-8.3); Neutrophils Percent Auto 74.1 % (45-73); Platelet Count 303 X10*3/uL (160-400); Red Blood Count 3.65 X10*6/uL (4.20-5.50); Red Cell Distribution Width 14.6 % (11.0-16.0); White Blood Count 11.4 X10*3/uL (4.8-10.8)
[2024-02-01 03:52] LABS: Alanine Aminotransferase 30 U/L (0-31); Albumin Level 2.7 g/dL (3.5-5.0); Alkaline Phosphatase 119 U/L (39-117); Anion Gap 14 (12-20); Aspartate Amino Transferase 67 U/L (5-31); Bilirubin Total 0.6 mg/dL (0.0-1.0); Blood Urea Nitrogen 10 mg/dL (9-16); Calcium 8.3 mg/dL (8.4-10.2); Carbon Dioxide 23 mmol/L (22-29); Chloride 103 mmol/L (96-108); Estimated Glomerular Filt Rate > 60; Glucose Random 103 mg/dL (60-115); Lipase 32 U/L (8-78); Potassium 3.4 mmol/L (3.3-5.1); Sodium 137 mmol/L (135-145); Total Protein 6.2 g/dL (6.5-8.0)
[2024-02-01 03:56] LABS: B Type Natriuretic Peptide 73 pg/mL (<100)
--- NOTE | 2024-02-01 04:28 | ED_ITS ---
HPI - Abdominal Pain General Chief Complaint: Abdominal Pain Stated Complaint: hx of cirrhosis-need drain, SOB albuterol no work Time Seen by Provider: 02/01/24 04:28 Source: patient Mode of arrival: ambulatory Limitations: no limitations History of Present Illness ED Provider: HPI narrative: Patient's history of alcoholic cirrhosis supposed to get ascitic tap patient ascitic tap was about 2 weeks ago patient has been getting a ascitic tap patient was getting ascitic tap once a week for last 2 months Related Data Home Medications ?Medication ?Instructions ?Recorded ?Confirmed cholecalciferol (vitamin D3) 1,250 1,250 mcg PO CLEANING 11/28/23 01/24/24 mcg (50,000 unit) capsule omeprazole 20 mg tablet,delayed 20 mg PO DAILY@0630 PRN Heartburn 12/31/23 01/24/24 release Previous Rx's ?Medication ?Instructions ?Recorded valsartan 160 mg tablet 160 mg PO DAILY #90 tabs 04/02/23 folic acid 800 mcg tablet 0.8 mg PO DAILY #90 tabs 10/28/23 magnesium oxide 400 mg (241.3 mg 400 mg PO BIDPC 90 days #180 tabs 11/30/23 magnesium) tablet ferrous sulfate 324 mg (65 mg 324 mg PO DAILY 90 days #90 tabs 01/02/24 iron) tablet,delayed release lactulose 20 gram/30 mL oral 20 g (30 mL) PO BID 30 days #1,800 01/02/24 solution mL thiamine mononitrate (vit B1) 100 100 mg PO DAILY #90 tabs 01/02/24 mg tablet shower seat #1 ea 01/07/24 morphine 15 mg immediate release 15 mg PO Q8H PRN pain #10 tabs 01/18/24 tablet furosemide 20 mg tablet (Lasix) 20 mg PO DAILY #30 tabs 01/22/24 midodrine 10 mg tablet 10 mg PO TID 30 days #90 tabs 01/22/24 spironolactone 25 mg tablet 25 mg PO DAILY 30 days #30 tabs 01/22/24 albuterol sulfate 90 mcg/actuation 2 puff inhalation Q6H PRN 01/24/24 aerosol inhaler shortness of breath or wheezing #8.5 grams Allergies Allergy/AdvReac Type Severity Reaction Status Date / Time No Known Allergies Allergy Verified 02/01/24 03:16 Review of Systems Review of Systems Yes all other systems are reviewed and are negative [facility] Past Medical History Medical History Back pain with history of spinal surgery Alcohol use disorder, severe, dependence Osteoporosis Nicotine dependence, cigarettes, uncomplicated Hx of scoliosis Elevated liver transaminase level Folate deficiency Vitamin D deficiency Lumbar stenosis with neurogenic claudication History of right tennis elbow Degenerative disc disease, cervical Lumbar spine scoliosis Hx of fracture of wrist Hyperlipidemia Essential hypertension Surgical History Hx of section Hx of tubal ligation History of carpal tunnel surgery of right wrist History of carpal tunnel surgery of left wrist History of rotator cuff surgery History of colonoscopy with polypectomy Family History Family History Brother Substance use disorder Prostate cancer Daughter Substance use disorder Sister Substance use disorder Maternal Grandmother Diabetes mellitus Mother Alcoholism COPD (chronic obstructive pulmonary disease) Father Alcoholism COPD (chronic obstructive pulmonary disease) Social History Social History Household Members: Spouse and Other Housing: House Do you presently have visiting nurse or other home services: No Alcohol intake: former Patient Tobacco Use Status: Former Tobacco user Tobacco use type: Cigarette Cigarette Packs Per Day: 1 Cigarettes Per Day: 4 Years Smoked: 45 Smoked in Last 30 Days: No e-Cigarette/Vaping Use: Never Used Second Hand Smoke Exposure: No Advance Directives: No Do you have a plan to hurt others: No Plan Patient : No service: No Current occupational status: disabled Cognitive needs: No Hearing needs: No Vision needs: Yes Physical Exam ED Vital Signs: Vital Signs - 24 hr 02/01/24 03:08 02/01/24 05:00 02/01/24 05:10 Temperature 98.2 F Pulse Rate 98 98 90 Respiratory Rate 20 20 18 Blood Pressure 128/82 127/87 111/77 Pulse Oximetry 99 96 97 Oxygen Delivery Method Room Air Room Air Room Air 02/01/24 05:28 02/01/24 06:00 Temperature Pulse Rate 89 91 Respiratory Rate 20 18 Blood Pressure 104/64 94/58 L Pulse Oximetry 98 94 Oxygen Delivery Method Room Air Room Air BMI result Body Mass Index 21.5 Appearance: Alert. Oriented X3. No acute distress. Eyes: PERRLA, No Nystagmus ENT: Pharynx normal. Oral Mucosa moist Neck: Normal inspection. Neck supple. CVS: Normal heart rate and rhythm. Pulses normal. Respiratory: No respiratory distress. Equal air entry bilateral, no wheezing/rales/rhonchi Abdomen: Distended abdomen with mild tenderness no rebound tenderness free fluid++ Bowel sounds are present, no mass palpable, no CVA tenderness Skin: Skin warm and dry. Normal skin color. Normal skin turgor. Extremities: No lower extremity edema. No calf tenderness Neuro: Oriented X 3. No motor deficit. No sensory deficit.No cerebellar signs , cranial nerves II-XII intact Procedures Paracentesis Time Out Performed: Yes Local Anesthetic: lidocaine 1% Amount of anesthesia used (mL): 2 Fluid: cloudy, other (Total 3.5 L of ascitic fluid drained) and sent to lab for analysis Post Procedure Exam: awake, alert Patient Tolerated Procedure: well Complications: none Medical Decision Making Lab Data 02/01/24 03:31 02/01/24 03:31 Labs: Lab Results 02/01/24 02/01/24 Range/Units 03:31 05:21 WBC 11.4 H (4.8-10.8) X10*3/uL RBC 3.65 L (4.20-5.50) X10*6/uL Hgb 11.2 L (12.0-16.0) g/dl Hct 33.2 L (37.0-47.0) % MCV 91.0 (80.0-98.0) fL MCH 30.7 (27.0-33.0) pg MCHC 33.7 (31.0-35.0) g/dl RDW 14.6 (11.0-16.0) % Plt Count 303 D (160-400) X10*3/uL MPV 9.1 L (9.4-12.3) fL Immature Gran % (Auto) 0.4 (0.0-0.4) % Neut % (Auto) 74.1 H (45-73) % Lymph % (Auto) 18.8 L (20-40) % Saunders % (Auto) 5.9 (2-11) % Eos % (Auto) 0.3 (0-4) % Baso % (Auto) 0.5 (0-2) % Lymph # (Auto) 2.1 (1.2-4.9) X10*3/uL Saunders # (Auto) 0.7 (0.1-1.2) X10*3/uL Eos # (Auto) 0.0 (0.0-0.4) X10*3/uL Baso # (Auto) 0.1 (0.0-0.2) X10*3/uL Abs Immat Gran (auto) 0.05 H (0.00-0.03) X10*3/uL Absolute Neuts (auto) 8.4 H (2.0-8.3) x10*3/uL Absolute Nucleated RBC 0.000 (0.0-0.012) X10*3/uL Nucleated RBC % (auto) 0.0 (0.0-0.2) /100WBC Sodium 137 (135-145) mmol/L Potassium 3.4 (3.3-5.1) mmol/L Chloride 103 (96-108) mmol/L Carbon Dioxide 23 (22-29) mmol/L Anion Gap 14 (12-20) BUN 10 (9-16) mg/dL Creatinine 0.80 (0.5-1.4) mg/dL Estim Creat Clear Calc 53.0 Estimated GFR > 60 Random Glucose 103 (60-115) mg/dL Calcium 8.3 L (8.4-10.2) mg/dL Total Bilirubin 0.6 (0.0-1.0) mg/dL AST 67 H (5-31) U/L ALT 30 (0-31) U/L Alkaline Phosphatase 119 H (39-117) U/L B-Natriuretic Peptide 73 (<100) pg/mL Total Protein 6.2 L (6.5-8.0) g/dL Albumin 2.7 L (3.5-5.0) g/dL Lipase 32 (8-78) U/L Peritoneal WBC 0.094 X10*3/uL Peritoneal RBC < 0.002 X10*6/uL Periton Neutrophils 17 % Periton Lymphocytes 9 % Peritoneal Monocytes 34 % Peritoneal Other Cells 40 % Medications Administered Generic Name Dose Route Start Last Admin Trade Name Freq PRN Reason Stop Dose Admin Albumin Human 100 mls @ 100 mls/hr 02/01/24 05:15 02/01/24 06:30 Kedbumin 25 % IV 02/01/24 07:14 100 mls/hr Q1H LILLY Administration Discontinued Medications Generic Name Dose Route Start Last Admin Trade Name Freq PRN Reason Stop Dose Admin Lidocaine HCl 2 ml 02/01/24 04:28 02/01/24 05:07 Lidocaine Hcl 1 % Mpf 2 Ml Vial INFILTRATI 02/01/24 04:29 2 ml ONCE ONE Administration Discharge Plan Discharge Clinical Impression: Ascites Patient Disposition: Home, Self-Care Instructions: Ascites (ED), Paracentesis (DC) Additional Instructions: 3.5 L of ascitic fluid was removed Follow up with your electronics mechanic apprentice for further management Continue your remaining medications Prescriptions: No Action folic acid 800 mcg tablet 0.8 mg PO DAILY Qty: 90 1RF omeprazole 20 mg Tablet,Delayed Release (Dr/Ec) 20 mg PO DAILY@0630 PRN (Reason: Heartburn) ferrous sulfate 324 mg (65 mg iron) Tablet,Delayed Release (Dr/Ec) 324 mg PO DAILY 90 Days Qty: 90 0RF thiamine mononitrate (vit B1) 100 mg Tablet 100 mg PO DAILY Qty: 90 0RF lactulose 20 gram/30 mL Solution 20 g PO BID 30 Days Qty: 1800 0RF morphine 15 mg tablet 15 mg PO Q8H PRN (Reason: pain) Qty: 10 0RF Rx Instructions: Partial Fill upon patient request. cholecalciferol (vitamin D3) 1,250 mcg (50,000 unit) capsule 1,250 mcg PO CLEANING magnesium oxide 400 mg (241.3 mg magnesium) Tablet 400 mg PO BIDPC 90 Days Qty: 180 0RF valsartan 160 mg tablet 160 mg PO DAILY Qty: 90 2RF (DME) shower seat See Rx Instructions .Route .MEDSUPPLY Qty: 1 0RF Rx Instructions: As directed furosemide [Lasix] 20 mg tablet 20 mg PO DAILY Qty: 30 4RF midodrine 10 mg tablet 10 mg PO TID 30 Days Qty: 90 3RF spironolactone 25 mg tablet 25 mg PO DAILY 30 Days Qty: 30 3RF Protocol: Hold for SBP< HOLD for SBP < : 90 albuterol sulfate 90 mcg/actuation HFA aerosol inhaler 2 puff inhalation Q6H PRN (Reason: shortness of breath or wheezing) Qty: 8.5 0RF Print Language: Japanese
[2024-02-01 05:00] VITALS: BP 127/87; PULSE 98; RESP 20; O2SAT 96
[2024-02-01] MEDS: Lidocaine HCl 1 % MPF 2 ML VIAL INFILTRATI (05:07)
[2024-02-01 05:10] VITALS: BP 111/77; PULSE 90; RESP 18; O2SAT 97
[2024-02-01] MEDS: Albumin Human 25 % 100 ML IV ×2 (05:24→06:30)
[2024-02-01 05:28] VITALS: BP 104/64; PULSE 89; RESP 20; O2SAT 98
[2024-02-01 05:34] LABS: MN% 73.5 %; PMN% 26.5 %; WBC Peritoneal Fluid 0.094 X10*3/uL
--- NOTE | 2024-02-01 05:34 | PC.NURSE ---
Bedside paracentesis completed by Dr. Farris. 3.5 L removed, specimens sent to lab. Patient tolerated procedure well, 2, 25% Almbumin given post procedure.
[2024-02-01 05:35] LABS: RBC Peritoneal Fluid < 0.002 X10*6/uL
[2024-02-01 05:58] LABS: BF Shift QC OK YES; Lymphocyte Peritoneal Fl 9 %; Monocytes Peritoneal Fl 34 %; Neutrophils Peritoneal Fluid 17 %
[2024-02-01 05:59] LABS: Other Peritioneal Fl 40 %
[2024-02-01 06:00] VITALS: BP 94/58; PULSE 91; RESP 18; O2SAT 94
== END 2024-02-01 08:05 | disposition home or self-care (01) ==
PROVIDERS: Emergency Provider Internal Medicine; PCP Internal Medicine
DX: R18.8 Other ascites (principal); R06.02 Shortness of breath; R94.31 Abnormal electrocardiogram [ECG] [EKG]; R10.2 Pelvic and perineal pain; Z79.899 Other long term (current) drug therapy; Z87.891 Personal history of nicotine dependence
CPT/HCPCS: 36415; 49082; 71045; 80053; 83690; 83880; 85025; 87070; 87073; 87205; 89051; 93005; 96365; 99285; J2003; P9047

== ENCOUNTER → 2024-02-01 03:19 | Outpatient (BNV) | payer OTHER, SELFPAY | PROVIDERS: Emergency Provider Internal Medicine; PCP Internal Medicine; Visit Provider Internal Medicine | DX: R06.02 Shortness of breath (principal); R94.31 Abnormal electrocardiogram [ECG] [EKG] | CPT/HCPCS: 93010 ==

== ENCOUNTER 2024-02-12 11:39 | Outpatient (AMB) | payer OTHER, SELFPAY ==
--- NOTE | 2024-02-12 11:54 | HO.NEPHOV ---
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 She recently presented to the emergency room with altered mental status and weakness, and abdominal bloating, and was found to have elevated ammonia with acute kidney injury and ascites. Acute kidney injury was likely secondary to acute tubular necrosis, treated with IV octreotide, albumin, midodrine and IV fluid. Her renal function settled to baseline. She has been getting intermittent paracentesis. She denies fever, no chills, no shortness of breath or chest pain but has been having worsening of ascites and is having edema. She is due to see gastroenterology in follow up. [facility] Medical History Back pain with history of spinal surgery Alcohol use disorder, severe, dependence Osteoporosis Nicotine dependence, cigarettes, uncomplicated Hx of scoliosis Elevated liver transaminase level Folate deficiency Vitamin D deficiency Lumbar stenosis with neurogenic claudication History of right tennis elbow Degenerative disc disease, cervical Lumbar spine scoliosis Hx of fracture of wrist Hyperlipidemia Essential hypertension Surgical History Hx of section Hx of tubal ligation History of carpal tunnel surgery of right wrist History of carpal tunnel surgery of left wrist History of rotator cuff surgery History of colonoscopy with polypectomy Family History Brother Substance use disorder Prostate cancer Daughter Substance use disorder Sister Substance use disorder Maternal Grandmother Diabetes mellitus Mother Alcoholism COPD (chronic obstructive pulmonary disease) Father Alcoholism COPD (chronic obstructive pulmonary disease) Social History Household Members: Spouse and Other Housing: House Do you presently have visiting nurse or other home services: No Alcohol intake: former Patient Tobacco Use Status: Former Tobacco user Tobacco use type: Cigarette Cigarette Packs Per Day: 1 Cigarettes Per Day: 4 Years Smoked: 45 e-Cigarette/Vaping Use: Never Used Second Hand Smoke Exposure: No service: No Current occupational status: disabled Cognitive needs: No Hearing needs: No Vision needs: Yes Female Reproductive History Menstrual Age of Menarche: 16 Review of Systems Const All systems reviewed & are unremarkable except as noted in HPI and below Physical Exam Vital Signs: Last Vital Signs BP 102/62 02/12/24 12:00 BMI result Body Mass Index 23.0 Const General: comfortable and no acute distress Orientation/consciousness: patient oriented x3 HEENT Head: Yes normocephalic Mouth: Normal oral and palatal mucosa present Eyes EOM: EOMs intact bilaterally Neck Neck: Yes supple Resp Auscultation: clear to auscultation bilaterally Cardio Jugular venous distension: no JVD Rate: regular rate Heart sounds: Murmur heart sound present GI Palpation (GI): Soft to palpation Auscultation: normal bowel sounds General: Yes no CVA tenderness Back/Spine/Pelvis Back: no CVA tenderness Skin General skin exam: no rashes or lesions noted Neuro General: patient oriented x3 and moves all extremities Results Reviewed Nephrology Results: Hgb 11.2 g/dl (12.0-16.0) L 02/01/24 WBC 11.4 X10*3/uL (4.8-10.8) H 02/01/24 Plt Count 303 X10*3/uL (160-400) 02/01/24 Sodium 137 mmol/L (135-145) 02/01/24 Potassium 3.4 mmol/L (3.3-5.1) 02/01/24 Chloride 103 mmol/L (96-108) 02/01/24 Carbon Dioxide 23 mmol/L (22-29) 02/01/24 BUN 10 mg/dL (9-16) 02/01/24 Creatinine 0.80 mg/dL (0.5-1.4) 02/01/24 Calcium 8.3 mg/dL (8.4-10.2) L 02/01/24 Urine Protein Trace mg/dL (Neg-Trace) 01/17/24 Assessment & Plan Assessment & Plan (1) Essential hypertension: Code(s): I10 - Essential (primary) hypertension Category: Medical (2) Ascites: Code(s): R18.8 - Other ascites Category: Medical Qualifiers: Ascites type: due to alcoholic cirrhosis Qualified Code(s): K70.31 - Alcoholic cirrhosis of liver with ascites Plan H/O recent STACIA likely tubular injury from renal hypoperfusion- resolved No obstruction suggested on recent abdominal CT : BP low due to hepatic physiology Increased Spironolactone to 50 mg daily; C/W lasix 20 mg daily C/W Midodrine 10 mg tid; Follow up with GI closely Will need paracentesis with IV Albumin; Once K is better needs to D/C K replacement Follow up blood work ordered; Answered all her and her daughter's questions Orders: Orders Blood Urea Nitrogen 3 Weeks K70.31 - Alcoholic cirrhosis of liver with ascites Creatinine 3 Weeks K70.31 - Alcoholic cirrhosis of liver with ascites Electrolytes 3 Weeks K70.31 - Alcoholic cirrhosis of liver with ascites Medications: Changed From spironolactone 25 mg See Protocol PO DAILY 30 days 30 tabs 3RF To spironolactone 50 mg See Protocol PO DAILY 30 days 30 tabs 6RF Refilled furosemide (Lasix) 20 mg PO DAILY 30 tabs 6RF Coding Level of Care Code Est Pt Level 4 (15172) Diagnoses Essential hypertension I10 Ascites due to alcoholic cirrhosis K70.31 Ascites type: due to alcoholic cirrhosis
[2024-02-12 12:00] VITALS: BP 102/62; BMI 23.0
== END 2024-02-12 12:32 | disposition home or self-care (01) ==
PROVIDERS: PCP Internal Medicine; Referring Provider Internal Medicine; Visit Provider Internal Medicine Nephrology
DX: I10 Essential (primary) hypertension (principal); K70.31 Alcoholic cirrhosis of liver with ascites
CPT/HCPCS: 99214

== ENCOUNTER → 2024-02-12 11:39 | Outpatient (BNVA) | payer OTHER, SELFPAY | PROVIDERS: PCP Internal Medicine; Referring Provider Internal Medicine; Visit Provider Internal Medicine Nephrology ==

== ENCOUNTER → 2024-02-14 07:07 | Day surgery (SDC) | payer OTHER, SELFPAY ==
[2024-02-14] VITALS (10 sets, daily range): BP systolic 83–118; BP diastolic 48–77; PULSE 75–91; RESP 16; TEMP 36.2–36.6; O2SAT 97–99; BMI 21.7
--- NOTE | ~2024-02-14 | US_ITS ---
Ultrasound Guided Paracentesis HISTORY: Ascites. Therapeutic drainage. TECHNIQUE: Risks and benefits and possible complications were discussed with the patient and consent form was signed. A safe pocket of ascitic fluid was identified using ultrasound guidance, and the overlying skin was marked. The abdomen prepped and draped in sterile fashion. 1% lidocaine was used as a local anesthetic. Using ultrasound guidance, a 5 fr catheter was placed into the ascitic pocket. 3.9 liters of yellow fluid was removed passively. The catheter was then removed. Patient received 25 g of albumin. A few employee's representative images from before and after the examination were obtained. The procedure was performed by Adeel Veliz PA-C and supervised by Dr. Gee. US/US paracentesis abd w/image IMPRESSION: Ultrasound-guided paracentesis as described above. No immediate complications Electronically signed by: Tk Gee MD 02/14/2024 04:31 PM [facility]
[2024-02-14] MEDS: Albumin Human 25 % 100 ML IV (08:06)
[2024-02-14] MEDS: Lidocaine HCl 1 % MPF 5 ML VIAL SUBCUT (09:08)
== END | disposition home or self-care (01) ==
PROVIDERS: Physician Assistant Surgical; PCP Internal Medicine; Visit Provider Internal Medicine Gastroenterology
DX: K70.31 Alcoholic cirrhosis of liver with ascites (principal); E87.6 Hypokalemia; I10 Essential (primary) hypertension; Z87.891 Personal history of nicotine dependence
CPT/HCPCS: 49083; J2003; P9047

== ENCOUNTER → 2024-02-14 08:07 | Outpatient (BNV) | payer OTHER, SELFPAY | PROVIDERS: PCP Internal Medicine; Visit Provider Physician Assistant Surgical | DX: R18.8 Other ascites (principal) | CPT/HCPCS: 49083 ==

== ENCOUNTER 2024-02-21 07:08 | Day surgery (SDC) | payer OTHER, SELFPAY ==
[2024-02-21] VITALS (7 sets, daily range): BP systolic 92–115; BP diastolic 56–73; PULSE 69–81; RESP 11–16; TEMP 36.9–37.2; O2SAT 99–100; BMI 22.3
--- NOTE | ~2024-02-21 | US_ITS ---
Ultrasound paracentesis History: Ascites. Risks and benefits and possible complications were discussed with the patient and consent form was signed. A safe pocket of ascitic fluid was identified using ultrasound guidance, and the overlying skin was marked. The abdomen prepped and draped in sterile fashion. 1% lidocaine was used as a local anesthetic. Using ultrasound guidance, a 5 fr catheter was placed into the ascitic pocket. 3.2 liters of yellow fluid was removed passively. The catheter was then removed. A few hospital insurance representative images from before and after the examination were obtained. The procedure was performed by Adeel Veliz PA-C and supervised by Dr. Whalen. US/US paracentesis abd w/image Impression: Ultrasound-guided paracentesis as described above. No immediate complications Electronically signed by: Victor Manuel Whalen MD 02/25/2024 05:24 PM [facility] MCCARTHY
--- NOTE | 2024-02-21 08:26 | PC.NURSE ---
grant put in order at 750am while i was gettiing another patient ready. did not see the albumin order pulled and given to nurse ang to hang in radiology. no orders were in when the patient arrived.
[2024-02-21] MEDS: Albumin Human 25 % 100 ML IV (08:39)
[2024-02-21] MEDS: Lidocaine HCl 1 % MPF 5 ML VIAL SUBCUT (10:02)
== END 2024-02-21 09:52 | disposition home or self-care (01) ==
PROVIDERS: Physician Assistant Surgical; PCP Internal Medicine; Visit Provider Internal Medicine Gastroenterology
DX: K70.31 Alcoholic cirrhosis of liver with ascites (principal); I10 Essential (primary) hypertension; E78.5 Hyperlipidemia, unspecified; F10.10 Alcohol abuse, uncomplicated
CPT/HCPCS: 49083; J2003; P9047

== ENCOUNTER → 2024-02-21 08:30 | Outpatient (BNV) | payer OTHER, SELFPAY | PROVIDERS: PCP Internal Medicine; Visit Provider Physician Assistant Surgical | DX: R18.8 Other ascites (principal) | CPT/HCPCS: 49083 ==

== ENCOUNTER 2024-03-03 07:02 | Day surgery (SDC) | payer OTHER, SELFPAY ==
[2024-03-03] VITALS (7 sets, daily range): BP systolic 85–105; BP diastolic 51–68; PULSE 68–82; RESP 10–16; TEMP 36.4–36.7; O2SAT 99–100; BMI 23.0
--- NOTE | ~2024-03-03 | US_ITS ---
Ultrasound paracentesis History: Ascites. Risks and benefits and possible complications were discussed with the patient and consent form was signed. A safe pocket of ascitic fluid was identified using ultrasound guidance, and the overlying skin was marked. The abdomen prepped and draped in sterile fashion. 1% lidocaine was used as a local anesthetic. Using ultrasound guidance, a 5 fr catheter was placed into the ascitic pocket. 4.4 liters of yellow fluid was removed passively. The catheter was then removed. A few territory service representative images from before and after the examination were obtained. The procedure was performed by Adeel Veliz PA-C and supervised by Dr. Singh. US/US paracentesis abd w/image Impression: Ultrasound-guided paracentesis as described above. No immediate complications Electronically signed by: Nabil Singh MD 03/19/2024 05:25 PM [facility]
[2024-03-03 07:52] LABS: Glucose, Whole Blood 88 mg/dL (60-115)
[2024-03-03] MEDS: Albumin Human 25 % 100 ML IV (08:37)
[2024-03-03] MEDS: Lidocaine HCl 1 % MPF 5 ML VIAL SUBCUT (09:36)
== END 2024-03-03 10:11 | disposition home or self-care (01) ==
PROVIDERS: Physician Assistant Surgical; PCP Internal Medicine; Visit Provider Internal Medicine Gastroenterology
DX: K70.31 Alcoholic cirrhosis of liver with ascites (principal); F10.10 Alcohol abuse, uncomplicated; D69.6 Thrombocytopenia, unspecified; D52.9 Folate deficiency anemia, unspecified; I10 Essential (primary) hypertension; E78.5 Hyperlipidemia, unspecified; E55.9 Vitamin D deficiency, unspecified; M50.30 Other cervical disc degeneration, unspecified cervical region; M41.86 Other forms of scoliosis, lumbar region; M81.0 Age-related osteoporosis without current pathological fracture; Z79.899 Other long term (current) drug therapy; Z87.891 Personal history of nicotine dependence
CPT/HCPCS: 49083; 82947; J2003; P9047

== ENCOUNTER → 2024-03-03 08:42 | Outpatient (BNV) | payer OTHER, SELFPAY | PROVIDERS: PCP Internal Medicine; Visit Provider Physician Assistant Surgical | DX: R18.8 Other ascites (principal) | CPT/HCPCS: 49083 ==

== ENCOUNTER 2024-03-03 09:58 | Outpatient (REF) | payer OTHER, SELFPAY ==
[2024-03-03 10:59] LABS: Anion Gap 10 (12-20); Blood Urea Nitrogen 8 mg/dL (9-16); Carbon Dioxide 27 mmol/L (22-29); Chloride 104 mmol/L (96-108); Estimated Glomerular Filt Rate > 60; Sodium 137 mmol/L (135-145)
== END 2024-03-03 09:59 | disposition home or self-care (01) ==
LOC: HO.LAB 09:58
PROVIDERS: PCP Internal Medicine; Visit Provider Internal Medicine Nephrology
DX: K70.31 Alcoholic cirrhosis of liver with ascites (principal); E87.6 Hypokalemia
CPT/HCPCS: 36415; 80051; 82565; 84520

== ENCOUNTER 2024-03-06 10:55 | Outpatient (AMB) | payer OTHER, SELFPAY ==
--- NOTE | 2024-03-06 11:24 | HO.NEPHOV ---
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 She recently presented to the emergency room with altered mental status and weakness, and abdominal bloating, and was found to have elevated ammonia with acute kidney injury and ascites. Acute kidney injury was likely secondary to acute tubular necrosis, treated with IV octreotide, albumin, midodrine and IV fluid. Her renal function settled to baseline. She has been getting intermittent paracentesis. She denies fever, no chills, no shortness of breath or chest pain but has been having worsening of ascites and is having edema. She sees gastroenterology in follow up [facility] Medical History Back pain with history of spinal surgery Alcohol use disorder, severe, dependence Osteoporosis Nicotine dependence, cigarettes, uncomplicated Hx of scoliosis Elevated liver transaminase level Folate deficiency Vitamin D deficiency Lumbar stenosis with neurogenic claudication History of right tennis elbow Degenerative disc disease, cervical Lumbar spine scoliosis Hx of fracture of wrist Hyperlipidemia Essential hypertension Surgical History Hx of section Hx of tubal ligation History of carpal tunnel surgery of right wrist History of carpal tunnel surgery of left wrist History of rotator cuff surgery History of colonoscopy with polypectomy Family History Brother Substance use disorder Prostate cancer Daughter Substance use disorder Sister Substance use disorder Maternal Grandmother Diabetes mellitus Mother Alcoholism COPD (chronic obstructive pulmonary disease) Father Alcoholism COPD (chronic obstructive pulmonary disease) Social History Household Members: Spouse and Other Housing: House Are you a primary respiratory care practitioner to a significant other at home: No Do you presently have visiting nurse or other home services: No Alcohol intake: former Patient Tobacco Use Status: Former Tobacco user Tobacco use type: Cigarette Cigarette Packs Per Day: 1 Cigarettes Per Day: 4 Years Smoked: 45 e-Cigarette/Vaping Use: Never Used Second Hand Smoke Exposure: No service: No Current occupational status: disabled Cognitive needs: No Hearing needs: No Vision needs: Yes Female Reproductive History Menstrual Age of Menarche: 16 Review of Systems Const All systems reviewed & are unremarkable except as noted in HPI and below Physical Exam Vital Signs: Last Vital Signs BP 110/70 03/06/24 11:25 BMI result Body Mass Index 22.1 Const General: comfortable and no acute distress Orientation/consciousness: patient oriented x3 HEENT Head: Yes normocephalic Mouth: Normal oral and palatal mucosa present Eyes EOM: EOMs intact bilaterally Neck Neck: Yes supple Resp Auscultation: clear to auscultation bilaterally Cardio Jugular venous distension: no JVD Rate: regular rate GI Palpation (GI): Soft to palpation Auscultation: normal bowel sounds General: Yes no CVA tenderness Back/Spine/Pelvis Back: no CVA tenderness Skin General skin exam: no rashes or lesions noted Neuro General: patient oriented x3 and moves all extremities Extrem General: Yes no pedal edema Results Reviewed Nephrology Results: Hgb 11.2 g/dl (12.0-16.0) L 02/01/24 WBC 11.4 X10*3/uL (4.8-10.8) H 02/01/24 Plt Count 303 X10*3/uL (160-400) 02/01/24 Sodium 137 mmol/L (135-145) 03/03/24 Potassium 4.0 mmol/L (3.3-5.1) 03/03/24 Chloride 104 mmol/L (96-108) 03/03/24 Carbon Dioxide 27 mmol/L (22-29) 03/03/24 BUN 8 mg/dL (9-16) L 03/03/24 Creatinine 0.62 mg/dL (0.5-1.4) 03/03/24 Calcium 8.3 mg/dL (8.4-10.2) L 02/01/24 Assessment & Plan Assessment & Plan (1) Essential hypertension: Code(s): I10 - Essential (primary) hypertension Category: Medical (2) Ascites: Code(s): R18.8 - Other ascites Category: Medical Qualifiers: Ascites type: due to alcoholic cirrhosis Qualified Code(s): K70.31 - Alcoholic cirrhosis of liver with ascites Plan H/O recent STACIA likely tubular injury from renal hypoperfusion- resolved No obstruction suggested on recent abdominal CT : BP low due to hepatic physiology C/W Spironolactone to 50 mg daily; Increased it to 75 mg daily;C/W lasix 20 mg daily C/W Midodrine 10 mg tid; Follow up with GI closely Will need paracentesis with IV Albumin; D/C edK replacement Follow up blood work ordered; Answered all her and her daughter's questions Orders: Orders Blood Urea Nitrogen 4 Weeks K70.31 - Alcoholic cirrhosis of liver with ascites Electrolytes 4 Weeks K70.31 - Alcoholic cirrhosis of liver with ascites Creatinine 4 Weeks K70.31 - Alcoholic cirrhosis of liver with ascites Coding Level of Care Code Est Pt Level 4 (82376) Diagnoses Essential hypertension I10 Ascites due to alcoholic cirrhosis K70.31 Ascites type: due to alcoholic cirrhosis
[2024-03-06 11:25] VITALS: BP 110/70; BMI 22.1
== END 2024-03-06 11:53 | disposition home or self-care (01) ==
PROVIDERS: PCP Internal Medicine; Visit Provider Internal Medicine Nephrology
DX: I10 Essential (primary) hypertension (principal); K70.31 Alcoholic cirrhosis of liver with ascites
CPT/HCPCS: 99214

== ENCOUNTER 2024-03-10 07:02 | Day surgery (SDC) | payer OTHER, SELFPAY ==
[2024-03-10] VITALS (13 sets, daily range): BP systolic 86–122; BP diastolic 44–82; PULSE 64–88; RESP 16–23; TEMP 37–37.4; O2SAT 97–100; BMI 22.1
--- NOTE | ~2024-03-10 | US_ITS ---
Ultrasound paracentesis History: Ascites. Risks and benefits and possible complications were discussed with the patient and consent form was signed. A safe pocket of ascitic fluid was identified using ultrasound guidance, and the overlying skin was marked. The abdomen prepped and draped in sterile fashion. 1% lidocaine was used as a local anesthetic. Using ultrasound guidance, a 5 fr catheter was placed into the ascitic pocket. 2.7 liters of yellow fluid was removed passively. The catheter was then removed. A few solar manufacturer's representative images from before and after the examination were obtained. The procedure was performed by Adeel Veliz PA-C and supervised by Dr. Mathur. US/US paracentesis abd w/image Impression: Ultrasound-guided paracentesis as described above. No immediate complications Electronically signed by: Nabil Singh MD 03/19/2024 05:26 PM [facility] MCCARTHY
[2024-03-10] MEDS: Albumin Human 25 % 100 ML IV (07:54)
[2024-03-10] MEDS: Lidocaine HCl 1 % MPF 5 ML VIAL SUBCUT (09:39)
== END 2024-03-10 10:32 | disposition home or self-care (01) ==
PROVIDERS: Physician Assistant Surgical; PCP Internal Medicine; Visit Provider Internal Medicine Gastroenterology
DX: K70.31 Alcoholic cirrhosis of liver with ascites (principal); K76.82 Hepatic encephalopathy; R14.0 Abdominal distension (gaseous); F10.10 Alcohol abuse, uncomplicated; I10 Essential (primary) hypertension; E78.5 Hyperlipidemia, unspecified; E55.9 Vitamin D deficiency, unspecified; E53.8 Deficiency of other specified B group vitamins; F17.210 Nicotine dependence, cigarettes, uncomplicated; Z79.899 Other long term (current) drug therapy
CPT/HCPCS: 49083; J2003; P9047

== ENCOUNTER → 2024-03-10 08:33 | Outpatient (BNV) | payer OTHER, SELFPAY | PROVIDERS: PCP Internal Medicine; Visit Provider Physician Assistant Surgical | DX: R18.8 Other ascites (principal) | CPT/HCPCS: 49083 ==

== ENCOUNTER 2024-03-21 09:15 | Day surgery (SDC) | payer OTHER, SELFPAY ==
[2024-03-21] VITALS (7 sets, daily range): BP systolic 99–111; BP diastolic 56–95; PULSE 68–72; RESP 12–16; TEMP 36.1–37; O2SAT 97–100; BMI 23.0
--- NOTE | ~2024-03-21 | US_ITS ---
Ultrasound paracentesis History: Ascites. Risks and benefits and possible complications were discussed with the patient and consent form was signed. A safe pocket of ascitic fluid was identified using ultrasound guidance, and the overlying skin was marked. The abdomen prepped and draped in sterile fashion. 1% lidocaine was used as a local anesthetic. Using ultrasound guidance, a 5 fr catheter was placed into the ascitic pocket. 3.0 liters of yellow fluid was removed passively. The catheter was then removed. A few customer account representative images from before and after the examination were obtained. The procedure was performed by Adeel Veliz PA-C and supervised by Dr. Mathur. US/US paracentesis abd w/image Impression: Ultrasound-guided paracentesis as described above. No immediate complications Electronically signed by: Nabil Singh MD 03/27/2024 06:07 PM [facility] MCCARTHY
[2024-03-21] MEDS: Albumin Human 25 % 100 ML IV (10:27)
[2024-03-21] MEDS: Lidocaine HCl 1 % MPF 5 ML VIAL SUBCUT (11:31)
== END 2024-03-21 12:10 | disposition home or self-care (01) ==
PROVIDERS: Physician Assistant Surgical; PCP Internal Medicine; Visit Provider Internal Medicine Gastroenterology
DX: K70.31 Alcoholic cirrhosis of liver with ascites (principal); I10 Essential (primary) hypertension; E55.9 Vitamin D deficiency, unspecified; E78.5 Hyperlipidemia, unspecified; Z79.899 Other long term (current) drug therapy; F17.210 Nicotine dependence, cigarettes, uncomplicated
CPT/HCPCS: 49083; J2003; P9047

== ENCOUNTER → 2024-03-21 11:00 | Outpatient (BNV) | payer OTHER, SELFPAY | PROVIDERS: PCP Internal Medicine; Visit Provider Physician Assistant Surgical | DX: R18.8 Other ascites (principal) | CPT/HCPCS: 49083 ==

== ENCOUNTER 2024-03-27 13:24 | Outpatient (AMB) | payer OTHER, SELFPAY ==
--- NOTE | 2024-03-27 13:27 | MHC.OFFVIS ---
Vital Signs 03/27/24 13:30 Height 5 ft Weight 114 lb BMI 22.3 BP 108/53 L Blood Pressure Location Lt brachial Position Sitting Pulse 80 Intake Visit Reasons: cirrhosis Intake Note: Patient follow up for Cirrhosis and lab results. Patient cc: abdominal bloating with hard stool. Denies any other GI issues. Clip Coater Required: No Accompanied by: Family/Other Allergies No Known Allergies Allergy (Verified 03/27/24 13:26) Medication List - Last Reconciled 03/27/24 by Aron Chavez MD albuterol sulfate 90 mcg/actuation 2 puffs inhalation Q6H PRN cholecalciferol (vitamin D3) 1,250 mcg PO CLEANING ferrous sulfate 324 mg PO DAILY 90 days folic acid 0.8 mg PO DAILY furosemide (Lasix) 20 mg PO DAILY lactulose 20 grams (30 mL) PO BID 30 days magnesium oxide 400 mg PO BIDPC 90 days midodrine 10 mg PO TID omeprazole 20 mg PO DAILY@0630 PRN [shower seat As directed] spironolactone 50 mg See Protocol PO DAILY 30 days thiamine mononitrate (vit B1) 100 mg PO DAILY valsartan 160 mg PO DAILY HPI HPI cirrhosis: Details: GI clinic visit for this 64 YF with ETOH abuse, hypertension, hyperlipidemia, degenerative disc disease, vitamin-D deficiency, folate deficiency, and alcohol use disorder here for follow-up of alcoholic cirrhosis complicated by ascites, thrombocytopenia, hepatic encephalopathy after recent hospitalization in 12/2023. TODAY'S VISIT: Pt is accompanied by her daughter Patient cc: abdominal bloating with hard stool. Denies any other GI issues Having the fluid drained every 7 to 10 days Continues to have lower ext edema and legs feel tingly and numb. She has been walking a lot. Taking lactulose and usually has 2 BMs a day Has a good appetite Denies ETOH use since December,. Pt is upset since she was considered unfit for driving by her PCP. PAST VISIT: I am retaining water Complains of progressive abdominal distension. Feels cold all the time. Taking lactulose and had 4 BMs yesterday. Patient denies symptoms of heartburn, dysphagia, nausea, vomiting, Eating better than she was in the past. Denies recent black stools or rectal bleeding. Coughing at night. Patient denies major cardiac or pulmonary problems, loud snoring or sleep apnea The patient admitted to drinking 4-5 beers and twisted teas 3 days a week for the past several years. She admits to smoking 1/2 PPD and denies any other substance use. Quitted smoking and drinking more than a month ago. Pt lives with her and has custody of two GK (4 & 6 yrs old) She worked in a [employer] and is now retired Family hx is positive for Cirrhosis in both parents who were alcoholics. Pt denies known FH of GI malignancy Denies problems with anesthesia in the past. Denies being on chronic anticoagulation. LABS IN [facility] : Reviewed IMAGING STUDIES: Reviewed ENDOSCOPIC STUDIES: None in [facility] PAST GI HISTORY BY REVIEW OF MEDICAL RECORDS: Pt was hospitalized in 12/2023: Hospital course The patient was evaluated for acute kidney injury which likely secondary to ATN rather than HRS but treated as. improved to baseline with albumin, IV octrotide, midodrine and IVF. Followed by nephrology team who recommended an outpatient follow up for further work up and monitoring. Acute metabolic encephalopathy due to hepatic encephalopathy due to alcoholic cirrhosis which was treated with Lactulose and Rifaximin with Goal 2 bowel movements per day. She had Status post 80 cc paracentesis, no signs of SBP. removed 2L of clear fluids. Started on Spironolactone 12.5 mg daily with plan to repeat blood work as outpatient. Anemia with low Iron stores, started on Iron replacement therapy. To follow CBC next week. Hypotension due to liver disease not sepsis. resolved with Midodrine and holding Valsartan. Will continue to hold on discharge and keep Midodrine for the next month as bid. Mild hypernatremia, responded well to IV fluids. and was Monitored during the hospital stay. Acute hypokalemia with acute Replacement and monitoring during hospital stay. Discharge plan Start Spironolactone for ascites management Monitor weight at home and report changes to PCP Hold Valsartan; Monitor BP for 1 week then discuss with PCP the need to restart it Lactulose twice daily with goal of 1-2 bowel movements Avoid Alcohol Start Iron supplement as prescribed Thiamine supplement Midodrine for 1 month to support BP To follow up with Gastroenterology as scheduled in office To follow with nephrology as outpatient. 12/31/23 PT WAS SEEN AT [facility] DURING HOSPITALIZATION: Reason for consult: Cirrhosis with hepatic encephalopathy 63F with ESLD due to ETOH abuse, hypertension, hyperlipidemia, degenerative disc disease, vitamin-D deficiency, folate deficiency seen at [facility] ED on 12/30/23 with altered mental status and weakness. Symptoms progressing over the last week, mostly abdominal distention and bloating and confusion. Pt is known to me from recent hospitalization at [facility] from 11/27 to 12/03/23 Pt was scheduled for a FU appt in GI on 12/10/23 and was a no show. A & P: 63 YF with ETOH abuse, hypertension, hyperlipidemia, degenerative disc disease, vitamin-D deficiency, folate deficiency, and alcohol use disorder admitted to [facility] on 12/30/23 due to lethargy and weakness over the past week. Pt denies past hx of liver disease prior to last admission - admits to having fatigue and easy bruising for the past few months. CT abdomen pelvis shows marked fatty change of liver with moderate volume abdominal ascites and mild diffuse nonspecific bowel wall thickening of the cecum and ascending colon through the mid transverse colon without obstruction. Pt has decompensated cirrhosis likely related to ETOH abuse complicated by ascites, hepatic encephalopathy and renal failure MELD score is 12 RECOMMENDATIONS: 1. Agree with Lactulose and Rifaximin for HE and Midodrine and Octreotide for renal failure/HRS 3. Consult to Addiction Medicine for ETOH rehab - pt states she plans to stop drinking 4. Pt will be scheduled for a FU appt in GI - (previously scheduled on 12/10/23 - pt states she was unable to come since GD was sick) [facility] Medical History Back pain with history of spinal surgery Alcohol use disorder, severe, dependence Osteoporosis Nicotine dependence, cigarettes, uncomplicated Hx of scoliosis Elevated liver transaminase level Folate deficiency Vitamin D deficiency Lumbar stenosis with neurogenic claudication History of right tennis elbow Degenerative disc disease, cervical Lumbar spine scoliosis Hx of fracture of wrist Hyperlipidemia Essential hypertension Surgical History Hx of section Hx of tubal ligation History of carpal tunnel surgery of right wrist History of carpal tunnel surgery of left wrist History of rotator cuff surgery History of colonoscopy with polypectomy Family History Brother Substance use disorder Prostate cancer Daughter Substance use disorder Sister Substance use disorder Maternal Grandmother Diabetes mellitus Mother Alcoholism COPD (chronic obstructive pulmonary disease) Father Alcoholism COPD (chronic obstructive pulmonary disease) Social History Household Members: Spouse and Other Household Members Other:: granchildren Housing: House Are you a primary group care worker to a significant other at home: No Do you presently have visiting nurse or other home services: No Alcohol intake: former Patient Tobacco Use Status: Current everyday Tobacco user Tobacco use type: Cigarette Cigarette Packs Per Day: 1 Cigarettes Per Day: 4 Years Smoked: 45 e-Cigarette/Vaping Use: Never Used Second Hand Smoke Exposure: No service: No Current occupational status: disabled Cognitive needs: No Hearing needs: No Vision needs: Yes Female Reproductive History Menstrual Age of Menarche: 16 Review of Systems Const All systems reviewed & are unremarkable except as noted in HPI and below Physical Exam Vital Signs: Last Vital Signs Pulse 80 03/27/24 13:30 BP 108/53 L 03/27/24 13:30 BMI result Body Mass Index 22.3 Const General: no acute distress and ill appearing (Chronically ill-appearing) Nutritional Appearance: average body habitus Orientation/consciousness: patient oriented x3 Limitations: physical limitations HEENT Head: Yes normal to inspection Ears: hearing grossly normal bilaterally Eyes Sclerae: sclerae normal Pupils: Equal, round and reactive pupils present Neck Neck: Yes normal visual inspection Chest Chest palpation & inspection: normal inspection of the chest Resp Effort & Inspection: normal respiratory effort Auscultation: clear to auscultation bilaterally Cardio Palpation: normal PMI Rate: regular rate Rhythm: regular rhythm Heart sounds: S1 normal heart sound present, S2 normal heart sound present and no murmurs GI Inspection: Yes distended (Due to ascites) Palpation (GI): Soft to palpation, nontender and No hepatosplenomegaly present Auscultation: normal bowel sounds Rectal Exam - Female: deferred Skin General skin exam: no rashes or lesions noted Neuro General: patient oriented x3, gait normal and moves all extremities Cranial nerves: Yes Equal, round and reactive pupils present Extrem General: Yes pedal edema (2+ pitting edema) Psych Appearance: grossly normal Mental Status: mental status grossly normal Assessment & Plan Assessment & Plan (1) Vitamin D deficiency: Code(s): E55.9 - Vitamin D deficiency, unspecified Category: Medical (2) Ascites: Code(s): R18.8 - Other ascites Category: Medical Qualifiers: Ascites type: due to alcoholic cirrhosis Qualified Code(s): K70.31 - Alcoholic cirrhosis of liver with ascites (3) Anemia: Code(s): D64.9 - Anemia, unspecified Category: Medical Qualifiers: Anemia type: iron deficiency Iron deficiency anemia type: unspecified iron deficiency Qualified Code(s): D50.9 - Iron deficiency anemia, unspecified (4) Alcoholic cirrhosis of liver with ascites: Code(s): K70.31 - Alcoholic cirrhosis of liver with ascites Category: Medical Plan 64 YF with ETOH abuse, hypertension, hyperlipidemia, degenerative disc disease, vitamin-D deficiency, folate deficiency, and alcohol use disorder hospitalized at [facility] in 12/2023 due to lethargy and weakness. Pt gave a hx of fatigue and easy bruising for the preceding few months. CT abdomen pelvis shows marked fatty change of liver with moderate volume abdominal ascites and mild diffuse nonspecific bowel wall thickening of the cecum and ascending colon through the mid transverse colon without obstruction. Pt has decompensated cirrhosis likely related to ETOH abuse complicated by ascites, hepatic encephalopathy and renal failure REDUCING THE RISK OF LIVER PROGRESSION: patient was advised to completely avoid use of alcohol HCC SURVEILLANCE: the patient is at risk of developing hepatocellular carcinoma given the presence of cirrhosis and need 6 monthly imaging surveillance with either abdominal ultrasound (US) or multiphase cross-sectional imaging (CT or MRI). Last Abd CT scan on 12/30/23 had shown no focal liver lesions suspicious of HCC. VACCINATIONS: Pt does not have serological evidence of prior exposure to or vaccination against hepatitis A or hepatitis B. Given lack of serological evidence of immunity, she needs to undergo vaccination against both hepatitis a and hepatitis B (with a series of 3 doses at 0, 1 and 6 months). Patient should also remain up-to-date with all age-appropriate vaccinations including vaccination against pneumococcus. As we no longer have vaccines available in our Clinic, I request PCP to arrange this. SURVEILLANCE FOR GASTROESOPHAGEAL VARICES: I will schedule an EGD to screen for varices on FU after ascites is controlled. QUESTION OF LIVER TRANSPLANTATION: MELD Na score is 10. Pt will be referred for Liver Transplant evaluation after she has been abstinent for 3 months Pt seen by Nephrology on 01/22/24: Spironolactone to 25 mg daily; Started lasix 20 mg daily Increased Midodrine to 10 mg tid; Seeing GI this Will need paracentesis with IV Albumin; Once K is better needs to D/C K replacement 01/24/24 Complains of progressive abdominal distension - scheduled for urgent paracentesis on 01/25/24. Feels cold all the time. Taking lactulose and had 4 BMs yesterday. Quitted smoking and drinking more than a month ago. 03/06/24 Pt was seen by Nephrology and advised: C/W Spironolactone to 50 mg daily; Increased it to 75 mg daily;C/W lasix 20 mg daily C/W Midodrine 10 mg tid; Follow up with GI closely Will need paracentesis with IV Albumin; D/C edK replacement 03/27/24 Pt reports abstinence from ETOH since 12/2023 She has quitted smoking. She will be scheduled for an Upper Endoscopy - screen for varices. (Pt reports [place] [facility] [place] and FU colon was advised in 10 yrs Pt referred to [facility] for liver transplant evaluation FU in 2 months - Orders: Orders Comprehensive Met. Panel Today K70.31 - Alcoholic cirrhosis of liver with ascites Vitamin D 25-OH Total Today K70.31 - Alcoholic cirrhosis of liver with ascites Liver Panel Today E78.00 - Pure hypercholesterolemia, unspecified, F10.20 - Alcohol dependence, uncomplicated, K70.31 - Alcoholic cirrhosis of liver with ascites Complete Blood Count no Diff Today K70.31 - Alcoholic cirrhosis of liver with ascites Prothrombin Time INR Today K70.31 - Alcoholic cirrhosis of liver with ascites Referrals Gastroenterology Referral K70.31 - Alcoholic cirrhosis of liver with ascites Medications: New Lasix (furosemide) 20 mg PO QAM 90 days 90.0 tabs 1RF NS spironolactone 75 mg (1.5 x 50 mg) PO QAM 90 days 135.0 tabs 1RF Refilled furosemide (Lasix) 20 mg PO DAILY 30 tabs 6RF Coding Level of Care Code Est Pt Level 4 (01183) Complex EM visit Add On G2211 Diagnoses Vitamin D deficiency E55.9 Ascites due to alcoholic cirrhosis K70.31 Ascites type: due to alcoholic cirrhosis Iron deficiency anemia, unspecified iron deficiency anemia type D50.9 Anemia type: iron deficiency Iron deficiency anemia type: unspecified iron deficiency Alcoholic cirrhosis of liver with ascites K70.31 Time Spent (min) 25
[2024-03-27 13:30] VITALS: BP 108/53; PULSE 80; BMI 22.3
== END 2024-03-27 14:11 | disposition home or self-care (01) ==
PROVIDERS: PCP Internal Medicine; Visit Provider Internal Medicine Gastroenterology
DX: E55.9 Vitamin D deficiency, unspecified (principal); K70.31 Alcoholic cirrhosis of liver with ascites; D50.9 Iron deficiency anemia, unspecified
CPT/HCPCS: 99214; G2211

== ENCOUNTER → 2024-03-31 08:12 | Day surgery (SDC) | payer OTHER, SELFPAY ==
--- NOTE | ~2024-03-31 | US_ITS ---
EXAMINATION: US ABDOMEN LIMITED CLINICAL INFORMATION: Patient presents for a paracentesis. COMPARISON: Limited ultrasound of the abdomen March 2024 TECHNIQUE: Real-time imaging of the right upper quadrant abdominal viscera. FINDINGS: There is a small amount of ascites present in each quadrant. Patient reports she does not feel comfortable at this time time and would like to delay the paracentesis until next week. US/US abdomen limited IMPRESSION: Small volume ascites. No paracentesis was performed per patient's request. This procedure was performed by Adeel Veliz PA-C and supervised by Dr. Whalen. Electronically signed by: Victor Manuel Whalen MD 03/31/2024 02:48 PM [facility]
[2024-03-31 09:04] VITALS: BP 112/52; PULSE 62; RESP 14; TEMP 36.8; O2SAT 97; BMI 22.8
[2024-03-31] MEDS: Albumin Human 25 % 100 ML IV (09:10)
[2024-03-31 09:50] VITALS: BP 108/62; PULSE 60; RESP 14; O2SAT 97
[2024-03-31 09:55] VITALS: BP 117/66; PULSE 65; RESP 14; O2SAT 97
[2024-03-31 10:00] VITALS: BP 110/67; PULSE 65; RESP 17; O2SAT 97
[2024-03-31 10:05] VITALS: BP 120/70; PULSE 65; RESP 17; O2SAT 96
--- OUTSIDE RECORDS SUMMARY | 2024-03-31 12:35 | XMS_ITS | Clinical Summary ---
Author Organization [facility] it Address [address] [place] [address] Care Team Providers Care Application Development Specialist Name Role Phone Ralph Blake MD Primary Care Provider [phone] Social History Tobacco Use Types Packs/Day Years Used Date Smoking Tobacco: Every Day Cigarettes Alcohol Use Standard Drinks/Week Comments Not Asked 0 (1 standard drink = 0.6 oz pur e alcohol) Sex and Gender Information Value Date Recorded Sex Assigned at Not on file Gender Identity Not on file Sexual Orientation Not on file Obstetrics History Last Filed Vital Signs Vital Sign Reading Time Taken Comments Blood Pressure 113/74 01/13/2023 11:28 AM EST Pulse 94 01/13/2023 11:28 AM EST Temperature - - Respiratory Rate - - Oxygen Saturation - - Inhaled Oxygen Concentration - - Weight - - Height - - Body Mass Index - - Plan of Treatment Health Maintenance Due Date Last Done Comments Breast Cancer Screening 1960 Pneumococcal Vaccine: Pediat rics (0 to 5 Years) and At-Risk Patients (6 to 64 Years) (1 of 2 - PCV) 1968 DTaP,Tdap,and Td Vaccines (1 - Tdap) 1981 Cervical Cancer Screening: P ap Smear 1983 Zoster Vaccines (1 of 2) 2012 Colorectal Cancer Screening: Colonoscopy 02/01/2022 Depression Screening 02/01/2022 HIV Screening 02/01/2022 Hepatitis C Screening 02/01/2022 Social Influencers of Health Screening 02/01/2022 COVID-19 Vaccine ( - 2023-2 5 season) 2023 Influenza Vaccine (#1) 2023 RSV Immunization Patients 60 + Years Old (1 - 1-dose 75+ series) 2037 HIB Vaccines Aged Out No longer eligi ble based on patient's age to complete this topic HPV Vaccines Aged Out No longer eligi ble based on patient's age to complete this topic Hepatitis A Vaccines Aged Out No long er eligible based on patient's age to complete this topic Hepatitis B Vaccines Aged Out No long er eligible based on patient's age to complete this topic IPV Vaccines Aged Out No longer eligi ble based on patient's age to complete this topic MMR Vaccines Aged Out No longer eligi ble based on patient's age to complete this topic Meningococcal ACWY Vaccine Aged Out N o longer eligible based on patient's age to complete this topic RSV Immunization Patients Un alhaji 20 months Aged Out No longer eligible b ased on patient's age to complete this topic Varicella Vaccines Aged Out No longer eligible based on patient's age to complete this topic Care Teams Application Development Specialist Relationship Specialty Start Date End Date Ralph Blake MD [address] [place] [address] PCP - General 04/07/09
== END ==
LOC: HO.SSS 08:13
PROVIDERS: PCP Internal Medicine; Visit Provider Internal Medicine Gastroenterology
DX: R18.8 Other ascites (principal); Z53.8 Procedure and treatment not carried out for other reasons
CPT/HCPCS: 76705; J2003; P9047

== ENCOUNTER → 2024-03-31 09:22 | Outpatient (BNV) | payer OTHER, SELFPAY | PROVIDERS: PCP Internal Medicine; Visit Provider Physician Assistant Surgical | DX: R18.8 Other ascites (principal) | CPT/HCPCS: 76705 ==

== ENCOUNTER 2024-03-31 10:52 | Outpatient (REF) | payer OTHER, SELFPAY ==
[2024-03-31 11:18] LABS: Ammonia 27 umol/L (13-55)
[2024-03-31 11:42] LABS: Hemoglobin 10.6 g/dl (12.0-16.0); Mean Corpuscular HGB Conc 32.1 g/dl (31.0-35.0); Mean Corpuscular Hemoglobin 28.3 pg (27.0-33.0); Mean Platelet Volume 9.9 fL (9.4-12.3); Platelet Count 223 X10*3/uL (160-400); Red Blood Count 3.75 X10*6/uL (4.20-5.50); Red Cell Distribution Width 15.6 % (11.0-16.0); White Blood Count 6.8 X10*3/uL (4.8-10.8)
[2024-03-31 11:45] LABS: INTERNATIONAL NORM RATIO 1.2 (0.9-1.1); Prothrombin Time 13.9 SEC (10.9-12.4)
[2024-03-31 12:26] LABS: Alanine Aminotransferase 8 U/L (0-31); Albumin Level 2.7 g/dL (3.5-5.0); Alkaline Phosphatase 111 U/L (39-117); Anion Gap 11 (12-20); Aspartate Amino Transferase 33 U/L (5-31); Bilirubin Direct 0.4 mg/dL (0.0-0.5); Bilirubin Total 0.9 mg/dL (0.0-1.0); Blood Urea Nitrogen 7 mg/dL (9-16); Calcium 8.6 mg/dL (8.4-10.2); Carbon Dioxide 30 mmol/L (22-29); Chloride 102 mmol/L (96-108); Estimated Glomerular Filt Rate > 60; Glucose Random 85 mg/dL (60-115); Magnesium 1.9 mg/dL (1.6-2.6); Potassium 3.6 mmol/L (3.3-5.1); Sodium 139 mmol/L (135-145); Total Protein 6.4 g/dL (6.5-8.0)
[2024-03-31 12:45] LABS: Vitamin D 25-OH Total 19.7 ng/mL (>30)
--- OUTSIDE RECORDS SUMMARY | 2024-03-31 15:47 | XMS_ITS | Clinical Summary ---
Author Organization [facility] it Address [address] [place] [address] Care Team Providers Care Employee Training Specialist Name Role Phone Ralph Blake MD Primary Care Provider [phone] Social History Tobacco Use Types Packs/Day Years [...] age to complete this topic Care Teams Employee Training Specialist Relationship Specialty Start Date End Date Ralph Blake MD [address] [place] [address] PCP - General 04/07/09
[2024-04-02 21:12] LABS: Zinc 26 mcg/dL (60-130)
== END 2024-03-31 10:53 | disposition home or self-care (01) ==
LOC: HO.LAB 10:52
PROVIDERS: PCP Internal Medicine; Visit Provider Internal Medicine Gastroenterology
DX: K70.31 Alcoholic cirrhosis of liver with ascites (principal); F10.20 Alcohol dependence, uncomplicated; E78.00 Pure hypercholesterolemia, unspecified
CPT/HCPCS: 36415; 80053; 82140; 82248; 82306; 83735; 84630; 85027; 85610

== ENCOUNTER 2024-04-22 10:31 | Outpatient (AMB) | payer OTHER, SELFPAY ==
--- NOTE | 2024-04-22 10:35 | HO.NEPHOV_ITS ---
Vital Signs 04/22/24 10:43 Height 5 ft Weight 106 lb 6 oz BMI 20.8 BP 122/60 Blood Pressure Location Rt brachial Position Sitting Pulse 43 L Pulse Source Pulse Oximeter Pulse Oximetry (%) 98 Oxygen Delivery Method Room Air Intake Visit Reasons: 6 wks f/u/ Conf Bulk Driver Required: No Accompanied by: Daughter Allergies No Known Allergies Allergy (Verified 04/22/24 10:43) HPI Comments Details: 64 year old with alcoholic cirrhosis was seen today for follow-up for hypok alemia and total body volume overload. She recently presented to the emergency room with altered mental status and weakness, and abdominal bloating, and was found to have elevated ammonia with acute kidney injury and ascites. Acute kidney injury was likely secondary to acute tubular necrosis, treated with IV octreotide, albumin, midodrine and IV fluid. Her renal function settled to baseline. She has been getting intermittent paracentesis. She denies fever, no chills, no shortness of breath or chest pain but has been having worsening of ascites and edema. She sees gastroenterology in follow up [facility] Medical History Back pain with history of spinal surgery Alcohol use disorder, severe, dependence Osteoporosis Nicotine dependence, cigarettes, uncomplicated Hx of scoliosis Elevated liver transaminase level Folate deficiency Vitamin D deficiency Lumbar stenosis with neurogenic claudication History of right tennis elbow Degenerative disc disease, cervical Lumbar spine scoliosis Hx of fracture of wrist Hyperlipidemia Essential hypertension Surgical History Hx of section Hx of tubal ligation History of carpal tunnel surgery of right wrist History of carpal tunnel surgery of left wrist History of rotator cuff surgery History of colonoscopy with polypectomy Family History Brother Substance use disorder Prostate cancer Daughter Substance use disorder Sister Substance use disorder Maternal Grandmother Diabetes mellitus Mother Alcoholism COPD (chronic obstructive pulmonary disease) Father Alcoholism COPD (chronic obstructive pulmonary disease) Social History Household Members: Spouse and Other Household Members Other:: granchildren Housing: House Are you a primary school child care attendant to a significant other at home: No Do you presently have visiting nurse or other home services: No Alcohol intake: former Patient Tobacco Use Status: Current everyday Tobacco user Tobacco use type: Cigarette Cigarette Packs Per Day: 1 Cigarettes Per Day: 4 Years Smoked: 45 e-Cigarette/Vaping Use: Never Used Second Hand Smoke Exposure: No service: No Current occupational status: disabled Cognitive needs: No Hearing needs: No Vision needs: Yes Female Reproductive History Menstrual Age of Menarche: 16 Review of Systems Const All systems reviewed & are unremarkable except as noted in HPI and below Physical Exam Vital Signs: Last Vital Signs Pulse 43 L 04/22/24 10:43 BP 122/60 04/22/24 10:43 Pulse Ox 98 04/22/24 10:43 Oxygen Delivery Method Room Air 04/22/24 10:43 BMI result Body Mass Index 20.8 Const General: comfortable and no acute distress Orientation/consciousness: patient oriented x3 HEENT Head: Yes normocephalic Mouth: Normal oral and palatal mucosa present Eyes EOM: EOMs intact bilaterally Neck Neck: Yes supple Resp Auscultation: clear to auscultation bilaterally Cardio Jugular venous distension: no JVD Rate: regular rate GI Palpation (GI): Soft to palpation Auscultation: normal bowel sounds General: Yes no CVA tenderness Back/Spine/Pelvis Back: no CVA tenderness Skin General skin exam: no rashes or lesions noted Neuro General: patient oriented x3 and moves all extremities Results Reviewed Nephrology Results: Hgb 10.6 g/dl (12.0-16.0) L 03/31/24 WBC 6.8 X10*3/uL (4.8-10.8) 03/31/24 Plt Count 223 X10*3/uL (160-400) 03/31/24 Sodium 139 mmol/L (135-145) 03/31/24 Potassium 3.6 mmol/L (3.3-5.1) 03/31/24 Chloride 102 mmol/L (96-108) 03/31/24 Carbon Dioxide 30 mmol/L (22-29) H 03/31/24 BUN 7 mg/dL (9-16) L 03/31/24 Creatinine 0.64 mg/dL (0.5-1.4) 03/31/24 Calcium 8.6 mg/dL (8.4-10.2) 03/31/24 Assessment & Plan Assessment & Plan (1) Ascites: Code(s): R18.8 - Other ascites Category: Medical Qualifiers: Ascites type: due to alcoholic cirrhosis Qualified Code(s): K70.31 - Alcoholic cirrhosis of liver with ascites Plan H/O recent STACIA likely tubular injury from renal hypoperfusion- resolved No obstruction suggested on recent abdominal CT : BP low due to hepatic physiology Increased Spironolactone to 100 mg daily;C/W lasix 20 mg daily C/W Midodrine 10 mg tid; Follow up with GI closely Follow up blood work ordered; Answered all her and her daughter's questions Orders: Orders Electrolytes 6 Weeks K70.31 - Alcoholic cirrhosis of liver with ascites Blood Urea Nitrogen 6 Weeks K70.31 - Alcoholic cirrhosis of liver with ascites Creatinine 6 Weeks K70.31 - Alcoholic cirrhosis of liver with ascites Medications: Changed From spironolactone 75 mg (1.5 x 50 mg) PO QAM 90 days 135.0 tabs 1RF To spironolactone 100 mg PO QAM 90 days 90 tabs 1RF Discontinued valsartan Discontinued Reason: Doctor's Order 160 mg PO DAILY 90 tabs 2RF Coding Level of Care Code Est Pt Level 4 (78844) Diagnoses Ascites due to alcoholic cirrhosis K70.31 Ascites type: due to alcoholic cirrhosis
[2024-04-22 10:43] VITALS: BP 122/60; PULSE 43; O2SAT 98; BMI 20.8
--- OUTSIDE RECORDS SUMMARY | 2024-04-22 11:29 | XMS_ITS | Clinical Summary ---
Author Organization [facility] it Address [address] [place] [address] Care Team Providers Care Employment Interviewer Name Role Phone Ralph Blake MD Primary Care Provider [phone] Social History Tobacco Use Types Packs/Day Years Used Date Smoking Tobacco: Every Day Cigarettes Alcohol Use Standard Drinks/Week Comments Not Asked 0 (1 standard drink = 0.6 oz pur e alcohol) Comments Unknown Sex and Gender Information Value Date Recorded Sex Assigned at Not on file Legal Sex Female 3:25 PM EST Gender Identity Not on file Sexual Orientation [...] Last Done Comments Breast Cancer Screening 1960 DTaP,Tdap,and Td Vaccines (1 - Tdap) 1981 Pneumococcal Vaccine: 50+ Ye ars (1 of 2 - PCV) 1981 Pneumococcal Vaccine: Pediat rics (0 to 5 Years) and At-Risk Patients (6 to 64 Years) (1 of 2 - PCV) 1981 Cervical Cancer Screening: P ap Smear [...] patient's age to complete this topic Meningococcal B Vacine Aged Out No lo nger eligible based on patient's age to complete this topic RSV Immunization Patients Un alhaji 20 months Aged Out No longer eligible b ased on patient's age to complete this topic Varicella Vaccines Aged Out No longer eligible based on patient's age to complete this topic Care Teams Employment Interviewer Relationship Specialty Start Date End Date Ralph Blake MD [facility] [place] [address] PCP - General 04/07/09
== END 2024-04-22 11:01 | disposition home or self-care (01) ==
PROVIDERS: PCP Internal Medicine; Visit Provider Internal Medicine Nephrology
DX: K70.31 Alcoholic cirrhosis of liver with ascites (principal)
CPT/HCPCS: 99214

== ENCOUNTER → 2024-04-22 10:31 | Outpatient (BNVA) | payer OTHER, SELFPAY | PROVIDERS: PCP Internal Medicine; Visit Provider Internal Medicine Nephrology ==

== ENCOUNTER 2024-05-22 12:01 | Outpatient (AMB) | payer OTHER, SELFPAY ==
--- NOTE | 2024-05-22 12:05 | A.OFFVIS_ITS ---
Vital Signs 05/22/24 12:06 Height 4 ft 11 in Weight 106 lb BMI 21.4 BP 114/65 Blood Pressure Location Lt brachial Position Sitting Pulse 66 Pulse Oximetry (%) 99 Oxygen Delivery Method Room Air Intake Visit Reasons: follow up/Cirrhosis Intake Note: Patient follow up for Alcoholic cirrhosis of liver with ascitesand lab results. Patient denies any GI issues. Sampler Ovens Required: No Accompanied by: Daughter Allergies No Known Allergies Allergy (Verified 05/22/24 12:04) Medication List - Last Reconciled 05/22/24 by Aron Chavez MD albuterol sulfate 90 mcg/actuation 2 puffs inhalation Q6H PRN cholecalciferol (vitamin D3) 1,250 mcg PO CLEANING ferrous sulfate 324 mg PO DAILY 90 days folic acid 0.8 mg PO DAILY furosemide (Lasix) 20 mg PO DAILY lactulose 20 grams (30 mL) PO BID 30 days midodrine 10 mg PO TID omeprazole 20 mg PO DAILY@0630 PRN [shower seat As directed] spironolactone 100 mg PO QAM 90 days thiamine mononitrate (vit B1) 100 mg PO DAILY zinc sulfate (Orazinc) 25 mg PO DAILY 90 days HPI HPI follow up/Cirrhosis: Details: GI clinic visit for this 64 YF with ETOH abuse, hypertension, hyperlipidemia, degenerative disc disease, vitamin-D deficiency, folate deficiency, and alcohol use disorder here for follow-up of alcoholic cirrhosis complicated by ascites, thrombocytopenia, hepatic encephalopathy after recent hospitalization in 12/2023. TODAY'S VISIT: Pt is accompanied by her daughter States she has been doing well Last paracentesis was 2 months ago. Notes some abd discomfort. Leg edema has improved Appetite has improved Going for walks. Seen at [facility] on 05/19/24 and was told she does not need a transplant at present. PAST VISIT: Having the fluid drained every 7 to 10 days Continues to have lower ext edema and legs feel tingly and numb. She has been walking a lot. Taking lactulose and usually has 2 BMs a day Has a good appetite Denies ETOH use since December,. Pt is upset since she was considered unfit for driving by her PCP. PAST VISIT: I am retaining water Complains of progressive abdominal distension. Feels cold all the time. Taking lactulose and had 4 BMs yesterday. Patient denies symptoms of heartburn, dysphagia, nausea, vomiting, Eating better than she was in the past. Denies recent black stools or rectal bleeding. Coughing at night. Patient denies major cardiac or pulmonary problems, loud snoring or sleep apnea The patient admitted to drinking 4-5 beers and twisted teas 3 days a week for the past several years. She admits to smoking 1/2 PPD and denies any other substance use. Quitted smoking and drinking more than a month ago. Pt lives with her and has custody of two GK (4 & 6 yrs old) She worked in a [employer] and is now retired Family hx is positive for Cirrhosis in both parents who were alcoholics. Pt denies known FH of GI malignancy Denies problems with anesthesia in the past. Denies being on chronic anticoagulation. LABS IN [facility] : Reviewed IMAGING STUDIES: Reviewed ENDOSCOPIC STUDIES: None in [facility] PAST GI HISTORY BY REVIEW OF MEDICAL RECORDS: Pt was hospitalized in 12/2023: Hospital course The patient was evaluated for acute kidney injury which likely secondary to ATN rather than HRS but treated as. improved to baseline with albumin, IV octrotide, midodrine and IVF. Followed by nephrology team who recommended an outpatient follow up for further work up and monitoring. Acute metabolic encephalopathy due to hepatic encephalopathy due to alcoholic cirrhosis which was treated with Lactulose and Rifaximin with Goal 2 bowel movements per day. She had Status post 80 cc paracentesis, no signs of SBP. removed 2L of clear fluids. Started on Spironolactone 12.5 mg daily with plan to repeat blood work as outpatient. Anemia with low Iron stores, started on Iron replacement therapy. To follow CBC next week. Hypotension due to liver disease not sepsis. resolved with Midodrine and holding Valsartan. Will continue to hold on discharge and keep Midodrine for the next month as bid. Mild hypernatremia, responded well to IV fluids. and was Monitored during the hospital stay. Acute hypokalemia with acute Replacement and monitoring during hospital stay. Discharge plan Start Spironolactone for ascites management Monitor weight at home and report changes to PCP Hold Valsartan; Monitor BP for 1 week then discuss with PCP the need to restart it Lactulose twice daily with goal of 1-2 bowel movements Avoid Alcohol Start Iron supplement as prescribed Thiamine supplement Midodrine for 1 month to support BP To follow up with Gastroenterology as scheduled in office To follow with nephrology as outpatient. 12/31/23 PT WAS SEEN AT [facility] DURING HOSPITALIZATION: Reason for consult: Cirrhosis with hepatic encephalopathy 63F with ESLD due to ETOH abuse, hypertension, hyperlipidemia, degenerative disc disease, vitamin-D deficiency, folate deficiency seen at [facility] ED on 12/30/23 with altered mental status and weakness. Symptoms progressing over the last week, mostly abdominal distention and bloating and confusion. Pt is known to me from recent hospitalization at [facility] from 11/27 to 12/03/23 Pt was scheduled for a FU appt in GI on 12/10/23 and was a no show. A & P: 63 YF with ETOH abuse, hypertension, hyperlipidemia, degenerative disc disease, vitamin-D deficiency, folate deficiency, and alcohol use disorder admitted to [facility] on 12/30/23 due to lethargy and weakness over the past week. Pt denies past hx of liver disease prior to last admission - admits to having fatigue and easy bruising for the past few months. CT abdomen pelvis shows marked fatty change of liver with moderate volume abdominal ascites and mild diffuse nonspecific bowel wall thickening of the cecum and ascending colon through the mid transverse colon without obstruction. Pt has decompensated cirrhosis likely related to ETOH abuse complicated by ascites, hepatic encephalopathy and renal failure MELD score is 12 RECOMMENDATIONS: 1. Agree with Lactulose and Rifaximin for HE and Midodrine and Octreotide for renal failure/HRS 3. Consult to Addiction Medicine for ETOH rehab - pt states she plans to stop drinking 4. Pt will be scheduled for a FU appt in GI - (previously scheduled on 12/10/23 - pt states she was unable to come since GD was sick [facility] Medical History Back pain with history of spinal surgery Alcohol use disorder, severe, dependence Osteoporosis Nicotine dependence, cigarettes, uncomplicated Hx of scoliosis Elevated liver transaminase level Folate deficiency Vitamin D deficiency Lumbar stenosis with neurogenic claudication History of right tennis elbow Degenerative disc disease, cervical Lumbar spine scoliosis Hx of fracture of wrist Hyperlipidemia Essential hypertension Surgical History Hx of section Hx of tubal ligation History of carpal tunnel surgery of right wrist History of carpal tunnel surgery of left wrist History of rotator cuff surgery History of colonoscopy with polypectomy Family History Brother Substance use disorder Prostate cancer Daughter Substance use disorder Sister Substance use disorder Maternal Grandmother Diabetes mellitus Mother Alcoholism COPD (chronic obstructive pulmonary disease) Father Alcoholism COPD (chronic obstructive pulmonary disease) Social History Household Members: Spouse and Other Household Members Other:: granchildren Housing: House Are you a primary manager progressive care to a significant other at home: No Do you presently have visiting nurse or other home services: No Alcohol intake: former Patient Tobacco Use Status: Current everyday Tobacco user Tobacco use type: Cigarette Cigarette Packs Per Day: 1 Cigarettes Per Day: 4 Years Smoked: 45 e-Cigarette/Vaping Use: Never Used Second Hand Smoke Exposure: No service: No Current occupational status: disabled Cognitive needs: No Hearing needs: No Vision needs: Yes Female Reproductive History Menstrual Age of Menarche: 16 Review of Systems Const All systems reviewed & are unremarkable except as noted in HPI and below Physical Exam Const General: no acute distress Nutritional Appearance: average body habitus Orientation/consciousness: patient oriented x3 Limitations: no limitations HEENT Head: Yes normal to inspection Ears: hearing grossly normal bilaterally Eyes Sclerae: sclerae normal Pupils: Equal, round and reactive pupils present Neck Neck: Yes normal visual inspection Chest Chest palpation & inspection: normal inspection of the chest Resp Effort & Inspection: normal respiratory effort Auscultation: clear to auscultation bilaterally Cardio Palpation: normal PMI Rate: regular rate Rhythm: regular rhythm Heart sounds: S1 normal heart sound present, S2 normal heart sound present and no murmurs GI Inspection: Yes distended (minimal distension) Palpation (GI): Soft to palpation, nontender and No hepatosplenomegaly present Auscultation: normal bowel sounds Rectal Exam - Female: deferred Skin General skin exam: no rashes or lesions noted Neuro General: patient oriented x3, gait normal and moves all extremities Cranial nerves: Yes Equal, round and reactive pupils present Psych Appearance: grossly normal Mental Status: mental status grossly normal Assessment & Plan Assessment & Plan (1) Anemia: Code(s): D64.9 - Anemia, unspecified Category: Medical Qualifiers: Anemia type: iron deficiency Iron deficiency anemia type: unspecified iron deficiency Qualified Code(s): D50.9 - Iron deficiency anemia, unspecified (2) Alcoholic cirrhosis of liver with ascites: Code(s): K70.31 - Alcoholic cirrhosis of liver with ascites Category: Medical Plan 64 YF with ETOH abuse, hypertension, hyperlipidemia, degenerative disc disease, vitamin-D deficiency, folate deficiency, and alcohol use disorder hospitalized at [facility] in 12/2023 due to lethargy and weakness. Pt gave a hx of fatigue and easy bruising for the preceding few months. CT abdomen pelvis shows marked fatty change of liver with moderate volume abdominal ascites and mild diffuse nonspecific bowel wall thickening of the cecum and ascending colon through the mid transverse colon without obstruction. Pt has decompensated cirrhosis likely related to ETOH abuse complicated by ascites, hepatic encephalopathy and renal failure REDUCING THE RISK OF LIVER PROGRESSION: patient was advised to completely avoid use of alcohol HCC SURVEILLANCE: the patient is at risk of developing hepatocellular carcinoma given the presence of cirrhosis and need 6 monthly imaging surveillance with either abdominal ultrasound (US) or multiphase cross-sectional imaging (CT or MRI). Last Abd CT scan on 12/30/23 had shown no focal liver lesions suspicious of HCC. VACCINATIONS: Pt does not have serological evidence of prior exposure to or vaccination against hepatitis A or hepatitis B. Given lack of serological evidence of immunity, she needs to undergo vaccination against both hepatitis a and hepatitis B (with a series of 3 doses at 0, 1 and 6 months). Patient should also remain up-to-date with all age-appropriate vaccinations including vaccination against pneumococcus. As we no longer have vaccines available in our Clinic, I request PCP to arrange this. SURVEILLANCE FOR GASTROESOPHAGEAL VARICES: I will schedule an EGD to screen for varices on FU after ascites is controlled. QUESTION OF LIVER TRANSPLANTATION: MELD Na score is 10. Pt will be referred f or Liver Transplant evaluation after she has been abstinent for 3 months Pt seen by Nephrology on 01/22/24: Spironolactone to 25 mg daily; Started lasix 20 mg daily Increased Midodrine to 10 mg tid; Seeing GI this Will need paracentesis with IV Albumin; Once K is better needs to D/C K replacement 01/24/24 Complains of progressive abdominal distension - scheduled for urgent paracentesis on 01/25/24. Feels cold all the time. Taking lactulose and had 4 BMs yesterday. Quitted smoking and drinking more than a month ago. 03/06/24 Pt was seen by Nephrology and advised: C/W Spironolactone to 50 mg daily; Increased it to 75 mg daily;C/W lasix 20 mg daily C/W Midodrine 10 mg tid; Follow up with GI closely Will need paracentesis with IV Albumin; D/C ed K replacement 03/27/24 Pt reports abstinence from ETOH since 12/2023 She has quitted smoking. She will be scheduled for an Upper Endoscopy - screen for varices. (Pt reports having a colonoscopy at [facility] - 5 yrs ago and FU colon was advised in 10 yrs) Pt referred to [facility] for liver transplant evaluation 05/22/24 Notes some abd discomfort. Leg edema has improved Seen at [facility] on 05/19/24 and was told she does not need a transplant at present. Records requested from [facility] Order placed for US guided paracentesis - pt may postpone if abdominal distension does not get worse. FU in 3 months Orders: Orders US paracentesis abd w/image Today K70.31 - Alcoholic cirrhosis of liver with ascites Medications: Refilled zinc sulfate (Orazinc) 25 mg PO DAILY 90 days 90 tabs 1RF E60 - Dietary zinc deficiency Coding Level of Care Code Est Pt Level 4 (97929) Diagnoses Iron deficiency anemia, unspecified iron deficiency anemia type D50.9 Anemia type: iron deficiency Iron deficiency anemia type: unspecified iron deficiency Alcoholic cirrhosis of liver with ascites K70.31 Time Spent (min) 20
[2024-05-22 12:06] VITALS: BP 114/65; PULSE 66; O2SAT 99; BMI 21.4
--- OUTSIDE RECORDS SUMMARY | 2024-05-22 14:28 | XMS_ITS | Clinical Summary ---
Author Organization [facility] it Address [address] [place] [address] Care Team Providers Care Plate Driller Name Role Phone Ralph Blake MD Primary Care Provider [phone] Social History Tobacco Use Types Packs/Day Years [...] age to complete this topic Care Teams Plate Driller Relationship Specialty Start Date End Date Ralph Blake MD [facility] [place] [address] PCP - General 04/07/09
== END 2024-05-22 15:44 | disposition home or self-care (01) ==
LOC: HO.HGI 12:03
PROVIDERS: PCP Internal Medicine; Visit Provider Internal Medicine Gastroenterology
DX: D50.9 Iron deficiency anemia, unspecified (principal); K70.31 Alcoholic cirrhosis of liver with ascites
CPT/HCPCS: 99214

== ENCOUNTER → 2024-05-22 12:01 | Outpatient (BNVA) | payer OTHER, SELFPAY | PROVIDERS: PCP Internal Medicine; Visit Provider Internal Medicine Gastroenterology ==

== ENCOUNTER 2024-06-19 08:26 | Day surgery (SDC) | payer OTHER, SELFPAY ==
--- NOTE | ~2024-06-19 | US_ITS ---
EXAMINATION: US ABDOMEN LIMITED HISTORY: K70.31 - Alcoholic cirrhosis of liver with ascites TECHNIQUE: Real-time grayscale ultrasound imaging of the lower quadrants was performed to assess for ascites prior to paracentesis. COMPARISON: Comparison is made with the prior examination dated 03/31/2024. FINDINGS: There is trace free fluid in the left lower quadrant. This was felt to be too little fluid to perform a paracentesis at this time. US/US abdomen limited IMPRESSION: Trace fluid in the left lower quadrant. No paracentesis was performed. Electronically signed by: Andrea Dumont MD 06/19/2024 10:43 AM EDT
[2024-06-19 09:04] VITALS: BMI 22.1
[2024-06-19 09:16] VITALS: BP 108/79; PULSE 62; RESP 16; TEMP 36.7; O2SAT 99
[2024-06-19 09:18] LABS: MANUAL DIFF FLAG NO
[2024-06-19 09:20] LABS: Basophils Percent Auto 0.6 % (0-2); Eosinophils Absolute Auto 0.1 X10*3/uL (0.0-0.4); Eosinophils Percent Auto 0.9 % (0-4); Hematocrit 38.7 % (37.0-47.0); Hemoglobin 12.4 g/dl (12.0-16.0); Imm Gran Abs Auto 0.02 X10*3/uL (0.00-0.03); Imm Gran Pct Auto 0.3 % (0.0-0.4); Mean Corpuscular Hemoglobin 27.9 pg (27.0-33.0); Mean Platelet Volume 9.1 fL (9.4-12.3); Monocytes Absolute Auto 0.7 X10*3/uL (0.1-1.2); Monocytes Percent Auto 10.1 % (2-11); Neutrophils Absolute Auto 3.9 x10*3/uL (2.0-8.3); Neutrophils Percent Auto 58.1 % (45-73); Platelet Count 269 X10*3/uL (160-400); Red Blood Count 4.45 X10*6/uL (4.20-5.50); Red Cell Distribution Width 14.9 % (11.0-16.0); White Blood Count 6.7 X10*3/uL (4.8-10.8)
[2024-06-19 09:27] LABS: INTERNATIONAL NORM RATIO 1.2 (0.9-1.1); Prothrombin Time 13.4 SEC (10.9-12.4)
[2024-06-19 09:55] VITALS: BP 130/65; PULSE 56; O2SAT 98
== END 2024-06-19 10:26 | disposition home or self-care (01) ==
LOC: HO.SSS 08:27
PROVIDERS: Student in an Organized Health Care Education/Training Program; PCP Internal Medicine; Visit Provider Internal Medicine Gastroenterology
DX: K70.31 Alcoholic cirrhosis of liver with ascites (principal); Z53.8 Procedure and treatment not carried out for other reasons; F10.10 Alcohol abuse, uncomplicated; K76.82 Hepatic encephalopathy; I10 Essential (primary) hypertension; D50.9 Iron deficiency anemia, unspecified; E78.5 Hyperlipidemia, unspecified; E55.9 Vitamin D deficiency, unspecified; D69.6 Thrombocytopenia, unspecified; Z79.899 Other long term (current) drug therapy; F17.210 Nicotine dependence, cigarettes, uncomplicated
CPT/HCPCS: 36415; 76705; 85025; 85610; J2003

== ENCOUNTER → 2024-06-19 09:39 | Outpatient (BNV) | payer OTHER, SELFPAY | PROVIDERS: PCP Internal Medicine; Visit Provider Radiology Diagnostic Radiology | DX: K70.31 Alcoholic cirrhosis of liver with ascites (principal) | CPT/HCPCS: 76705 ==

== ENCOUNTER 2024-07-11 11:03 | Outpatient (AMB) | payer OTHER, SELFPAY ==
--- NOTE | 2024-07-11 10:54 | MHC.PC.OV ---
Intake Visit Reasons: discuss having license re-instated Intake Note: Pt is having a telehealth visit to discuss having license re-instated Allergies No Known Allergies Allergy (Verified 07/11/24 11:32) Medication List - Last Reconciled 07/11/24 by Giovana Manning MD ferrous sulfate 324 mg PO DAILY 90 days folic acid 0.8 mg PO DAILY furosemide (Lasix) 20 mg PO DAILY lactulose 20 grams (30 mL) PO BID 30 days midodrine 10 mg PO TID omeprazole 20 mg PO DAILY@0630 PRN [shower seat As directed] spironolactone 100 mg PO QAM 90 days thiamine mononitrate (vit B1) 100 mg PO DAILY zinc sulfate (Orazinc) 25 mg PO DAILY 90 days Tobacco use date assessed: 07/11/24 Dental Screening Dental Screen Date: 07/11/24 Did you have a dental visit in the last 12 months?: No Did you have a dental problem in the last 6 months where you did not have access to dental care?: No Was dental information given to patient?: No HPI HPI Comments History of Present Illness Details 64-year-old lady with history of alcohol abuse, has been sober now since December 2023, has hyperlipidemia, hypertension, degenerative disc disease, folate deficiency, alcoholic cirrhosis complicated by ascites, thrombocytopenia and history of hepatic encephalopathy after last admission in December 2023, here today wanting to he able to drive and have her license reinstated. She was seen recently by GI 2 months ago, liver enzymes has almost normalized, patient states that she has been feeling well, clear headed denies any lightheadedness, no falls, no chest pain, shortness of breath. Has not had any alcohol since December 2023 after last admission. Her last abdominal paracentesis was March 2024. Denies any abdominal discomfort, now nausea, no leg swelling. Appetite has improved, has been going for walks for exercise, was seen at [facility] 05/19/2024, and was told that she does not need a liver transplant at present time. [facility] Medical History History of anemia Thiamine deficiency Back pain with history of spinal surgery Alcohol use disorder, severe, dependence Osteoporosis Nicotine dependence, cigarettes, uncomplicated Hx of scoliosis Elevated liver transaminase level Folate deficiency Vitamin D deficiency Lumbar stenosis with neurogenic claudication History of right tennis elbow Degenerative disc disease, cervical Lumbar spine scoliosis Hx of fracture of wrist Hyperlipidemia Essential hypertension Surgical History Hx of section Hx of tubal ligation History of carpal tunnel surgery of right wrist History of carpal tunnel surgery of left wrist History of rotator cuff surgery History of colonoscopy with polypectomy Family History Brother Substance use disorder Prostate cancer Daughter Substance use disorder Sister Substance use disorder Maternal Grandmother Diabetes mellitus Mother Alcoholism COPD (chronic obstructive pulmonary disease) Father Alcoholism COPD (chronic obstructive pulmonary disease) Social History Household Members: Spouse and Other Household Members Other:: granchildren Housing: House Are you a primary senior care specialist to a significant other at home: No Do you presently have visiting nurse or other home services: No Alcohol intake: former Patient Tobacco Use Status: Former Tobacco user Tobacco use type: Cigarette Cigarette Packs Per Day: 1 Cigarettes Per Day: 4 Years Smoked: 45 e-Cigarette/Vaping Use: Never Used Second Hand Smoke Exposure: No service: No Current occupational status: disabled Cognitive needs: No Hearing needs: No Vision needs: Yes Female Reproductive History Menstrual Age of Menarche: 16 Questionnaire PHQ-9 Over the last 2 weeks, how often have you been bothered by any of the following problems? 1. Little interest or pleasure in doing things: not at all 2. Feeling down, depressed, or hopeless: not at all 3. Trouble falling or staying asleep, or sleeping too much: not at all 4. Feeling tired or having little energy: not at all 5. Poor appetite or overeating: not at all 6. Feeling bad about yourself - or that you are a failure or have let yourself or your family down: not at all 7. Trouble concentrating on things, such as reading the newspaper or watching television: not at all 8. Moving or speaking so slowly that other people could have noticed. Or the opposite - being so fidgety or restless that you have been moving around a lot more than usual: not at all 9. Thoughts that you would be better off or of hurting yourself in some way: not at all Total score: 0 Depression Screening Interpretation: Negative Depression Screening Done: Yes 16108 - PHQ-9 Billing: Yes Source: Developed by Drs. Andrea Pendleton, Ayden Gonzalez and colleagues, with an educational brent from [employer]. Thrive Questionnaire Date Thrive assessed: 07/11/24 I am a: Parent/Caregiver What is your living situation today?: I have a steady place to live Within the past 12 months, did the food you bought not last and you didn't have the money to get more?: Never true Within the past 12 months, did you worry whether your food would run out before you got money to buy more?: Never true Do you have trouble paying for medicines?: No Do you have trouble getting transportation to medical appointments?: No Do you have trouble paying your heating and electricity bill?: No Do you have trouble taking care of your child, family member or friend?: No Do you have trouble with day-to-day activities such as bathing, preparing meals, shopping, managing finances, etc.?: No Are you currently unemployed and looking for a job?: No Are you interested in more education?: No THRIVE Score: 0 AUDIT C Alcohol Use Questionnaire (AUDIT-C) 1. How often do you have a drink containing alcohol?: Never Total Score: 0 LASHONDA-7 AMB Questionnaire LASHONDA-7 Date LASHONDA - 7 assessed: 07/11/24 Feeling nervous, anxious, or on edge: 0 = Not at all Not being able to stop or control worryin = Not at all Worrying too much about different things: 0 = Not at all Trouble relaxin = Not at all Being so restless that it is hard to sit still: 0 = Not at all Becoming easily annoyed or irritable: 0 = Not at all Feeling afraid as if something awful might happen: 0 = Not at all Total LASHONDA-7 score (0-4 normal; 5-9 mild; 10-14 moderate; 15-21 severe): 0 Source: Developed by Drs. Andrea Pendleton, Ayden Gonzalez and colleagues, with an educational brent from [employer]. Review of Systems Const Denies body aches, Denies fatigue, Denies fever(s), Denies headache(s), Reports increased appetite and Denies lethargy Eyes Reports no additional complaints ENT Denies dysphagia, Denies dizziness, Denies headache(s), Denies nasal congestion, Denies odynophagia, Denies disequilibrium and Denies post nasal drip Card Denies chest pain, Denies rapid heart rate, Denies irregular heart rhythm, Denies lightheadedness and Denies dyspnea Resp Denies chest congestion, Denies cough and Denies dyspnea GI Denies melena, Denies hematochezia, Denies dysphagia, Denies nausea and Denies odynophagia Reports no additional complaints Musc Reports no additional complaints Skin/Breast Denies new lesions, Denies rash, Denies unusual bruising and Denies jaundice Neuro Denies dizziness, Denies headache(s) and Denies disequilibrium Psych Reports no additional complaints Endo Denies fatigue and Reports polyuria Codey/Lymph Reports no additional complaints Aller/Immun Reports no additional complaints Physical exam (Primary Care) Tobacco/Smoking Status: Tobacco use Status Tobacco use date assessed 07/11/24 07/11/24 10:57 Patient Tobacco Use Status Former Tobacco user 07/11/24 10:57 Tobacco use type Cigarette 07/11/24 10:57 e-Cigarette/Vaping Use Never Used 07/11/24 10:57 PHQ-9: PHQ-9 Score PHQ-9: Total score 0 07/11/24 11:29 Depression Screening Interpretation: Negative Thrive Assessment: Date of Thrive Assessment Date Thrive assessed 07/11/24 07/11/24 11:00 Telehealth Telehealth Telehealth Platform: [facility] Location of provider rendering services: practice address Location of patient: address on file Patient Identification confirmed using: Name, : Yes Telehealth method: video Patient verbally consented to treatment: Yes Patient verbally consented to billing insurance company: Yes Patient informed of any privacy concerns related to visit: Yes Minutes spent on Phone/Video with Pt.: 30 Results Reviewed Results Reviewed: Name: Guadalupe Nguyen Age/Sex: 64/F : 1960 Unit#: [id number] Attend Dr: Aron Chavez MD Re06/19/24 Status: DEP [facility] Location: HO.SSS Disch: SPEC : [id number] SIMA: 06/19/24 STATUS: COMP REQ : [id number] RECD: 06/19/[address] [facility] [address]: Victor Manuel Whalen MD COMP: 06/19/24 ENTERED: 06/19/24 [facility] DR: Giovana Manning MD, Rubeela MD ORDERED: CBC Auto Diff Test Result Flag Reference WBC 6.7 4.8-10.8 X10*3/uL RBC 4.45 4.20-5.50 X10*6/uL HGB 12.4 12.0-16.0 g/dl HCT 38.7 37.0-47.0 % MCV 87.0 80.0-98.0 fL MCH 27.9 27.0-33.0 pg MCHC 32.0 31.0-35.0 g/dl RDW 14.9 11.0-16.0 % PLT 269 160-400 X10*3/uL MPV 9.1 L 9.4-12.3 fL Neut Pct Auto 58.1 45-73 % ImGran Pct Auto 0.3 0.0-0.4 % Lymp Pct Auto 30.0 20-40 % Taylor Pct Auto 10.1 2-11 % Eos Pct Auto 0.9 0-4 % Baso Pct Auto 0.6 0-2 % NRBC Pct Auto 0.0 0.0-0.2 /100WBC ANC Neut Abs # 3.9 2.0-8.3 x10*3/uL ImGran Abs Auto 0.02 0.00-0.03 X10*3/uL Lymph Abs Auto 2.0 1.2-4.9 X10*3/uL Taylor Abs Auto 0.7 0.1-1.2 X10*3/uL Eos Abs Auto 0.1 0.0-0.4 X10*3/uL Baso Abs Auto 0.0 0.0-0.2 X10*3/uL NRBC Abs Auto 0.000 0.0-0.012 X10*3/uL Coding Level of Care Code Tele Est Pt Level 4 (67361) Complex EM visit Add On G2211 Diagnoses Alcoholic cirrhosis of liver with ascites K70.31 Vitamin D deficiency E55.9 Folate deficiency E53.8 Thiamine deficiency E51.9 History of anemia Z86.2 Pure hypercholesterolemia E78.00 Hyperlipidemia type: pure hypercholesterolemia Additional Codes PHQ-9 - 87747 - PHQ-9 Billing: Yes ([id number]) Assessment & Plan Assessment & Plan (1) Alcoholic cirrhosis of liver with ascites: Code(s): K70.31 - Alcoholic cirrhosis of liver with ascites Category: Medical Plan: Currently being followed by GI clinic, continued on furosemide, lactulose, spironolactone, thiamine mononitrate. Patient has been sober now for the last 8 months. Has been feeling well, will repeat comprehensive metabolic panel, vitamin-D, B1, B12 and folic acid level. Patient states that she only drives local roads, denies any lightheadedness, no syncopal attacks, not receiving any current paracentesis. Advised to not drive at least after 2 days of abdominal paracentesis. Patient will bring her form to be completed to reinstate her license. Patient however told that [facility] might require a road test before giving her back her license. (2) Vitamin D deficiency: Code(s): E55.9 - Vitamin D deficiency, unspecified Category: Medical Plan: Will check vitamin-D level (3) Folate deficiency: Code(s): E53.8 - Deficiency of other specified B group vitamins Category: Medical Plan: Will check again a folic acid level (4) Thiamine deficiency: Code(s): E51.9 - Thiamine deficiency, unspecified Category: Medical Plan: Check vitamin B1 level, currently on thiamine mononitrate 100 mg once a day (5) History of anemia: Code(s): Z86.2 - Personal history of diseases of the blood and blood-forming organs and certain disorders involving the immune mechanism Category: Medical Plan: Latest CBC done a month ago showed normal hemoglobin hematocrit, white blood cell count and normal platelet count. Ordered vitamin B12 and folic acid level as well as vitamin B1 level (6) Hyperlipidemia: Code(s): E78.5 - Hyperlipidemia, unspecified Category: Medical Qualifiers: Hyperlipidemia type: pure hypercholesterolemia Qualified Code(s): E78.00 - Pure hypercholesterolemia, unspecified Plan: Will check a fasting lipid panel Orders: Orders Vitamin B12 and Folate 07/11/24 E53.8 - Deficiency of other specified B group vitamins, E55.9 - Vitamin D deficiency, unspecified, E78.00 - Pure hypercholesterolemia, unspecified, E80.6 - Other disorders of bilirubin metabolism, K70.31 - Alcoholic cirrhosis of liver with ascites, M81.0 - Age-related osteoporosis without current pathological fracture Vitamin B1 07/11/24 E53.8 - Deficiency of other specified B group vitamins, E55.9 - Vitamin D deficiency, unspecified, E78.00 - Pure hypercholesterolemia, unspecified, E80.6 - Other disorders of bilirubin metabolism, K70.31 - Alcoholic cirrhosis of liver with ascites, M81.0 - Age-related osteoporosis without current pathological fracture Comprehensive [place]. Panel Fast 07/11/24 E53.8 - Deficiency of other specified B group vitamins, E55.9 - Vitamin D deficiency, unspecified, E78.00 - Pure hypercholesterolemia, unspecified, E80.6 - Other disorders of bilirubin metabolism, K70.31 - Alcoholic cirrhosis of liver with ascites, M81.0 - Age-related osteoporosis without current pathological fracture Lipid Panel 07/11/24 E53.8 - Deficiency of other specified B group vitamins, E55.9 - Vitamin D deficiency, unspecified, E78.00 - Pure hypercholesterolemia, unspecified, E80.6 - Other disorders of bilirubin metabolism, K70.31 - Alcoholic cirrhosis of liver with ascites, M81.0 - Age-related osteoporosis without current pathological fracture Vitamin D 25-OH Total 07/11/24 E53.8 - Deficiency of other specified B group vitamins, E55.9 - Vitamin D deficiency, unspecified, E78.00 - Pure hypercholesterolemia, unspecified, E80.6 - Other disorders of bilirubin metabolism, K70.31 - Alcoholic cirrhosis of liver with ascites, M81.0 - Age-related osteoporosis without current pathological fracture
--- OUTSIDE RECORDS SUMMARY | 2024-07-11 11:34 | XMS_ITS | Clinical Summary ---
Author Organization [facility] it Address [address] [place] [address] Care Team Providers Care Steel Roller Name Role Phone Ralph Blake MD Primary Care Provider [phone] Social History Tobacco Use Types Packs/Day Years [...] age to complete this topic Care Teams Steel Roller Relationship Specialty Start Date End Date Ralph Blake MD [facility] [place] [address] PCP - General 04/07/09
== END 2024-07-11 11:34 | disposition home or self-care (01) ==
PROVIDERS: PCP Internal Medicine; Visit Provider Internal Medicine
DX: K70.31 Alcoholic cirrhosis of liver with ascites (principal); E55.9 Vitamin D deficiency, unspecified; E53.8 Deficiency of other specified B group vitamins; E51.9 Thiamine deficiency, unspecified; Z86.2 Personal history of diseases of the blood and blood-forming organs and certain disorders involving the immune mechanism; E78.00 Pure hypercholesterolemia, unspecified

== ENCOUNTER → 2024-07-11 11:03 | Outpatient (BNVA) | payer OTHER, SELFPAY | PROVIDERS: PCP Internal Medicine; Visit Provider Internal Medicine | DX: K70.31 Alcoholic cirrhosis of liver with ascites (principal); E55.9 Vitamin D deficiency, unspecified; E53.8 Deficiency of other specified B group vitamins; E51.9 Thiamine deficiency, unspecified; E78.00 Pure hypercholesterolemia, unspecified; F10.11 Alcohol abuse, in remission; Z86.2 Personal history of diseases of the blood and blood-forming organs and certain disorders involving the immune mechanism | CPT/HCPCS: 96127 ==

== ENCOUNTER 2024-07-14 09:23 | Outpatient (REF) | payer OTHER, SELFPAY ==
[2024-07-14 11:00] LABS: Alanine Aminotransferase 41 U/L (0-31); Albumin Level 4.2 g/dL (3.5-5.0); Alkaline Phosphatase 122 U/L (39-117); Anion Gap 15 (12-20); Aspartate Amino Transferase 57 U/L (5-31); Blood Urea Nitrogen 19 mg/dL (9-16); Carbon Dioxide 24 mmol/L (22-29); Chloride 101 mmol/L (96-108); Cholesterol 160 mg/dL (<200); Estimated Glomerular Filt Rate > 60; Glucose Fasting 91 mg/dL (60-99); HDL Cholesterol 46 mg/dL (>40); LDL Cholesterol Calculated 90 mg/dL (<100); Potassium 3.6 mmol/L (3.3-5.1); Sodium 136 mmol/L (135-145); Total Protein 7.7 g/dL (6.5-8.0); Triglycerides 120 mg/dL (<150)
[2024-07-14 11:01] LABS: Vitamin D 25-OH Total 41.2 ng/mL (>30)
[2024-07-14 11:14] LABS: Folate 16.1 ng/mL (> or = 4.0); Vitamin B12 451 pg/mL (200-900)
[2024-07-20 18:59] LABS: Vitamin B1 7 nmol/L (8-30)
== END 2024-07-14 09:24 | disposition home or self-care (01) ==
LOC: HO.HMGCLDS 09:23
PROVIDERS: PCP Internal Medicine; Visit Provider Internal Medicine
DX: K70.31 Alcoholic cirrhosis of liver with ascites (principal); E80.6 Other disorders of bilirubin metabolism; M81.0 Age-related osteoporosis without current pathological fracture; E53.8 Deficiency of other specified B group vitamins; E55.9 Vitamin D deficiency, unspecified; E78.00 Pure hypercholesterolemia, unspecified
CPT/HCPCS: 36415; 80053; 80061; 82306; 82607; 82746; 84425

== ENCOUNTER 2024-07-22 09:46 | Outpatient (AMB) | payer OTHER, SELFPAY ==
[2024-07-22 09:51] VITALS: BP 112/66; PULSE 57; O2SAT 98; BMI 21.6
--- NOTE | 2024-07-22 09:51 | HO.NEPHOV_ITS ---
Vital Signs 07/22/24 09:51 Height 4 ft 11 in Weight 107 lb BMI 21.6 BP 112/66 Blood Pressure Location Lt brachial Position Sitting Pulse 57 Pulse Source Pulse Oximeter Pulse Oximetry (%) 98 Oxygen Delivery Method Room Air Intake Visit Reasons: 3mon follow-up w/labs-Voicemail Not Set Risk Control Analyst Required: No Accompanied by: Self / Same As Patient Allergies No Known Allergies Allergy (Verified 07/22/24 09:52) HPI Comments Details: 64 year old with alcoholic cirrhosis was seen today for follow-up for H/O hypokalemia and total body volume overload. She had altered mental status and weakness, and abdominal bloating, and was found to have elevated ammonia with acute kidney injury and ascites. Acute kidney injury was likely secondary to acute tubular necrosis, treated with IV octreotide, albumin, midodrine and IV fluid. Her renal function settled to baseline. She has been getting intermittent paracentesis. She denies fever, no chills, no shortness of breath or chest pain but has been having worsening of ascites and edema. She sees gastroenterology in follow up [facility] Medical History History of anemia Thiamine deficiency Back pain with history of spinal surgery Alcohol use disorder, severe, dependence Osteoporosis Nicotine dependence, cigarettes, uncomplicated Hx of scoliosis Elevated liver transaminase level Folate deficiency Vitamin D deficiency Lumbar stenosis with neurogenic claudication History of right tennis elbow Degenerative disc disease, cervical Lumbar spine scoliosis Hx of fracture of wrist Hyperlipidemia Essential hypertension Surgical History Hx of section Hx of tubal ligation History of carpal tunnel surgery of right wrist History of carpal tunnel surgery of left wrist History of rotator cuff surgery History of colonoscopy with polypectomy Family History Brother Substance use disorder Prostate cancer Daughter Substance use disorder Sister Substance use disorder Maternal Grandmother Diabetes mellitus Mother Alcoholism COPD (chronic obstructive pulmonary disease) Father Alcoholism COPD (chronic obstructive pulmonary disease) Social History Household Members: Spouse and Other Household Members Other:: granchildren Housing: House Are you a primary healthcare applications analyst to a significant other at home: No Do you presently have visiting nurse or other home services: No Alcohol intake: former Patient Tobacco Use Status: Former Tobacco user Tobacco use type: Cigarette Cigarette Packs Per Day: 1 Cigarettes Per Day: 4 Years Smoked: 45 e-Cigarette/Vaping Use: Never Used Second Hand Smoke Exposure: No service: No Current occupational status: disabled Cognitive needs: No Hearing needs: No Vision needs: Yes Female Reproductive History Menstrual Age of Menarche: 16 Review of Systems Const All systems reviewed & are unremarkable except as noted in HPI and below Physical Exam Vital Signs: Last Vital Signs Pulse 57 07/22/24 09:51 BP 112/66 07/22/24 09:51 Pulse Ox 98 07/22/24 09:51 Oxygen Delivery Method Room Air 07/22/24 09:51 BMI result Body Mass Index 21.6 Const General: comfortable and no acute distress Orientation/consciousness: patient oriented x3 HEENT Head: Yes normocephalic Mouth: Normal oral and palatal mucosa present Eyes EOM: EOMs intact bilaterally Neck Neck: Yes supple Resp Auscultation: clear to auscultation bilaterally Cardio Jugular venous distension: no JVD Rate: regular rate GI Palpation (GI): Soft to palpation Auscultation: normal bowel sounds General: Yes no CVA tenderness Back/Spine/Pelvis Back: no CVA tenderness Skin General skin exam: no rashes or lesions noted Neuro General: patient oriented x3 and moves all extremities Extrem General: Yes no pedal edema Results Reviewed Nephrology Results: Hgb 12.4 g/dl (12.0-16.0) 06/19/24 WBC 6.7 X10*3/uL (4.8-10.8) 06/19/24 Plt Count 269 X10*3/uL (160-400) 06/19/24 Sodium 136 mmol/L (135-145) 07/14/24 Potassium 3.6 mmol/L (3.3-5.1) 07/14/24 Chloride 101 mmol/L (96-108) 07/14/24 Carbon Dioxide 24 mmol/L (22-29) 07/14/24 BUN 19 mg/dL (9-16) H 07/14/24 Creatinine 0.78 mg/dL (0.5-1.4) 07/14/24 Calcium 10.0 mg/dL (8.4-10.2) 07/14/24 Assessment & Plan Assessment & Plan (1) Ascites: Code(s): R18.8 - Other ascites Category: Medical Qualifiers: Ascites type: due to alcoholic cirrhosis Qualified Code(s): K70.31 - Alcoholic cirrhosis of liver with ascites (2) Essential hypertension: Code(s): I10 - Essential (primary) hypertension Category: Medical Plan H/O recent STACIA likely tubular injury from renal hypoperfusion- resolved No obstruction suggested on recent abdominal CT : BP low due to hepatic physiology C/W Spironolactone 100 mg daily;C/W lasix 20 mg daily C/W Midodrine 10 mg tid; Follow up with GI closely Follow up blood work ordered; Answered all her questions Orders: Orders Electrolytes 4 Months K70.31 - Alcoholic cirrhosis of liver with ascites Creatinine 4 Months K70.31 - Alcoholic cirrhosis of liver with ascites Blood Urea Nitrogen 4 Months K70.31 - Alcoholic cirrhosis of liver with ascites Coding Level of Care Code Est Pt Level 4 (35570) Diagnoses Ascites due to alcoholic cirrhosis K70.31 Ascites type: due to alcoholic cirrhosis Essential hypertension I10
--- OUTSIDE RECORDS SUMMARY | 2024-07-22 10:46 | XMS_ITS | Clinical Summary ---
Author Organization [facility] it Address [address] [place] [address] Care Team Providers Care Medical Psychotherapist Name Role Phone Ralph Blake MD Primary Care Provider [phone] Social History Tobacco Use Types Packs/Day Years [...] age to complete this topic Care Teams Medical Psychotherapist Relationship Specialty Start Date End Date Ralph Blake MD [facility] [place] [address] PCP - General 04/07/09
== END 2024-07-22 10:04 | disposition home or self-care (01) ==
LOC: HO.HKAS 09:46
PROVIDERS: PCP Internal Medicine; Visit Provider Internal Medicine Nephrology
DX: K70.31 Alcoholic cirrhosis of liver with ascites (principal); I10 Essential (primary) hypertension
CPT/HCPCS: 99214

== ENCOUNTER 2024-08-01 10:01 | Outpatient (REF) | payer OTHER, SELFPAY ==
--- NOTE | ~2024-08-01 | US_ITS ---
EXAMINATION: US ABDOMEN LIMITED HISTORY: alcoholic cirrhosis with ascites TECHNIQUE: Real-time grayscale ultrasound imaging of the right upper quadrant was performed and images were reviewed. COMPARISON: Comparison is made with the prior examination dated 06/19/2024. FINDINGS: Liver: The liver is normal in size. The liver demonstrates coarsened echotexture and mildly nodular contour, suggestive of cirrhosis.. No focal mass or intrahepatic biliary ductal dilatation is identified. There is normal hepatopedal flow in the portal vein. Gallbladder and biliary tree: There are multiple calculi in the gallbladder. There is no wall thickening or pericholecystic fluid. There is no sonographic Bose sign. The common bile duct is normal in caliber measuring 6 mm. Right Kidney: The right kidney measures 8.6 cm in length. The right kidney is unremarkable, without evidence of masses, hydronephrosis, or calculi. Pancreas: The pancreatic head, neck, and body are unremarkable. The pancreatic tail is obscured by bowel gas. Abdominal aorta and inferior vena cava: The visualized portions of the abdominal aorta and inferior vena cava are normal in caliber. There is no free fluid in the right upper quadrant. US/US abdomen limited IMPRESSION: Coarsened hepatic echotexture and nodular contour suggestive of cirrhosis. Cholelithiasis without evidence of acute cholecystitis. No evidence of ascites in the upper abdomen. Electronically signed by: Andrea Dumont MD 08/01/2024 10:47 AM EDT
--- OUTSIDE RECORDS SUMMARY | 2024-08-01 10:33 | XMS_ITS | Clinical Summary ---
Author Organization [facility] it Address [address] [place] [address] Care Team Providers Care Manager Front Office Name Role Phone Ralph Blake MD Primary Care Provider [phone] Social History Tobacco Use Types Packs/Day Years [...] age to complete this topic Care Teams Manager Front Office Relationship Specialty Start Date End Date Ralph Blake MD [facility] [place] [address] PCP - General 04/07/09
== END 2024-08-01 10:02 | disposition home or self-care (01) ==
LOC: HO.US 10:01
PROVIDERS: PCP Internal Medicine; Visit Provider Internal Medicine Gastroenterology
DX: K70.31 Alcoholic cirrhosis of liver with ascites (principal)
CPT/HCPCS: 76705

== ENCOUNTER → 2024-08-01 10:19 | Outpatient (BNV) | payer OTHER, SELFPAY | PROVIDERS: PCP Internal Medicine; Visit Provider Radiology Diagnostic Radiology | DX: M50.30 Other cervical disc degeneration, unspecified cervical region (principal); M47.892 Other spondylosis, cervical region | CPT/HCPCS: 72125; 73030; 76705 ==

== ENCOUNTER 2024-08-01 10:40 | Emergency (ER) | payer OTHER, SELFPAY ==
--- NOTE | ~2024-08-01 | XR_ITS ---
EXAMINATION: XR SHOULDER, LEFT CLINICAL INFORMATION: left shoulder pain COMPARISON: None available. TECHNIQUE: AP external rotation, Grashey, scapular Y, and axillary views of the left shoulder. FINDINGS: Normal bone mineralization. No fracture, dislocation, or suspicious bone lesion. Normal alignment. The glenohumeral joint is normal. The AC joint demonstrates mild spurring, most superior and undersurface. There is a type II acromion. No undersurface spurring. The subacromial space is preserved. Remainder of the soft tissue and bony structures appear normal. Thoracic spine stabilization stephanie noted. XR/XR shoulder LT min 2V IMPRESSION: 1. No acute findings of the left shoulder. 2. Mild degenerative arthritis of the AC joint. Electronically signed by: Tk Gee MD 08/01/2024 12:53 PM EDT
--- NOTE | ~2024-08-01 | CT_ITS ---
EXAMINATION: CT CERVICAL SPINE WITHOUT CONTRAST CLINICAL INFORMATION: Neck pain radiating down arm COMPARISON: X-ray dated July 25, 2023 TECHNIQUE: Axial CT scan was performed from the base of the skull through T2. Coronal and sagittal reformatted images were created. This CT examination was performed using dose optimization techniques as appropriate, variously including the following: *Automated exposure control *Adjustment of mA and/or kV according to patient size (this includes techniques or standardized protocols for targeted exams where dose is matched to indication/reason for exam; i.e. extremities or head) *Use of iterative reconstruction technique FINDINGS: No fractures are evident. C2-3: There is amorphous calcification in the posterior disc annulus probably related to CPPD deposition. There is narrowing of the facet joints and osteophytes. C3-4: There is moderate to severe disc space narrowing with endplate irregularity, sclerosis, vacuum phenomena, and endplate osteophytes. There is slrx-gq-mzlfyngv narrowing of the right neural foramen. Osteophytes mildly narrow the left neural foramen. C4-5: There is a threaded interbody metallic device placed anteriorly into the disc space. There are endplate osteophytes. There is mild narrowing of both neural foramina. There is mild to moderate narrowing of facet joints, greater on the right. C5-6: Anterior plate and screws are in place. Hardware is intact. There is osseous bridging of the disc space. Neural foramina are patent. There is moderate narrowing of the facet joints. C6-7: There is wnvw-yr-sutbsihe disc space narrowing and amorphous calcification in the disc. There is endplate irregularity and vacuum phenomena. There are endplate osteophytes. There is mild narrowing of the neural foramina. There is moderate severe narrowing of the facet joint spaces. C7-T1: There is mild disc space narrowing and calcification of the disc annulus and central disc. There is severe narrowing and ossified involving the facet joints bilaterally. There is mild narrowing of the left neural foramen but not the right. Soft tissues are unremarkable. There is no adenopathy. The lung apexes demonstrate mild interstitial scarring, greater right. CT/CT cervical spine wo IV con IMPRESSION: Multilevel degenerative disc disease and facet osteoarthritis likely with underlying CPPD arthropathy with foraminal narrowing as noted above. Inter-body metallic device at C4-5 and anterior plate and screws with mature bony bridging at C5-6. Electronically signed by: Pratik Darby MD 08/01/2024 02:46 PM EDT RP
[2024-08-01 10:52] VITALS: BP 132/71; PULSE 77; RESP 20; TEMP 36.4; O2SAT 97; BMI 21.0
[2024-08-01 12:16] VITALS: BP 138/56; PULSE 73; RESP 18; TEMP 36.2; O2SAT 97
--- NOTE | 2024-08-01 12:19 | ED.EXTPRO ---
HPI - Extremity Problem General Chief complaint: Extremity Injury, Upper Stated complaint: L Arm Pain No Injury Time Seen by Provider: 08/01/24 12:48 Source: patient History of Present Illness ED Provider: Chantal Esteban PA-C HPI Narrative: 64-year-old female with history of anemia, alcohol use disorder in remission, cirrhosis, cervical degenerative disc disease, back pain with history of spinal surgery, pseudogout presents to the ED due to 1 week of left shoulder/arm pain. Patient states she has herniated discs of her cervical spine that cause chronic neck pain. She states 5 months ago she began noticing tingling from the L shoulder down to her finger tips. In the last week she has experienced progressive pain of her right shoulder and now she is unable to lift the left arm. She denies any recent fall/trauma/injury, chest pain, SOB, MD Complaint: extremity pain Onset (ago): week(s) (1) Pain Consistency: constant Location: left Severity scale (1-10): 5 Quality: stabbing and constant Radiation: distal Relieving factors: nothing Exacerbating factors: range of motion Associated symptoms: denies other symptoms Related Data Home Medications ?Medication ?Instructions ?Recorded ?Confirmed omeprazole 20 mg tablet,delayed 20 mg PO DAILY@0630 PRN Heartburn 12/31/23 05/22/24 release midodrine 10 mg tablet 10 mg PO 2XW 08/29/24 Previous Rx's ?Medication ?Instructions ?Recorded ferrous sulfate 324 mg (65 mg 324 mg PO DAILY 90 days #90 tabs 01/02/24 iron) tablet,delayed release lactulose 20 gram/30 mL oral 20 g (30 mL) PO BID 30 days #1,800 01/02/24 solution mL thiamine mononitrate (vit B1) 100 100 mg PO DAILY #90 tabs 01/02/24 mg tablet shower seat #1 ea 01/07/24 furosemide 20 mg tablet (Lasix) 20 mg PO DAILY #30 tabs 03/27/24 spironolactone 100 mg tablet 100 mg PO QAM 90 days #90 tabs 04/22/24 folic acid 800 mcg tablet 0.8 mg PO DAILY #90 tabs 05/07/24 zinc sulfate 25 mg zinc (110 mg) 25 mg PO DAILY 90 days #90 tabs 05/22/24 tablet (Orazinc) naproxen 500 mg tablet,delayed 500 mg PO BID PRN pain #14 tabs 08/01/24 release (EC-Naproxen) omeprazole 40 mg capsule,delayed 40 mg PO DAILY #7 caps 08/01/24 release prednisone 20 mg tablet 20 mg PO DAILY #5 tabs 08/01/24 naproxen 500 mg tablet 500 mg PO BID PRN pain #14 tabs 08/25/24 Allergies Allergy/AdvReac Type Severity Reaction Status Date / Time No Known Allergies Allergy Verified 08/25/24 10:37 Review of Systems Review of Systems: CONST: Negative for fever, body aches and chills. HENT: Negative for neck pain/stiffness, headache, congestion, sore throat, swelling. EYES: Negative for discharge/pain or vision changes. RESP: Negative for cough/hemoptysis and shortness of breath. CV: Negative chest pain, difficulty breathing, palpitations. ABD: Negative pain, nausea, vomiting. : Negative increase frequency, dysuria, blood in urine or stool. MUSC: Negative for muscle aches, edema. POS L shoulder pain, tingling down to L fingertips SKIN: Negative rash, lesions/sores. NEURO: Negative headache, dizziness, weakness. Yes all other systems are reviewed and are negative PMFSH Past Medical History Attestation statement: The following information was validated with the patient. Source: old records reviewed Medical History History of anemia Thiamine deficiency Back pain with history of spinal surgery Alcohol use disorder, severe, dependence Osteoporosis Nicotine dependence, cigarettes, uncomplicated Hx of scoliosis Elevated liver transaminase level Folate deficiency Vitamin D deficiency Lumbar stenosis with neurogenic claudication History of right tennis elbow Degenerative disc disease, cervical Lumbar spine scoliosis Hx of fracture of wrist Hyperlipidemia Essential hypertension Surgical History Hx of section Hx of tubal ligation History of carpal tunnel surgery of right wrist History of carpal tunnel surgery of left wrist History of rotator cuff surgery History of colonoscopy with polypectomy Family History Family History Brother Substance use disorder Prostate cancer Daughter Substance use disorder Sister Substance use disorder Maternal Grandmother Diabetes mellitus Mother Alcoholism COPD (chronic obstructive pulmonary disease) Father Alcoholism COPD (chronic obstructive pulmonary disease) Social History Social History Household Members: Spouse and Other Household Members Other:: granchildren Housing: House Are you a primary pharmacist critical care to a significant other at home: No Do you presently have visiting nurse or other home services: No Alcohol intake: former Patient Tobacco Use Status: Former Tobacco user Tobacco use type: Cigarette Cigarette Packs Per Day: 1 Cigarettes Per Day: 4 Years Smoked: 45 e-Cigarette/Vaping Use: Never Used Second Hand Smoke Exposure: No service: No Current occupational status: disabled Cognitive needs: No Hearing needs: No Vision needs: Yes Physical Exam Vital Signs: Vital Signs: Last Vital Signs Temp 98.1 F 08/01/24 17:31 Pulse 54 08/01/24 17:31 Resp 14 08/01/24 17:31 BP 113/69 08/01/24 17:31 Pulse Ox 98 08/01/24 17:31 O2 Del Method Room Air 08/01/24 17:31 BMI result Body Mass Index 21.0 GENERAL APPEARANCE: ?AxOx4, generally well-appearing, no acute distress. HEENT: ?NC, AT. MMM. EOMI, clear conjunctiva, oropharynx clear. NECK: ?Supple without lymphadenopathy.? No stiffness. Reduced ROM of L lateral flexion. TTP of cervical paraspinal muscles, posterior trapezius. HEART:? Bradycardic rate and regular rhythm, normal S1/S1, no m/r/g LUNGS:? CTAB, moving air well. No crackles or wheezes are heard. BACK: No CVAT, no obvious deformity. EXTREMITIES: ?Without cyanosis, clubbing or edema. Strength 2/5 CHUCHO, strength 5/5 RUE. 2+ radial pulses, appropriate capillary refill, no warmth, overlying skin changes, or edema of the LUE. NEUROLOGICAL: ?Grossly nonfocal. Alert and oriented, moving all 4 extremities. Observed to ambulate with normal gait. Skin: ?Warm and dry without any rash. Course Course Course Narrative: RME: 64-year-old female presents to ED left arm pain from shoulder radiating down the arm without any trauma. Patient states difficulty lifting up left shoulder. Patient has history of cervical fusion in had also posterior neck pain but none presently. Patient denies any tingling paralysis of extremity. Patient denies any referred chest pain. Due to age we will do EKG labs. Was sent for left shoulder x-ray. Sent for cervical spine CT scan. Patient has history of alcoholism but has been cleaned was sent for magnesium. Medications Administered Discontinued Medications Generic Name Dose Route Start Last Admin Trade Name Danay PRN Reason Stop Dose Admin Ketorolac Tromethamine 30 mg 08/01/24 14:14 08/01/24 14:27 Ketorolac Tromethamine 30 Mg/Ml Vial IM 08/01/24 14:15 30 mg ONCE ONE Administration Medical Decision Making Medical Decision Making MDM Narrative: 64-year-old female with history of anemia, alcohol use disorder in remission, cirrhosis, cervical degenerative disc disease, back pain with history of spinal surgery, presents to the ED due to 1 week of left shoulder/arm pain. Patient states she has herniated discs of her cervical spine that cause chronic neck pain. She states 5 months ago she began noticing tingling from the L shoulder down to her finger tips. In the last week she has experienced progressive pain of her right shoulder and now she is unable to lift the left arm. VSS, in no acute distress, nontoxic appearing. On physical exam patient has normal gait, TTP of cervical paraspinal muscles, posterior trapezius. LUE 2/5 strength, 2+ radial pulses, appropriate capillary refill, no warmth, overlying skin changes, or edema. Labs unremarkable. EKG does not reveal any ST elevation/depression or T-wave abnormalities initial troponin WNL-low suspicion for ACS. X-ray does not reveal any fracture or dislocation of the left shoulder, observe as mild degenerative arthritis of the AC joint. Currently awaiting CT of cervical spine. Patient not on anticoagulants, has not taken any medication for pain today. Medicate with IM Toradol for pain relief. Course 15:03- Patients pain has improved after medicating with Toradol. Awaiting CT results 17:34- CT observes pseudogout of C2-3 with multiple areas of foraminal narrowing, and osteoarthritis. Patient will be started on 5 day course of 20mg prednisone, 2 week course of naproxen and 7 days of omeprazole for gastric protection. Differential Diagnosis Differential Diagnoses: The differential diagnosis associated with the presentation includes Shoulder fracture Osteoarthritis of shoulder Nerve impingement Shoulder strain Admission/Observation Consideration of admission/observation: Escalation of care including admission/observation considered Lab Data MDM Lab Attestation statement: I reviewed the patient's lab results. 08/01/24 12:58 08/01/24 12:58 Labs: Lab Results 08/01/24 Range/Units 12:58 WBC 7.7 (4.8-10.8) X10*3/uL RBC 4.00 L (4.20-5.50) X10*6/uL Hgb 11.5 L (12.0-16.0) g/dl Hct 34.9 L (37.0-47.0) % MCV 87.3 (80.0-98.0) fL MCH 28.8 (27.0-33.0) pg MCHC 33.0 (31.0-35.0) g/dl RDW 14.0 (11.0-16.0) % Plt Count 253 (160-400) X10*3/uL MPV 9.0 L (9.4-12.3) fL Immature Gran % (Auto) 0.4 (0.0-0.4) % Neut % (Auto) 68.9 (45-73) % Lymph % (Auto) 19.9 L (20-40) % Morris % (Auto) 10.5 (2-11) % Eos % (Auto) 0.0 (0-4) % Baso % (Auto) 0.3 (0-2) % Lymph # (Auto) 1.5 (1.2-4.9) X10*3/uL Morris # (Auto) 0.8 (0.1-1.2) X10*3/uL Eos # (Auto) 0.0 (0.0-0.4) X10*3/uL Baso # (Auto) 0.0 (0.0-0.2) X10*3/uL Abs Immat Gran (auto) 0.03 (0.00-0.03) X10*3/uL Absolute Neuts (auto) 5.3 (2.0-8.3) x10*3/uL Absolute Nucleated RBC 0.000 (0.0-0.012) X10*3/uL Nucleated RBC % (auto) 0.0 (0.0-0.2) /100WBC PT 13.5 H (10.9-12.4) SEC INR 1.2 H (0.9-1.1) APTT 30.9 (26.0-36.8) SEC Sodium 138 (135-145) mmol/L Potassium 3.9 (3.3-5.1) mmol/L Chloride 99 (96-108) mmol/L Carbon Dioxide 30 H (22-29) mmol/L Anion Gap 13 (12-20) BUN 10 (9-16) mg/dL Creatinine 0.65 (0.5-1.4) mg/dL Estim Creat Clear Calc 61.2 Estimated GFR > 60 Random Glucose 75 (60-115) mg/dL Calcium 10.1 (8.4-10.2) mg/dL Magnesium 1.9 (1.6-2.6) mg/dL Total Bilirubin 0.9 (0.0-1.0) mg/dL AST 36 H (5-31) U/L ALT 29 (0-31) U/L Alkaline Phosphatase 147 H (39-117) U/L Troponin I High Sens < 2.7 D (<3.5-17.0) ng/L Total Protein 7.5 (6.5-8.0) g/dL Albumin 4.1 (3.5-5.0) g/dL Independent Interpretation I performed an independent interpretation of an: EKG, Plain X-Ray and CT Scan Interpretation: I independently interpreted the EKG: I independently interpreted the L shoulder XR: No acute fracture or dislocation Vent. Rate : 57 BPM Atrial Rate : 57 BPM P-R Int : 168 ms QRS Dur : 70 ms QT Int : 454 ms P-R-T Axes : 49 21 41 degrees QTcB Int : 441 ms Sinus bradycardia with sinus arrhythmia Otherwise normal ECG When compared with ECG of 01-Feb-2024 03:21, Vent. rate has decreased by 42 bpm T wave inversion no longer evident in Anterior leads Radiology Impression Discussion of test interpretation with radiology: I have reviewed the radiologist's reading. Radiologist Impression: XR L shoulder Normal bone mineralization. No fracture, dislocation, or suspicious bone lesion. Normal alignment. The glenohumeral joint is normal. The AC joint demonstrates mild spurring, most superior and undersurface. There is a type II acromion. No undersurface spurring. The subacromial space is preserved. Remainder of the soft tissue and bony structures appear normal. Thoracic spine stabilization stephanie noted. XR/XR shoulder LT min 2V IMPRESSION: 1. No acute findings of the left shoulder. 2. Mild degenerative arthritis of the AC joint. CT cervical spine FINDINGS: No fractures are evident. C2-3: There is amorphous calcification in the posterior disc annulus probably related to CPPD deposition. There is narrowing of the facet joints and osteophytes. C3-4: There is moderate to severe disc space narrowing with endplate irregularity, sclerosis, vacuum phenomena, and endplate osteophytes. There is [id number] narrowing of the right neural foramen. Osteophytes mildly narrow the left neural foramen. C4-5: There is a threaded interbody metallic device placed anteriorly into the disc space. There are endplate osteophytes. There is mild narrowing of both neural foramina. There is mild to moderate narrowing of facet joints, greater on the right. C5-6: Anterior plate and screws are in place. Hardware is intact. There is osseous bridging of the disc space. Neural foramina are patent. There is moderate narrowing of the facet joints. C6-7: There is gzqr-dj-wbqlcuap disc space narrowing and amorphous calcification in the disc. There is endplate irregularity and vacuum phenomena. There are endplate osteophytes. There is mild narrowing of the neural foramina. There is moderate severe narrowing of the facet joint spaces. C7-T1: There is mild disc space narrowing and calcification of the disc annulus and central disc. There is severe narrowing and ossified involving the facet joints bilaterally. There is mild narrowing of the left neural foramen but not the right. Soft tissues are unremarkable. There is no adenopathy. The lung apexes demonstrate mild interstitial scarring, greater right. CT/CT cervical spine wo IV con IMPRESSION: Multilevel degenerative disc disease and facet osteoarthritis likely with underlying CPPD arthropathy with foraminal narrowing as noted above. Inter-body metallic device at C4-5 and anterior plate and screws with mature bony bridging at C5-6. Electronically signed by: Pratik Darby MD 08/01/2024 02:46 PM EDT Dictated By: Pratik Darby MD Signed By: <Electronically signed by Pratik Darby MD in OV> 08/01/24 [id number] External Record Review External record reviewed: Inpatient record, Office record and Outpatient record Discharge Plan Discharge Clinical Impression: Pseudogout, Osteoarthritis cervical spine Patient Disposition: Home, Self-Care Instructions: Neck Pain (ED) Additional Instructions: You were evaluated in the ED today due to neck pain radiating down to your left shoulder and fingertips. Your labs are unconcerning today. Your EKG did not reveal any emergent process. Your shoulder x-ray did not reveal any fracture or dislocation, however, there is mild degenerative changes of the acromioclavicular joint which is the area where your shoulder and collarbone meet together. 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 I have [place] a [place] [facility] [place] evaluation and management of your shoulder pain. You need to call the office to schedule the appointment. [facility] [place] [address] [place] [address], Please return to the emergency department if you experience worsening pain, decreased sensation of the limb, color changes or swelling of the limb, worsening reduced ability to move the limb, or any other new/concerning symptoms. Prescriptions: New prednisone 20 mg tablet 20 mg PO DAILY Qty: 5 0RF naproxen [EC-Naproxen] 500 mg tablet,delayed release (DR/EC) 500 mg PO BID PRN (Reason: pain ) Qty: 14 0RF omeprazole 40 mg capsule,delayed release(DR/EC) 40 mg PO DAILY Qty: 7 0RF No Action folic acid 800 mcg tablet 0.8 mg PO DAILY Qty: 90 1RF omeprazole 20 mg Tablet,Delayed Release (Dr/Ec) 20 mg PO DAILY@0630 PRN (Reason: Heartburn) ferrous sulfate 324 mg (65 mg iron) Tablet,Delayed Release (Dr/Ec) 324 mg PO DAILY 90 Days Qty: 90 0RF thiamine mononitrate (vit B1) 100 mg Tablet 100 mg PO DAILY Qty: 90 0RF lactulose 20 gram/30 mL Solution 20 g PO BID 30 Days Qty: 1800 0RF midodrine 10 mg tablet 10 mg PO 2XW (DME) shower seat See Rx Instructions .Route .MEDSUPPLY Qty: 1 0RF Rx Instructions: As directed spironolactone 100 mg tablet 100 mg PO QAM 90 Days Qty: 90 1RF furosemide [Lasix] 20 mg tablet 20 mg PO DAILY Qty: 30 6RF Orazinc 25 mg zinc (110 mg) tablet 25 mg PO DAILY 90 Days Qty: 90 1RF naproxen 500 mg tablet 500 mg PO BID PRN (Reason: pain) Qty: 14 1RF Rx Instructions: Take only as needed for pain; does not need to be taken every day. Interventions: ED Discharge Assessment Last Done: 08/01/24 17:31 Discharge Date/Time: 08/01/24 17:32 Print Language: Venezuelan
--- NOTE | 2024-08-01 12:20 | ECG_ITS ---
Test Reason : L ARM PAIN Blood Pressure : */* mmHG Vent. Rate : 57 BPM Atrial Rate : 57 BPM P-R Int : 168 ms QRS Dur : 70 ms QT Int : 454 ms P-R-T Axes : 49 21 41 degrees QTcB Int : 441 ms Sinus bradycardia with sinus arrhythmia Otherwise normal ECG When compared with ECG of 01-Feb-2024 03:21, Vent. rate has decreased by 42 bpm T wave inversion no longer evident in Anterior leads Referred By: Harley Barajas Electronically Signed By: ADITI FLORES MD
[2024-08-01 13:01] LABS: MANUAL DIFF FLAG NO
[2024-08-01 13:03] LABS: Basophils Percent Auto 0.3 % (0-2); Hematocrit 34.9 % (37.0-47.0); Hemoglobin 11.5 g/dl (12.0-16.0); Imm Gran Abs Auto 0.03 X10*3/uL (0.00-0.03); Imm Gran Pct Auto 0.4 % (0.0-0.4); Lymphocytes Absolute Auto 1.5 X10*3/uL (1.2-4.9); Lymphocytes Percent Auto 19.9 % (20-40); Mean Corpuscular Hemoglobin 28.8 pg (27.0-33.0); Mean Corpuscular Volume 87.3 fL (80.0-98.0); Monocytes Absolute Auto 0.8 X10*3/uL (0.1-1.2); Monocytes Percent Auto 10.5 % (2-11); Neutrophils Absolute Auto 5.3 x10*3/uL (2.0-8.3); Neutrophils Percent Auto 68.9 % (45-73); Platelet Count 253 X10*3/uL (160-400); White Blood Count 7.7 X10*3/uL (4.8-10.8)
[2024-08-01 13:10] LABS: INTERNATIONAL NORM RATIO 1.2 (0.9-1.1); Prothrombin Time 13.5 SEC (10.9-12.4)
[2024-08-01 13:13] LABS: Partial Thromboplastin Time 30.9 SEC (26.0-36.8)
[2024-08-01 13:18] LABS: Alanine Aminotransferase 29 U/L (0-31); Albumin Level 4.1 g/dL (3.5-5.0); Alkaline Phosphatase 147 U/L (39-117); Anion Gap 13 (12-20); Aspartate Amino Transferase 36 U/L (5-31); Bilirubin Total 0.9 mg/dL (0.0-1.0); Blood Urea Nitrogen 10 mg/dL (9-16); Calcium 10.1 mg/dL (8.4-10.2); Carbon Dioxide 30 mmol/L (22-29); Chloride 99 mmol/L (96-108); Creatinine Clr Calc Pharmacy 61.2; Estimated Glomerular Filt Rate > 60; Glucose Random 75 mg/dL (60-115); Magnesium 1.9 mg/dL (1.6-2.6); Potassium 3.9 mmol/L (3.3-5.1); Sodium 138 mmol/L (135-145); Total Protein 7.5 g/dL (6.5-8.0)
[2024-08-01 13:31] LABS: Troponin-I High Sensitivity < 2.7 ng/L (<3.5-17.0)
[2024-08-01] MEDS: Ketorolac Tromethamine 30 MG/ML VIAL IM (14:27)
[2024-08-01 15:45] VITALS: BP 113/69; PULSE 54; RESP 14; TEMP 36.7; O2SAT 98
[2024-08-01 17:31] VITALS: BP 113/69; PULSE 54; RESP 14; TEMP 36.7; O2SAT 98
== END 2024-08-01 17:32 | disposition home or self-care (01) ==
PROVIDERS: Physician Assistant; Emergency Provider Emergency Medicine; PCP Internal Medicine
DX: M11.8 Other specified crystal arthropathies (principal); M25.511 Pain in right shoulder; M54.2 Cervicalgia; I10 Essential (primary) hypertension; E78.5 Hyperlipidemia, unspecified; Z79.899 Other long term (current) drug therapy
CPT/HCPCS: 36415; 72125; 73030; 80053; 83735; 84484; 85025; 85610; 85730; 93005; 96372; 99285; J1885

== ENCOUNTER → 2024-08-01 12:20 | Outpatient (BNV) | payer OTHER, SELFPAY | PROVIDERS: Emergency Provider Emergency Medicine; PCP Internal Medicine; Visit Provider Internal Medicine Cardiovascular Disease | DX: I49.9 Cardiac arrhythmia, unspecified (principal); R00.1 Bradycardia, unspecified | CPT/HCPCS: 93010 ==

== ENCOUNTER 2024-08-25 10:30 | Outpatient (AMB) | payer OTHER, SELFPAY ==
--- NOTE | 2024-08-25 10:36 | HO.SPINEOV ---
Intake Visit Reasons: ED f/u 08/01/24 Intake Note: Ms. Nguyen is here today for ED F/u regarding cervical spine pain. Progress Clerk Required: No Allergies No Known Allergies Allergy (Verified 08/25/24 10:37) Assessment & Plan Assessment & Plan (1) Cervical radiculopathy: Code(s): M54.12 - Radiculopathy, cervical region Category: Medical Plan Guadalupe is a pleasant 64-year-old female who comes in today as an emergency department follow-up after presenting to the ED on 08/01/24 with left shoulder pain and shooting pains down her left upper extremity. The patient reports that her pain began about 1 week before her evaluation in the emergency department, so in total she has been having this pain for about 1 month. When describing the pain she states that she has fairly severe posterior neck pain that will occasionally shoots down into her left shoulder over the dorsal surface of her left arm and terminates diffusely in her fingers. In addition to this she reports tingling at her fingertips of the bilateral hands. She states that she has had pain similar to this in the past, which prompted cervical spine fusion at C4-5, C5-6. She reports that her pain is worse at night and with activity. Her pain has gotten to the point where it wakes her up multiple times throughout the night. She has been attempting to mitigate the symptoms with Alleve monotherapy, as she was diagnosed with liver cirrhosis back in December, in his concerned about taking other medications that may interact with the liver. Thankfully, since her diagnosis of liver cirrhosis she reports she has remained sober from alcohol. Her most recent PT/INR completed on 08/01/2024 was just out of range at 13.5 / 1.2. Her most recent liver function tests also completed on 08/01/2024 showed AST/ALT of 36/29, with Alk phos of 147. She reports that she sometimes uses a cane to help her ambulate. She has been to physical therapy in the past and found it is not helpful for her neck pain. She has attempted cortisone injections in the past also, but states that they were done many years ago. She denies any issues with dexterity, balance, or incontinence. PMH: Anemia, thiamine deficiency, zinc deficiency, ascites, osteoporosis, fully deficiency, vitamin-D deficiency, hyperlipidemia, hypertension, GERD. Social hx: Patient has been sober since December 2023. Denies any current smoking / substance use. Medications: Ferrous sulfate, folic acid, Lasix, lactulose, midodrine, naproxen, omeprazole, prednisone, spironolactone, thiamine, zinc. Allergies: NKDA Physical exam: The patient has 5/5 strength in her upper and lower extremities. She ambulates well and rises from a seated position without difficulty. She has no significant sensational deficits to light touch on examination. Her reflexes are 3+ hyperactive in her bilateral upper extremities, much more accentuated than the 2+ normoactive reflexes in her lower extremities. (+) bilateral Martino's, (-) clonus, (-) Babinski's. Imaging review: CT scan of the cervical spine completed here at [facility] shows evidence of previous cervical spine fusion C4-5, C5-6. There is an interbody spacer at C4-5, and anterior plate between C5-6. There is significant loss of disc height and osteophyte overgrowth above and below her fusion segments. Impression: Guadalupe is a pleasant 64-year-old female who comes in today for evaluation of posterior neck pain, left-sided shoulder pain, and shooting pains down her left upper extremity. She denies any issues with balance, dexterity, or bladder/bowel control. She has a pertinent past medical history of C4-6 ACDF completed at a another institution. Her CT scan completed at the emergency department on 08/01/2024 shows fairly severe degeneration above and below her fusion segment. There is fairly high concern for adjacent segment disease causing significant nerve impingement. She also has myelopathic reflexes shown on examination in office today. Therefore, I would like to order a Cervical Spine MRI to ensure she does not have severe spinal cord compression, and evaluate for adjacent segment disease. She does have osteoporosis, and compromised liver function which need to be considered when reviewing potential surgical options for this patient. Thank you for allowing us to care for your patient. The total time spent with this visit with this patient was 45 minutes reviewing history, physical exam, CT imaging review, and implementation of treatment plan or further diagnostic testing Genaro Jenkins MD,PhD [facility] Medications: New naproxen Take only as needed for pain; does not need to be taken every day. 500 mg PO BID PRN 14 tabs 1RF pain Coding Level of Care Code New Pt Level 4 (95871) Diagnoses Cervical radiculopathy M54.12
--- OUTSIDE RECORDS SUMMARY | 2024-08-25 11:47 | XMS_ITS | Clinical Summary ---
Author Organization [facility] it Address [address] [place] [address] Care Team Providers Care Plastic Surgery Nurse Name Role Phone Ralph Blake MD Primary Care Provider [phone] Social History Tobacco Use Types Packs/Day Years [...] age to complete this topic Care Teams Plastic Surgery Nurse Relationship Specialty Start Date End Date Ralph Blake MD [facility] [place] [address] PCP - General 04/07/09
== END 2024-08-25 11:53 | disposition home or self-care (01) ==
LOC: HO.HNS 10:31
PROVIDERS: PCP Internal Medicine; Visit Provider Physician Assistant
DX: M54.12 Radiculopathy, cervical region (principal)
CPT/HCPCS: 99204

== ENCOUNTER 2024-08-29 07:32 | Day surgery (SDC) | payer OTHER, SELFPAY ==
--- OUTSIDE RECORDS SUMMARY | 2024-07-08 14:19 | XMS_ITS | Clinical Summary ---
Author Organization [facility] it Address [address] [place] [address] Care Team Providers Care Debt Collection Specialist Name Role Phone Ralph Blake MD Primary Care Provider [phone] Social History Tobacco Use Types Packs/Day Years [...] - 2023-2 5 season) 2023 Influenza Vaccine (Season Ended) 2024 RSV Immunization Adult Patie nts (1 - 1-dose 75+ series) 2037 HIB [...] age to complete this topic Meningococcal B Vaccine Aged Out No l onger eligible based on patient's age to complete this topic RSV Immunization Patients Un alhaji 20 months Aged Out No longer eligible b ased on patient's age to complete this topic Varicella Vaccines Aged Out No longer eligible based on patient's age to complete this topic Care Teams Debt Collection Specialist Relationship Specialty Start Date End Date Ralph Blake MD [facility] [place] [address] PCP - General 04/07/09
--- NOTE | 2024-08-28 09:59 | HO.ANESPROP2 ---
Documented by User: Janette Lemus NP 08/28/24 10:08 HPI - Anesthesia Eval Consult details Narrative: 64yo F for Upper Endoscopy and Colonoscopy ETOH cirrhosis. Last paracentesis 03/2024 with 3L removed. No ascites noted on 06/2024 and 07/2024 abd [facility] Active Problems Active Problems: All Active Problems Cervical radiculopathy (Acute) History of anemia (Acute) Thiamine deficiency (Acute) Alcoholic cirrhosis of liver with ascites (Acute) Zinc deficiency (Acute) Hyperbilirubinemia (Acute) Ascites (Acute) Osteoporosis (Acute) Nicotine dependence, cigarettes, uncomplicated (Acute) Folate deficiency (Acute) Vitamin D deficiency (Acute) Lumbar stenosis with neurogenic claudication (Acute) Hyperlipidemia (Acute) Essential hypertension (Acute) Past Medical History Medical History History of anemia Thiamine deficiency Back pain with history of spinal surgery Alcohol use disorder, severe, dependence Osteoporosis Nicotine dependence, cigarettes, uncomplicated Hx of scoliosis Elevated liver transaminase level Folate deficiency Vitamin D deficiency Lumbar stenosis with neurogenic claudication History of right tennis elbow Degenerative disc disease, cervical Lumbar spine scoliosis Hx of fracture of wrist Hyperlipidemia Essential hypertension Family History Family History Brother Substance use disorder Prostate cancer Daughter Substance use disorder Sister Substance use disorder Maternal Grandmother Diabetes mellitus Mother Alcoholism COPD (chronic obstructive pulmonary disease) Father Alcoholism COPD (chronic obstructive pulmonary disease) Surgical History Surgical History Hx of section Hx of tubal ligation History of carpal tunnel surgery of right wrist History of carpal tunnel surgery of left wrist History of rotator cuff surgery History of colonoscopy with polypectomy Social History Social History Household Members: Spouse and Other Household Members Other:: granchildren Housing: House Are you a primary rn coronary care unit to a significant other at home: No Do you presently have visiting nurse or other home services: No Alcohol intake: former Patient Tobacco Use Status: Former Tobacco user Tobacco use type: Cigarette Cigarette Packs Per Day: 1 Cigarettes Per Day: 4 Years Smoked: 45 e-Cigarette/Vaping Use: Never Used Second Hand Smoke Exposure: No Use of substances other than those prescribed or required for medical reasons: Yes Substance Use Type Other:: gummies Are you DNR?: No Advance Directives: No Advance Directives Information Provided: Yes Patient : No : No Poor oral hygiene: No service: No Current occupational status: disabled Cognitive needs: No Hearing needs: No Vision needs: Yes Meds Allergies Allergy/AdvReac Type Severity Reaction Status Date / Time No Known Allergies Allergy Verified 08/25/24 10:37 Home Medications ?Medication ?Instructions ?Recorded ?Confirmed ?Last Taken ?Type omeprazole 20 mg tablet,delayed 20 mg PO DAILY@629 PRN Heartburn 12/31/23 05/22/24 Unknown History release midodrine 10 mg tablet 10 mg PO 2XW 08/29/24 Unknown History Exam Pertinent Lab Results Pertinent Lab Results: Laboratory Tests 08/01/24 12:58 WBC 7.7 Hgb 11.5 L Hct 34.9 L Plt Count 253 Sodium 138 Potassium 3.9 Chloride 99 Carbon Dioxide 30 H BUN 10 Creatinine 0.65 Laboratory Tests 08/01/24 12:58 PT 13.5 H INR 1.2 H APTT 30.9 Narrative Narrative: EKG 07/2024 Vent. Rate : 57 BPM Atrial Rate : 57 BPM P-R Int : 168 ms QRS Dur : 70 ms QT Int : 454 ms P-R-T Axes : 49 21 41 degrees QTcB Int : 441 ms Sinus bradycardia with sinus arrhythmia Otherwise normal ECG When compared with ECG of 01-Feb-2024 03:21, Vent. rate has decreased by 42 bpm T wave inversion no longer evident in Anterior leads Assessment and Plan Assessment Anesthesia Assessment: Chart Reviewed Documented by User: Mahsa Walker MD 08/29/24 08:06 [facility] Past Medical History Medical History History of anemia Thiamine deficiency Back pain with history of spinal surgery Alcohol use disorder, severe, dependence Osteoporosis Nicotine dependence, cigarettes, uncomplicated Hx of scoliosis Elevated liver transaminase level Folate deficiency Vitamin D deficiency Lumbar stenosis with neurogenic claudication History of right tennis elbow Degenerative disc disease, cervical Lumbar spine scoliosis Hx of fracture of wrist Hyperlipidemia Essential hypertension Family History Family History Brother Substance use disorder Prostate cancer Daughter Substance use disorder Sister Substance use disorder Maternal Grandmother Diabetes mellitus Mother Alcoholism COPD (chronic obstructive pulmonary disease) Father Alcoholism COPD (chronic obstructive pulmonary disease) Family history of problems with anesthesia: No Surgical History Surgical History Hx of section Hx of tubal ligation History of carpal tunnel surgery of right wrist History of carpal tunnel surgery of left wrist History of rotator cuff surgery History of colonoscopy with polypectomy History of Problems with Anesthesia: No Social History Social History Household Members: Spouse and Other Household Members Other:: granchildren Housing: House Are you a primary rn coronary care unit to a significant other at home: No Do you presently have visiting nurse or other home services: No Alcohol intake: former Patient Tobacco Use Status: Former Tobacco user Tobacco use type: Cigarette Cigarette Packs Per Day: 1 Cigarettes Per Day: 4 Years Smoked: 45 e-Cigarette/Vaping Use: Never Used Second Hand Smoke Exposure: No Use of substances other than those prescribed or required for medical reasons: Yes Substance Use Type Other:: gummies Are you DNR?: No Advance Directives: No Advance Directives Information Provided: Yes Patient : No : No Poor oral hygiene: No service: No Current occupational status: disabled Cognitive needs: No Hearing needs: No Vision needs: Yes Meds Allergies Allergy/AdvReac Type Severity Reaction Status Date / Time No Known Allergies Allergy Verified 08/25/24 10:37 Home Medications ?Medication ?Instructions ?Recorded ?Confirmed ?Last Taken ?Type omeprazole 20 mg tablet,delayed 20 mg PO DAILY@0630 PRN Heartburn 12/31/23 05/22/24 Unknown History release midodrine 10 mg tablet 10 mg PO 2XW 08/29/24 Unknown History Exam Airway Mallampati Class: II TM Dist: >3cm Neck ROM: Limited Heart: rrr Lungs: cta Assessment and Plan Assessment Anesthesia Assessment: Anesthesia Plan Discussed Final Anesthetic Review Family History of Problems with Anesthesia: No History of Problems with Anesthesia: No NPO: Yes ASA Class: III Final Preanesthetic Review: No Changes in Pt Med Stat, Meds/Allgs Chart Reviewed and Consent Obtained/Reviewed Patient Risk: Intermediate Procedure Risk: Intermediate Anesthetic Plan Anesthetic Plan: MAC: Disposition: Standard PACU
[2024-08-29 07:39] VITALS: BMI 24.6
[2024-08-29 08:02] VITALS: BP 122/82; PULSE 81; RESP 16; TEMP 36.7; O2SAT 97
[2024-08-29] MEDS: Lactated Ringers 1,000 ML 100 ML IVCONT (08:18)
--- NOTE | 2024-08-29 08:42 | MHC.SHP ---
Pre-Procedural Eval Section A - 24 Hr Update-Section A only Date of Service: 08/29/24 Section B - Complete if H&P > 30 days Chief Complaint: Encounter for screening for malignant neoplasm of Relevant Family History (Specify if Yes): No Relevant Social History: Tobacco Use Present Medications: see Short Stay Collaborative assessment Medical History: Significant History (Back pain with history of spinal surgery Alcohol use disorder, severe, dependence Osteoporosis Nicotine dependence, cigarettes, uncomplicated Hx of scoliosis Elevated liver transaminase level Folate deficiency Vitamin D deficiency Lumbar stenosis with neurogenic claudication History of right tennis ) History of Previous Operations: Relevant previous surgery/procedure and date(s) (Hx of section Hx of tubal ligation History of carpal tunnel surgery of right wrist History of carpal tunnel surgery of left wrist History of rotator cuff surgery History of colonoscopy with polypectomy) Allergies: Allergies Allergy/AdvReac Type Severity Reaction Status Date / Time No Known Allergies Allergy Verified 08/25/24 10:37 Review of Systems Sugical H&P ROS: Negative: Constitution, Cardiovascular, Respiratory, Neurological, Psychiatric, Hem-Onc, Allergic/Immunologic, Gastrointestinal, Genitourinary, Musculoskeletal, Integumentary, Endocrine and Eyes/Ears/Nose/Throat Exam Surgical H&P Exam: Normal: HEENT, Normal: Heart, Normal: Lungs, Normal: Extremities, Normal: Abdomen, Normal: Skin and Normal: Neurological Plan Diagnosis/Plan: Unchanged I have reviewed the history and physical and performed a pertinent physical examination on my patient. No changes have occurred unless specified. Time Spent With Patient Time: Total time managing care of this patient today ____ minutes.
--- NOTE | 2024-08-29 09:34 | HO.OPN-COLON ---
Colonoscopy Operative Note Operative Note Date of Service: 08/29/24 Narrative: Operative Information Procedure Description: EGD, Colonoscopy Indication: variceal screen and colo screening Anesthesia: MAC FLEXIBLE TRANSORAL UPPER GASTROINTESTINAL ENDOSCOPY AND COLONOSCOPY PROCEDURE NOTE UPPER ENDOSCOPY Consent: Indications for the procedure and potential complications of bleeding, perforation, reaction to medications and missed diagnosis were discussed with the patient and informed consent was obtained. Instrument: Olympus GIF H 190 J mid size upper endoscope Monitoring: Vital signs and clinical assessment, continuous EKG monitoring, Pulse oximetry, Carbon Dioxide monitoring and blood pressure monitoring were done throughout the procedure. Procedure: The patient was placed in the left lateral decubitis position and pre-procedure medications were administered and a bite block was placed. The endoscope was inserted into the mouth and advanced under direct vision to the third part of duodenum. A careful inspection was made as the upper endoscope was withdrawn including a retroflexed examination of the proximal stomach; Findings and interventions are described below. Findings: Larynx:normal Esophagus: GE junction at 35 cm, diaphragm hiatus at 37 cm, consistent with 2 cm sliding hiatal hernia, short segment barretts appearing mucosa noted, wats brushings taken, no varices seen Stomach: Patchy erythema. Biopsies were obtained. Grade 2 flap valve on retroflexed examination of the cardia. Duodenum: Normal bulb and descending duodenum, Intervention: Biopsies as noted above, brushings taken COLONOSCOPY Instrument: Olympus variable stiffness pediatric scope 190L Colonoscopy Monitoring: Vital signs and clinical assessment, continuous EKG monitoring, Pulse oximetry, Carbon Dioxide monitoring and blood pressure monitoring were done throughout the procedure. Colon withdrawal time was 25 minutes. Procedure: The patient was placed in the left lateral decubitis position and pre-procedure medications were administered. After a digital rectal examination of the ano-rectum, the video colonoscope was inserted into the rectum and advanced through the colon to the cecum/TI. The colonoscope was slowly withdrawn in a retrograde panoramic fashion and the colon mucosa was carefully examined including a retroflexed view of the rectum. Findings and interventions are described below. Procedure Difficulty:moderate Findings: Terminal Ileum-not intubated Cecum:normal Ascending Colon: normal Transverse Colon -normal Descending Colon: distal descending at about 60 cm from anal verge a lateral spreading granular polyp was noted about 12-14 mm in length, lifted with eleview and removed with hot and cold snare and then base and edges ablated with x 2 clips applied to close defect Sigmoid Colon: x 1 sessile polyp 6-8 mm removed with cold snare, mild diverticulosis seen Rectum: Retroflexion with small internal hemorrhoids, grade I Anorectum - normal Colon preparation: Alicia Bowel Preparation Scale Right colon; 2 Transverse colon: 2 Left colon; 2 (0 = Unprepared colon segment with mucosa not seen due to solid stool that cannot be cleared. 1 = Portion of mucosa of the colon segment seen, but other areas of the colon segment not well seen due to staining, residual stool and/or opaque liquid. 2 = Minor amount of residual staining, small fragments of stool and/or opaque liquid, but mucosa of colon segment seen well. 3 = Entire mucosa of colon segment seen well with no residual staining, small fragments of stool or opaque liquid) Impression and Post Procedure Diagnosis: Endoscopy Findings: hiatal hernia probable barretts gastritis Colonoscopy Findings: diverticulosis colon polyps x 2 internal hemorrhoids Plan: Await Pathology results Repeat Colonoscopy in 6-12 months due to polyp or earlier if clinically indicated High fiber diet leaflet avoid straining at stool, epsom salts and sitz bath, anusol supps or cream repeat EGD in 1-2 yrs for variceal screening Above findings were reviewed with the patient and relevant handouts were provided if indicated.
[2024-08-29 09:38] VITALS: BP 127/75; PULSE 73; RESP 16; TEMP 36.1; O2SAT 96
[2024-08-29 09:53] VITALS: BP 143/84; PULSE 71; RESP 16; O2SAT 98
== END 2024-08-29 11:30 | disposition home or self-care (01) ==
PROVIDERS: PCP Internal Medicine; Visit Provider Internal Medicine Gastroenterology
PROC: (CPT 45385; principal; 2024-08-29 08:30)
DX: Z12.11 Encounter for screening for malignant neoplasm of colon (principal); D12.4 Benign neoplasm of descending colon; D12.5 Benign neoplasm of sigmoid colon; K57.30 Diverticulosis of large intestine without perforation or abscess without bleeding; K64.0 First degree hemorrhoids; Z86.0101 Personal history of adenomatous and serrated colon polyps; D64.9 Anemia, unspecified; K70.31 Alcoholic cirrhosis of liver with ascites; K29.60 Other gastritis without bleeding; K29.80 Duodenitis without bleeding; K22.70 Barrett's esophagus without dysplasia; K44.9 Diaphragmatic hernia without obstruction or gangrene; F10.20 Alcohol dependence, uncomplicated; E51.9 Thiamine deficiency, unspecified; I10 Essential (primary) hypertension; E78.5 Hyperlipidemia, unspecified; E60 Dietary zinc deficiency; E80.6 Other disorders of bilirubin metabolism; E53.8 Deficiency of other specified B group vitamins; E55.9 Vitamin D deficiency, unspecified; F17.210 Nicotine dependence, cigarettes, uncomplicated; Z79.899 Other long term (current) drug therapy
CPT/HCPCS: 45385; 45381; 43239; 88305; 88313; 88342; J2003; J2704

== ENCOUNTER → 2024-08-29 07:32 | Outpatient (BNV) | payer OTHER, SELFPAY | PROVIDERS: PCP Internal Medicine; Visit Provider Internal Medicine Gastroenterology | DX: Z12.11 Encounter for screening for malignant neoplasm of colon (principal); D12.4 Benign neoplasm of descending colon; D12.5 Benign neoplasm of sigmoid colon; K57.30 Diverticulosis of large intestine without perforation or abscess without bleeding; K64.0 First degree hemorrhoids; K44.0 Diaphragmatic hernia with obstruction, without gangrene; K29.70 Gastritis, unspecified, without bleeding | CPT/HCPCS: 43239; 45381; 45385 ==

== ENCOUNTER 2024-09-04 11:37 | Outpatient (AMB) | payer OTHER, SELFPAY ==
--- NOTE | 2024-09-04 11:47 | MHC.OFFVIS ---
Vital Signs 09/04/24 11:53 Height 4 ft 8 in Weight 112 lb BMI 25.1 BP 131/57 L Blood Pressure Location Lt brachial Position Sitting Pulse 66 Pulse Oximetry (%) 99 Oxygen Delivery Method Room Air Intake Visit Reasons: 3 mos FUV. Intake Note: Patient 3 month follow up for Alcoholic cirrhosis of liver with ascites and US results. Patient denies any GI issues today, patient bring some medication to review with you and also needed refill for folic acid. Production Recovery Operator Required: No Accompanied by: Self / Same As Patient Allergies No Known Allergies Allergy (Verified 09/04/24 11:42) Medication List - Last Reconciled 09/04/24 by Aron Chavez MD ferrous sulfate 324 mg PO DAILY 90 days folic acid 0.8 mg PO DAILY furosemide (Lasix) 20 mg PO DAILY lactulose 20 grams (30 mL) PO BID 30 days midodrine 10 mg PO 2XW omeprazole 20 mg PO DAILY@0630 PRN [shower seat As directed] spironolactone 100 mg PO QAM 90 days thiamine mononitrate (vit B1) 100 mg PO DAILY zinc sulfate (Orazinc) 25 mg PO DAILY 90 days HPI HPI 3 mos FUV.: Details: GI clinic visit for this 64 YF with ETOH abuse, hypertension, hyperlipidemia, degenerative disc disease, vitamin-D deficiency, folate deficiency, and alcohol use disorder here for follow-up of alcoholic cirrhosis complicated by ascites, thrombocytopenia, hepatic encephalopathy after recent hospitalization in 12/2023. TODAY'S VISIT: Patient denies any GI issues today, patient bring some medication to review with you and also needed refill for folic acid Seen [place] [facility] [place] on 09/02/24 and FU scheduled in 1 year. States she has been doing well Last paracentesis was in May, EGD and colon results reviewed. Abd discomfort has resolved. Notes some abd discomfort. Leg edema has improved Appetite has improved Going for walks. Seen at [facility] [place] 05/[place]/24 and was told she does not need a transplant at present. PAST VISIT: Having the fluid drained every 7 to 10 days Continues to have lower ext edema and legs feel tingly and numb. She has been walking a lot. Taking lactulose and usually has 2 BMs a day Has a good appetite Denies ETOH use since December,. Pt is upset since she was considered unfit for driving by her PCP. PAST VISIT: I am retaining water Complains of progressive abdominal distension. Feels cold all the time. Taking lactulose and had 4 BMs yesterday. Patient denies symptoms of heartburn, dysphagia, nausea, vomiting, Eating better than she was in the past. Denies recent black stools or rectal bleeding. Coughing at night. Patient denies major cardiac or pulmonary problems, loud snoring or sleep apnea The patient admitted to drinking 4-5 beers and twisted teas 3 days a week for the past several years. She admits to smoking 1/2 PPD and denies any other substance use. Quitted smoking and drinking more than a month ago. Pt lives with her and has custody of two GK (4 & 6 yrs old) She worked in a [employer] and is now retired Family hx is positive for Cirrhosis in both parents who were alcoholics. Pt denies known FH of GI malignancy Denies problems with anesthesia in the past. Denies being on chronic anticoagulation. LABS IN [facility] : Reviewed IMAGING STUDIES: Reviewed ENDOSCOPIC STUDIES: None in [facility] PAST GI HISTORY BY REVIEW OF MEDICAL RECORDS: Pt was hospitalized in 12/2023: Hospital course The patient was evaluated for acute kidney injury which likely secondary to ATN rather than HRS but treated as. improved to baseline with albumin, IV octrotide, midodrine and IVF. Followed by nephrology team who recommended an outpatient follow up for further work up and monitoring. Acute metabolic encephalopathy due to hepatic encephalopathy due to alcoholic cirrhosis which was treated with Lactulose and Rifaximin with Goal 2 bowel movements per day. She had Status post 80 cc paracentesis, no signs of SBP. removed 2L of clear fluids. Started on Spironolactone 12.5 mg daily with plan to repeat blood work as outpatient. Anemia with low Iron stores, started on Iron replacement therapy. To follow CBC next week. Hypotension due to liver disease not sepsis. resolved with Midodrine and holding Valsartan. Will continue to hold on discharge and keep Midodrine for the next month as bid. Mild hypernatremia, responded well to IV fluids. and was Monitored during the hospital stay. Acute hypokalemia with acute Replacement and monitoring during hospital stay. Discharge plan Start Spironolactone for ascites management Monitor weight at home and report changes to PCP Hold Valsartan; Monitor BP for 1 week then discuss with PCP the need to restart it Lactulose twice daily with goal of 1-2 bowel movements Avoid Alcohol Start Iron supplement as prescribed Thiamine supplement Midodrine for 1 month to support BP To follow up with Gastroenterology as scheduled in office To follow with nephrology as outpatient. 12/31/23 PT WAS SEEN AT [facility] DURING HOSPITALIZATION: Reason for consult: Cirrhosis with hepatic encephalopathy 63F with ESLD due to ETOH abuse, hypertension, hyperlipidemia, degenerative disc disease, vitamin-D deficiency, folate deficiency seen at [facility] ED on 12/30/23 with altered mental status and weakness. Symptoms progressing over the last week, mostly abdominal distention and bloating and confusion. Pt is known to me from recent hospitalization at [facility] from 11/27 to 12/03/23 Pt was scheduled for a FU appt in GI on 12/10/23 and was a no show. A & P: 63 YF with ETOH abuse, hypertension, hyperlipidemia, degenerative disc disease, vitamin-D deficiency, folate deficiency, and alcohol use disorder admitted to [facility] on 12/30/23 due to lethargy and weakness over the past week. Pt denies past hx of liver disease prior to last admission - admits to having fatigue and easy bruising for the past few months. CT abdomen pelvis shows marked fatty change of liver with moderate volume abdominal ascites and mild diffuse nonspecific bowel wall thickening of the cecum and ascending colon through the mid transverse colon without obstruction. Pt has decompensated cirrhosis likely related to ETOH abuse complicated by ascites, hepatic encephalopathy and renal failure MELD score is 12 RECOMMENDATIONS: 1. Agree with Lactulose and Rifaximin for HE and Midodrine and Octreotide for renal failure/HRS 3. Consult to Addiction Medicine for ETOH rehab - pt states she plans to stop drinking 4. Pt will be scheduled for a FU appt in GI - (previously scheduled on 12/10/23 - pt states she was unable to come since GD was sick [facility] Medical History History of anemia Thiamine deficiency Back pain with history of spinal surgery Alcohol use disorder, severe, dependence Osteoporosis Nicotine dependence, cigarettes, uncomplicated Hx of scoliosis Elevated liver transaminase level Folate deficiency Vitamin D deficiency Lumbar stenosis with neurogenic claudication History of right tennis elbow Degenerative disc disease, cervical Lumbar spine scoliosis Hx of fracture of wrist Hyperlipidemia Essential hypertension Surgical History Hx of section Hx of tubal ligation History of carpal tunnel surgery of right wrist History of carpal tunnel surgery of left wrist History of rotator cuff surgery History of colonoscopy with polypectomy Family History Brother Substance use disorder Prostate cancer Daughter Substance use disorder Sister Substance use disorder Maternal Grandmother Diabetes mellitus Mother Alcoholism COPD (chronic obstructive pulmonary disease) Father Alcoholism COPD (chronic obstructive pulmonary disease) Social History Household Members: Spouse and Other Household Members Other:: granchildren Housing: House Are you a primary pet caregiver to a significant other at home: No Do you presently have visiting nurse or other home services: No Alcohol intake: former Patient Tobacco Use Status: Former Tobacco user Tobacco use type: Cigarette Cigarette Packs Per Day: 1 Cigarettes Per Day: 4 Years Smoked: 45 e-Cigarette/Vaping Use: Never Used Second Hand Smoke Exposure: No service: No Current occupational status: disabled Cognitive needs: No Hearing needs: No Vision needs: Yes Female Reproductive History Menstrual Age of Menarche: 16 Review of Systems Const All systems reviewed & are unremarkable except as noted in HPI and below Physical Exam Vital Signs: Last Vital Signs Pulse 66 09/04/24 11:53 BP 131/57 L 09/04/24 11:53 Pulse Ox 99 09/04/24 11:53 Oxygen Delivery Method Room Air 09/04/24 11:53 BMI result Body Mass Index 25.1 Const General: no acute distress and ill appearing chronically Nutritional Appearance: average body habitus Orientation/consciousness: patient oriented x3 Limitations: no limitations HEENT Head: Yes normal to inspection Ears: hearing grossly normal bilaterally Eyes Sclerae: sclerae normal Pupils: Equal, round and reactive pupils present Neck Neck: Yes normal visual inspection Chest Chest palpation & inspection: normal inspection of the chest Resp Effort & Inspection: normal respiratory effort Auscultation: clear to auscultation bilaterally Cardio Palpation: normal PMI Rate: regular rate Rhythm: regular rhythm Heart sounds: S1 normal heart sound present, S2 normal heart sound present and no murmurs GI Palpation (GI): Soft to palpation, nontender and No hepatosplenomegaly present Auscultation: normal bowel sounds Rectal Exam - Female: deferred Skin General skin exam: no rashes or lesions noted Neuro General: patient oriented x3, gait normal and moves all extremities Cranial nerves: Yes Equal, round and reactive pupils present Psych Appearance: grossly normal Mental Status: mental status grossly normal Immunizations Havrix (PF) 1,440 SAMIRA unit/mL intramuscular syringe Performing Provider: Aron Chavez MD Performing Location: [facility] Gastroenterology Services Administered by: Inessa Patel RN on 09/04/24 12:32 Dose Route Admin Location Dispensed Lot Number Expiration Date [facility] [employer] Salesperson 1 mL IM Right Deltoid 1 mL [id number] 02/06/25 [id number] [email or web address] Total Dispensed Waste 1 mL 0 % VIS Given Date VIS Provided VIS Publication Date 09/04/24 Single Vaccine 20 Eligibility Eligibility Date Funding Source Not VF Eligible 09/04/24 Private Engerix-B (PF) 20 mcg/mL intramuscular suspension Performing Provider: Aron Chavez MD Performing Location: [facility] Gastroenterology Services Administered by: Inessa Patel RN on 09/04/24 12:32 Dose Route Admin Location Dispensed Lot Number Expiration Date [facility] [employer] Salesperson 1 mL IM Right Deltoid 1 mL [id number] 09/30/26 [id number] [email or web address] Total Dispensed Waste 1 mL 0 % VIS Given Date VIS Provided VIS Publication Date 09/04/24 Single Vaccine 22 Eligibility Eligibility Date Funding Source Not [facility] Eligible 09/04/24 Private Assessment & Plan Assessment & Plan (1) Alcoholic cirrhosis of liver with ascites: Code(s): K70.31 - Alcoholic cirrhosis of liver with ascites Category: Medical (2) History of colon polyps: Comment: 08/2024 Two adenomatous polyps were removed during colonoscopy. Repeat colon advised in 6 to 12 months. Code(s): Z86.0100 - Personal history of colon polyps, unspecified Category: Medical Plan 64 YF with ETOH abuse, hypertension, hyperlipidemia, degenerative disc disease, vitamin-D deficiency, folate deficiency, and alcohol use disorder hospitalized at [facility] in 12/2023 due to lethargy and weakness. Pt gave a hx of fatigue and easy bruising for the preceding few months. CT abdomen pelvis shows marked fatty change of liver with moderate volume abdominal ascites and mild diffuse nonspecific bowel wall thickening of the cecum and ascending colon through the mid transverse colon without obstruction. Pt has decompensated cirrhosis likely related to ETOH abuse complicated by ascites, hepatic encephalopathy and renal failure REDUCING THE RISK OF LIVER PROGRESSION: patient was advised to completely avoid use of alcohol HCC SURVEILLANCE: the patient is at risk of developing hepatocellular carcinoma given the presence of cirrhosis and need 6 monthly imaging surveillance with either abdominal ultrasound (US) or multiphase cross-sectional imaging (CT or MRI). Last Abd US on 08/01/24 had shown no focal liver lesions suspicious of HCC and no ascites. VACCINATIONS: Pt does not have serological evidence of prior exposure to or vaccination against hepatitis A or hepatitis B. Given lack of serological evidence of immunity, she needs to undergo vaccination against both hepatitis a and hepatitis B (with a series of 3 doses at 0, 1 and 6 months). Patient should also remain up-to-date with all age-appropriate vaccinations including vaccination against pneumococcus. As we no longer have vaccines available in our Clinic, I request PCP to arrange this. SURVEILLANCE FOR GASTROESOPHAGEAL VARICES: 08/29/24 No varices seen on EGD, FU EGD in 12 months. QUESTION OF LIVER TRANSPLANTATION: MELD Na score is 8. Seen at [facility] on 05/19/24 and was told she does not need a transplant at present. Pt seen by Nephrology on 01/22/24: Spironolactone to 25 mg daily; Started lasix 20 mg daily Increased Midodrine to 10 mg tid; Seeing GI this Will need paracentesis with IV Albumin; Once K is better needs to D/C K replacement 01/24/24 Complains of progressive abdominal distension - scheduled for urgent paracentesis on 01/25/24. Feels cold all the time. Taking lactulose and had 4 BMs yesterday. Quitted smoking and drinking more than a month ago. 03/06/24 Pt was seen by Nephrology and advised: C/W Spironolactone to 50 mg daily; Increased it to 75 mg daily;C/W lasix 20 mg daily C/W Midodrine 10 mg tid; Follow up with GI closely Will need paracentesis with IV Albumin; D/C ed K replacement 03/27/24 Pt reports abstinence from ETOH since 12/2023 She has quitted smoking. (Pt reports having a colonoscopy at [facility] 5 y[facility] ago and FU colon was advised in 10 yrs) Pt referred to [facility] for liver transplant evaluation 05/22/24 Notes some abd discomfort. Leg edema has improved Seen at [facility] on 05/19/24 and was told she does not need a transplant at present. Records requested from [facility] Order placed for US guided paracentesis - pt may postpone if abdominal distension does not get worse. 08/29/24 EGD and Colon were performed by Dr. Ruiz: Endoscopy Findings: hiatal hernia probable barretts gastritis Colonoscopy Findings: diverticulosis colon polyps x 2 internal hemorrhoids Plan: Await Pathology results Repeat Colonoscopy in 6-12 months due to polyp or earlier if clinically indicated High fiber diet leaflet avoid straining at stool, epsom salts and sitz bath, anusol supps or cream repeat EGD in 1-2 yrs for variceal screening BIOPSIES SHOWED: A. Stomach, biopsy: Antral-type and oxyntic mucosa with mild chronic inactive inflammation; no Helicobacter organisms seen. B. Colon, descending, polypectomy: Fragments of tubular adenoma; negative for high-grade dysplasia or carcinoma. C. Colon, sigmoid, polypectomy: Fragments of tubular adenoma; negative for high-grade dysplasia or carcinoma 09/04/24 EGD and colon results were reviewed with the patient Plan FU EGD and colon in 12 months. Hep A and B vaccine (1st dose today) FU in 3 months - scheduled 12/04/24 Orders: Orders Hepatitis A Adult Immunization Today Z23 - Encounter for immunization Hepatitis B Adult Immunization Today Z23 - Encounter for immunization Medications: Refilled thiamine mononitrate (vit B1) 100 mg PO DAILY 90 tabs 0RF folic acid 0.8 mg PO DAILY 90 tabs 1RF Coding Level of Care Code Est Pt Level 4 (90144) Complex EM visit Add On G2211 Diagnoses Alcoholic cirrhosis of liver with ascites K70.31 History of colon polyps Z86.0100 Time Spent (min) 22
[2024-09-04 11:53] VITALS: BP 131/57; PULSE 66; O2SAT 99; BMI 25.1
--- OUTSIDE RECORDS SUMMARY | 2024-09-04 12:21 | XMS_ITS | Clinical Summary ---
Author Organization [facility] it Address [address] [place] [address] Care Team Providers Care Director Of Dietary Name Role Phone Ralph Blake MD Primary Care Provider [phone] Social History Tobacco Use Types Packs/Day Years [...] age to complete this topic Care Teams Director Of Dietary Relationship Specialty Start Date End Date Ralph Blake MD [facility] [place] [address] PCP - General 04/07/09
== END 2024-09-04 13:13 | disposition home or self-care (01) ==
LOC: HO.HGI 11:38
PROVIDERS: PCP Internal Medicine; Visit Provider Internal Medicine Gastroenterology
DX: K70.31 Alcoholic cirrhosis of liver with ascites (principal); Z86.0100 Personal history of colon polyps, unspecified; Z23 Encounter for immunization
CPT/HCPCS: 99214; G2211

== ENCOUNTER → 2024-09-04 11:37 | Outpatient (BNVA) | payer OTHER, SELFPAY | PROVIDERS: PCP Internal Medicine; Visit Provider Internal Medicine Gastroenterology | DX: Z23 Encounter for immunization (principal) | CPT/HCPCS: 90471; 90472; 90632; 90746 ==

== ENCOUNTER → 2024-09-21 07:25 | Outpatient (BNV) | payer OTHER, SELFPAY | PROVIDERS: PCP Internal Medicine; Visit Provider Radiology Diagnostic Radiology | DX: M48.02 Spinal stenosis, cervical region (principal) | CPT/HCPCS: 72141 ==

== ENCOUNTER 2024-09-21 07:26 | Outpatient (REF) | payer OTHER, SELFPAY ==
--- NOTE | ~2024-09-21 | MR_ITS ---
EXAM: MRI of the cervical spine without contrast TECHNIQUE: Multiplanar multisequence imaging through the cervical spine was performed from the base of the skull through at least T1. INDICATION: Cervical radiculopathy PRIOR: August 01, 2024 CT FINDINGS: Skull Base: There is no tonsillar ectopia. Cranialcervical junction is intact. Cord: Minimal increased signal on fluid sensitive sequences is present within the cord at C3-4 and C7-T1. Marrow and end-plates: Recommend signal changes are present at C3-4. C4-5 demonstrates interbody spacer with bony fusion on CT. Anterior plate and screws with bony fusion on CT is present at C5-6 post discectomy. Alignment: C3-4 Demonstrates mild grade 1 retrolisthesis. Soft tissues: Paraspinal soft tissues and major vascular structures are unremarkable. C2-3: Broad-based disc bulge and ligamentum flavum thickening flattening the ventral and dorsal cord consistent with mild to moderate spinal stenosis. Disc and osteophytes results in mild left foraminal narrowing. There is no right-sided narrowing. C3-4: There is severe loss of disc height and broad-based disc bulge with ligamentum flavum thickening resulting in severe spinal stenosis with flattening of the ventral and dorsal cord. Osteophytes result in moderate bilateral foraminal narrowing, greater on the right. C4-5: The level is fused. There is mild spinal stenosis with flattening of the ventral cord by bony structures. Osteophytes result in moderate bilateral foraminal narrowing, greater on the right. C5-6: There is bony convexity through the fused level resulting in borderline mild spinal stenosis. Osteophytes result in mild bilateral foraminal narrowing. C6-7: There is moderate loss of disc height and circumferential broad-based disc bulge with ligamentum flavum thickening resulting in mild spinal stenosis. Disc and osteophytes result in moderate bilateral foraminal narrowing. C7-T1: Broad-based disc bulge does not result in spinal stenosis. There is no right foraminal narrowing. There is mild left foraminal narrowing related to disc and osteophytes. MR/MR cervical spine wo con IMPRESSION: C4-5 demonstrates interbody cage with bony fusion. ACDF with mature bony fusion across C5-6. Multilevel degenerative disc disease with uncovertebral facet arthropathy with spinal stenosis most advanced at C3-4 which is associated with mildly increased cord signal. C2-3: There is mild to moderate spinal stenosis. C3-4: There is severe spinal stenosis and moderate bilateral foraminal narrowing, greater on the right. C4-5: There is mild spinal stenosis and moderate bilateral foraminal narrowing, greater on the right. C5-6: There is borderline mild spinal stenosis. C6-7: There is mild spinal stenosis and moderate bilateral foraminal narrowing. Electronically signed by: Pratik Darby MD 09/22/2024 12:40 PM EDT
== END 2024-09-21 07:27 | disposition home or self-care (01) ==
LOC: HO.MRI 07:26
PROVIDERS: PCP Internal Medicine; Visit Provider Physician Assistant
DX: M54.12 Radiculopathy, cervical region (principal)
CPT/HCPCS: 72141

== ENCOUNTER 2024-10-29 13:52 | Outpatient (AMB) | payer OTHER, SELFPAY ==
--- NOTE | 2024-10-29 14:24 | A.SPINEOV_ITS ---
Intake Visit Reasons: MRI f/u possible surgical discussion Intake Note: Ms. Nguyen is here today to discuss the results of her MRI and possible surgical options. Coding Validator Required: No Allergies No Known Allergies Allergy (Verified 09/04/24 11:42) Assessment & Plan Assessment & Plan (1) Cervical radiculopathy: Code(s): M54.12 - Radiculopathy, cervical region Category: Medical Plan Guadalupe comes in today for a follow up appointment to review her recent MRI imaging and discussed the possibility of surgery. To recap she was initially evaluated in clinic for severe neck pain, shoulder pain, and shooting pains into her bilateral upper extremities, left side worse than right. In addition to this she has been experiencing bilateral hand numbness, but denies any issues with dexterity, balance, or bowel/bladder control. Her past medical history is significant for alcohol use disorder in remission, the patient has remained sober since December 2023. She has a previous past medical history of liver cirrhosis as a result of her prolonged drinking, however her lab results were reviewed during her last visit, and were within normal limits. See previous office visit note for specifics regarding this issue. Unfortunately, Guadalupe reports that her pain has continued to worsen in severity. She wakes up multiple times per night in pain, and [id number] medication use has not been helpful for her. She has significantly reduced her activities of daily living, in his unable to engage in meaningful activities due to the pain. I reviewed her MRI imaging which shows adjacent segment disease C3-4 just above her C4-6 fusion construct. There is severe central canal stenosis and moderate- severe bilateral foraminal stenosis. This does appear to also have extended down to the C4-5 space, despite previous fusion, however this may be artifact from the interbody spacer at this level. The radiology read on the MRI does not mentioned any severe stenosis at C4-5. There is no evidence of cord signal change or myelomalacia. Typically in situation such as this Dr. Jenkins would offer the patient a see C3-4 ACDF. However, the patient has severe osteoporosis, and likely will not be a candidate for fusion surgery. Her DEXA scan does not include the spine, so identifying if she only has osteoporisis vs. osteopenia in the spine is not possible. I will need to review her CT scan imaging with Dr. Jenkins alongside her MRI imaging. Typically Dr. Jenkins is able to identify if the patient's bone quality is good enough to proceed with fusion surgery by reviewing their CT scan. If he does chose to proceed with ACDF the patient will need primary care clearance given her Hx of alcohol use and liver cirrhosis, despite normal labs. Genaro Jenkins MD,PhD [facility] Coding Level of Care Code Est Pt Level 3 (00225) Diagnoses Cervical radiculopathy M54.12
--- OUTSIDE RECORDS SUMMARY | 2024-10-29 14:46 | XMS_ITS | Clinical Summary ---
Author Organization [facility] Address [address] [employer] [facility] [address] [place] [address] Phone Care Team Providers Care Press Smith Helper Name Role Phone Giovana Manning MD Primary Care Provider Allergies Active Allergy Reactions Criticality Noted Date Comments Oxycodone-Acetaminophen Itching 05/14/2024 Tramadol Itching 05/14/2024 Medications folic acid (FOLVITE) 800 MCG tablet Take 1 tablet by mouth every morning. 03/12/2024 Active LASIX 20 mg tablet 03/29/2024 Active spironolactone (ALDACTONE) 100 MG tablet 04/22/2024 Active atorvastatin (LIPITOR) 20 MG tablet Take 20 mg by mouth daily. Active midodrine (PROAMATINE) 10 MG tablet Take 10 mg by mouth 3 (three) times a day. Active ferrous sulfate 324 mg (65 mg [place] iron) TbEC Take 324 mg by mouth daily with breakfast. Active thiamine (VITAMIN B-1) 100 MG tablet Take 100 mg by mouth daily. Active albuterol 90 mcg/actuation inhaler Inhale 2 puffs into the lungs every 6 (six) hours as needed for wheezing. Active zinc sulfate (ZINCATE) 50 mg zinc (220 mg) capsule Take 220 mg by mouth daily. Active Active Problems No known active problems Encounters Date Type Department Care Team Description 09/29/2024 Telephone [facility] [address] [address] Hamida Whitaker RN 09/24/2024 Committee Review [facility] [address] [place] [address] Jocelyn Cruz RN 09/02/2024 12:28 PM EDT - 09/02/2024 11:59 PM EDT Hospital Encounter [facility] PATH[facility] ACC5 [address] [place] [address] Ana Bearden CNP Discharge Disposition: Home or Self Care 09/02/2024 11:00 AM EDT Office Visit [facility] [address] [facility], 5th [place] [address] Ana Bearden CNP Bethea, Emily D, MD Decompensated hepatic cirrhosis (Primary Dx); Liver transplant candidate from Last 3 Months Family History Medical History Relation Comments Prostate cancer Brother Substance use disorder Brother Substance use disorder Daughter COPD Father Substance use disorder Father Diabetes Maternal Grandmother COPD Mother Substance use disorder Mother COPD Sister Substance use disorder Sister Relation Status Comments Brother Daughter Alive Father Maternal Grandmother Mother Sister Social History Tobacco Use Types Packs/Day Years Used Date Smoking Tobacco: Former Cigarettes 1.5 29.5 0 05/22/1994 - 12/2023 Smokeless Tobacco: Never Tobacco Cessation:Counseling Given: Not Answered Alcohol Use Standard Drinks/Week Comments Not Currently 90 (1 standard drink = 0.6 oz pu re alcohol) Last Drink December 2023 Education Answer Date Recorded Are you interested in more education? Not on roxy e 04/18/2024 Are you concerned about learning? Not on file 04/18/2024 No 04/18/2024 No 04/18/2024 Digital Access Answer Date Recorded No 04/18/2024 No 04/18/2024 Reliable internet access at home? Not on file 04/18/2024 Device with a working camera? Not on file Comments Unknown Sex and Gender Information Value Date Recorded Sex Assigned at Female 04/11/2024 9:02 AM EST Legal Sex Female 8:55 AM EST Gender Identity Female 04/11/2024 9:02 AM EST Sexual Orientation Straight 04/11/2024 9: 02 AM EST Last Filed Vital Signs Vital Sign Reading Time Taken Comments Blood Pressure 104/67 09/02/2024 10:59 AM EDT Pulse 76 09/02/2024 10:59 AM EDT Temperature 36.3 C (97.3 F) 09/02/2024 10:59 AM EDT Respiratory Rate - - Oxygen Saturation 98% 09/02/2024 10:59 AM EDT Inhaled Oxygen Concentration - - Weight 51.3 kg (113 lb) 09/02/2024 10:59 AM EDT Height 152.4 cm (5') 06/10/2024 12:00 PM EDT Body Mass Index 22.07 06/10/2024 12:00 PM EDT Plan of Treatment Upcoming Encounters Date Type Department Care Team (Late st Contact Info) Description 09/08/2025 10:00 AM EDT Telemedicine [facility] [address] [place] [address], [address] [place] [address] Ana Bearden, GRAPHICS MANAGER [address] [address] [email or web address] Polly Penn MD [address] [place], [place] [address]th [place] [address] [email or web address] Health Maintenance Due Date Last Done Comments Adult Td,Tdap Booster 1962 DEPRESSION SCREENING 1974 HEPATITIS A VACCINES (1 of 2 - Risk 2-dose series) 1981 PNEUMOCOCCAL VACCINES (50+ years) (1 of 2 - PCV) 1981 PAP SMEAR 1983 MAMMOGRAM 2002 COLOGUARD 2007 COLONOSCOPY 2007 COLORECTAL CANCER SCREENING 2007 FIT TEST 2007 FOBT 2007 SIGMOIDOSCOPY 2007 VIRTUAL COLONOSCOPY 2007 LUNG CANCER SCREENING (LDCT Only) 2012 ZOSTER VACCINES (1 of 2) 2012 RSV VACCINE (1 - Risk 60-74 years 1-dose series) 2022 COVID-19 VACCINE (1 - 2023-2 5 season) 2023 SMOKING Hx and SMOKELESS TOBACCO SCREENING 05/22/2025 05/22/2024 POTASSIUM LEVEL 09/02/2025 09/02/2024, 05/19/2024 LIPID PANEL 05/19/2029 05/19/2024 HEPATITIS C SCREENING Completed 05/19/2024 HIV ONE-TIME SCREENING (18-6 5 YEARS) Completed 05/19/2024 HIB VACCINES Aged Out No longer eligi ble based on patient's age to complete this topic MENINGOCOCCAL VACCINES (ACWY) Aged Out No longer eligible based on patient's age to complete this topic MENINGOCOCCAL VACCINES (B) Aged Out N o longer eligible based on patient's age to complete this topic Medical Devices Not on file Procedures Procedure Name Priority Date/Time Associated Diagnosis Comments LFTS (HEPATIC PANEL) Routine 09/02/2024 12:38 PM EDT Decompensated hepatic cirrhosis BASIC METABOLIC PANEL Routine 09/02/2024 12:38 PM EDT Decompensated hepatic cirrhosis CBC Routine 09/02/2024 12:38 PM EDT Decompensated hepatic cirrhosis PT-INR Routine 09/02/2024 12:38 PM EDT Decompensated hepatic cirrhosis PHOSPHATIDYLETHANOL Routine 09/02/2024 12:38 PM EDT Decompensated hepatic cirrhosis Liver transplant candidate LIPID PANEL Routine 05/19/2024 10:40 AM EDT Need for hepatitis C screening test Screening for human immunodeficiency virus Alcoholic cirrhosis Pre-transplant evaluation for liver transplant HEPATITIS C ANTIBODY, QUALITATIVE Routine 05/19/2024 10:40 AM EDT Need for hepatitis C screening test Screening for human immunodeficiency virus Alcoholic cirrhosis Pre-transplant evaluation for liver transplant from Last 3 Months or Most Recently Relevant to Health Maintenance Results * Phosphatidylethanol (09/02/2024 12:38 PM EDT) PEth 16:0/18:1 (POPEth) by LC-MS/MS <10 Cutoff: 10 ng/mL [facility] Comment: (NOTE) Phosphatidylethanol (PEth) homologues result interpretation PEth 16:0/18:1 (POPEth) Less than 10 ng/mL: Not detected 10 - 19 ng/mL: Abstinence or light alcohol consumption (<2 drinks per day for several days a week) 20 - 200 ng/mL: Moderate alcohol consumption (up to 4 drinks per day for several days a week) Greater than 200 ng/mL: Heavy alcohol consumption or chronic alcohol use (at least 4 drinks per day several days a week) (Reference: Andie Troncoso and Mirtha Arnold 2018 J. Forensic Sci) PEth 16:0/18:2 (PLPEth) by LC-MS/MS <10 Cutoff: 10 ng/mL [facility] Comment: (NOTE) PEth 16:0/18:2 (PLPEth) Reference ranges are not well established PEth Interpretation Negative. [facility] Comment: (NOTE) ADDITIONAL INFORMATION This report is intended for use in clinical monitoring and management of patients. It is not intended for use in employment-related testing. This test was developed and its performance characteristics determined by [facility] in a manner consistent with CLIA requirements. This test has not been cleared or approved by the U.S. Food and Drug Administration. 09/02/2024 12:3 8 PM EDT 09/02/2024 1:50 PM EDT Ana Bearden [facility] LAB BLOOD ORDERABLES F inal Result [facility] [address] [place] [address] * (ABNORMAL) LFTs (hepatic panel) (09/02/2024 12:38 PM EDT) ALBUMIN 4.2 3.3 - 5.0 g/dL [facility] TOTAL BILIRUBIN 0.6 0.0 - 1.0 mg/dL [facility] DIRECT BILIRUBIN 0.2 0.0 - 0.3 mg/dL [facility] ALKALINE PHOSPHATASE 134(H) 30 - 100 U/L [facility] AST 33(H) 9 - 32 U/L [facility] ALT 20 7 - 33 U/L [facility] TOTAL PROTEIN 7.5 6.0 - 8.3 g/dL [facility] GLOBULIN 3.3 1.9 - 4.1 g/dL [facility] 09/02/2024 12:3 8 PM EDT 09/02/2024 1:50 PM EDT Ana Bearden GRAPHICS MANAGER LAB BLOOD ORDERABLES F inal Result Performing Organization Address City/[facility]/ZIP Co de Phone Number [address] [address] * PT-INR (09/02/2024 12:38 PM EDT) PT 12.6 10.0 - 13.0 sec [facility] INR 1.1 0.9 - 1.1 [facility] 09/02/2024 12:3 8 PM EDT 09/02/2024 1:58 PM EDT Ana Bearden [facility] LAB BLOOD ORDERABLES F inal Result Performing Organization Address City/[facility] Co de Phone Number [address] [address] * (ABNORMAL) CBC (09/02/2024 12:38 PM EDT) WBC 6.65 4.00 - 11.00 K/uL [facility] RBC 4.26 4.00 - 5.20 M/uL [facility] HGB 12.1 12.0 - 16.0 g/dL [facility] HCT 38.6 36.0 - 46.0 % [facility] PLT 242 150 - 450 K/uL [facility] MCV 90.6 80.0 - 100.0 fL [facility] MCH 28.4 27.0 - 31.0 pg [facility] MCHC 31.3(L) 32.0 - 36.0 g/dL [facility] RDW 14.6(H) 11.5 - 14.5 % [facility] MPV 9.9 8.4 - 12.0 fL [facility] NRBC 0.00 0.00 /100 WBCs [facility] ABSOLUTE NRBC 0.00 0.00 K/uL [facility] 09/02/2024 12:3 8 PM EDT 09/02/2024 1:50 PM EDT Ana Bearden [facility] LAB BLOOD ORDERABLES F inal Result Performing Organization Address [facility] Co de Phone Number [address] [address] * Basic metabolic panel (09/02/2024 12:38 PM EDT) SODIUM 142 135 - 145 mmol/L [facility] POTASSIUM 4.1 3.4 - 5.0 mmol/L [facility] CHLORIDE 101 98 - 108 mmol/L [facility] CO2 27 23 - 32 mmol/L [facility] BUN 10 8 - 25 mg/dL [facility] CREATININE 0.73 0.50 - 1.00 mg/dL [facility] GLUCOSE 80 70 - 110 mg/dL [facility] CALCIUM 10.1 8.5 - 10.5 mg/dL [facility] EGFR 93 >59 mL/min/1.7 3m2 [facility] Comment:Estimated glomerular filtration rate calculated using the CKD-EPI refit equation. ANION GAP 14 3 - 17 mmol/L [facility] 09/02/2024 12:3 8 PM EDT 09/02/2024 1:50 PM EDT Ana Bearden [facility] LAB BLOOD ORDERABLES F inal Result Performing Organization Address [facility] Co de Phone Number [address] [address] * Hepatitis C antibody, qualitative (05/19/2024 10:40 AM EDT) HCV ANTIBODY Negative Negative [facility] Comment:Antibodies to HCV no t detected. Does not exclude the possibility of exposure to HCV. 05/19/2024 10:4 0 AM EDT 05/19/2024 12:06 PM EDT Tisha Ellison GRAPHICS MANAGER LAB BLOOD ORDERABLES Final Result [address] [address] * Lipid panel (05/19/2024 10:40 AM EDT) HDL 65 35 - 100 mg/dL [facility] CHOLESTEROL 158 <200 mg/dL [facility] TRIGLYCERIDES 71 40 - 150 mg/dL [facility] LDL 79 50 - 129 mg/dL [facility] CARDIAC RISK RATIO 2.4 0.0 - 5.0 [facility] NON-HDL CHOLESTEROL 93 mg/dL [facility] Comment:Guidelines suggest a non-HDL cholesterol goal 30 mg/dL higher than the patient-specific LDL goal. 05/19/2024 10:4 0 AM EDT 05/19/2024 12:06 PM EDT us Tisha Ellison GRAPHICS MANAGER LAB BLOOD ORDERABLES Final Result Performing Organization Address City/[facility] Co de Phone Number [address] [address] from Last 3 Months or Most Recently Relevant to Health Maintenance Insurance [employer] [place] A[employer]NA [employer] AETNA [employer] [facility] Advance Directives For more information, please contact: [phone] (9AM - 5PM [place], Sunday[place]Sunday) Documents on File Type Date Recorded Patient Commercial Lines Sales Executive Expl anation Healthcare Proxy 05/30/2024 Care Teams Press Smith Helper Relationship Specialty Start Date End Date Giovana Manning MD [facility] [place] [address] PCP - General Internal Medicine 04/11/24 Additional Source Comments The information contained in this document represents components of the legal health record. It is not the complete legal health record.[facility]
--- OUTSIDE RECORDS SUMMARY | 2024-10-29 14:46 | XMS_ITS | Clinical Summary ---
Author Organization [facility] it Address [address] [place] [address] Care Team Providers Care Executive Consultant Name Role Phone Ralph Blake MD Primary Care Provider [phone] Social History Tobacco Use Types Packs/Day Years [...] ars (1 of 2 - PCV) 1981 Cervical Cancer Screening: P ap Smear 1983 Zoster Vaccines (1 of 2) 2012 Colorectal Cancer Screening: Colonoscopy 02/01/2022 HIV Screening 02/01/2022 Hepatitis C Screening 02/01/2022 Social Influencers of Health Screening 02/01/2022 COVID-19 Vaccine (1 - 2023-2 5 season) 2023 Depression Screening 03/05/2024 Influenza Vaccine (#1) 2024 RSV Immunization Adult Patie nts (1 [...] age to complete this topic Care Teams Executive Consultant Relationship Specialty Start Date End Date Ralph Blake MD [address] [place] [id number] PCP - General 04/07/09
== END 2024-10-29 14:39 | disposition home or self-care (01) ==
PROVIDERS: PCP Internal Medicine; Visit Provider Neurological Surgery
DX: M54.12 Radiculopathy, cervical region (principal)
CPT/HCPCS: 99213

== ENCOUNTER 2024-11-04 09:13 | Outpatient (AMB) | payer OTHER, SELFPAY ==
--- NOTE | 2024-11-04 09:26 | AM.OFFVISNUR ---
Intake Visit Reasons: Hep B # r/s'd from the 7th N/S 10/27/24 Allergies No Known Allergies Allergy (Verified 09/04/24 11:42) Immunizations Engerix-B (PF) 20 mcg/mL intramuscular suspension Performing Provider: Aron Chavez MD Performing Location: [facility] Administered by: Inessa Patel RN on 11/04/24 09:26 Dose Route Admin Location Dispensed Lot Number Expiration Date [facility] Cutter Grinder 1 mL IM Left Deltoid 1 mL [id number] 11/07/26 51209-290-19 Oncopeptides Total Dispensed Waste 1 mL 0 % VIS Given Date VIS Provided VIS Publication Date 11/04/24 Single Vaccine 22 Eligibility Eligibility Date Funding Source Not [facility] Eligible 11/04/24 Private Assessment & Plan Assessment & Plan Orders: Orders Hepatitis B Adult Immunization Today Z23 - Encounter for immunization Coding Level of Care Code Established Pt Est Pt Level 1 (99138) Patient Type Established Medical Decision Making Straight Forward
--- OUTSIDE RECORDS SUMMARY | 2024-11-04 10:07 | XMS_ITS | Clinical Summary ---
Author Organization [facility] it Address [address] [place] [address] Care Team Providers Care Gold Charmer Name Role Phone Ralph Blake MD Primary Care Provider [phone] Social History Tobacco Use Types Packs/Day Years [...] age to complete this topic Care Teams Gold Charmer Relationship Specialty Start Date End Date Ralph Blake MD [address] [id number] PCP - General 04/07/09
--- OUTSIDE RECORDS SUMMARY | 2024-11-04 10:07 | XMS_ITS | Clinical Summary ---
Author Organization [facility] Address [address] [employer] [facility] [address] [place] [address] Phone Care Team Providers Care Branch Service Leader Name Role Phone Giovana Manning MD Primary [...] Active ferrous sulfate 324 mg (65 mg [place] iron) TbEC Take 324 mg by mouth [...] Type Department Care Team Description 09/29/2024 Telephone [facility] [address] [address] Hamida Whitaker RN 09/24/2024 Committee Review [facility] [address] [place] [address] Jocelyn Cruz RN 09/02/2024 12:28 PM EDT - 09/02/2024 11:59 PM EDT Hospital Encounter [facility] [address] [place] [address] Ana Bearden CNP Discharge Disposition: Home or Self Care 09/02/2024 11:00 AM EDT Office Visit [facility] [address] [facility], 5th [place] [address] Ana Bearden CNP Bethea, Emily D, MD [...] Info) Description 09/08/2025 10:00 AM EDT Telemedicine [facility] [address] [place] [address], [address] [place] [address] Ana Bearden, CROWN ASSEMBLY MACHINE SET UP MECHANIC [address] [address] [email or web address] Polly Penn MD [address] [place] [address] [place] [address] [email or web address] Health Maintenance Due Date Last Done Comments [...] (POPEth) by LC-MS/MS <10 Cutoff: 10 ng/mL [facility] Comment: (NOTE) Phosphatidylethanol [...] (PLPEth) by LC-MS/MS <10 Cutoff: 10 ng/mL [facility] Comment: (NOTE) PEth 16:0/18:2 (PLPEth) Reference ranges are not well established PEth Interpretation Negative. [facility] Comment: (NOTE) ADDITIONAL INFORMATION This report is intended for use in clinical monitoring and management of patients. It is not intended for use in employment-related testing. This test was developed and its performance characteristics determined by [facility] in a manner consistent with CLIA requirements. This test has not been cleared or approved by the U.S. Food and Drug Administration. 09/02/2024 12:3 8 PM EDT 09/02/2024 1:50 PM EDT Ana Bearden [facility] LAB BLOOD ORDERABLES F inal Result [facility] [address] [place] [address] * (ABNORMAL) LFTs (hepatic panel) (09/02/2024 12:38 PM EDT) ALBUMIN 4.2 3.3 - 5.0 g/dL [facility] TOTAL BILIRUBIN 0.6 0.0 - 1.0 mg/dL [facility] DIRECT BILIRUBIN 0.2 0.0 - 0.3 mg/dL [facility] ALKALINE PHOSPHATASE 134(H) 30 - 100 U/L [facility] AST 33(H) 9 - 32 U/L [facility] ALT 20 7 - 33 U/L [facility] TOTAL PROTEIN 7.5 6.0 - 8.3 g/dL [facility] GLOBULIN 3.3 1.9 - 4.1 g/dL [facility] 09/02/2024 12:3 8 PM EDT 09/02/2024 1:50 PM EDT Ana Bearden CROWN ASSEMBLY MACHINE SET UP MECHANIC LAB BLOOD ORDERABLES F inal Result Performing Organization Address City/[facility]/ZIP Co de Phone Number [address] [address] * PT-INR (09/02/2024 12:38 PM EDT) PT 12.6 10.0 - 13.0 sec [facility] INR 1.1 0.9 - 1.1 [facility] 09/02/2024 12:3 8 PM EDT 09/02/2024 1:58 PM EDT Ana Bearden [facility] LAB BLOOD ORDERABLES F inal Result Performing Organization Address City/[facility] Co de Phone Number [address] [address] * (ABNORMAL) CBC (09/02/2024 12:38 PM EDT) WBC 6.65 4.00 - 11.00 K/uL [facility] RBC 4.26 4.00 - 5.20 M/uL [facility] HGB 12.1 12.0 - 16.0 g/dL [facility] HCT 38.6 36.0 - 46.0 % [facility] PLT 242 150 - 450 K/uL [facility] MCV 90.6 80.0 - 100.0 fL [facility] MCH 28.4 27.0 - 31.0 pg [facility] MCHC 31.3(L) 32.0 - 36.0 g/dL [facility] RDW 14.6(H) 11.5 - 14.5 % [facility] MPV 9.9 8.4 - 12.0 fL [facility] NRBC 0.00 0.00 /100 WBCs [facility] ABSOLUTE NRBC 0.00 0.00 K/uL [facility] 09/02/2024 12:3 8 PM EDT 09/02/2024 1:50 PM EDT Ana Bearden [facility] LAB BLOOD ORDERABLES F inal Result Performing Organization Address [facility] Co de Phone Number [address] [address] * Basic metabolic panel (09/02/2024 12:38 PM EDT) SODIUM 142 135 - 145 mmol/L [facility] POTASSIUM 4.1 3.4 - 5.0 mmol/L [facility] CHLORIDE 101 98 - 108 mmol/L [facility] CO2 27 23 - 32 mmol/L [facility] BUN 10 8 - 25 mg/dL [facility] CREATININE 0.73 0.50 - 1.00 mg/dL [facility] GLUCOSE 80 70 - 110 mg/dL [facility] CALCIUM 10.1 8.5 - 10.5 mg/dL [facility] EGFR 93 >59 mL/min/1.7 3m2 [facility] Comment:Estimated glomerular filtration rate calculated using the CKD-EPI refit equation. ANION GAP 14 3 - 17 mmol/L [facility] 09/02/2024 12:3 8 PM EDT 09/02/2024 1:50 PM EDT Ana Beraden [facility] LAB BLOOD ORDERABLES F inal Result Performing Organization Address [facility] Co de Phone Number [address] [address] * Hepatitis C antibody, qualitative (05/19/2024 10:40 AM EDT) HCV ANTIBODY Negative Negative [facility] Comment:Antibodies to HCV no t detected. Does not exclude the possibility of exposure to HCV. 05/19/2024 10:4 0 AM EDT 05/19/2024 12:06 PM EDT Tihsa Ellison CROWN ASSEMBLY MACHINE SET UP MECHANIC LAB BLOOD ORDERABLES Final Result [address] [address] * Lipid panel (05/19/2024 10:40 AM EDT) HDL 65 35 - 100 mg/dL [facility] CHOLESTEROL 158 <200 mg/dL [facility] TRIGLYCERIDES 71 40 - 150 mg/dL [facility] LDL 79 50 - 129 mg/dL [facility] CARDIAC RISK RATIO 2.4 0.0 - 5.0 [facility] NON-HDL CHOLESTEROL 93 mg/dL [facility] Comment:Guidelines suggest a non-HDL cholesterol goal 30 mg/dL higher than the patient-specific LDL goal. 05/19/2024 10:4 0 AM EDT 05/19/2024 12:06 PM EDT us Tisha Ellison CROWN ASSEMBLY MACHINE SET UP MECHANIC LAB BLOOD ORDERABLES Final Result Performing Organization Address City/[facility] Co de Phone Number [address] [address] from Last 3 Months or Most Recently Relevant to Health Maintenance Insurance [employer] A[employer]NA [employer] AETNA [employer] [facility] Advance Directives For more information, please contact: [phone] (9AM - 5PM Emily/[place], Sunday-Sunday) Documents on File Type Date Recorded Patient Facility Practice Specialist Expl anation Healthcare Proxy 05/30/2024 Care Teams Branch Service Leader Relationship Specialty Start Date End Date Giovana Manning MD [facility] [place] [address] PCP - General Internal Medicine 04/11/24 Additional Source Comments The information contained in this document represents components of the legal health record. It is not the complete legal health record.[facility]
== END 2024-11-04 09:27 | disposition home or self-care (01) ==
LOC: HO.HGI 09:14
PROVIDERS: PCP Internal Medicine; Visit Provider Internal Medicine Gastroenterology
DX: Z23 Encounter for immunization (principal)
CPT/HCPCS: 99499

== ENCOUNTER → 2024-11-04 09:13 | Outpatient (BNVA) | payer OTHER, SELFPAY | PROVIDERS: PCP Internal Medicine; Visit Provider Internal Medicine Gastroenterology | DX: Z23 Encounter for immunization (principal) | CPT/HCPCS: 90471; 90746 ==

== ENCOUNTER 2024-11-20 10:19 | Outpatient (REF) | payer OTHER, SELFPAY ==
--- OUTSIDE RECORDS SUMMARY | 2024-11-20 12:16 | XMS_ITS | Clinical Summary ---
Author Organization [facility] it Address [address] [place] [address] Care Team Providers Care Road Mender Name Role Phone Ralph Blake MD Primary [...] age to complete this topic Care Teams Road Mender Relationship Specialty Start Date End Date Ralph Blake MD [address] [place] [phone] PCP - General 04/07/09
--- OUTSIDE RECORDS SUMMARY | 2024-11-20 12:16 | XMS_ITS | Clinical Summary ---
Author Organization [facility] Address [address] [facility] [address] [place] [address] Phone Care Team Providers Care Obedience Trainer Name Role Phone Giovana Manning MD Primary [...] Active ferrous sulfate 324 mg (65 mg [place] iron) TbEC Take 324 mg by mouth [...] Type Department Care Team Description 09/29/2024 Telephone [facility] [address] [address] Hamida Whitaker RN 09/24/2024 Committee Review [facility] [address] [place] [address] Jocelyn Cruz RN 09/02/2024 12:28 PM EDT - 09/02/2024 11:59 PM EDT Hospital Encounter [facility] PATHOLOG[facility] ACC5 [address] [place] [address] Ana Bearden CNP Discharge Disposition: Home or Self Care 09/02/2024 11:00 AM EDT Office Visit [facility] [address] [facility], 5th [place] [address] Ana Bearden CNP Bethea, Emily D, MD [...] Info) Description 09/08/2025 10:00 AM EDT Telemedicine [facility] [address] [place] [address], 5[address] [place] [address] Ana Bearden, PAINTER AND DECORATOR [address] [address] [email or web address] Polly Penn MD [address] [place], [place] [address] [place] [address] [email or web address] Health Maintenance Due Date Last Done Comments [...] (POPEth) by LC-MS/MS <10 Cutoff: 10 ng/mL [facility] Comment: (NOTE) Phosphatidylethanol [...] (PLPEth) by LC-MS/MS <10 Cutoff: 10 ng/mL [facility] Comment: (NOTE) PEth 16:0/18:2 (PLPEth) Reference ranges are not well established PEth Interpretation Negative. [facility] Comment: (NOTE) ADDITIONAL INFORMATION This report is intended for use in clinical monitoring and management of patients. It is not intended for use in employment-related testing. This test was developed and its performance characteristics determined by [facility] in a manner consistent with CLIA requirements. This test has not been cleared or approved by the U.S. Food and Drug Administration. 09/02/2024 12:3 8 PM EDT 09/02/2024 1:50 PM EDT Ana Bearden [facility] LAB BLOOD ORDERABLES F inal Result [facility] [address] [place] [address] * (ABNORMAL) LFTs (hepatic panel) (09/02/2024 12:38 PM EDT) ALBUMIN 4.2 3.3 - 5.0 g/dL [facility] TOTAL BILIRUBIN 0.6 0.0 - 1.0 mg/dL [facility] DIRECT BILIRUBIN 0.2 0.0 - 0.3 mg/dL [facility] ALKALINE PHOSPHATASE 134(H) 30 - 100 U/L [facility] AST 33(H) 9 - 32 U/L [facility] ALT 20 7 - 33 U/L [facility] TOTAL PROTEIN 7.5 6.0 - 8.3 g/dL [facility] GLOBULIN 3.3 1.9 - 4.1 g/dL [facility] 09/02/2024 12:3 8 PM EDT 09/02/2024 1:50 PM EDT Ana Bearden [facility] LAB BLOOD ORDERABLES F inal Result Performing Organization Address City/[facility]/ZIP Co de Phone Number [address] [address] * PT-INR (09/02/2024 12:38 PM EDT) PT 12.6 10.0 - 13.0 sec [facility] INR 1.1 0.9 - 1.1 [facility] 09/02/2024 12:3 8 PM EDT 09/02/2024 1:58 PM EDT Ana Bearden [facility] LAB BLOOD ORDERABLES F inal Result Performing Organization Address City/[facility] Co de Phone Number [address] [address] * (ABNORMAL) CBC (09/02/2024 12:38 PM EDT) WBC 6.65 4.00 - 11.00 K/uL [facility] RBC 4.26 4.00 - 5.20 M/uL [facility] HGB 12.1 12.0 - 16.0 g/dL [facility] HCT 38.6 36.0 - 46.0 % [facility] PLT 242 150 - 450 K/uL [facility] MCV 90.6 80.0 - 100.0 fL [facility] MCH 28.4 27.0 - 31.0 pg [facility] MCHC 31.3(L) 32.0 - 36.0 g/dL [facility] RDW 14.6(H) 11.5 - 14.5 % [facility] MPV 9.9 8.4 - 12.0 fL [facility] NRBC 0.00 0.00 /100 WBCs [facility] ABSOLUTE NRBC 0.00 0.00 K/uL [facility] 09/02/2024 12:3 8 PM EDT 09/02/2024 1:50 PM EDT Ana Bearden [facility] LAB BLOOD ORDERABLES F inal Result Performing Organization Address [facility]/ZIP Co de Phone Number [address] [address] * Basic metabolic panel (09/02/2024 12:38 PM EDT) SODIUM 142 135 - 145 mmol/L [facility] POTASSIUM 4.1 3.4 - 5.0 mmol/L [facility] CHLORIDE 101 98 - 108 mmol/L [facility] CO2 27 23 - 32 mmol/L [facility] BUN 10 8 - 25 mg/dL [facility] CREATININE 0.73 0.50 - 1.00 mg/dL [facility] GLUCOSE 80 70 - 110 mg/dL [facility] CALCIUM 10.1 8.5 - 10.5 mg/dL [facility] EGFR 93 >59 mL/min/1.7 3m2 [facility] Comment:Estimated glomerular filtration rate calculated using the CKD-EPI refit equation. ANION GAP 14 3 - 17 mmol/L [facility] 09/02/2024 12:3 8 PM EDT 09/02/2024 1:50 PM EDT Ana Bearden [facility] BLOOD ORDERABLES F inal Result Performing Organization Address [facility]/ZIP Co de Phone Number [address] [address] * Hepatitis C antibody, qualitative (05/19/2024 10:40 AM EDT) HCV ANTIBODY Negative Negative [facility] Comment:Antibodies to HCV no t detected. Does not exclude the possibility of exposure to HCV. 05/19/2024 10:4 0 AM EDT 05/19/2024 12:06 PM EDT us Tisha Tracey Argentinaslick PAINTER AND DECORATOR LAB BLOOD ORDERABLES Final Result [address] [address] * Lipid panel (05/19/2024 10:40 AM EDT) HDL 65 35 - 100 mg/dL [facility] CHOLESTEROL 158 <200 mg/dL [facility] TRIGLYCERIDES 71 40 - 150 mg/dL [facility] LDL 79 50 - 129 mg/dL [facility] CARDIAC RISK RATIO 2.4 0.0 - 5.0 [facility] NON-HDL CHOLESTEROL 93 mg/dL [facility] Comment:Guidelines suggest a non-HDL cholesterol goal 30 mg/dL higher than the patient-specific LDL goal. 05/19/2024 10:4 0 AM EDT 05/19/2024 12:06 PM EDT Tisha Ellison PAINTER AND DECORATOR LAB BLOOD ORDERABLES Final Result Performing Organization Address City/[facility] Co de Phone Number [address] [address] from Last 3 Months or Most Recently Relevant to Health Maintenance [facility] AETNA [place]ITAIN AETNA [place] AETNA [place] A[facility]NA [facility] [place] Advance Directives For more information, please contact: [phone] (9AM - 5PM Emily/[facility], Sunday-Sunday) Documents on File Type Date Recorded Patient Vehicle Return Associate Expl anation Healthcare Proxy 05/30/2024 Care Teams Obedience Trainer Relationship Specialty Start Date End Date Giovana Manning MD [facility] [place] [address] PCP - General Internal Medicine 04/11/24 Additional Source Comments The information contained in this document represents components of the legal health record. It is not the complete legal health record.[facility]
[2024-11-20 14:08] LABS: Anion Gap 12 (12-20); Blood Urea Nitrogen 13 mg/dL (9-16); Carbon Dioxide 31 mmol/L (22-29); Chloride 102 mmol/L (96-108); Estimated Glomerular Filt Rate > 60; Potassium 4.3 mmol/L (3.3-5.1); Sodium 141 mmol/L (135-145)
== END 2024-11-20 10:20 | disposition home or self-care (01) ==
LOC: HO.HKASLDS 10:19
PROVIDERS: Visit Provider Internal Medicine Nephrology
DX: K70.31 Alcoholic cirrhosis of liver with ascites (principal)
CPT/HCPCS: 36415; 80051; 82565; 84520

== ENCOUNTER 2024-12-02 09:50 | Outpatient (AMB) | payer OTHER, SELFPAY ==
--- NOTE | 2024-12-02 09:54 | HO.NEPHOV_ITS ---
Vital Signs 12/02/24 10:00 Height 4 ft 8 in Weight 114 lb 2 oz BMI 25.6 BP 112/70 Blood Pressure Location Lt brachial Position Sitting Pulse 54 Pulse Source Pulse Oximeter Pulse Oximetry (%) 97 Oxygen Delivery Method Room Air Intake Visit Reasons: Sep follow-up w/labs-Conf Biomass Boiler Operator Required: No Accompanied by: Self / Same As Patient Allergies No Known Allergies Allergy (Verified 12/02/24 10:00) HPI Comments Details: 64 year old with alcoholic cirrhosis was seen today for follow-up for H/O hypokalemia and total body volume overload. She had altered mental status and weakness, and abdominal bloating, and was found to have elevated ammonia with acute kidney injury and ascites. Acute kidney injury was likely secondary to acute tubular necrosis, treated with IV octreotide, albumin, midodrine and IV fluid. Her renal function settled to baseline. She denies fever, no chills, no shortness of breath or chest pain but has been having worsening of ascites and edema. She sees gastroenterology in follow up [facility] Medical History History of anemia Thiamine deficiency Back pain with history of spinal surgery Alcohol use disorder, severe, dependence Osteoporosis Nicotine dependence, cigarettes, uncomplicated Hx of scoliosis Elevated liver transaminase level Folate deficiency Vitamin D deficiency Lumbar stenosis with neurogenic claudication History of right tennis elbow Degenerative disc disease, cervical Lumbar spine scoliosis Hx of fracture of wrist Hyperlipidemia Essential hypertension Surgical History Hx of section Hx of tubal ligation History of carpal tunnel surgery of right wrist History of carpal tunnel surgery of left wrist History of rotator cuff surgery History of colonoscopy with polypectomy Family History Brother Substance use disorder Prostate cancer Daughter Substance use disorder Sister Substance use disorder Maternal Grandmother Diabetes mellitus Mother Alcoholism COPD (chronic obstructive pulmonary disease) Father Alcoholism COPD (chronic obstructive pulmonary disease) Social History Household Members: Spouse and Other Household Members Other:: granchildren Housing: House Are you a primary acute care clinical nurse specialist to a significant other at home: No Do you presently have visiting nurse or other home services: No Alcohol intake: former Patient Tobacco Use Status: Former Tobacco user Tobacco use type: Cigarette Cigarette Packs Per Day: 1 Cigarettes Per Day: 4 Years Smoked: 45 e-Cigarette/Vaping Use: Never Used Second Hand Smoke Exposure: No service: No Current occupational status: disabled Cognitive needs: No Hearing needs: No Vision needs: Yes Female Reproductive History Menstrual Age of Menarche: 16 Review of Systems Const All systems reviewed & are unremarkable except as noted in HPI and below Physical Exam Const General: comfortable and no acute distress Orientation/consciousness: patient oriented x3 HEENT Head: Yes normocephalic Mouth: Normal oral and palatal mucosa present Eyes EOM: EOMs intact bilaterally Neck Neck: Yes supple Resp Auscultation: clear to auscultation bilaterally Cardio Jugular venous distension: no JVD Rate: regular rate GI Palpation (GI): Soft to palpation Auscultation: normal bowel sounds General: Yes no CVA tenderness Back/Spine/Pelvis Back: no CVA tenderness Skin General skin exam: no rashes or lesions noted Neuro General: patient oriented x3 and moves all extremities Extrem General: Yes no pedal edema Results Reviewed Nephrology Results: Sodium, (135-145) 141 mmol/L 11/20/24 Potassium, (3.3-5.1) 4.3 mmol/L 11/20/24 Chloride, (96-108) 102 mmol/L 11/20/24 Carbon Dioxide, (22-29) 31 mmol/L H 11/20/24 BUN, (9-16) 13 mg/dL 11/20/24 Creatinine, (0.5-1.4) 0.82 mg/dL 11/20/24 Assessment & Plan Assessment & Plan (1) Essential hypertension: Code(s): I10 - Essential (primary) hypertension Category: Medical Plan H/O STACIA likely tubular injury from renal hypoperfusion- resolved No obstruction suggested on recent abdominal CT H/O low BP due to hepatic physiology C/W Spironolactone 100 mg daily;C/W lasix 20 mg daily C/W Midodrine 10 mg tid; Follow up with GI closely Follow up blood work ordered; Answered all her questions Orders: Orders Electrolytes 4 Months I10 - Essential (primary) hypertension Creatinine 4 Months I10 - Essential (primary) hypertension Blood Urea Nitrogen 4 Months I10 - Essential (primary) hypertension Coding Level of Care Code Est Pt Level 4 (48934) Diagnoses Essential hypertension I10
[2024-12-02 10:00] VITALS: BP 112/70; PULSE 54; O2SAT 97; BMI 25.6
--- OUTSIDE RECORDS SUMMARY | 2024-12-02 10:44 | XMS_ITS | Clinical Summary ---
Author Organization [facility] it Address [address] [place] [address] Care Team Providers Care Associate Art Director Name Role Phone Ralph Blake MD Primary Care Provider [phone] Social History Tobacco Use Types Packs/Day Years [...] Last Done Comments Breast Cancer Screening 1962 Colorectal Cancer Screening: Colonoscopy 1962 DTaP,Tdap,and Td Vaccines (1 - Tdap) 1981 Pneumococcal Vaccine: 50+ Ye ars (1 of 2 - PCV) 1981 Cervical Cancer Screening: P ap Smear 1983 Zoster Vaccines (1 of 2) 2012 HIV Screening 02/01/2022 Hepatitis C Screening 02/01/2022 [...] age to complete this topic Care Teams Associate Art Director Relationship Specialty Start Date End Date Ralph Blake MD [address] [phone] PCP - General 04/07/09
--- OUTSIDE RECORDS SUMMARY | 2024-12-02 10:44 | XMS_ITS | Clinical Summary ---
Author Organization [facility] Address [address] [facility] [address] [place] [id number] Phone Care Team Providers Care Recruit Instructor Name Role Phone Giovana Manning MD Primary [...] Active ferrous sulfate 324 mg (65 mg [place] iron) TbEC Take 324 mg by mouth [...] Type Department Care Team Description 09/29/2024 Telephone [facility] [address] [address] Hamida Whitaker RN 09/24/2024 Committee Review [facility] [address] [place] [address] Jocelyn Cruz RN 09/02/2024 12:28 PM EDT - 09/02/2024 11:59 PM EDT Hospital Encounter [facility] ACC5 [address] [place] [address] Ana Bearden CNP Discharge Disposition: Home or Self Care 09/02/2024 11:00 AM EDT Office Visit [facility] [address] [facility], 5th [place] [address] Ana Bearden CNP Bethea, Emily D, MD [...] Info) Description 09/08/2025 10:00 AM EDT Telemedicine [facility] [address] [place] [address], [address] [place] [address] Ana Bearden, MANAGER INTERNET [address] [address] [email or web address] Polly Penn MD [address] [place], [place] [address] [place] [address] [email or web address] Health Maintenance Due Date Last Done Comments [...] (POPEth) by LC-MS/MS <10 Cutoff: 10 ng/mL [facility] Comment: (NOTE) Phosphatidylethanol [...] (PLPEth) by LC-MS/MS <10 Cutoff: 10 ng/mL [facility] Comment: (NOTE) PEth 16:0/18:2 (PLPEth) Reference ranges are not well established PEth Interpretation Negative. [facility] Comment: (NOTE) ADDITIONAL INFORMATION This report is intended for use in clinical monitoring and management of patients. It is not intended for use in employment-related testing. This test was developed and its performance characteristics determined by [facility] in a manner consistent with CLIA requirements. This test has not been cleared or approved by the U.S. Food and Drug Administration. 09/02/2024 12:3 8 PM EDT 09/02/2024 1:50 PM EDT Ana Bearden [facility] LAB BLOOD ORDERABLES F inal Result [facility] [address] [place] [address] * (ABNORMAL) LFTs (hepatic panel) (09/02/2024 12:38 PM EDT) ALBUMIN 4.2 3.3 - 5.0 g/dL [facility] TOTAL BILIRUBIN 0.6 0.0 - 1.0 mg/dL [facility] DIRECT BILIRUBIN 0.2 0.0 - 0.3 mg/dL [facility] ALKALINE PHOSPHATASE 134(H) 30 - 100 U/L [facility] AST 33(H) 9 - 32 U/L [facility] ALT 20 7 - 33 U/L [facility] TOTAL PROTEIN 7.5 6.0 - 8.3 g/dL [facility] GLOBULIN 3.3 1.9 - 4.1 g/dL [facility] 09/02/2024 12:3 8 PM EDT 09/02/2024 1:50 PM EDT Ana Bearden [facility] LAB BLOOD ORDERABLES F inal Result Performing Organization Address City/[facility]/ZIP Co de Phone Number [address] [address] * PT-INR (09/02/2024 12:38 PM EDT) PT 12.6 10.0 - 13.0 sec [facility] INR 1.1 0.9 - 1.1 [facility] 09/02/2024 12:3 8 PM EDT 09/02/2024 1:58 PM EDT Ana Bearden [facility] LAB BLOOD ORDERABLES F inal Result Performing Organization Address City/[facility] Co de Phone Number [address] [address] * (ABNORMAL) CBC (09/02/2024 12:38 PM EDT) WBC 6.65 4.00 - 11.00 K/uL [facility] RBC 4.26 4.00 - 5.20 M/uL [facility] HGB 12.1 12.0 - 16.0 g/dL [facility] HCT 38.6 36.0 - 46.0 % [facility] PLT 242 150 - 450 K/uL [facility] MCV 90.6 80.0 - 100.0 fL [facility] MCH 28.4 27.0 - 31.0 pg [facility] MCHC 31.3(L) 32.0 - 36.0 g/dL [facility] RDW 14.6(H) 11.5 - 14.5 % [facility] MPV 9.9 8.4 - 12.0 fL [facility] NRBC 0.00 0.00 /100 WBCs [facility] ABSOLUTE NRBC 0.00 0.00 K/uL [facility] 09/02/2024 12:3 8 PM EDT 09/02/2024 1:50 PM EDT Ana Bearden [facility] LAB BLOOD ORDERABLES F inal Result Performing Organization Address [facility]/ZIP Co de Phone Number [address] [address] * Basic metabolic panel (09/02/2024 12:38 PM EDT) SODIUM 142 135 - 145 mmol/L [facility] POTASSIUM 4.1 3.4 - 5.0 mmol/L [facility] CHLORIDE 101 98 - 108 mmol/L [facility] CO2 27 23 - 32 mmol/L [facility] BUN 10 8 - 25 mg/dL [facility] CREATININE 0.73 0.50 - 1.00 mg/dL [facility] GLUCOSE 80 70 - 110 mg/dL [facility] CALCIUM 10.1 8.5 - 10.5 mg/dL [facility] EGFR 93 >59 mL/min/1.7 3m2 [facility] Comment:Estimated glomerular filtration rate calculated using the CKD-EPI refit equation. ANION GAP 14 3 - 17 mmol/L [facility] 09/02/2024 12:3 8 PM EDT 09/02/2024 1:50 PM EDT Ana Bearden [facility] LAB BLOOD ORDERABLES F inal Result Performing Organization Address [facility]/ZIP Co de Phone Number [address] [address] * Hepatitis C antibody, qualitative (05/19/2024 10:40 AM EDT) HCV ANTIBODY Negative Negative [facility] Comment:Antibodies to HCV no t detected. Does not exclude the possibility of exposure to HCV. 05/19/2024 10:4 0 AM EDT 05/19/2024 12:06 PM EDT us Tisha Tracey Argent[place] MANAGER INTERNET LAB BLOOD ORDERABLES Final Result [address] [address] * Lipid panel (05/19/2024 10:40 AM EDT) HDL 65 35 - 100 mg/dL [facility] CHOLESTEROL 158 <200 mg/dL [facility] TRIGLYCERIDES 71 40 - 150 mg/dL [facility] LDL 79 50 - 129 mg/dL [facility] CARDIAC RISK RATIO 2.4 0.0 - 5.0 [facility] NON-HDL CHOLESTEROL 93 mg/dL [facility] Comment:Guidelines suggest a non-HDL cholesterol goal 30 mg/dL higher than the patient-specific LDL goal. 05/19/2024 10:4 0 AM EDT 05/19/2024 12:06 PM EDT Tisha Ellison MANAGER INTERNET LAB BLOOD ORDERABLES Final Result Performing Organization Address City/[facility] Co de Phone Number [address] [address] from Last 3 Months or Most Recently Relevant to Health Maintenance Insurance [facility] AETNA [place] AET[employer] [place] AETNA [place] A[facility]NA [facility] [employer] Advance Directives For more information, please contact: [phone] (9AM - 5PM Emily/[facility], Sunday-Sunday) Documents on File Type Date Recorded Patient Payroll Technician Expl anation Healthcare Proxy 05/30/2024 Care Teams Recruit Instructor Relationship Specialty Start Date End Date Giovana Manning MD [facility] [place] [address] PCP - General Internal Medicine 04/11/24 Additional Source Comments The information contained in this document represents components of the legal health record. It is not the complete legal health record.[facility]
== END 2024-12-02 10:10 | disposition home or self-care (01) ==
LOC: HO.HKAS 09:51
PROVIDERS: PCP Internal Medicine; Visit Provider Internal Medicine Nephrology
DX: I10 Essential (primary) hypertension (principal)
CPT/HCPCS: 99214

== ENCOUNTER 2024-12-04 11:11 | Outpatient (REF) | payer OTHER, SELFPAY ==
[2024-12-04 12:28] LABS: MANUAL DIFF FLAG NO
[2024-12-04 13:12] LABS: Hematocrit 38.6 % (37.0-47.0); Hemoglobin 12.1 g/dl (12.0-16.0); Imm Gran Abs Auto 0.03 X10*3/uL (0.00-0.03); Imm Gran Pct Auto 0.4 % (0.0-0.4); Lymphocytes Absolute Auto 2.1 X10*3/uL (1.2-4.9); Mean Corpuscular HGB Conc 31.3 g/dl (31.0-35.0); Mean Corpuscular Hemoglobin 28.1 pg (27.0-33.0); Mean Corpuscular Volume 89.6 fL (80.0-98.0); NRBC Abs Auto 0.000 X10*3/uL (0.0-0.012); NRBC Pct Auto 0.0 /100WBC (0.0-0.2); Platelet Count 249 X10*3/uL (160-400); Red Blood Count 4.31 X10*6/uL (4.20-5.50); White Blood Count 6.9 X10*3/uL (4.8-10.8)
[2024-12-04 13:41] LABS: INTERNATIONAL NORM RATIO 1.0 (0.9-1.1); Prothrombin Time 11.9 SEC (10.9-12.4)
[2024-12-04 13:43] LABS: Alanine Aminotransferase 16 U/L (0-31); Albumin Level 4.5 g/dL (3.5-5.0); Alkaline Phosphatase 120 U/L (39-117); Anion Gap 12 (12-20); Aspartate Amino Transferase 28 U/L (5-31); Blood Urea Nitrogen 16 mg/dL (9-16); Calcium 10.6 mg/dL (8.4-10.2); Carbon Dioxide 30 mmol/L (22-29); Chloride 103 mmol/L (96-108); Cholesterol 263 mg/dL (<200); Estimated Glomerular Filt Rate > 60; HDL Cholesterol 53 mg/dL (>40); Potassium 4.1 mmol/L (3.3-5.1); Sodium 141 mmol/L (135-145); Total Protein 7.4 g/dL (6.5-8.0); Triglycerides 134 mg/dL (<150)
[2024-12-04 14:04] LABS: Ferritin 78 ng/mL (10-250)
== END 2024-12-04 11:12 | disposition home or self-care (01) ==
LOC: HO.LAB 11:11
PROVIDERS: PCP Internal Medicine; Visit Provider Internal Medicine Gastroenterology
DX: Z01.818 Encounter for other preprocedural examination (principal); K70.31 Alcoholic cirrhosis of liver with ascites; E53.8 Deficiency of other specified B group vitamins; E55.9 Vitamin D deficiency, unspecified; E78.5 Hyperlipidemia, unspecified; I10 Essential (primary) hypertension; F10.20 Alcohol dependence, uncomplicated; E78.00 Pure hypercholesterolemia, unspecified; E80.6 Other disorders of bilirubin metabolism; Z86.0100 Personal history of colon polyps, unspecified; Z87.891 Personal history of nicotine dependence
CPT/HCPCS: 36415; 80053; 80061; 80076; 82248; 82728; 84425; 85025; 85027; 85610

== ENCOUNTER 2024-12-04 11:11 | Outpatient (AMB) | payer OTHER, SELFPAY ==
--- NOTE | 2024-12-04 11:27 | A.OFFVIS_ITS ---
Vital Signs 12/04/24 11:35 Height 4 ft 8 in Weight 114 lb BMI 25.6 BP 134/76 Blood Pressure Location Lt brachial Position Sitting Pulse 76 Intake Visit Reasons: follow up Intake Note: Patient follow up for Alcoholic cirrhosis of liver with ascites Patient cc: acid reflux on and off, denies any other GI issues. 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 Accompanied by: Self / Same As Patient Allergies No Known Allergies Allergy (Verified 12/02/24 10:00) Medication List - Last Reconciled 12/04/24 by Aron Chavez MD ferrous sulfate 324 mg PO DAILY 90 days folic acid 0.8 mg PO DAILY lactulose 20 grams (30 mL) PO BID 30 days Lasix (furosemide) 20 mg PO QAM 90 days NS midodrine 10 mg PO 2XW omeprazole 20 mg PO DAILY@0630 PRN [shower seat As directed] spironolactone 100 mg PO QAM thiamine mononitrate (vit B1) (Vitamin B-1 (mononitrate)) 100 mg PO DAILY 90 days zinc sulfate (Orazinc) 25 mg PO DAILY 90 days HPI HPI follow up: Details: GI clinic visit for this 64 YF with ETOH abuse, hypertension, hyperlipidemia, degenerative disc disease, vitamin-D deficiency, folate deficiency, and alcohol use disorder here for follow-up of alcoholic cirrhosis complicated by ascites, thrombocytopenia, hepatic encephalopathy after recent hospitalization in 12/2023. TODAY'S VISIT: Patient denies any GI issues today, patient bring some medication to review with you and also needed refill for folic acid Seen at [facility] hepatology clinic on 09/02/24 and FU scheduled in 1 year. Seen by Nephrology on 12/02 and was discharged They dont want to see me again Scheduled for neck surgery at [facility] and requesting clearance for anesthesia Denies abd distension Appetite is good. PAST VISIT: States she has been doing well Last paracentesis was in May, EGD and colon results reviewed. Abd discomfort has resolved. Notes some abd discomfort. Leg edema has improved Appetite has improved Going for walks. Seen at [facility] on 05/19/24 and was told she does not need a transplant at present. Having the fluid drained every 7 to 10 days Continues to have lower ext edema and legs feel tingly and numb. She has been walking a lot. Taking lactulose and usually has 2 BMs a day Has a good appetite Denies ETOH use since December,. Pt is upset since she was considered unfit for driving by her PCP. PAST VISIT: I am retaining water Complains of progressive abdominal distension. Feels cold all the time. Taking lactulose and had 4 BMs yesterday. Patient denies symptoms of heartburn, dysphagia, nausea, vomiting, Eating better than she was in the past. Denies recent black stools or rectal bleeding. Coughing at night. Patient denies major cardiac or pulmonary problems, loud snoring or sleep apnea The patient admitted to drinking 4-5 beers and twisted teas 3 days a week for the past several years. She admits to smoking 1/2 PPD and denies any other substance use. Quitted smoking and drinking more than a month ago. Pt lives with her and has custody of two GK (4 & 6 yrs old) She worked in a [employer] and is now retired Family hx is positive for Cirrhosis in both parents who were alcoholics. Pt denies known FH of GI malignancy Denies problems with anesthesia in the past. Denies being on chronic anticoagulation. LABS IN [facility] : Reviewed IMAGING STUDIES: Reviewed ENDOSCOPIC STUDIES: None in [facility] PAST GI HISTORY BY REVIEW OF MEDICAL RECORDS: Pt was hospitalized in 12/2023: Hospital course The patient was evaluated for acute kidney injury which likely secondary to ATN rather than HRS but treated as. improved to baseline with albumin, IV octrotide, midodrine and IVF. Followed by nephrology team who recommended an outpatient follow up for further work up and monitoring. Acute metabolic encephalopathy due to hepatic encephalopathy due to alcoholic cirrhosis which was treated with Lactulose and Rifaximin with Goal 2 bowel movements per day. She had Status post 80 cc paracentesis, no signs of SBP. removed 2L of clear fluids. Started on Spironolactone 12.5 mg daily with plan to repeat blood work as outpatient. Anemia with low Iron stores, started on Iron replacement therapy. To follow CBC next week. Hypotension due to liver disease not sepsis. resolved with Midodrine and holding Valsartan. Will continue to hold on discharge and keep Midodrine for the next month as bid. Mild hypernatremia, responded well to IV fluids. and was Monitored during the hospital stay. Acute hypokalemia with acute Replacement and monitoring during hospital stay. Discharge plan Start Spironolactone for ascites management Monitor weight at home and report changes to PCP Hold Valsartan; Monitor BP for 1 week then discuss with PCP the need to restart it Lactulose twice daily with goal of 1-2 bowel movements Avoid Alcohol Start Iron supplement as prescribed Thiamine supplement Midodrine for 1 month to support BP To follow up with Gastroenterology as scheduled in office To follow with nephrology as outpatient. 12/31/23 PT WAS SEEN AT [facility] DURING HOSPITALIZATION: Reason for consult: Cirrhosis with hepatic encephalopathy 63F with ESLD due to ETOH abuse, hypertension, hyperlipidemia, degenerative disc disease, vitamin-D deficiency, folate deficiency seen at [facility] ED on 12/30/23 with altered mental status and weakness. Symptoms progressing over the last week, mostly abdominal distention and bloating and confusion. Pt is known to me from recent hospitalization at [facility] from 11/27 to 12/03/23 Pt was scheduled for a FU appt in GI on 12/10/23 and was a no show. A & P: 63 YF with ETOH abuse, hypertension, hyperlipidemia, degenerative disc disease, vitamin-D deficiency, folate deficiency, and alcohol use disorder admitted to [facility] on 12/30/23 due to lethargy and weakness over the past week. Pt denies past hx of liver disease prior to last admission - admits to having fatigue and easy bruising for the past few months. CT abdomen pelvis shows marked fatty change of liver with moderate volume abdominal ascites and mild diffuse nonspecific bowel wall thickening of the cecum and ascending colon through the mid transverse colon without obstruction. Pt has decompensated cirrhosis likely related to ETOH abuse complicated by ascites, hepatic encephalopathy and renal failure MELD score is 12 RECOMMENDATIONS: 1. Agree with Lactulose and Rifaximin for HE and Midodrine and Octreotide for renal failure/HRS 3. Consult to Addiction Medicine for ETOH rehab - pt states she plans to stop drinking 4. Pt will be scheduled for a FU appt in GI - (previously scheduled on 12/10/23 - pt states she was unable to come since GD was sick [facility] Medical History History of anemia Thiamine deficiency Back pain with history of spinal surgery Alcohol use disorder, severe, dependence Osteoporosis Nicotine dependence, cigarettes, uncomplicated Hx of scoliosis Elevated liver transaminase level Folate deficiency Vitamin D deficiency Lumbar stenosis with neurogenic claudication History of right tennis elbow Degenerative disc disease, cervical Lumbar spine scoliosis Hx of fracture of wrist Hyperlipidemia Essential hypertension Surgical History Hx of section Hx of tubal ligation History of carpal tunnel surgery of right wrist History of carpal tunnel surgery of left wrist History of rotator cuff surgery History of colonoscopy with polypectomy Family History Brother Substance use disorder Prostate cancer Daughter Substance use disorder Sister Substance use disorder Maternal Grandmother Diabetes mellitus Mother Alcoholism COPD (chronic obstructive pulmonary disease) Father Alcoholism COPD (chronic obstructive pulmonary disease) Social History Household Members: Spouse and Other Household Members Other:: granchildren Housing: House Are you a primary daycare director to a significant other at home: No Do you presently have visiting nurse or other home services: No Alcohol intake: former Patient Tobacco Use Status: Former Tobacco user Tobacco use type: Cigarette Cigarette Packs Per Day: 1 Cigarettes Per Day: 4 Years Smoked: 45 e-Cigarette/Vaping Use: Never Used Second Hand Smoke Exposure: No service: No Current occupational status: disabled Cognitive needs: No Hearing needs: No Vision needs: Yes Female Reproductive History Menstrual Age of Menarche: 16 Review of Systems Const All systems reviewed & are unremarkable except as noted in HPI and below Physical Exam Vital Signs: Last Vital Signs Pulse 76 12/04/24 11:35 BP 134/76 12/04/24 11:35 BMI result Body Mass Index 25.6 Const General: no acute distress and ill appearing chronically Nutritional Appearance: average body habitus Orientation/consciousness: patient oriented x3 HEENT Head: Yes normal to inspection Ears: hearing grossly normal bilaterally Eyes Sclerae: sclerae normal Pupils: Equal, round and reactive pupils present Neck Neck: Yes normal visual inspection Chest Chest palpation & inspection: normal inspection of the chest Resp Effort & Inspection: normal respiratory effort Auscultation: clear to auscultation bilaterally Cardio Palpation: normal PMI Rate: regular rate Rhythm: regular rhythm Heart sounds: S1 normal heart sound present, S2 normal heart sound present and no murmurs GI Palpation (GI): Soft to palpation, nontender and No hepatosplenomegaly present Auscultation: normal bowel sounds Rectal Exam - Female: deferred Skin General skin exam: no rashes or lesions noted Neuro General: patient oriented x3, gait normal and moves all extremities Cranial nerves: Yes Equal, round and reactive pupils present Psych Appearance: grossly normal Mental Status: mental status grossly normal Assessment & Plan Assessment & Plan (1) Ascites: Code(s): R18.8 - Other ascites Category: Medical Qualifiers: Ascites type: due to alcoholic cirrhosis Qualified Code(s): K70.31 - Alcoholic cirrhosis of liver with ascites (2) Alcoholic cirrhosis of liver with ascites: Code(s): K70.31 - Alcoholic cirrhosis of liver with ascites Category: Medical (3) History of colon polyps: Comment: 08/2024 Two adenomatous polyps were removed during colonoscopy. Repeat colon advised in 6 to 12 months. Code(s): Z86.0100 - Personal history of colon polyps, unspecified Category: Medical Plan 64 YF with ETOH abuse, hypertension, hyperlipidemia, degenerative disc disease, vitamin-D deficiency, folate deficiency, and alcohol use disorder hospitalized at [facility] in 12/2023 due to lethargy and weakness. Pt gave a hx of fatigue and easy bruising for the preceding few months. CT abdomen pelvis shows marked fatty change of liver with moderate volume abdominal ascites and mild diffuse nonspecific bowel wall thickening of the cecum and ascending colon through the mid transverse colon without obstruction. Pt has decompensated cirrhosis likely related to ETOH abuse complicated by ascites, hepatic encephalopathy and renal failure REDUCING THE RISK OF LIVER PROGRESSION: patient was advised to completely avoid use of alcohol HCC SURVEILLANCE: the patient is at risk of developing hepatocellular carcinoma given the presence of cirrhosis and need 6 monthly imaging surveillance with either abdominal ultrasound (US) or multiphase cross-sectional imaging (CT or MRI). Last Abd US on 08/01/24 had shown no focal liver lesions suspicious of HCC and no ascites. VACCINATIONS: Pt does not have serological evidence of prior exposure to or vaccination against hepatitis A or hepatitis B. Given lack of serological evidence of immunity, she needs to undergo vaccination against both hepatitis A and hepatitis B (with a series of 3 doses at 0, 1 and 6 months). Patient should also remain up-to-date with all age-appropriate vaccinations including vaccination against pneumococcus. As we no longer have vaccines available in our Clinic, I request PCP to arrange this. SURVEILLANCE FOR GASTROESOPHAGEAL VARICES: 08/29/24 No varices seen on EGD, FU EGD in 12 months. QUESTION OF LIVER TRANSPLANTATION: MELD Na score is 8. Seen at [facility] on 05/19/24 and was told she does not need a transplant at present. Pt seen by Nephrology on 01/22/24: Spironolactone to 25 mg daily; Started lasix 20 mg daily Increased Midodrine to 10 mg tid; Will need paracentesis with IV Albumin; Once K is better needs to D/C K replacement 01/24/24 Complains of progressive abdominal distension - scheduled for urgent paracentesis on 01/25/24. Feels cold all the time. Taking lactulose and had 4 BMs yesterday. Quitted smoking and drinking more than a month ago. 03/06/24 Pt was seen by Nephrology and advised: C/W Spironolactone to 50 mg daily; Increased it to 75 mg daily;C/W lasix 20 mg daily C/W Midodrine 10 mg tid; Follow up with GI closely Will need paracentesis with IV Albumin; D/C ed K replacement 03/27/24 Pt reports abstinence from ETOH since 12/2023 She has quitted smoking. (Pt reports having a colonoscopy at [facility] - 5 yrs ago and FU colon was advised in 10 yrs) Pt referred to [facility] for liver transplant evaluation 05/22/24 Notes some abd discomfort. Leg edema has improved Seen at [facility] on 05/19/24 and was told she does not need a transplant at present. Records requested from [facility] Order placed for US guided paracentesis - pt may postpone if abdominal distension does not get worse. 08/29/24 EGD and Colon were performed by Dr. Ruiz: Endoscopy Findings: hiatal hernia probable barretts gastritis Colonoscopy Findings: diverticulosis colon polyps x 2 internal hemorrhoids Plan: Await Pathology results Repeat Colonoscopy in 6-12 months due to polyp or earlier if clinically indicated High fiber diet leaflet avoid straining at stool, epsom salts and sitz bath, anusol supps or cream repeat EGD in 1-2 yrs for variceal screening BIOPSIES SHOWED: A. Stomach, biopsy: Antral-type and oxyntic mucosa with mild chronic inactive inflammation; no Helicobacter organisms seen. B. Colon, descending, polypectomy: Fragments of tubular adenoma; negative for high-grade dysplasia or carcinoma. C. Colon, sigmoid, polypectomy: Fragments of tubular adenoma; negative for high- grade dysplasia or carcinoma 09/04/24 EGD and colon results were reviewed with the patient Plan FU EGD and colon in 12 months. Hep A and B vaccine (1st dose today) Hep B 2nd dose on 11/04/24 Scheduled for Hep A and B vaccination in Mar, 2025 12/04/24 Seen at [facility] hepatology clinic on 09/02/24 and FU scheduled in 1 year. Seen by Nephrology on 12/02 and was discharged They dont want to see me again Scheduled for neck surgery at [facility] and requesting clearance for anesthesia OK for pt to proceed with surgery since pt has compensated cirrhosis with MELD 3.0 score of 7 Probability of Mortality Based on Rucker Risk Score: 7 days 30 days 90 days 1 year 5 years 0.668 % 2.7 % 4.35 % 14.6 % 35.5 % FU in 4 months Orders: Orders US abdomen limited 12/04/24 K70.31 - Alcoholic cirrhosis of liver with ascites Complete Blood Count Auto Diff 12/04/24 K70.31 - Alcoholic cirrhosis of liver with ascites Ferritin 12/04/24 K70.31 - Alcoholic cirrhosis of liver with ascites Prothrombin Time INR 12/04/24 K70.31 - Alcoholic cirrhosis of liver with ascites Liver Panel 12/04/24 K70.31 - Alcoholic cirrhosis of liver with ascites Coding Level of Care Code Est Pt Level 4 (70320) Complex EM visit Add On G2211 Diagnoses Ascites due to alcoholic cirrhosis K70.31 Ascites type: due to alcoholic cirrhosis Alcoholic cirrhosis of liver with ascites K70.31 History of colon polyps Z86.0100 Time Spent (min) 20
[2024-12-04 11:35] VITALS: BP 134/76; PULSE 76; BMI 25.6
--- OUTSIDE RECORDS SUMMARY | 2024-12-04 13:07 | XMS_ITS | Clinical Summary ---
Author Organization [facility] it Address [address] [place] [address] Care Team Providers Care Costumed Character Name Role Phone Ralph Blake MD Primary Care Provider [phone] Social History Tobacco Use Types Packs/Day Years [...] age to complete this topic Care Teams Costumed Character Relationship Specialty Start Date End Date Ralph Blake MD [address] [place] [id number] PCP - General 04/07/09
--- OUTSIDE RECORDS SUMMARY | 2024-12-04 13:07 | XMS_ITS | Clinical Summary ---
Author Organization [facility] Address [address] [facility] [address] [place] [address] Phone Care Team Providers Care Slip Presser Name Role Phone Giovana Manning MD Primary [...] Active ferrous sulfate 324 mg (65 mg red devil iron) TbEC Take 324 mg by mouth [...] Type Department Care Team Description 09/29/2024 Telephone [facility] [address] [address] Hamida Whitaker RN 09/24/2024 Committee Review [facility] [address] [place] [address] Jocelyn Cruz RN from Last 3 Months Family History Medical [...] Info) Description 09/08/2025 10:00 AM EDT Telemedicine [facility] [address] [facility], 5th [place] [address] Ana Bearden, ASSISTANT STRENGTH COACH [address] [address] [email or web address] Polly Penn MD [address] [facility]-5th [place] [address] [email or web address] Health Maintenance Due Date [...] Procedure Name Priority Date/Time Associated Diagnosis Comments BASIC METABOLIC PANEL Routine 09/02/2024 12:38 PM EDT Decompensated hepatic cirrhosis LIPID PANEL Routine 05/19/2024 10:40 AM EDT [...] Recently Relevant to Health Maintenance Results * Basic metabolic panel (09/02/2024 12:38 PM EDT) SODIUM 142 135 - 145 mmol/L [facility] POTASSIUM 4.1 3.4 - 5.0 mmol/L [facility] CHLORIDE 101 98 - 108 mmol/L [facility] CO2 27 23 - 32 mmol/L [facility] BUN 10 8 - 25 mg/dL [facility] CREATININE 0.73 0.50 - 1.00 mg/dL [facility] GLUCOSE 80 70 - 110 mg/dL [facility] CALCIUM 10.1 8.5 - 10.5 mg/dL [facility] EGFR 93 >59 mL/min/1.7 3m2 [facility] Comment:Estimated glomerular filtration rate calculated using the CKD-EPI refit equation. ANION GAP 14 3 - 17 mmol/L [facility] 09/02/2024 12:3 8 PM EDT 09/02/2024 1:50 PM EDT us Ana Bearden ASSISTANT STRENGTH COACH LAB BLOOD ORDERABLES F inal Result [facility] [place] [address] * Hepatitis C antibody, qualitative (05/19/2024 10:40 AM EDT) HCV ANTIBODY Negative Negative [facility] Comment:Antibodies to HCV no t detected. Does not exclude the possibility of exposure to HCV. 05/19/2024 10:4 0 AM EDT 05/19/2024 12:06 PM EDT Tisha Tracey Terra ASSISTANT STRENGTH COACH LAB BLOOD ORDERABLES Final Result Performing Organization Address City/[facility] Co de Phone Number [address] [address] * Lipid panel (05/19/2024 10:40 AM EDT) HDL 65 35 - 100 mg/dL [facility] CHOLESTEROL 158 <200 mg/dL [facility] TRIGLYCERIDES 71 40 - 150 mg/dL [facility] LDL 79 50 - 129 mg/dL [facility] CARDIAC RISK RATIO 2.4 0.0 - 5.0 [facility] NON-HDL CHOLESTEROL 93 mg/dL [facility] Comment:Guidelines suggest a non-HDL cholesterol goal 30 mg/dL higher than the patient-specific LDL goal. 05/19/2024 10:4 0 AM EDT 05/19/2024 12:06 PM EDT Tisha Tracey Terra ASSISTANT STRENGTH COACH LAB BLOOD ORDERABLES Final Result Performing Organization Address City/[facility] Co de Phone Number [address] [address] from Last 3 Months or Most Recently Relevant to Health Maintenance Insurance [employer]EP[employer] A[employer]NA [employer] AET[employer] AET [facility] AET Stealth10AIN Advance Directives For more information, please contact: [phone] (9AM - 5PM Emily/[facility], Sunday-Sunday) Documents on File Type Date Recorded Patient Vehicle Modification Technician Expl anation Healthcare Proxy 05/30/2024 Care Teams Slip Presser Relationship Specialty Start Date End Date Giovana Manning MD [facility] [place] [address] PCP - General Internal Medicine 04/11/24 Additional Source Comments The information contained in this document represents components of the legal health record. It is not the complete legal health record.[facility]
== END 2024-12-04 11:56 | disposition home or self-care (01) ==
LOC: HO.HGI 11:12
PROVIDERS: PCP Internal Medicine; Visit Provider Internal Medicine Gastroenterology
DX: K70.31 Alcoholic cirrhosis of liver with ascites (principal); Z86.0100 Personal history of colon polyps, unspecified
CPT/HCPCS: 99214; G2211

== ENCOUNTER 2024-12-16 13:20 | Outpatient (AMB) | payer OTHER, SELFPAY ==
--- NOTE | 2024-12-16 13:24 | MHC.PC.OV ---
Vital Signs 12/16/24 13:30 Height 4 ft 8 in Weight 116 lb BMI 26.0 BP 122/70 Blood Pressure Location Lt brachial Position Sitting Respiration 16 Pulse 68 Pulse Source Pulse Oximeter Temp 97.6 F Temp Source Oral Pulse Oximetry (%) 98 Intake Visit Reasons: surgery C-3-4 ACDF 01/01 Dr. Jenkins Intake Note: Pt is here today for her pre-op surgery C3-4 ACDF 01/01 Dr. Jenkins Allergies No Known Allergies Allergy (Verified 12/16/24 13:51) Medication List - Last Reconciled 12/16/24 by Giovana Manning MD ferrous sulfate 324 mg PO DAILY 90 days folic acid 0.8 mg PO DAILY lactulose 20 grams (30 mL) PO BID 30 days Lasix (furosemide) 20 mg PO QAM 90 days NS midodrine 10 mg PO 2XW omeprazole 20 mg PO DAILY@0630 PRN [shower seat As directed] spironolactone 100 mg PO QAM thiamine mononitrate (vit B1) (Vitamin B-1 (mononitrate)) 100 mg PO DAILY 90 days zinc sulfate (Orazinc) 25 mg PO DAILY 90 days Tobacco use date assessed: 12/16/24 Dental Screening Dental Screen Date: 12/16/24 Did you have a dental visit in the last 12 months?: No Did you have a dental problem in the last 6 months where you did not have access to dental care?: No Was dental information given to patient?: Patient declined HPI surgery C-3-4 ACDF 01/01 Dr. Jenkins HPI Details The patient is a 64-year-old female with a history of osteoporosis, hypercholesterolemia , compensated alcoholic liver cirrhosis, here today for preoperative examination. She has cervical disc compression , associated with prior placement of two plates in the neck, leading to compression of the discs at C3 to C4. The patient reports significant arm weakness, requiring her to manually lift her arm at times. There is no reported incontinence or leg weakness, and the condition has not resulted from any recent trauma. She is scheduled for C3-4 ACDF on 01/[address] Jenkins. She has been declined this is a liver transplant candidate at [facility] as of 05/22/2024 as she does not meet eligibility criteria anymore for transplant, as her alcoholic liver cirrhosis is well controlled medically and MELD score is low at 8. The patient has hypercholesterolemia, with a recent cholesterol level of 184 mg/dL. She was previously on atorvastatin, which did not cause any muscle pain, and plans to resume this medication. [facility] Medical History (Updated 12/19/24 @ 15:16 by Giovana Manning MD) Former heavy cigarette smoker (20-39 per day) History of alcohol use disorder History of anemia Back pain with history of spinal surgery Osteoporosis Nicotine dependence, cigarettes, uncomplicated Hx of scoliosis Lumbar stenosis with neurogenic claudication History of right tennis elbow Degenerative disc disease, cervical Lumbar spine scoliosis Hx of fracture of wrist Hyperlipidemia Essential hypertension Surgical History Hx of section Hx of tubal ligation History of carpal tunnel surgery of right wrist History of carpal tunnel surgery of left wrist History of rotator cuff surgery History of colonoscopy with polypectomy Family History Brother Substance use disorder Prostate cancer Daughter Substance use disorder Sister Substance use disorder Maternal Grandmother Diabetes mellitus Mother Alcoholism COPD (chronic obstructive pulmonary disease) Father Alcoholism COPD (chronic obstructive pulmonary disease) Social History Household Members: Spouse and Other Household Members Other:: granchildren Housing: House Are you a primary child care center administrator to a significant other at home: No Do you presently have visiting nurse or other home services: No Alcohol intake: former Patient Tobacco Use Status: Former Tobacco user Tobacco use type: Cigarette Cigarette Packs Per Day: 1 Cigarettes Per Day: 4 Years Smoked: 45 e-Cigarette/Vaping Use: Never Used Second Hand Smoke Exposure: No service: No Current occupational status: disabled Cognitive needs: No Hearing needs: No Vision needs: Yes Female Reproductive History Menstrual Age of Menarche: 16 Questionnaire PHQ-9 Over the last 2 weeks, how often have you been bothered by any of the following problems? 1. Little interest or pleasure in doing things: not at all 2. Feeling down, depressed, or hopeless: not at all 3. Trouble falling or staying asleep, or sleeping too much: several days 4. Feeling tired or having little energy: not at all 5. Poor appetite or overeating: not at all 6. Feeling bad about yourself - or that you are a failure or have let yourself or your family down: not at all 7. Trouble concentrating on things, such as reading the newspaper or watching television: not at all 8. Moving or speaking so slowly that other people could have noticed. Or the opposite - being so fidgety or restless that you have been moving around a lot more than usual: not at all 9. Thoughts that you would be better off or of hurting yourself in some way: not at all Total score: 1 Depression Screening Interpretation: Negative Depression Screening Done: Yes Source: Developed by Drs. Andrea Pendleton, Aniya Brewer, Ayden Shepherd and colleagues, with an educational brent from [employer]. Thrive Questionnaire Date Thrive assessed: 12/09/24 I am a: Patient What is your living situation today?: I have a steady place to live Within the past 12 months, did the food you bought not last and you didn't have the money to get more?: Never true Within the past 12 months, did you worry whether your food would run out before you got money to buy more?: Never true Do you have trouble paying for medicines?: No Do you have trouble getting transportation to medical appointments?: No Do you have trouble paying your heating and electricity bill?: No Do you have trouble taking care of your child, family member or friend?: No Do you have trouble with day-to-day activities such as bathing, preparing meals, shopping, managing finances, etc.?: No Are you currently unemployed and looking for a job?: No Are you interested in more education?: No Please select the resources that you would like help with: None Currently or been in a relationship where the following occur: No concerns reported THRIVE Score: 0 AUDIT C Alcohol Use Questionnaire (AUDIT-C) 1. How often do you have a drink containing alcohol?: Never (former) 3. How often do you have six or more drinks on one occasion?: Never Total Score: 0 LASHONDA-7 AMB Questionnaire LASHONDA-7 Date LASHONDA - 7 assessed: 07/11/24 Feeling nervous, anxious, or on edge: 0 = Not at all Not being able to stop or control worryin = Not at all Worrying too much about different things: 0 = Not at all Trouble relaxin = Not at all Being so restless that it is hard to sit still: 0 = Not at all Becoming easily annoyed or irritable: 1 = Several days Feeling afraid as if something awful might happen: 0 = Not at all Total LASHONDA-7 score (0-4 normal; 5-9 mild; 10-14 moderate; 15-21 severe): 1 Source: Developed by Drs. Andrea Pendleton, Aniya Brewer, Ayden Shepherd and colleagues, with an educational brent from [employer]. Review of Systems Const Denies body aches, Denies fever(s), Denies headache(s), Reports increased appetite and Denies lethargy Eyes Reports no additional complaints ENT Denies dizziness, Denies headache(s) and Denies disequilibrium Card Denies chest pain, Denies rapid heart rate, Denies irregular heart rhythm, Denies lightheadedness and Denies dyspnea Resp Denies chest congestion, Denies cough and Denies dyspnea GI Denies melena, Denies hematochezia and Denies nausea Reports no additional complaints Musc Reports no additional complaints Skin/Breast Denies new lesions, Denies rash, Denies unusual bruising and Denies jaundice Neuro Denies dizziness, Denies headache(s) and Denies disequilibrium Psych Reports no additional complaints Endo Reports no additional complaints Codey/Lymph Reports no additional complaints Aller/Immun Reports no additional complaints Physical exam (Primary Care) Vital Signs: Last Vital Signs Temp 97.6 F 12/16/24 13:30 Pulse 68 12/16/24 13:30 Resp 16 12/16/24 13:30 BP 122/70 12/16/24 13:30 Pulse Ox 98 12/16/24 13:30 BMI result Body Mass Index 26.0 Tobacco/Smoking Status: Tobacco use Status Tobacco use date assessed 12/16/24 12/16/24 13:29 Patient Tobacco Use Status Former Tobacco user 12/16/24 13:26 Tobacco use type Cigarette 12/16/24 13:26 e-Cigarette/Vaping Use Never Used 12/16/24 13:26 PHQ-9: PHQ-9 Score PHQ-9: Total score 1 12/19/24 02:08 Depression Screening Interpretation: Negative Thrive Assessment: Date of Thrive Assessment Date Thrive assessed 12/09/24 12/16/24 13:26 Currently or been in a relationship where the following occur: No concerns reported Const Orientation/consciousness: patient oriented x3 [facility] Head: Yes normocephalic General nose exam: Normal external nose present Face and sinus: Yes face symmetric Mouth: Normal oral and palatal mucosa present and moist mucous membranes Eyes General: appearance normal, both eyes and all related structures Neck Neck: Yes no lymphadenopathy and Yes supple Resp Effort & Inspection: normal respiratory effort and able to speak in complete sentences Auscultation: clear to auscultation bilaterally Cardio Other: S1-S2 present regular rate and rhythm GI Palpation (GI): Soft to palpation, nontender, no guarding and no masses Back/Spine/Pelvis Cervical Spine: pain with cervical ROM and cervical ROM abnormal Skin General skin exam: no rashes or lesions noted Neuro General: patient oriented x3, gait normal, tone normal, moves all extremities, Normal light touch and pain sensation, no focal motor deficits and CN's II-XI intact bilaterally Gait exam (Neuro): Normal gait present Extrem Other: Decreased cervical spine range of motion due to pain stiffness General: Yes no joint enlargement, Yes no clubbing, cyanosis or edema and Yes normal gait Psych Appearance: grossly normal Mental Status: mental status grossly normal Speech and movement: Normal speech and movement present Affect: normal affect Office Procedures EKG 16547-Phwzfbsjskxiqehjs, Complete (EKG showed sinus bradycardia with a rate of 56 beats per minute, no acute ST-T changes) Flu Questionnaire Does the patient have a severe egg allergy?: No Does the patient have severe life threatening allergies?: No Does the patient have a fever or illness today?: No Has the patient ever had Guillain-[place] Syndrome?: No Has the patient ever had any past reaction to a flu shot?: No Immunizations Fluarix [id number] (PF) 45 mcg (15 mcg x 3)/0.5 mL IM syringe Performing Provider: Giovana Manning MD Performing Location: [facility] Administered by: Misty Echevarria CMA on 12/16/24 14:17 Dose Route Admin Location Dispensed Lot Number Expiration Date [facility] Oven Equipment Repairer 0.5 mL IM Right Deltoid 0.5 mL [id number] 09/01/25 [id number] [email or web address] VIS Given Date VIS Provided VIS Publication Date 12/16/24 Single Vaccine 24 Eligibility Eligibility Date Funding Source Not VFC Eligible 12/16/24 Private Results Reviewed Results Reviewed: RUN: 12/19/24 1511 PAGE 1 [facility] [address] [place] [phone] Aquatic Ecologist: Benny Hunt M.D. Specimen Inquiry Name: Guadalupe Nguyen Age/Sex: 64/F : 1960 Unit#: [id number] Attend Dr: Aron Chavez MD Re12/04/24 Status: DEP REF Location: .LAB Disch: SPEC : [id number] SIMA: 12/04/24 STATUS: COMP REQ : [id number] RECD: 12/04/[address]: Giovana Manning MD COMP: 12/04/24 ENTERED: 12/04/[address]: Aron Chavez MD ORDERED: CBC No Diff, CBC Auto Diff Test Result Flag Reference WBC 6.9 4.8-10.8 X10*3/uL RBC 4.31 4.20-5.50 X10*6/uL HGB 12.1 12.0-16.0 g/dl HCT 38.6 37.0-47.0 % MCV 89.6 80.0-98.0 fL MCH 28.1 27.0-33.0 pg MCHC 31.3 31.0-35.0 g/dl RDW 12.9 11.0-16.0 % PLT 249 160-400 X10*3/uL MPV 9.3 L 9.4-12.3 fL Neut Pct Auto 59.8 45-73 % ImGran Pct Auto 0.4 0.0-0.4 % Lymp Pct Auto 29.7 20-40 % Barbour Pct Auto 8.1 2-11 % Eos Pct Auto 1.4 0-4 % Baso Pct Auto 0.6 0-2 % NRBC Pct Auto 0.0 0.0-0.2 /100WBC ANC Neut Abs # 4.2 2.0-8.3 x10*3/uL ImGran Abs Auto 0.03 0.00-0.03 X10*3/uL Lymph Abs Auto 2.1 1.2-4.9 X10*3/uL Barbour Abs Auto 0.6 0.1-1.2 X10*3/uL Eos Abs Auto 0.1 0.0-0.4 X10*3/uL Baso Abs Auto 0.0 0.0-0.2 X10*3/uL NRBC Abs Auto 0.000 0.0-0.012 X10*3/uL Name: Guadalupe Nguyen Age/Sex: 64/F : 1960 Unit#: [id number] Attend Dr: Aron Chavez MD Re12/04/24 Status: DEP [facility]: SPEC : [id number] SIMA: 12/04/24 STATUS: COMP REQ : [id number] RECD: 12/04/[address]: Giovana Manning MD COMP: 12/04/24 ENTERED: 12/04/[address]: Aron Chavez MD ORDERED: CMP Fast, Liver Panel, Lipid Panel Test Result Flag Reference Sodium 141 135-145 mmol/L Potassium 4.1 3.3-5.1 mmol/L CL 103 96-108 mmol/L CO2 30 H 22-29 mmol/L Gap 12 12-20 BUN 16 9-16 mg/dL Creat 0.73 0.5-1.4 mg/dL eGFR > 60 Chronic Kidney Disease: Estimated GFR < 60 mL/min/1.73m2 Severe Kidney Disease: Estimated GFR < 15 mL/min/1.73m2 FBS 82 60-99 mg/dL CA 10.6 H 8.4-10.2 mg/dL Total Bili 0.5 0.0-1.0 mg/dL Direct Bili 0.2 0.0-0.5 mg/dL AST (GOT) 28 5-31 U/L ALT (GPT) 16 0-31 U/L Protein, Total 7.4 6.5-8.0 g/dL Alb 4.5 3.5-5.0 g/dL Triglyceride 134 <150 mg/dL Desirable Triglyceride: less than 150 mg/dL Borderline High Triglyceride 150-199 mg/dL High Triglyceride: 200-499 mg/dL Very High Triglyceride: greater than or equal to 5OO mg/dL Cholesterol 263 H <200 mg/dL Desirable Cholesterol: less than 200 mg/dL Borderline High Cholesterol: 200-239 mg/dL High Cholesterol: greater than 239 mg/dL LDL Calculated 184 H <100 mg/dL Desirable LDL: less than 100 mg/dL Near Optimal/Above Optimal LDL: 110-129 mg/dL Borderline High LDL: 130-159 mg/dL High LDL: 160-189 mg/dL Very High LDL: greater than or equal to 190 mg/dL HDL 53 >40 mg/dL Desirable HDL: greater than 40 mg/dL Note: This HDL assay may give artificially low results in patients with liver disease. Alk Phos 120 H 39-117 U/L Name: Guadalupe Nguyen Age/Sex: 64/F : 1960 Unit#: [id number] Attend Dr: Aron Chavez MD Re12/04/24 Status: DEP [facility] Dis[facility]: SPEC : [id number] SIMA: 12/04/24 STATUS: COMP REQ : [id number] RECD: 12/04/[address]: Aron Chavez MD COMP: 12/04/24 ENTERED: 12/04/24-[address]: Giovana Manning MD ORDERED: PT INR Test Result Flag Reference PT* 11.9 10.9-12.4 SEC INR 1.0 0.9-1.1 INTERNATIONAL NORMALIZED RATIO (INR) REFERENCE RANGES Reference Range For patients not on anticoagulant therapy: 0.9 - 1.1 INR ranges for oral anticoagulant therapy: For prevention and treatment of venous thrombosis and pulmonary embolism: 2.0 - 3.0 For acute myocardial infarction with aspirin therapy: 2.0 - 3.0 For acute myocardial infarction without aspirin therapy: 3.0 - 4.0 For patients with mechanical prosthetic heart valves: 2.5 - 3.5 Coding Level of Care Code Est Pt Level 4 (56078) Complex EM visit Add On G2211 Diagnoses Preoperative examination Z01.818 Alcoholic cirrhosis of liver with ascites K70.31 Pure hypercholesterolemia E78.00 Hyperlipidemia type: pure hypercholesterolemia Age-related osteoporosis without current pathological fracture M81.0 Osteoporosis type: age-related Presence of current pathological fracture: without current pathological fracture Essential hypertension I10 CPT Codes EKG - CPT: 33109-Wfhcquzkzgsapbpzv, Complete ([id number]) Assessment & Plan Assessment & Plan (1) Preoperative examination: Code(s): Z01.818 - Encounter for other preprocedural examination Plan: 64-year-old lady with history of compensated alcoholic liver cirrhosis, hypertension, hyperlipidemia, osteoporosis, here today for preoperative exam for C3-4 ACDF to address her severe spinal cord compression seen on MRI imaging . Preoperative exam and labs showed unremarkable findings, except for elevated LDL cholesterol. EKG showed sinus bradycardia with no acute ST-T changes seen. No abnormal bleeding tendencies noted. Patient with a low cardiac risk index for proposed surgery (2) Alcoholic cirrhosis of liver with ascites: Code(s): K70.31 - Alcoholic cirrhosis of liver with ascites Category: Medical Plan: Patient has abstained from alcohol intake for the last several months now. Currently off transplant list at [facility] due to her low MELD score and compensated alcohol liver disease. Continue on spironolactone 100 mg daily in a.m. and Lasix 20 mg daily (3) Hyperlipidemia: Code(s): E78.5 - Hyperlipidemia, unspecified Category: Medical Qualifiers: Hyperlipidemia type: pure hypercholesterolemia Qualified Code(s): E78.00 - Pure hypercholesterolemia, unspecified Plan: Patient to restart back on atorvastatin 20 mg daily (4) Osteoporosis: Comment: (Severe osteoporosis - Bone Dexa Forearm T-score = -3.1 on 01/30/23) Code(s): M81.0 - Age-related osteoporosis without current pathological fracture Category: Medical Qualifiers: Osteoporosis type: age-related Presence of current pathological fracture: without current pathological fracture Qualified Code(s): M81.0 - Age-related osteoporosis without current pathological fracture Plan: Recheck bone density scan and advised to start taking okhl-ifn-xnfgjou vitamin D3 at 2000 units daily and adequate calcium from dietary sources, referral to endocrine clinic will be made after bone density scan test results are back (5) Essential hypertension: Code(s): I10 - Essential (primary) hypertension Category: Medical Plan: Blood pressure at goal of less than 130/80. Continue with Lasix, spironolactone and midodrine as per Nephrology recommendations. Reinforced importance of following a low sodium diet, getting regular exercise, on continued abstinence from alcohol and cigarette smoking Orders: Orders Lipid Panel 3 Months E78.00 - Pure hypercholesterolemia, unspecified Alanine Aminotransferase 3 Months E78.00 - Pure hypercholesterolemia, unspecified Influenza [id number] Immunization 12/16/24 Z23 - Encounter for immunization AMB EKG-In Office 12/16/24 Z01.818 - Encounter for other preprocedural examination, Z13.6 - Encounter for screening for cardiovascular disorders Aspartate Amino Transferase 3 Months E78.00 - Pure hypercholesterolemia, unspecified XR DEXA axial skeleton 12/16/24 M81.0 - Age-related osteoporosis without current pathological fracture Medications: New atorvastatin 20 mg PO DAILY 90 tabs 1RF Discontinued ferrous sulfate Discontinued Reason: Patient no longer taking 324 mg PO DAILY 90 days 90 tabs 0RF thiamine mononitrate (vit B1) (Vitamin B-1 (mononitrate)) Discontinued Reason: Patient no longer taking 100 mg PO DAILY 90 days 90 tabs 1RF
[2024-12-16 13:30] VITALS: BP 122/70; PULSE 68; RESP 16; TEMP 36.4; O2SAT 98; BMI 26.0
--- OUTSIDE RECORDS SUMMARY | 2024-12-16 16:07 | XMS_ITS | Clinical Summary ---
Author Organization [facility] it Address [address] [place] [address] Care Team Providers Care Cataloging Assistant Name Role Phone Ralph Blake MD Primary Care Provider [phone] Social History Tobacco Use Types Packs/Day Years [...] age to complete this topic Care Teams Cataloging Assistant Relationship Specialty Start Date End Date Ralph Blake MD [address] [id number] PCP - General 04/07/09
--- OUTSIDE RECORDS SUMMARY | 2024-12-16 16:07 | XMS_ITS | Clinical Summary ---
Author Organization [facility] Address [address] [place] [address] [place] [phone] Phone Care Team Providers Care Radio Antenna Installer Name Role Phone Giovana Manning MD Primary [...] Active ferrous sulfate 324 mg (65 mg duckwater iron) TbEC Take 324 mg by mouth [...] Type Department Care Team Description 09/29/2024 Telephone [facility] [address] [address] Hamida Whitaker RN 09/24/2024 Committee Review [facility] [address] [place] [address] Jocelyn Cruz RN from Last 3 Months [...] Info) Description 09/08/2025 10:00 AM EDT Telemedicine [facility] [address] [facility], 5th [place] [address] Ana Bearden, KNITTER OPERATOR [address] [address] [email or web address] Polly Penn MD [address] [facility]-5th [place] [address] [email or web address] Health Maintenance Due Date Last Done Comments [...] 2007 LUNG CANCER SCREENING (LDCT Only) 2012 RSV VACCINE (1 - Risk 50-74 years 1-dose series) 2012 ZOSTER VACCINES (1 of 2) 2012 INFLUENZA VACCINE (#1) 2024 12/14/2022 COVID-19 VACCINE ( - 2024-2 6 season) 2024 SMOKING Hx and SMOKELESS TOBACCO [...] EDT) SODIUM 142 135 - 145 mmol/L [facility] POTASSIUM 4.1 3.4 - 5.0 mmol/L [facility] CHLORIDE 101 98 - 108 mmol/L [facility] CO2 27 23 - 32 mmol/L [facility] BUN 10 8 - 25 mg/dL [facility] CREATININE 0.73 0.50 - 1.00 mg/dL [facility] GLUCOSE 80 70 - 110 mg/dL [facility] CALCIUM 10.1 8.5 - 10.5 mg/dL [facility] EGFR 93 >59 mL/min/1.7 3m2 [facility] Comment:Estimated glomerular filtration rate calculated using the CKD-EPI refit equation. ANION GAP 14 3 - 17 mmol/L [facility] 09/02/2024 12:3 8 PM EDT 09/02/2024 1:50 PM EDT us Ana Bearden KNITTER OPERATOR LAB BLOOD ORDERABLES F inal Result [facility] [address] [place] [address] * Hepatitis C antibody, qualitative (05/19/2024 10:40 AM EDT) HCV ANTIBODY Negative Negative [facility] Comment:Antibodies to HCV no t detected. Does not exclude the possibility of exposure to HCV. 05/19/2024 10:4 0 AM EDT 05/19/2024 12:06 PM EDT Tisha Ellison KNITTER OPERATOR LAB BLOOD ORDERABLES Final Result Performing Organization Address City/[facility] Co de Phone Number [address] [address] * Lipid panel (05/19/2024 10:40 AM EDT) HDL 65 35 - 100 mg/dL [facility] CHOLESTEROL 158 <200 mg/dL [facility] TRIGLYCERIDES 71 40 - 150 mg/dL [facility] LDL 79 50 - 129 mg/dL [facility] CARDIAC RISK RATIO 2.4 0.0 - 5.0 [facility] NON-HDL CHOLESTEROL 93 mg/dL [facility] Comment:Guidelines suggest a non-HDL cholesterol goal 30 mg/dL higher than the patient-specific LDL goal. 05/19/2024 10:4 0 AM EDT 05/19/2024 12:06 PM EDT Tisha Elaineslick KNITTER OPERATOR LAB BLOOD ORDERABLES Final Result Performing Organization Address City/[facility] Co de Phone Number [address] [address] from Last 3 Months or Most Recently Relevant to Health Maintenance Insurance STEPAN YANEZ A[employer]NA [employer] [facility] [employer] Advance Directives For more information, please contact: [phone] (9AM - 5PM [facility], Sunday-Sunday) Documents on File Type Date Recorded Patient Parking Station Attendant Expl anation Healthcare Proxy 05/30/2024 Care Teams Radio Antenna Installer Relationship Specialty Start Date End Date Giovana Manning MD [facility] [place] [address] PCP - General Internal Medicine 04/11/24 Additional Source Comments The information contained in this document represents components of the legal health record. It is not the complete legal health record.[facility]
== END 2024-12-16 14:48 | disposition home or self-care (01) ==
LOC: HO.HMCC 13:20
PROVIDERS: PCP Internal Medicine; Visit Provider Internal Medicine
DX: Z23 Encounter for immunization (principal)

== ENCOUNTER → 2024-12-16 13:20 | Outpatient (BNVA) | payer OTHER, SELFPAY | PROVIDERS: PCP Internal Medicine; Visit Provider Internal Medicine | DX: Z01.818 Encounter for other preprocedural examination (principal); M81.0 Age-related osteoporosis without current pathological fracture; K70.31 Alcoholic cirrhosis of liver with ascites; E78.00 Pure hypercholesterolemia, unspecified; I10 Essential (primary) hypertension; Z23 Encounter for immunization | CPT/HCPCS: 90471; 90656; 93005; 96127 ==

== ENCOUNTER 2025-01-01 05:52 | Day surgery (SDC) | payer OTHER, SELFPAY ==
--- OUTSIDE RECORDS SUMMARY | 2024-11-19 06:44 | XMS_ITS | Clinical Summary ---
Author Organization [facility] Address [address] [facility] [address] [place] [address] Phone Care Team Providers Care Barge Worker Name Role Phone Giovana Manning MD Primary [...] Active ferrous sulfate 324 mg (65 mg [place] iron) TbEC Take 324 mg by mouth [...] Type Department Care Team Description 09/29/2024 Telephone [facility] [address] [address] Hamida Whitaker RN 09/24/2024 Committee Review [facility] [address] [place] [address] Jocelyn Cruz RN 09/02/2024 12:28 PM EDT - 09/02/2024 11:59 PM EDT Hospital Encounter [facility] ACC5 [address] [place] [address] Ana Bearden CNP Discharge Disposition: Home or Self Care 09/02/2024 11:00 AM EDT Office Visit [facility] [address] [facility], 5th [place] [address] Ana Bearden CNP Bethea, Emily D, MD [...] Info) Description 09/08/2025 10:00 AM EDT Telemedicine [facility] [address] [place] [address], 5th [place] [address] Ana Bearden, EXECUTIVE ASSISTANT [address] [address] [email or web address] Polly Penn MD [address] [place], [place] [address] [place] [address] [email or web address] Health Maintenance Due Date Last Done Comments [...] - Risk 60-74 years 1-dose series) 2022 INFLUENZA VACCINE (#1) 2024 12/14/2022 COVID-19 VACCINE ( - 2023-2 5 season) 2024 SMOKING Hx and SMOKELESS TOBACCO SCREENING 05/22/2025 [...] (POPEth) by LC-MS/MS <10 Cutoff: 10 ng/mL [facility] Comment: (NOTE) Phosphatidylethanol [...] (PLPEth) by LC-MS/MS <10 Cutoff: 10 ng/mL [facility] Comment: (NOTE) PEth 16:0/18:2 (PLPEth) Reference ranges are not well established PEth Interpretation Negative. [facility] Comment: (NOTE) ADDITIONAL INFORMATION This report is intended for use in clinical monitoring and management of patients. It is not intended for use in employment-related testing. This test was developed and its performance characteristics determined by [facility] in a manner consistent with CLIA requirements. This test has not been cleared or approved by the U.S. Food and Drug Administration. 09/02/2024 12:3 8 PM EDT 09/02/2024 1:50 PM EDT Ana Bearden [facility] LAB BLOOD ORDERABLES F inal Result [facility] MED/[facility] [address] [place] [address] * (ABNORMAL) LFTs (hepatic panel) (09/02/2024 12:38 PM EDT) ALBUMIN 4.2 3.3 - 5.0 g/dL [facility] TOTAL BILIRUBIN 0.6 0.0 - 1.0 mg/dL [facility] DIRECT BILIRUBIN 0.2 0.0 - 0.3 mg/dL [facility] ALKALINE PHOSPHATASE 134(H) 30 - 100 U/L [facility] AST 33(H) 9 - 32 U/L [facility] ALT 20 7 - 33 U/L [facility] TOTAL PROTEIN 7.5 6.0 - 8.3 g/dL [facility] GLOBULIN 3.3 1.9 - 4.1 g/dL [facility] 09/02/2024 12:3 8 PM EDT 09/02/2024 1:50 PM EDT Ana Bearden [facility] LAB BLOOD ORDERABLES F inal Result Performing Organization Address City/[facility]/ZIP Co de Phone Number [address] [address] * PT-INR (09/02/2024 12:38 PM EDT) PT 12.6 10.0 - 13.0 sec [facility] INR 1.1 0.9 - 1.1 [facility] 09/02/2024 12:3 8 PM EDT 09/02/2024 1:58 PM EDT Ana Bearden [facility] LAB BLOOD ORDERABLES F inal Result Performing Organization Address City/[facility] Co de Phone Number [address] [address] * (ABNORMAL) CBC (09/02/2024 12:38 PM EDT) WBC 6.65 4.00 - 11.00 K/uL [facility] RBC 4.26 4.00 - 5.20 M/uL [facility] HGB 12.1 12.0 - 16.0 g/dL [facility] HCT 38.6 36.0 - 46.0 % [facility] PLT 242 150 - 450 K/uL [facility] MCV 90.6 80.0 - 100.0 fL [facility] MCH 28.4 27.0 - 31.0 pg [facility] MCHC 31.3(L) 32.0 - 36.0 g/dL [facility] RDW 14.6(H) 11.5 - 14.5 % [facility] MPV 9.9 8.4 - 12.0 fL [facility] NRBC 0.00 0.00 /100 WBCs [facility] ABSOLUTE NRBC 0.00 0.00 K/uL [facility] 09/02/2024 12:3 8 PM EDT 09/02/2024 1:50 PM EDT Ana Bearden [facility] LAB BLOOD ORDERABLES F inal Result Performing Organization Address [facility]/ZIP Co de Phone Number [address] [address] * Basic metabolic panel (09/02/2024 12:38 PM EDT) SODIUM 142 135 - 145 mmol/L [facility] POTASSIUM 4.1 3.4 - 5.0 mmol/L [facility] CHLORIDE 101 98 - 108 mmol/L [facility] CO2 27 23 - 32 mmol/L [facility] BUN 10 8 - 25 mg/dL [facility] CREATININE 0.73 0.50 - 1.00 mg/dL [facility] GLUCOSE 80 70 - 110 mg/dL [facility] CALCIUM 10.1 8.5 - 10.5 mg/dL [facility] EGFR 93 >59 mL/min/1.7 3m2 [facility] Comment:Estimated glomerular filtration rate calculated using the CKD-EPI refit equation. ANION GAP 14 3 - 17 mmol/L [facility] 09/02/2024 12:3 8 PM EDT 09/02/2024 1:50 PM EDT Ana Bearden [facility] LAB BLOOD ORDERABLES F inal Result Performing Organization Address [facility]/ZIP Co de Phone Number [address] [address] * Hepatitis C antibody, qualitative (05/19/2024 10:40 AM EDT) HCV ANTIBODY Negative Negative [facility] Comment:Antibodies to HCV no t detected. Does not exclude the possibility of exposure to HCV. 05/19/2024 10:4 0 AM EDT 05/19/2024 12:06 PM EDT us Tisha Tracey Argentinaslick EXECUTIVE ASSISTANT LAB BLOOD ORDERABLES Final Result [address] [address] * Lipid panel (05/19/2024 10:40 AM EDT) HDL 65 35 - 100 mg/dL [facility] CHOLESTEROL 158 <200 mg/dL [facility] TRIGLYCERIDES 71 40 - 150 mg/dL [facility] LDL 79 50 - 129 mg/dL [facility] CARDIAC RISK RATIO 2.4 0.0 - 5.0 [facility] NON-HDL CHOLESTEROL 93 mg/dL [facility] Comment:Guidelines suggest a non-HDL cholesterol goal 30 mg/dL higher than the patient-specific LDL goal. 05/19/2024 10:4 0 AM EDT 05/19/2024 12:06 PM EDT Tisha Ellison EXECUTIVE ASSISTANT LAB BLOOD ORDERABLES Final Result Performing Organization Address City/[facility] Co de Phone Number [address] [address] from Last 3 Months or Most Recently Relevant to Health Maintenance Insurance [facility] AETNA [place] AETNA [place] AETNA [place] AETNA [facility] A[facility] [place] Advance Directives For more information, please contact: [phone] (9AM - 5PM Emily/[facility], Sunday-Sunday) Documents on File Type Date Recorded Patient Market Relationship Manager Expl anation Healthcare Proxy 05/30/2024 Care Teams Barge Worker Relationship Specialty Start Date End Date Giovana Manning MD [facility] [place] [address] PCP - General Internal Medicine 04/11/24 Additional Source Comments The information contained in this document represents components of the legal health record. It is not the complete legal health record.[facility]
--- OUTSIDE RECORDS SUMMARY | 2024-11-19 06:44 | XMS_ITS | Clinical Summary ---
Author Organization [facility] it Address [address] [place] [address] Care Team Providers Care Nautical Instrument Mechanic Name Role Phone Ralph Blake MD Primary Care Provider Social History Tobacco Use Types Packs/Day Years [...] 02/01/2022 Social Influencers of Health Screening 02/01/2022 Depression Screening 03/05/2024 COVID-19 Vaccine ( - 2023-2 5 season) 2024 Influenza Vaccine (#1) 2024 RSV Immunization Adult [...] age to complete this topic Care Teams Nautical Instrument Mechanic Relationship Specialty Start Date End Date Ralph Blake MD [address] [place] [phone] PCP - General 04/07/09
[2024-12-25 10:29] VITALS: BP 114/59; PULSE 60; RESP 16; O2SAT 99; BMI 23.0
--- NOTE | 2024-12-25 10:32 | HO.ANESPROP2 ---
Documented by User: Janette Lemus NP 12/25/24 10:57 HPI - Anesthesia Eval Consult details Narrative: 64yo F for C3-4 Ant Cerv Discectomy w/ fusion, 01/01/25. No recent illness No CP/SOB with a lot of walking Medically optimized by PCP GI optimized - follows [facility] for cirrhosis - OK for pt to proceed with surgery since pt has compensated cirrhosis with MELD 3.0 score of 7 Follows [facility] [place] for STACIA likely tubular injury from renal hypoperfusion- resolved. Stable at 11/2024 office visit Cirrhosis: no ascites at PAT eval. Last abd US 07/2024 without ascites. No varices on EGD 08/2024 ETOH: None x 1 year Smoker: None x 1 Hypotension (r/t liver disease): midodrine Wed and Sun PMFSH Active Problems Active Problems: All Active Problems History of colon polyps (Acute) Cervical radiculopathy (Acute) Alcoholic cirrhosis of liver with ascites (Acute) Hyperbilirubinemia (Acute) Former heavy cigarette smoker (20-39 per day) (Acute) History of anemia (Acute) Osteoporosis (Acute) Lumbar stenosis with neurogenic claudication (Acute) Hyperlipidemia (Acute) Essential hypertension (Acute) Past Medical History Medical History (Updated 01/01/25 @ 06:26 by Loida Arzola, RN) History of abdominal paracentesis Back pain Arthritis GERD (gastroesophageal reflux disease) Cirrhosis Scoliosis Numbness Elevated cholesterol HTN (hypertension) Former heavy cigarette smoker (20-39 per day) History of alcohol use disorder History of anemia Back pain with history of spinal surgery Osteoporosis Nicotine dependence, cigarettes, uncomplicated Hx of scoliosis Lumbar stenosis with neurogenic claudication History of right tennis elbow Degenerative disc disease, cervical Lumbar spine scoliosis Hx of fracture of wrist Hyperlipidemia Essential hypertension Family History Family History Brother Substance use disorder Prostate cancer Daughter Substance use disorder Sister Substance use disorder Maternal Grandmother Diabetes mellitus Mother Alcoholism COPD (chronic obstructive pulmonary disease) Father Alcoholism COPD (chronic obstructive pulmonary disease) Family history of problems with anesthesia: No Surgical History Surgical History Hx of elbow surgery History of surgery on right wrist Hx of cervical spine surgery History of back surgery History of esophagogastroduodenoscopy (EGD) Hx of section Hx of tubal ligation History of carpal tunnel surgery of right wrist History of carpal tunnel surgery of left wrist History of rotator cuff surgery History of colonoscopy with polypectomy History of Problems with Anesthesia: No Social History Social History Household Members: Spouse and Other Household Members Other:: granchildren Housing: House Are you a primary senior care manager to a significant other at home: No Do you presently have visiting nurse or other home services: No Alcohol intake: former Patient Tobacco Use Status: Former Tobacco user Tobacco use type: Cigarette Cigarette Packs Per Day: 1 Cigarettes Per Day: 4 Years Smoked: 45 e-Cigarette/Vaping Use: Never Used Second Hand Smoke Exposure: No Use of substances other than those prescribed or required for medical reasons: Yes Substance Use Type Other:: edibles Substance Use Frequency: Daily Have you been hit, kicked, punched, or otherwise hurt by someone within the past year? If so, by whom?: No Advance Directives: No Advance Directives Information Provided: Yes Advance Directives on File: No Patient : No : No Poor oral hygiene: Yes service: No Current occupational status: disabled Cognitive needs: No Hearing needs: No Vision needs: Yes Meds Allergies Allergy/AdvReac Type Severity Reaction Status Date / Time No Known Allergies Allergy Verified 01/01/25 06:07 Home Medications ?Medication ?Instructions ?Recorded ?Confirmed ?Last Taken ?Type omeprazole 20 mg tablet,delayed 20 mg PO DAILY@0630 PRN Heartburn 12/31/23 12/25/24 Unknown History release midodrine 10 mg tablet 10 mg PO 2XW 08/29/24 12/25/24 Unknown History lactulose 20 gram/30 mL oral 20 g PO BID PRN Constipation 12/25/24 12/25/24 Unknown History solution thiamine HCl (vitamin B1) 100 mg 100 mg PO DAILY 12/25/24 12/25/24 Unknown History tablet (Vitamin B-1) Exam Height,Weight and Vital Signs: Height 5 ft Weight 53.524 kg BMI result Body Mass Index 23.0 Vital Signs Pulse Rate 60 12/25/24 10:29 Respiratory Rate 16 12/25/24 10:29 Blood Pressure 114/59 L 12/25/24 10:29 Pulse Oximetry 99 12/25/24 10:29 Oxygen Delivery Method Room Air 12/25/24 10:29 Pertinent Lab Results Pertinent Lab Results: Laboratory Tests 12/04/24 12:26 WBC 6.9 Hgb 12.1 Hct 38.6 Plt Count 249 PT 11.9 INR 1.0 Sodium 141 Potassium 4.1 Chloride 103 Carbon Dioxide 30 H Anion Gap 12 BUN 16 Creatinine 0.73 Ferritin 78 Total Bilirubin 0.5 Direct Bilirubin 0.2 AST 28 ALT 16 Alkaline Phosphatase 120 H Total Protein 7.4 Albumin 4.5 Triglycerides 134 Narrative Narrative: EKG 12/2024 SB @ 56 Airway Mallampati Class: II TM Dist: >3cm Neck ROM: Limited Loose/Missing/Broken Teeth: Yes (Missing throughout. Denies loose or broken) Heart: RRR Lungs: CTAB Assessment and Plan Assessment Anesthesia Assessment: Anesthesia Plan Discussed and PAT Visit Final Anesthetic Review Family History of Problems with Anesthesia: No History of Problems with Anesthesia: No Documented by User: Mahsa Walker MD 01/01/25 07:05 [facility] Past Medical History Medical History (Updated 01/01/25 @ 06:26 by Loida Arzola, RN) History of abdominal paracentesis Back pain Arthritis GERD (gastroesophageal reflux disease) Cirrhosis Scoliosis Numbness Elevated cholesterol HTN (hypertension) Former heavy cigarette smoker (20-39 per day) History of alcohol use disorder History of anemia Back pain with history of spinal surgery Osteoporosis Nicotine dependence, cigarettes, uncomplicated Hx of scoliosis Lumbar stenosis with neurogenic claudication History of right tennis elbow Degenerative disc disease, cervical Lumbar spine scoliosis Hx of fracture of wrist Hyperlipidemia Essential hypertension Family History Family History Brother Substance use disorder Prostate cancer Daughter Substance use disorder Sister Substance use disorder Maternal Grandmother Diabetes mellitus Mother Alcoholism COPD (chronic obstructive pulmonary disease) Father Alcoholism COPD (chronic obstructive pulmonary disease) Surgical History Surgical History Hx of elbow surgery History of surgery on right wrist Hx of cervical spine surgery History of back surgery History of esophagogastroduodenoscopy (EGD) Hx of section Hx of tubal ligation History of carpal tunnel surgery of right wrist History of carpal tunnel surgery of left wrist History of rotator cuff surgery History of colonoscopy with polypectomy Social History Social History Household Members: Spouse and Other Household Members Other:: granchildren Housing: House Are you a primary senior care manager to a significant other at home: No Do you presently have visiting nurse or other home services: No Alcohol intake: former Patient Tobacco Use Status: Former Tobacco user Tobacco use type: Cigarette Cigarette Packs Per Day: 1 Cigarettes Per Day: 4 Years Smoked: 45 e-Cigarette/Vaping Use: Never Used Second Hand Smoke Exposure: No Use of substances other than those prescribed or required for medical reasons: Yes Substance Use Type Other:: edibles Substance Use Frequency: Daily Have you been hit, kicked, punched, or otherwise hurt by someone within the past year? If so, by whom?: No Advance Directives: No Advance Directives Information Provided: Yes Advance Directives on File: No Patient : No : No Poor oral hygiene: Yes service: No Current occupational status: disabled Cognitive needs: No Hearing needs: No Vision needs: Yes Meds Allergies Allergy/AdvReac Type Severity Reaction Status Date / Time No Known Allergies Allergy Verified 01/01/25 06:07 Home Medications ?Medication ?Instructions ?Recorded ?Confirmed ?Last Taken ?Type omeprazole 20 mg tablet,delayed 20 mg PO DAILY@0630 PRN Heartburn 12/31/23 12/25/24 Unknown History release midodrine 10 mg tablet 10 mg PO 2XW 08/29/24 12/25/24 Unknown History lactulose 20 gram/30 mL oral 20 g PO BID PRN Constipation 12/25/24 12/25/24 Unknown History solution thiamine HCl (vitamin B1) 100 mg 100 mg PO DAILY 12/25/24 12/25/24 Unknown History tablet (Vitamin B-1) Exam Airway Mallampati Class: II (missing a couple teeth) Neck ROM: Limited (b/L UE pain/parathesias left>rt) Assessment and Plan Final Anesthetic Review NPO: Yes ASA Class: III Final Preanesthetic Review: No Changes in Pt Med Stat, Meds/Allgs Chart Reviewed and Consent Obtained/Reviewed Patient Risk: Intermediate Procedure Risk: Intermediate Anesthetic Plan Anesthetic Plan: GA Disposition: Standard PACU
--- NOTE | 2024-12-30 15:27 | P.DS_ITS ---
DS: Providers Provider Date of Service: 01/01/25 Date of discharge: 01/01/25 Primary care physician: Giovana Manning MD Admitting clinician: Claudy Jenkins DS: Diagnosis Discharge Diagnosis (1) Cervical radiculopathy: Status: Acute DS: Summary Time Attestation Discharge Coordination Time (in mins): 6 Quality: Safe Use of Opioids Does Pt have an Active Cancer Diagnosis on the Problem List?: No Quality: Stroke Does the patient have a stroke diagnosis?: No Physical Exam Vital Signs: Vital Signs: Last Vital Signs Pulse 60 12/25/24 10:29 Resp 16 12/25/24 10:29 BP 114/59 L 12/25/24 10:29 Pulse Ox 99 12/25/24 10:29 O2 Del Method Room Air 12/25/24 10:29 BMI result Body Mass Index 23.0 DS: Data Data Completed and Pending Completed studies during hospitalization [Text1]: Procedures Drainage of Peritoneal Cavity, Percutaneous Approach (12/30/23) Insertion of Infusion Device into Upper Vein, Percutaneous Approach (11/28/23) Discharge Plan Discharge Patient Disposition: Home, Self-Care Referrals: Giovana Manning MD [Primary Care Provider, Internal Medicine] - 1 Week Discharge Medications: New oxycodone 5 mg tablet 5 mg PO Q4H PRN (Reason: pain) Qty: 20 0RF Rx Instructions: Partial Fill upon patient request. docusate sodium [Colace] 100 mg capsule 100 mg PO BID Qty: 20 0RF Continued furosemide [Lasix] 20 mg tablet 20 mg PO QAM 90 Days Qty: 90 1RF spironolactone 100 mg tablet 100 mg PO QAM Qty: 90 3RF omeprazole 20 mg Tablet,Delayed Release (Dr/Ec) 20 mg PO DAILY@0630 PRN (Reason: Heartburn) midodrine 10 mg tablet 10 mg PO 2XW thiamine HCl (vitamin B1) [Vitamin B-1] 100 mg Tablet 100 mg PO DAILY lactulose 20 gram/30 mL solution 20 g PO BID PRN (Reason: Constipation) (DME) shower seat See Rx Instructions .Route .MEDSUPPLY Qty: 1 0RF Rx Instructions: As directed folic acid 800 mcg tablet 0.8 mg PO DAILY Qty: 90 1RF Orazinc 25 mg zinc (110 mg) tablet 25 mg PO DAILY 90 Days Qty: 90 1RF atorvastatin 20 mg tablet 20 mg PO DAILY Qty: 90 1RF Discharge Orders: Discharge Order (Routine); Ordered 01/01/25 Ordered By: Victor Manuel Neff Diet: Advance to usual diet Activity on Discharge: As tolerated Activity Restrictions/Additional Instructions: After your spinal surgery we ask you to observe the following restrictions/guidelines: Activity: It is normal to feel some discomfort as you increase your activity, but that will improve with time. We ask you avoid heavy lifting or acitivities that cause pain. As a general rule, 8lbs is a safe limit for lifting right after surgery. Walk as much as you feel comfortable but not to exhaustion. You will feel extra tired the first few days after surgery. Stay well hydrated. It is OK to walk up and down stairs You may return to driving when you are off narcotics (such as vicodin, oxycodone, dilaudid, etc), and you are back to normal functional capacity. If you have any concerns please check with office before driving. Return to work is specific to each patient and each surgery, so please speak with your doctor/PA at first follow up. Please bring paperwork such as FMLA at that time if you need it filled out. Medications: For optimum pain control, it is best to start with a combination of 500 mg of Tylenol every 4 hours with 600 mg of Motrin every 8 hours, and use narcotics as needed in between for breakthrough pain. We will give you a short supply of narcotics after surgery (usually one weeks worth). If you need more please call the office but do not use more than prescribed. You will need to give our office 48 hours notice if you need narcotics refilled and we do not fill narcotics on weekends or evenings. If you are on a narcotic, it is a good idea to take a stool softener such as colace or senna to avoid constipation If you take blood thinner such as aspirin, Plavix, Coumadin, Effient, Eliquis etc for conditions such as Afib, DVT, Pulmonary embolus, coronary disease, stents etc please speak with your surgeon about specific details as to when you can resume these medications. Follow up: Please call the office, , after surgery to arrange a 3 week follow up for wound check. Wound Care: You may remove your dressing on the first day after surgery. ?You may ?leave open to air. Please do not remove the steri strips underneath. they will fall off on their own in one week. IT IS NORMAL FOR THE WOUND TO OOZE OR BE BLOODY FOR A FEW DAYS AFTER SURGERY. ?IF THIS HAPPENS JUST PLACE NEW DRESSING OVER IT TO AVOID STAINING CLOTHES. You may shower on post op day # 1 We ask that you do not let the water soak the wound. If it does get wet, just towel dry lightly. Please do not scrub your incision or place any type of chemical/ointment on the wound. No tub baths, pools or jacuzzis for one month. If you have any leaking or redness from your wound, or fevers, please call office Print Language: Mongolian
[2025-01-01] VITALS (9 sets, daily range): BP systolic 114–169; BP diastolic 53–96; PULSE 63–90; RESP 16–18; TEMP 36.3–36.7; O2SAT 94–100; BMI 22.6
--- NOTE | ~2025-01-01 | FL_ITS ---
EXAMINATION: FL GUIDANCE ONLY HISTORY: C3-4 ACDF COMPARISON: Correlation is made with a CT of the cervical spine dated 08/01/2024. TECHNIQUE: Fluoroscopy time: 4.4 seconds. Cumulative Dose: 0.4086 mGy. DAP: 0.1172 Gycm2 Images: 2. FINDINGS: Fluoroscopic spot films of the cervical spine again demonstrate anterior fusion of C5-6 with plate and screws. An intervertebral spacer is again seen at the C4-5 level. There is new anterior cervical disc fusion at C3-4. FL/FL guidance in OR IMPRESSION: Fluoroscopy during procedure. Please see procedure report for additional information. Electronically signed by: Andrea Dumont MD 01/01/2025 08:58 AM EDT
[2025-01-01] MEDS: Lactated Ringers 1,000 ML 100 ML IVCONT (06:18)
--- NOTE | 2025-01-01 07:04 | MHC.SHP ---
Pre-Procedural Eval Section A - 24 Hr Update-Section A only Date of Service: 01/01/25 The patient is an INPATIENT: No Changes since office visit: No Cold of Flu in the past 2 weeks, No New Medical Problems, No Changes in Medication and No Patient answered all questions The patient has been examined within 24 hours of the surgical procedure. The History & Physical has been completed within 30 days and I have reviewed it.: No Section B - Complete if H&P > 30 days Chief Complaint: Radiculopathy, cervical region Allergies: Allergies Allergy/AdvReac Type Severity Reaction Status Date / Time No Known Allergies Allergy Verified 01/01/25 06:07 Review of Systems Sugical H&P ROS: Negative: Constitution, Cardiovascular, Respiratory, Neurological, Psychiatric, Hem-Onc, Allergic/Immunologic, Gastrointestinal, Genitourinary, Musculoskeletal, Integumentary, Endocrine and Eyes/Ears/Nose/Throat Exam Surgical H&P Exam: Normal: HEENT, Normal: Heart, Normal: Lungs, Normal: Extremities, Normal: Abdomen, Normal: Skin and Normal: Neurological (awake, alert,oriented x 3 ) Plan Diagnosis/Plan: Unchanged C3-4 anterior cervical diskectomy and fusion Time Spent With Patient Time: Total time managing care of this patient today __5__ minutes.
--- NOTE | 2025-01-01 08:49 | P.OP_ITS ---
Operative Note Operative Note Date of Service: 01/01/25 Narrative: Preoperative Diagnosis: Cervical myelopathy with spinal cord compression Procedure: C3-C4 Anterior discectomy, arthrodesis and implantation cage ; C3-C4 anterior instrumentation ; local autograft; microscope Informed Consent was obtained for this operation. I have explained the nature, purpose and benefits of the operation. I have discussed the risks and benefit of the operation including possible complications or adverse events with patient/family. Alternative(s) were discussed with the patient with their relative benefits and risks as well as the consequences of not accepting the operation were included in obtaining consent. Surgeon: SHE RODRIGUEZ MD, PHD Procedure Assisted By: ford Gambino Description of Procedure: This patient had a previous C4-5 and C5-6 anterior diskectomy and fusion another institution. She presented with signs of cervical myelopathy. Imaging reviews adjacent degenerative disc disease with severe spinal cord compression at C3-C4. The patient was offered an anterior diskectomy and fusion. The procedure complications were explained. The patient was consented. The patient was brought to the operating room and endotracheally intubated. The patient was put in supine position with slight extension of the neck. Prep and drape was done followed by timeout. A mid cervical incision was made followed by opening of the platysma. The prevertebral fascia was reached following the natural planes while the physician boilermaker's assistant provided manual retraction. The prevertebral fascia was opened to expose the disc space. A spinal needle was placed in the disk space to confirm the correct level with xray. The longus colli muscles were released bilaterally and a self retaining retractor was inserted. Two [place] pins were placed in the C3-C4 vertebral bodies and distraction was give over the interspace. The discectomy was completed toward the posterior annulus of the disc. The microscope was brought in. The remainder of the discectomy was completed. The posterior ligament was opened and resected to expose the underlying dura. Large oOsteophytes were resected from the body of C3 and C4 to decompress the spinal cord and saved for autograft. Severe spinal cord co mpression was found and relieved. Bilateral foraminotomies were done. The endplates were prepared after which a 6 mm cage filled with autograft was inserted into the disc space. A separate attached plate was locked down with 2 x 14 mm screws as anterior instrumentation. Final x-rays in AP and lateral projection showed a satisfactory position of the implant. The physician boilermaker's assistant took over. The [place] pin was removed. Hemostasis was done. He closed the incision in 2 layers with a 3-0 Vicryl. Steri-Strips used to approximate incision. An OpSite with Tegaderm was used to cover the incision. All sponge and needle counts were correct. Patient was extubated and transported in stable is to recovery room. Anesthesia: General Estimated Blood Loss (ml): 35 Duration of Surgery: 45 minutes Postoperative Plan: Discharge home Complications: None
[2025-01-01] MEDS: oxyCODONE HCl Immed Release 5 MG TABLET PO (09:30)
== END 2025-01-01 11:05 | disposition home or self-care (01) ==
LOC: HO.SSS 05:52
PROVIDERS: PCP Internal Medicine; Visit Provider Neurological Surgery
PROC: (CPT 22551; principal; 2025-01-01 07:30)
DX: M50.01 Cervical disc disorder with myelopathy, high cervical region (principal); M54.12 Radiculopathy, cervical region; M50.31 Other cervical disc degeneration, high cervical region; M81.0 Age-related osteoporosis without current pathological fracture; K70.30 Alcoholic cirrhosis of liver without ascites; E78.00 Pure hypercholesterolemia, unspecified; F10.21 Alcohol dependence, in remission; Z79.899 Other long term (current) drug therapy; Z87.81 Personal history of (healed) traumatic fracture; Z87.891 Personal history of nicotine dependence; Z98.890 Other specified postprocedural states
CPT/HCPCS: 22551; 22853; 20936; 22845; C1713; J0131; J0690; J1100; J2003; J2405; J2704; J3010

== ENCOUNTER → 2025-01-01 05:52 | Outpatient (BNV) | payer OTHER, SELFPAY | PROVIDERS: PCP Internal Medicine; Visit Provider Neurological Surgery | DX: M54.12 Radiculopathy, cervical region (principal) | CPT/HCPCS: 20936; 22551; 22845; 22853; 99499 ==

== ENCOUNTER 2025-01-14 10:03 | Outpatient (AMB) | payer OTHER, SELFPAY ==
--- NOTE | 2025-01-14 10:02 | A.OFFVIS_ITS ---
<Statement entered by Aye Agarwal RN - 01/14/25 10:51> Guadalupe presented for an intake from an inappropriate referral to the [facility]. Guadalupe reported that through the process of trying to obtain a handicap placard for her vehicle, her PCP had submitted an incorrect diagnosis instead of arthritis or pain for a condition that caused a suspension of her drivers license and is now requiring a psychiatric evaluation in order to re-instate her license. Guadalupe reports that the correct paperwork had been filed by her PCP but the DMV is still requiring the eval and trying to enroll her in some sort of multimedia assistant class due to the incorrect submission. Guadalupe reported that she has not had any alcohol or tobacco in over a year and never had an driving offense related to any substance use. Vital Signs 01/14/25 10:06 Height 4 ft 8 in Weight 53.524 kg BMI 26.5 Pulse 91 Pulse Source Pulse Oximeter Pulse Oximetry (%) 99 Oxygen Delivery Method Room Air Intake Visit Reasons: MAT Intake Allergies No Known Allergies Allergy (Verified 01/14/25 10:07) [facility] Medical History (Updated 01/01/25 @ 06:26 by Loida Arzola RN) History of abdominal paracentesis Back pain Arthritis GERD (gastroesophageal reflux disease) Cirrhosis Scoliosis Numbness Elevated cholesterol HTN (hypertension) Former heavy cigarette smoker (20-39 per day) History of alcohol use disorder History of anemia Back pain with history of spinal surgery Osteoporosis Nicotine dependence, cigarettes, uncomplicated Hx of scoliosis Lumbar stenosis with neurogenic claudication History of right tennis elbow Degenerative disc disease, cervical Lumbar spine scoliosis Hx of fracture of wrist Hyperlipidemia Essential hypertension Surgical History Hx of elbow surgery History of surgery on right wrist Hx of cervical spine surgery History of back surgery History of esophagogastroduodenoscopy (EGD) Hx of section Hx of tubal ligation History of carpal tunnel surgery of right wrist History of carpal tunnel surgery of left wrist History of rotator cuff surgery History of colonoscopy with polypectomy Family History Brother Substance use disorder Prostate cancer Daughter Substance use disorder Sister Substance use disorder Maternal Grandmother Diabetes mellitus Mother Alcoholism COPD (chronic obstructive pulmonary disease) Father Alcoholism COPD (chronic obstructive pulmonary disease) Social History Household Members: Spouse and Other Household Members Other:: granchildren Housing: House Are you a primary overnight caregiver to a significant other at home: No Do you presently have visiting nurse or other home services: No Alcohol intake: former Patient Tobacco Use Status: Former Tobacco user Tobacco use type: Cigarette Cigarette Packs Per Day: 1 Cigarettes Per Day: 4 Years Smoked: 45 e-Cigarette/Vaping Use: Never Used Second Hand Smoke Exposure: No service: No Current occupational status: disabled Cognitive needs: No Hearing needs: No Vision needs: Yes Female Reproductive History Menstrual Age of Menarche: 16 Physical Exam Vital Signs: Last Vital Signs Pulse 91 01/14/25 10:06 Pulse Ox 99 01/14/25 10:06 Oxygen Delivery Method Room Air 01/14/25 10:06 BMI result Body Mass Index 26.5 Results AMB 14 Panel Urine Drug Screen Urine Marijuana (THC) Positive Last Edit by Jack Leblanc CMA on 01/14/25 10:35 Urine Cocaine Negative Last Edit by Jack Leblanc CMA on 01/14/25 10:35 Urine Morphine Negative Last Edit by Jack Leblanc CMA on 5 10:35 Urine Methamphetamine Negative Last Edit by Jack Leblanc CMA on 01/14/25 10:35 Urine Amphetamine Negative Last Edit by Jack Leblanc CMA on 01/14/25 10:35 Urine Benzodiazepine Negative Last Edit by Jack Leblanc CMA on 01/14/25 10:35 Urine Barbiturates Negative Last Edit by Jack Leblnac CMA on 01/14/25 10:35 Urine Methadone Positive Last Edit by Jack Leblanc CMA on 10:35 Urine Buprenorphine Negative Last Edit by Jack Leblanc CMA on 01/14/25 10:35 Urine Tricyclic Antidepressant Negative Last Edit by Jack Leblanc CMA on 01/14/25 10:35 Urine MDMA Negative Last Edit by Jack eLblanc CMA on 01/14/25 10 :35 Urine Oxycodone Positive Last Edit by Jack Leblanc CMA on 10:35 Urine Phencyclidine Negative Last Edit by Jack Leblanc CMA on 01/14/25 10:35 Urine Propoxyphene Negative Last Edit by Jack Leblanc CMA on 01/14/25 10:35 Results Reviewed Results Reviewed: Laboratory Last Values POC Urine Buprenorphine Negative 01/14/25 10:29 POC Urine Morphine Negative 01/14/25 10:29 POC Urine Oxycodone Positive 01/14/25 10:29 POC Urine Methadone Positive 01/14/25 10:29 POC Urine Propoxyphene Negative 01/14/25 10:29 POC Urine Barbiturates Negative 01/14/25 10:29 POC U Tricyclic Antidpr Negative 01/14/25 10:29 POC Urine PCP Negative 01/14/25 10:29 POC Ur Amphetamines Negative 01/14/25 10:29 POC Ur Methamphetamine Negative 01/14/25 10:29 POC Urine MDMA Negative 01/14/25 10:29 POC Ur Benzodiazepine Negative 01/14/25 10:29 POC Urine Cocaine Negative 01/14/25 10:29 POC Ur Marijuana (THC) Positive 01/14/25 10:29 Assessment & Plan Assessment & Plan Orders: Orders AMB 14 Panel Urine Drug Screen Today Z51.81 - Encounter for therapeutic drug level monitoring Coding
[2025-01-14 10:06] VITALS: PULSE 91; O2SAT 99; BMI 26.5
--- OUTSIDE RECORDS SUMMARY | 2025-01-14 11:46 | XMS_ITS | Clinical Summary ---
Author Organization [facility] Address [facility] [address] [place] [id number] Phone Care Team Providers Care Shot Fireman Name Role Phone Giovana Manning MD Primary [...] Active ferrous sulfate 324 mg (65 mg hoh iron) TbEC Take 324 mg by mouth [...] Active Active Problems No known active problems Family History Medical History Relation Comments Prostate [...] Info) Description 09/08/2025 10:00 AM EDT Telemedicine [facility] [address] [place] [address] Ana Bearden, SPORTS ANCHOR [address] [place] [address] Polly Penn MD [address] [place] [address] [place] [address] [email or web address] Health Maintenance Due Date Last Done Comments [...] INFLUENZA VACCINE (#1) 2024 12/14/2022 COVID-19 VACCINE (1 - 2024-2 6 season) 2024 SMOKING Hx and SMOKELESS TOBACCO SCREENING 05/22/2025 05/22/2024 POTASSIUM LEVEL 09/02/2025 09/02/2024, 05/19/2024 LIPID PANEL 05/19/2029 05/19/2024 HEPATITIS C SCREENING Completed 05/19/2024 , 05/19/2024, 05/19/2024 HIV ONE-TIME SCREENING (18-6 5 YEARS) Completed 05/19/2024 HIB VACCINES Aged Out No longer eligi ble based on patient's age to complete this topic IPV VACCINES Aged Out No longer eligi ble [...] Date/Time Associated Diagnosis Comments BASIC METABOLIC PANEL (BMP) Routine 09/02/2024 12:38 PM EDT Decompensated hepatic [...] EDT) SODIUM 142 135 - 145 mmol/L [facility] POTASSIUM 4.1 3.4 - 5.0 mmol/L [facility] CHLORIDE 101 98 - 108 mmol/L [facility] CO2 27 23 - 32 mmol/L [facility] BUN 10 8 - 25 mg/dL [facility] CREATININE 0.73 0.50 - 1.00 mg/dL [facility] GLUCOSE 80 70 - 110 mg/dL [facility] CALCIUM 10.1 8.5 - 10.5 mg/dL [facility] EGFR 93 >59 mL/min/1.7 3m2 [facility] Comment:Estimated glomerular filtration rate calculated using the CKD-EPI refit equation. ANION GAP 14 3 - 17 mmol/L [facility] 09/02/2024 12:3 8 PM EDT 09/02/2024 1:50 PM EDT us Ana Bearden SPORTS ANCHOR LAB BLOOD BKR ORDERABL ES Final Result [address] [address] * Hepatitis C antibody, qualitative (05/19/2024 10:40 AM EDT) HCV ANTIBODY Negative Negative [facility] Comment:Antibodies to HCV no t detected. Does not exclude the possibility of exposure to HCV. 05/19/2024 10:4 0 AM EDT 05/19/2024 12:06 PM EDT us Tisha Ellison SPORTS ANCHOR LAB BLOOD BKR ORDERABLES F inal Result [address] [address] * Lipid panel (05/19/2024 10:40 AM EDT) HDL 65 35 - 100 mg/dL [facility] CHOLESTEROL 158 <200 mg/dL [facility] TRIGLYCERIDES 71 40 - 150 mg/dL [facility] LDL 79 50 - 129 mg/dL [facility] CARDIAC RISK RATIO 2.4 0.0 - 5.0 [facility] NON-HDL CHOLESTEROL 93 mg/dL [facility] Comment:Guidelines suggest a non-HDL cholesterol goal 30 mg/dL higher than the patient-specific LDL goal. 05/19/2024 10:4 0 AM EDT 05/19/2024 12:06 PM EDT Tisha Tracey Terra SPORTS ANCHOR LAB BLOOD BKR ORDERABLES F inal Result Performing Organization Address City/[facility] Co de Phone Number [address] [address] from Last 3 Months or Most Recently Relevant to Health Maintenance Insurance [facility] [employer] [place] [employer] [place] [employer] [place] [facility] Advance Directives For more information, please contact: [phone] (9AM - 5PM Emily/[facility], Sunday-Sunday) Documents on File Type Date Recorded Patient Direct Response Consultant Expl anation Healthcare Proxy 05/30/2024 Care Teams Shot Fireman Relationship Specialty Start Date End Date Giovana Manning MD [facility] [place] [address] PCP - General Internal Medicine 04/11/24 Additional Source Comments The information contained in this document represents components of the legal health record. It is not the complete legal health record.[facility]
--- OUTSIDE RECORDS SUMMARY | 2025-01-14 11:46 | XMS_ITS | Clinical Summary ---
Author Organization [facility] it Address [address] [place] [address] Care Team Providers Care Commissioner Of Internal Revenue Name Role Phone Ralph Blake MD Primary Care Provider [phone] Social History Tobacco Use Types Packs/Day Years [...] Depression Screening 03/05/2024 COVID-19 Vaccine ( - 2024-2 6 season) 2024 Influenza Vaccine (#1) 2024 RSV [...] age to complete this topic Care Teams Commissioner Of Internal Revenue Relationship Specialty Start Date End Date Ralph Blake MD [address] [id number] PCP - General 04/07/09
--- NOTE | 2025-01-14 11:48 | AM.OFFVISNUR ---
Vital Signs 01/14/25 10:06 Height 4 ft 8 in Weight 118 lb BMI 26.5 Pulse 91 Pulse Source Pulse Oximeter Pulse Oximetry (%) 99 Oxygen Delivery Method Room Air Intake Visit Reasons: MAT Intake Allergies No Known Allergies Allergy (Verified 01/14/25 10:07) Results AMB 14 Panel Urine Drug Screen Urine Marijuana (THC) Positive Last Edit by Jack Leblanc, WOLF on 01/14/25 10:35 Urine Cocaine Negative Last Edit by Jack Leblanc, WOLF on 01/14/25 10:35 Urine Morphine Negative Last Edit by Jack Leblanc, TOOL CHECKER on 01/14/25 10:35 Urine Methamphetamine Negative Last Edit by Jack Leblanc, WOLF on 01/14/25 10:35 Urine Amphetamine Negative Last Edit by Jack Leblanc, WOLF on 01/14/25 10:35 Urine Benzodiazepine Negative Last Edit by Jack Leblanc, WOLF on 01/14/25 10:35 Urine Barbiturates Negative Last Edit by Jack Leblanc, WOLF on 01/14/25 10:35 Urine Methadone Positive Last Edit by Jack Leblanc, TOOL CHECKER on 01/14/25 10:35 Urine Buprenorphine Negative Last Edit by Jack Leblanc, TOOL CHECKER on 01/14/25 10:35 Urine Tricyclic Antidepressant Negative Last Edit by Jack Leblanc, WOLF on 01/14/25 10:35 Urine MDMA Negative Last Edit by Jack Leblanc, WOLF on 01/14/25 10:35 Urine Oxycodone Positive Last Edit by Jack Leblanc, WOLF on 01/14/25 10:35 Urine Phencyclidine Negative Last Edit by Jack Leblanc, WOLF on 01/14/25 10:35 Urine Propoxyphene Negative Last Edit by Jack Leblanc, TOOL CHECKER on 01/14/25 10:35 Assessment & Plan Assessment & Plan Orders: Orders AMB 14 Panel Urine Drug Screen Today Z51.81 - Encounter for therapeutic drug level monitoring Coding
--- NOTE | 2025-01-14 13:12 | AM.OFFVISNUR ---
Vital Signs 01/14/25 10:06 Height 4 ft 8 in Weight 53.524 kg BMI 26.5 Pulse 91 Pulse Source Pulse Oximeter Pulse Oximetry (%) 99 Oxygen Delivery Method Room Air Intake Visit Reasons: MAT Intake Allergies No Known Allergies Allergy (Verified 01/14/25 10:07) Nursing Note Guadalupe presented today for a MAT intake at the [facility] from a referral from another provider; the referral was inappropriate due to Guadalupe not needing any assistance with medications for substance use disorder. Guadalupe reported that her PCP had submitted an incorrect diagnosis on paperwork to the [facility] when requesting a handicap placard; apparently the information was corrected however this caused her drivers license to be suspended resulting in 2 hearings through the [facility] and psychiatric eval that they are requiring for her to have her license reinstated in addition to suggesting she enroll in full day classes. 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 Results AMB 14 Panel Urine Drug Screen Urine Marijuana (THC) Positive Last Edit by Jack Leblanc CMA on 01/14/25 10:35 Urine Cocaine Negative Last Edit by Jack Leblanc CMA on 01/14/25 10:35 Urine Morphine Negative Last Edit by Jack Leblanc CMA on 01/14/25 10:35 Urine Methamphetamine Negative Last Edit by Jack Leblanc CMA on 01/14/25 10:35 Urine Amphetamine Negative Last Edit by Jack Leblanc CMA on 01/14/25 10:35 Urine Benzodiazepine Negative Last Edit by Jack Leblanc CMA on 01/14/25 10:35 Urine Barbiturates Negative Last Edit by Jack Leblanc CMA on 01/14/25 10:35 Urine Methadone Positive Last Edit by Jack Leblanc CMA on 01/14/25 10:35 Urine Buprenorphine Negative Last Edit by Jack Leblanc CMA on 01/14/25 10:35 Urine Tricyclic Antidepressant Negative Last Edit by Jack Leblanc CMA on 01/14/25 10:35 Urine MDMA Negative Last Edit by Jack Leblanc CMA on 01/14/25 10:35 Urine Oxycodone Positive Last Edit by Jack Leblanc CMA on 01/14/25 10:35 Urine Phencyclidine Negative Last Edit by Jack Leblanc CMA on 01/14/25 10:35 Urine Propoxyphene Negative Last Edit by Jack Leblanc CMA on 01/14/25 10:35 Assessment & Plan Assessment & Plan Orders: Orders AMB 14 Panel Urine Drug Screen Today Z51.81 - Encounter for therapeutic drug level monitoring Coding
== END 2025-01-14 10:42 | disposition home or self-care (01) ==
PROVIDERS: PCP Internal Medicine; Visit Provider Clinical Nurse Specialist Psychiatric/Mental Health
DX: Z51.81 Encounter for therapeutic drug level monitoring (principal)

== ENCOUNTER → 2025-01-14 10:03 | Outpatient (BNVA) | payer OTHER, SELFPAY | PROVIDERS: PCP Internal Medicine; Visit Provider Clinical Nurse Specialist Psychiatric/Mental Health | DX: Z51.81 Encounter for therapeutic drug level monitoring (principal) | CPT/HCPCS: 80307 ==

== ENCOUNTER 2025-01-22 10:25 | Outpatient (AMB) | payer OTHER, SELFPAY ==
--- NOTE | 2025-01-22 10:33 | HO.SPINEOV ---
Intake Visit Reasons: 1st post op Intake Note: Ms. Nguyen is here today for her 1st post op. Form Grader Required: No Allergies No Known Allergies Allergy (Verified 01/14/25 10:07) Assessment & Plan Assessment & Plan (1) S/P cervical spinal fusion: Code(s): Z98.1 - Arthrodesis status Category: Medical Plan Guadalupe is a pleasant 64-year-old female who comes in today for her 1st postoperative visit after having a C3-[address] Jenkins. To recap she underwent surgery due to severe spinal cord compression and cervical myelopathy. She reports that overall she feels significantly better than she did prior to surgery. She had a very severe left arm pain which has completely resolved. She still has some tingling in her left fingers, but overall reports this also has improved. She does still have quite a bit of posterior neck pain, and states that she is still needed the oxycodone medication that we have prescribed for her. She requests an additional refill today. No new neurological deficits. The patient ambulates well and rises from a seated position without difficulty. She uses no assistive devices to ambulate. Her anterior incision site is closed and well healing. I would like to follow up with the patient again in 6 weeks for her 2nd postop visit with a set of x-rays. I will send in 1 final refill for her which I have tapered down to only twice daily. Ideally this will be a good way to have her complete this medication regimen without incident. She may utilize [id number] medications which we discussed once this prescription is complete. Genaro Jenkins MD,PhD [facility] Medications: Changed From oxycodone Partial Fill upon patient request. 5 mg PO Q6H PRN 20 tabs 0RF pain To oxycodone Partial Fill upon patient request. 5 mg PO BID PRN 20 tabs 0RF pain Coding Level of Care Code Global (32529) Diagnoses S/P cervical spinal fusion Z98.1
== END 2025-01-22 11:10 | disposition home or self-care (01) ==
LOC: HO.HNS 10:26
PROVIDERS: PCP Internal Medicine; Visit Provider Physician Assistant
DX: Z98.1 Arthrodesis status (principal)
CPT/HCPCS: 99024

== ENCOUNTER 2025-02-06 09:29 | Outpatient (REF) | payer OTHER, SELFPAY ==
--- NOTE | ~2025-02-06 | US_ITS ---
CLINICAL HISTORY: K70.31 - Alcoholic cirrhosis of liver with ascites --- Additional Notes or Special Instructions: Cirrhosis - screen for HCC FU of ascites US abdomen limited Comparison: None provided Findings: The visualized pancreatic head, aorta, and inferior vena cava are unremarkable. The liver is normal in size, right lobe length is 13.4 cm. Normal in echogenicity, mildly coarsened echotexture, no hepatic lesion is seen. No bile duct dilatation. Common duct 6 mm diameter. Probable small sludge in the gallbladder, no shadowing stone, no gallbladder wall thickening, Negative sonographic Bose sign. Main portal vein shows antegrade flow. Right kidney is not well seen, grossly unremarkable, 9.0 cm in length. No free fluid in the right upper quadrant of the abdomen. Impression: 1. Coarsened echotexture of liver parenchyma, likely related to known parenchymal liver disease, no hepatic mass is seen. 2. Probable small gallbladder sludge, no acute inflammation. This document has been electronically signed by: Rochelle Bellamy MD on 02/06/2025 15:57:37
== END 2025-02-06 09:30 | disposition home or self-care (01) ==
LOC: HO.US 09:29
PROVIDERS: PCP Internal Medicine; Visit Provider Internal Medicine Gastroenterology
DX: K70.31 Alcoholic cirrhosis of liver with ascites (principal)
CPT/HCPCS: 76705

== ENCOUNTER → 2025-02-06 09:31 | Outpatient (BNV) | payer OTHER, SELFPAY | PROVIDERS: PCP Internal Medicine; Visit Provider Radiology Diagnostic Radiology | DX: K70.31 Alcoholic cirrhosis of liver with ascites (principal) | CPT/HCPCS: 76705 ==